=== PATIENT | male | born 1965 | race Caucasian/White ===

== ENCOUNTER 2020-08-21 10:56 | Emergency (ER) | payer MEDICARE ==
[2020-08-21 11:33] LABS: Basophils % (A) 1 %; Eosinophils % (A) 0 %; HCT 42.8 % (39.0-53.0); HGB 14.7 gm/dL (13.0-17.5); Lymphocytes # (A) 0.4 k/uL (1.0-4.8); Lymphocytes % (A) 9 %; MCH 30.1 pg (25.0-35.0); MCHC 34.4 g/dL (31.0-37.0); MCV 87.4 fL (80.0-100.0); Mean Platelet Volume 7.6; Monocytes # (A) 0.3 k/uL (0-1.0); Monocytes % (A) 7 %; Neutrophils # (A) 3.6 k/uL (1.3-7.7); Neutrophils % (A) 81 %; Platelet Count 120 k/uL (150-450); RDW 12.8 % (11.5-15.5); WBC 4.5 k/uL (3.8-10.6)
[2020-08-21 11:51] LABS: D-Dimer 0.55 mg/L FEU (<0.60); INR 0.9 (<1.2); Prothrombin Time 10.1 sec (9.0-12.0)
[2020-08-21 11:54] LABS: ALT 24 U/L (4-49); C Reactive Protein 44.8 mg/L (<10.0)
--- NOTE | 2020-08-21 12:06 | XR ---
EXAMINATION TYPE: XR chest 1V portable DATE OF EXAM: 08/21/2020 COMPARISON: NONE HISTORY: [id number]+ 1 day TECHNIQUE: Single AP portable frontal upright view of the chest is obtained. FINDINGS: There is multifocal increased opacities in the mid to lower lungs right slightly worse roshan n left on background low lung volumes. The cardiac silhouette size is mildly enlarged. The osseous structures are intact. IMPRESSION: Mild cardiomegaly and low lung volumes with multifocal bilateral acute infiltrates sligh tly worse in the right lung versus left lung consistent with Covid-19 infection.
[2020-08-21 12:23] LABS: AST 33 U/L (17-59); African American GFR (CKD) >90 (>60 ml/min/1.73 sqM); Albumin 3.7 g/dL (3.5-5.0); Alkaline Phosphatase 51 U/L (38-126); Anion Gap 7 mmol/L; Blood Urea Nitrogen 17 mg/dL (9-20); Calcium 8.4 mg/dL (8.4-10.2); Carbon Dioxide 28 mmol/L (22-30); Chloride 102 mmol/L (98-107); Glucose 115 mg/dL (74-99); LDH 671 U/L (313-618); Magnesium 1.7 mg/dL (1.6-2.3); Non-African American GFR(CKD) 82 (>60 ml/min/1.73 sqM); Sodium 137 mmol/L (137-145); Total Bilirubin 0.6 mg/dL (0.2-1.3); Total Protein 6.2 g/dL (6.3-8.2)
[2020-08-21] MEDS ORDERED: ACETAMINOPHEN TAB 325 MG TAB PO STA (12:47)
--- NOTE | 2020-08-21 12:49 | ED ---
SOB HPI - General Chief Complaint: Shortness of Breath Stated Complaint: COVID+/SOB Time Seen by Provider: 08/21/20 11:15 Source: EMS Mode of arrival: EMS Limitations: no limitations - History of Present Illness Initial Comments: A 55-year-old male with past medical history of asthma who presents to the emergency department with reported shortness of breath and fevers since Friday of last week. Patient reportedly had sick contacts that were positive for Covid including his son. Patient did go into [facility] on Friday for evaluation. States that he did test positive on that day. He was supposed to be admitted for his symptoms however the patient refused and wanted to go home. He was sent home with an inhaler which she has been using sporadically. 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 Denies any chest pain. No lower trauma swelling. No history of DVT or PE. Does admit to nausea with diarrhea. No abdominal pain. Has been taking Motrin and Tylenol for his fevers. Patient has never been on life support for his asthma. No other alleviating, precipitating or modifying factors - Related Data Home Medications Medication Instructions Recorded Confirmed Alfuzosin HCl [Alfuzosin HCl ER] 10 mg PO DAILY 08/21/20 08/21/20 Ascorbic Acid [Vitamin C] 500 mg PO DAILY 08/21/20 08/21/20 Cetirizine HCl [Zyrtec] 10 mg PO DAILY 08/21/20 08/21/20 Cholecalciferol [Vitamin D3 (25 25 mcg PO DAILY 08/21/20 08/21/20 Mcg = 1000 Iu)] Doxycycline Hyclate 100 mg PO BID 08/21/20 08/21/20 Omeprazole [PriLOSEC] 20 mg PO DAILY 08/21/20 08/21/20 Rosuvastatin [Crestor] 10 mg PO DAILY 08/21/20 08/21/20 methylPREDNISolone [Medrol Dose See Taper PO DIRECTED 08/21/20 08/21/20 Pack] Allergies Allergy/AdvReac Type Severity Reaction Status Date / Time mold Allergy Wheezing Verified 08/21/20 11:05 Penicillins Allergy Rash/Hives Verified 08/21/20 11:05 Review of Systems ROS Statement: Those systems with pertinent positive or pertinent negative responses have been documented in the HPI. ROS Other: All systems not noted in ROS Statement are negative. Past Medical History Past Medical History: Asthma History of Any Multi-Drug Resistant Organisms: None Reported Past Surgical History: Back Surgery, Hernia Repair, Orthopedic Surgery Past Psychological History: No Psychological Hx Reported Smoking Status: Never smoker Past Alcohol Use History: None Reported, Occasional Past Drug Use History: None Reported General Exam Limitations: no limitations Course Vital Signs 08/21/20 08/21/20 08/21/20 11:00 11:35 12:41 Temperature 99.9 F H 100.7 F H Pulse Rate 75 76 77 Respiratory 18 20 22 Rate Blood Pressure 126/81 151/90 O2 Sat by Pulse 96 92 L 88 L Oximetry 08/21/20 08/21/20 14:13 15:44 Temperature 98.5 F Pulse Rate 73 67 Respiratory 20 20 Rate Blood Pressure 124/71 129/71 O2 Sat by Pulse 93 L 91 L Oximetry Medical Decision Making - Medical Decision Making On arrival patient is placed into room 2. A thorough history and physical exam was performed. Patient does arise and is on 4 L via nasal cannula. Titrate the patient off of oxygen. Laboratory studies are conducted and a chest x-rays performed. D-dimer of 0.55 which is appropriately age-adjusted. Elevated LDH and C-reactive protein. Chest x-ray does demonstrate bilateral infiltrates slightly worse in the right lung versus the left consistent with Covid 19. Patient is able to get up and ambulate around the emergency department. He maintains oxygen saturations of 90%. I did discuss treatment with BAM with the patient. Does agree to the risks of receiving treatment. Patient did agree to infusion with monoclonal antibodies. He is observed in the emergency department for one hour and does not have any signs of anaphylactic reaction. At this time the patient will be discharged home to continue to use his inhaler as directed. He is to follow-up with his primary care doctor within 2-4 days. If he has any new or worsening symptoms he should return to the emergency department. Patient did agree to this treatment plan and was discharged home in stable condition - Lab Data Result diagrams: 08/21/20 11:22 08/21/20 11:22 Lab Results 08/21/20 08/21/20 08/21/20 Range/Units 11:22 11:22 11:22 WBC 4.5 (3.8-10.6) k/uL RBC 4.90 (4.30-5.90) m/uL Hgb 14.7 (13.0-17.5) gm/dL Hct 42.8 (39.0-53.0) % MCV 87.4 (80.0-100.0) fL MCH 30.1 (25.0-35.0) pg MCHC 34.4 (31.0-37.0) g/dL RDW 12.8 (11.5-15.5) % Plt Count 120 L (150-450) k/uL MPV 7.6 Neutrophils % 81 % Lymphocytes % 9 % Monocytes % 7 % Eosinophils % 0 % Basophils % 1 % Neutrophils # 3.6 (1.3-7.7) k/uL Lymphocytes # 0.4 L (1.0-4.8) k/uL Monocytes # 0.3 (0-1.0) k/uL Eosinophils # 0.0 (0-0.7) k/uL Basophils # 0.0 (0-0.2) k/uL PT 10.1 (9.0-12.0) sec INR 0.9 (<1.2) APTT 25.0 (22.0-30.0) sec D-Dimer 0.55 (<0.60) mg/L FEU Sodium 137 (137-145) mmol/L Potassium 4.0 (3.5-5.1) mmol/L Chloride 102 (98-107) mmol/L Carbon Dioxide 28 (22-30) mmol/L Anion Gap 7 mmol/L BUN 17 (9-20) mg/dL Creatinine 1.02 (0.66-1.25) mg/dL Est GFR (CKD-EPI)AfAm >90 (>60 ml/min/1.73 sqM) Est GFR (CKD-EPI)NonAf 82 (>60 ml/min/1.73 sqM) Glucose 115 H (74-99) mg/dL Plasma Lactic Acid Silvestre (0.7-2.0) mmol/L Calcium 8.4 (8.4-10.2) mg/dL Magnesium 1.7 (1.6-2.3) mg/dL Total Bilirubin 0.6 (0.2-1.3) mg/dL AST 33 (17-59) U/L ALT 24 (4-49) U/L Alkaline Phosphatase 51 (38-126) U/L Lactate Dehydrogenase 671 H (313-618) U/L C-Reactive Protein 44.8 H (<10.0) mg/L Total Protein 6.2 L (6.3-8.2) g/dL Albumin 3.7 (3.5-5.0) g/dL 08/21/20 Range/Units 11:22 WBC (3.8-10.6) k/uL RBC (4.30-5.90) m/uL Hgb (13.0-17.5) gm/dL Hct (39.0-53.0) % MCV (80.0-100.0) fL MCH (25.0-35.0) pg MCHC (31.0-37.0) g/dL RDW (11.5-15.5) % Plt Count (150-450) k/uL MPV Neutrophils % % Lymphocytes % % Monocytes % % Eosinophils % % Basophils % % Neutrophils # (1.3-7.7) k/uL Lymphocytes # (1.0-4.8) k/uL Monocytes # (0-1.0) k/uL Eosinophils # (0-0.7) k/uL Basophils # (0-0.2) k/uL PT (9.0-12.0) sec INR (<1.2) APTT (22.0-30.0) sec D-Dimer (<0.60) mg/L FEU Sodium (137-145) mmol/L Potassium (3.5-5.1) mmol/L Chloride (98-107) mmol/L Carbon Dioxide (22-30) mmol/L Anion Gap mmol/L BUN (9-20) mg/dL Creatinine (0.66-1.25) mg/dL Est GFR (CKD-EPI)AfAm (>60 ml/min/1.73 sqM) Est GFR (CKD-EPI)NonAf (>60 ml/min/1.73 sqM) Glucose (74-99) mg/dL Plasma Lactic Acid Silvestre 1.0 (0.7-2.0) mmol/L Calcium (8.4-10.2) mg/dL Magnesium (1.6-2.3) mg/dL Total Bilirubin (0.2-1.3) mg/dL AST (17-59) U/L ALT (4-49) U/L Alkaline Phosphatase (38-126) U/L Lactate Dehydrogenase (313-618) U/L C-Reactive Protein (<10.0) mg/L Total Protein (6.3-8.2) g/dL Albumin (3.5-5.0) g/dL - EKG Data EKG Comments: EKG demonstrates normal sinus rhythm with a ventricular rate of 72. MS interval 146. QRS 88. QTC of 400. No acute ST segment elevations or depressions Disposition Clinical Impression: COVID-19 Disposition: HOME SELF-CARE Condition: Stable Instructions (If sedation given, give patient instructions): Coronavirus Disease 2019 (COVID-19) Additional Instructions: Please follow-up with your primary care doctor within 2-4 days. Return to the emergency department for any new or worsening symptoms. use your inhaler every 4 hours. Take Tylenol for fever control. Return to the emergency department for any new or worsening symptoms Is patient prescribed a controlled substance at d/c from ED?: No Referrals: Victorino Webb DO [Primary Care Provider] - 1-2 days Time of Disposition: 13:25
[2020-08-21] MEDS ORDERED: ONDANSETRON 4 MG/2 ML VIAL IVP STA (12:55)
[2020-08-21] MEDS ORDERED: KETOROLAC 15 MG/ML 1 ML VIAL IVP STA (13:24)
[2020-08-21] MEDS ORDERED: ONDANSETRON 4 MG ODT STARTER PACK 2 TAB BTL PO STA (13:25)
[2020-08-21] MEDS ORDERED: BAMLANIVIMAB 700 MG in SODIUM CHLORIDE 0.9% 50 ML IVPB ONE ×2 (13:45→14:15)
[2020-08-21 14:15] VITALS: RESP 20
[2020-08-21 15:46] VITALS: BP 129/71; PULSE 67; TEMP 98.5
== END 2020-08-21 15:46 | disposition home or self-care (01) ==
LOC: EC 10:56
DX: U07.1 COVID-19 (principal); J45.909 Unspecified asthma, uncomplicated
CPT/HCPCS: 36415; 93005; 85379; 80053; 83605; 83615; 83735; 85025; 85610; 85730; 86140; 84145; 71045; 99284; 96365; 96375; J2405; J1885; S0119; Q0239

== ENCOUNTER 2020-08-23 16:07 | Inpatient (IN) | payer MEDICARE ==
[2020-08-23] MEDS ORDERED: DEXAMETHASONE SOD PHOSPHATE 10 MG/ML 1 ML VIAL IV STA (17:01)
[2020-08-23 17:20] LABS: Basophils % (A) 1 %; Eosinophils % (A) 1 %; HCT 42.7 % (39.0-53.0); HGB 14.7 gm/dL (13.0-17.5); Lymphocytes # (A) 0.8 k/uL (1.0-4.8); Lymphocytes % (A) 14 %; MCHC 34.4 g/dL (31.0-37.0); MCV 87.2 fL (80.0-100.0); Mean Platelet Volume 7.3; Monocytes # (A) 0.3 k/uL (0-1.0); Monocytes % (A) 5 %; Neutrophils # (A) 4.5 k/uL (1.3-7.7); Neutrophils % (A) 79 %; Platelet Count 166 k/uL (150-450); RDW 12.8 % (11.5-15.5); WBC 5.7 k/uL (3.8-10.6)
[2020-08-23 17:29] LABS: AST 43 U/L (17-59); African American GFR (CKD) >90 (>60 ml/min/1.73 sqM); Albumin 3.6 g/dL (3.5-5.0); Alkaline Phosphatase 53 U/L (38-126); Anion Gap 8 mmol/L; Blood Urea Nitrogen 20 mg/dL (9-20); Calcium 9.1 mg/dL (8.4-10.2); Carbon Dioxide 24 mmol/L (22-30); Chloride 107 mmol/L (98-107); Glucose 128 mg/dL (74-99); LDH 1069 U/L (313-618); Magnesium 1.9 mg/dL (1.6-2.3); Non-African American GFR(CKD) 84 (>60 ml/min/1.73 sqM); Potassium 3.9 mmol/L (3.5-5.1); Sodium 139 mmol/L (137-145); Total Bilirubin 0.5 mg/dL (0.2-1.3); Total Protein 6.2 g/dL (6.3-8.2)
[2020-08-23 17:34] LABS: ALT 24 U/L (4-49); C Reactive Protein 86.2 mg/L (<10.0)
[2020-08-23 17:35] LABS: INR 0.9 (<1.2); Partial Thromboplastin Time 23.9 sec (22.0-30.0); Prothrombin Time 9.9 sec (9.0-12.0)
--- NOTE | 2020-08-23 17:47 | XR ---
EXAMINATION TYPE: XR chest 1V portable DATE OF EXAM: 08/23/2020 COMPARISON: 08/21/2020 HISTORY: Short of breath TECHNIQUE: Single view FINDINGS: There is coarse infiltrate in the mid lung self bilaterally. There is airspace infiltrate . There is no heart failure. Heart size is normal. There is no pleural effusion. There are chest lead s. IMPRESSION: Bilateral pneumonia is increased slightly compared to recent exam. No heart failure.
--- NOTE | 2020-08-23 18:39 | ED ---
General Adult HPI - General Source: patient Mode of arrival: wheelchair Limitations: no limitations <Ambar Castle - Last Filed: 08/23/20 19:13> <Tamara Morales - Last Filed: 08/30/20 16:19> - General Chief complaint: Shortness of Breath Stated complaint: Revisit/COVID+/SOB Time Seen by Provider: 08/23/20 16:45 - History of Present Illness Initial comments: 55-year-old male patient presents to the emergency department today for evaluation of increased shortness of breath and decreased oxygen saturation. Aisha benavides was diagnosed with coated almost 2 weeks ago. He has completed prednisone and doxycycline. He was seen and evaluated here recently and had infusion of Bamlanivimab. States overall he does feel somewhat improved however his oxygen saturations has been decreasing into the 70s with activity. States he feels very winded whenever he attempts to even walk across the room. Reports frequent cough. Denies sputum production. Denies any chest pain. Patient denies any recent rash, abdominal pain, nausea, vomiting, diarrhea, constipation, back pain, numbness, tingling, dizziness, weakness, hematuria, dysuria, urinary urgency, urinary frequency, headache, visual changes, or any other complaints. (Ambar Castle) - Related Data Home Medications Medication Instructions Recorded Confirmed Alfuzosin HCl [Alfuzosin HCl ER] 10 mg PO DAILY 08/21/20 08/23/20 Ascorbic Acid [Vitamin C] 500 mg PO DAILY 08/21/20 08/23/20 Cetirizine HCl [Zyrtec] 10 mg PO DAILY 08/21/20 08/23/20 Cholecalciferol [Vitamin D3 (25 25 mcg PO DAILY 08/21/20 08/23/20 Mcg = 1000 Iu)] Doxycycline Hyclate 100 mg PO BID 08/21/20 08/23/20 Omeprazole [PriLOSEC] 20 mg PO DAILY 08/21/20 08/23/20 Rosuvastatin [Crestor] 10 mg PO DAILY 08/21/20 08/23/20 Allergies Allergy/AdvReac Type Severity Reaction Status Date / Time mold Allergy Wheezing Verified 08/23/20 18:22 Penicillins Allergy Rash/Hives Verified 08/23/20 18:22 Review of Systems ROS Other: All systems not noted in ROS Statement are negative. <Ambar Castle - Last Filed: 08/23/20 19:13> ROS Other: All systems not noted in ROS Statement are negative. <Tamara Morales Josette - Last Filed: 08/30/20 16:19> ROS Statement: Those systems with pertinent positive or pertinent negative responses have been documented in the HPI. Past Medical History Past Medical History: Asthma Additional Past Medical History / Comment(s): covid 19, History of Any Multi-Drug Resistant Organisms: None Reported Past Surgical History: Back Surgery, Hernia Repair, Orthopedic Surgery Past Psychological History: No Psychological Hx Reported Smoking Status: Never smoker Past Alcohol Use History: None Reported, Occasional Past Drug Use History: None Reported <CorrineShantanuAmbar Francnie - Last Filed: 08/23/20 19:13> General Exam Limitations: no limitations General appearance: alert, in no apparent distress, other (Physical well- developed, well-nourished adult male patient in no acute distress. Vital signs upon presentation are temperature 99.1F, pulse 89, respirations 22, blood pressure 111/65, pulse ox 87% on room air.) Eye exam: Present: normal appearance, PERRL, EOMI. Absent: scleral icterus, conjunctival injection, periorbital swelling ENT exam: Present: normal exam, normal oropharynx, mucous membranes moist Respiratory exam: Present: respiratory distress, other (Tachypnea). Absent: wheezes, rales, rhonchi, stridor Cardiovascular Exam: Present: regular rate, normal rhythm, normal heart sounds. Absent: systolic murmur, diastolic murmur, rubs, gallop, clicks GI/Abdominal exam: Present: soft, normal bowel sounds. Absent: distended, tenderness, guarding, rebound, rigid Neurological exam: Present: alert, oriented X3, CN II-XII intact Psychiatric exam: Present: normal affect, normal mood Skin exam: Present: warm, dry, intact, normal color. Absent: rash <TaraShantanu yehina Francine - Last Filed: 08/23/20 19:13> Course Vital Signs 08/23/20 08/23/20 08/23/20 16:26 16:35 17:00 Temperature 99.1 F Pulse Rate 89 72 Pulse Rate [ Pulse Oximetery ] Respiratory 22 18 Rate Blood Pressure 111/65 110/72 Blood Pressure [Left Arm] O2 Sat by Pulse 87 L 91 L 91 L Oximetry 08/23/20 08/23/20 08/23/20 17:20 17:30 18:00 Temperature Pulse Rate 80 76 Pulse Rate [ Pulse Oximetery ] Respiratory 20 18 16 Rate Blood Pressure 118/86 118/86 Blood Pressure [Left Arm] O2 Sat by Pulse 93 L 90 L Oximetry 08/23/20 08/23/20 08/24/20 18:56 20:12 00:00 Temperature 99.6 F 98.7 F 98.7 F Pulse Rate 71 85 Pulse Rate [ 71 71 Pulse Oximetery ] Respiratory 18 18 18 Rate Blood Pressure 118/71 115/58 Blood Pressure 131/78 131/78 [Left Arm] O2 Sat by Pulse 91 L 94 L 94 L Oximetry 08/24/20 00:04 Temperature 98.4 F Pulse Rate 84 Pulse Rate [ Pulse Oximetery ] Respiratory 18 Rate Blood Pressure 137/77 Blood Pressure [Left Arm] O2 Sat by Pulse 94 L Oximetry EKG Findings - EKG Comments: EKG Findings:: EKG obtained at 1754 shows normal sinus rhythm with a ventricular rate of 70, DE interval 156, QRS duration 88, QT 380, QTc 410. No evidence of ST elevation or depression. <Ambar Castle - Last Filed: 08/23/20 19:13> Medical Decision Making - Lab Data Result diagrams: 08/23/20 17:10 08/23/20 17:10 - Radiology Data Radiology results: report reviewed, image reviewed <Ambar Castle - Last Filed: 08/23/20 19:13> - Lab Data Result diagrams: 08/30/20 05:54 08/30/20 05:54 <Tamara Morales - Last Filed: 08/30/20 16:19> - Medical Decision Making 55-year-old male patient presented to the emergency department today for evaluation of increased shortness of breath and low oxygen saturation. He is Covid positive. Lung sounds were unremarkable. He did drop down to 85% on room air. Labs reviewed and did reveal elevated d-dimer, elevated LDH, elevated CRP. These are slightly worsened last labs from a few days ago. Chest x-ray does also look slightly worse. He will be started on IV steroids. He did receive monoclonal antibodies a couple of days ago. Admitted to the hospital for O2 therapy and further evaluation by pulmonology. He is agreeable with this plan. Case discussed with my attending Dr. Morales who will contact [facility] for admission. (Ambar Castle) I was available for consultation in the emergency department. The history and physical exam were done by the midlevel provider. I was consulted for this patients care. I reviewed the case with the midlevel provider and based on their presentation of the patient, I agree with the assessment, medical decision making and plan of care as documented. Chart was dictated using [employer] dictation software. Attempts were made to correct any dictation errors however some typographical errors may persist. Patient was seen during a national state of emergency due to the Covid-19 pandemic. (Tamara Morales) - Lab Data Lab Results 08/23/20 08/23/20 08/23/20 Range/Units 17:10 17:10 17:10 WBC 5.7 (3.8-10.6) k/uL RBC 4.90 (4.30-5.90) m/uL Hgb 14.7 (13.0-17.5) gm/dL Hct 42.7 (39.0-53.0) % MCV 87.2 (80.0-100.0) fL MCH 30.0 (25.0-35.0) pg MCHC 34.4 (31.0-37.0) g/dL RDW 12.8 (11.5-15.5) % Plt Count 166 (150-450) k/uL MPV 7.3 Neutrophils % 79 % Lymphocytes % 14 % Monocytes % 5 % Eosinophils % 1 % Basophils % 1 % Neutrophils # 4.5 (1.3-7.7) k/uL Lymphocytes # 0.8 L (1.0-4.8) k/uL Monocytes # 0.3 (0-1.0) k/uL Eosinophils # 0.0 (0-0.7) k/uL Basophils # 0.0 (0-0.2) k/uL PT 9.9 (9.0-12.0) sec INR 0.9 (<1.2) APTT 23.9 (22.0-30.0) sec D-Dimer 0.89 H (<0.60) mg/L FEU Sodium 139 (137-145) mmol/L Potassium 3.9 (3.5-5.1) mmol/L Chloride 107 (98-107) mmol/L Carbon Dioxide 24 (22-30) mmol/L Anion Gap 8 mmol/L BUN 20 (9-20) mg/dL Creatinine 1.00 (0.66-1.25) mg/dL Est GFR (CKD-EPI)AfAm >90 (>60 ml/min/1.73 sqM) Est GFR (CKD-EPI)NonAf 84 (>60 ml/min/1.73 sqM) Glucose 128 H (74-99) mg/dL Plasma Lactic Acid Silvestre (0.7-2.0) mmol/L Calcium 9.1 (8.4-10.2) mg/dL Magnesium 1.9 (1.6-2.3) mg/dL Ferritin 1637.2 H (22.0-322.0) ng/mL Total Bilirubin 0.5 (0.2-1.3) mg/dL AST 43 (17-59) U/L ALT 24 (4-49) U/L Alkaline Phosphatase 53 (38-126) U/L Lactate Dehydrogenase 1069 H (313-618) U/L C-Reactive Protein 86.2 H (<10.0) mg/L Total Protein 6.2 L (6.3-8.2) g/dL Albumin 3.6 (3.5-5.0) g/dL Procalcitonin (0.02-0.09) ng/mL 08/23/20 08/23/20 Range/Units 17:10 17:10 WBC (3.8-10.6) k/uL RBC (4.30-5.90) m/uL Hgb (13.0-17.5) gm/dL Hct (39.0-53.0) % MCV (80.0-100.0) fL MCH (25.0-35.0) pg MCHC (31.0-37.0) g/dL RDW (11.5-15.5) % Plt Count (150-450) k/uL MPV Neutrophils % % Lymphocytes % % Monocytes % % Eosinophils % % Basophils % % Neutrophils # (1.3-7.7) k/uL Lymphocytes # (1.0-4.8) k/uL Monocytes # (0-1.0) k/uL Eosinophils # (0-0.7) k/uL Basophils # (0-0.2) k/uL PT (9.0-12.0) sec INR (<1.2) APTT (22.0-30.0) sec D-Dimer (<0.60) mg/L FEU Sodium (137-145) mmol/L Potassium (3.5-5.1) mmol/L Chloride (98-107) mmol/L Carbon Dioxide (22-30) mmol/L Anion Gap mmol/L BUN (9-20) mg/dL Creatinine (0.66-1.25) mg/dL Est GFR (CKD-EPI)AfAm (>60 ml/min/1.73 sqM) Est GFR (CKD-EPI)NonAf (>60 ml/min/1.73 sqM) Glucose (74-99) mg/dL Plasma Lactic Acid Silvestre 1.2 (0.7-2.0) mmol/L Calcium (8.4-10.2) mg/dL Magnesium (1.6-2.3) mg/dL Ferritin (22.0-322.0) ng/mL Total Bilirubin (0.2-1.3) mg/dL AST (17-59) U/L ALT (4-49) U/L Alkaline Phosphatase (38-126) U/L Lactate Dehydrogenase (313-618) U/L C-Reactive Protein (<10.0) mg/L Total Protein (6.3-8.2) g/dL Albumin (3.5-5.0) g/dL Procalcitonin 0.16 H (0.02-0.09) ng/mL - Radiology Data One view x-ray of the chest is obtained. Report was reviewed in its entirety. Impression by Dr. Rojas shows bilateral pneumonias increase slightly compared to recent exam. No heart failure. (Ambar Castle) Disposition Decision to Admit Reason: Admit from [facility] Decision Date: 08/23/20 Decision Time: 19:01 <Ambar Castle - Last Filed: 08/23/20 19:13> <Tamara Morales - Last Filed: 08/30/20 16:19> Clinical Impression: Pneumonia due to COVID-19 virus, Hypoxia Disposition: ADMITTED IP TO THIS HOSP Condition: Serious
[2020-08-23] MEDS ORDERED: guaiFENesin-DM 600/30MG 1 EACH TAB.ER.12H PO STA (18:57)
[2020-08-23] MEDS ORDERED: NALOXONE 0.4 MG/ML 1 ML VIAL IV PRN (18:58)
[2020-08-23] MEDS: SODIUM CHLORIDE 0.9% 1,000 ML IV SCH (20:09)
[2020-08-24 07:43] LABS: Ferritin 1637.2 ng/mL (22.0-322.0)
[2020-08-24] MEDS: PANTOPRAZOLE 40 MG TABLET PO SCH (12:41)
[2020-08-24] MEDS: CHOLECALCIFEROL 25 MCG (1000 IU) TABLET PO SCH (12:41)
[2020-08-24] MEDS: ATORVASTATIN 20 MG TAB PO SCH (12:41)
[2020-08-24] MEDS: TAMSULOSIN 0.4 MG CAP.ER.24H PO SCH (12:41)
[2020-08-24] MEDS: ENOXAPARIN 40 MG/0.4 ML SYRINGE SQ SCH (12:42)
[2020-08-24] MEDS: ASCORBIC ACID 500 MG TAB PO SCH ×2 (12:42→20:48)
[2020-08-24] MEDS: SODIUM CHLORIDE 0.9% 1,000 ML IV SCH ×2 (12:51→21:40)
--- NOTE | 2020-08-24 12:52 | P.HPIM ---
History of Present Illness 55-year-old male patient presents to the emergency department today for evaluation of increased shortness of breath and decreased oxygen saturation. Patient was diagnosed with coated almost 2 weeks ago. He has completed prednisone and doxycycline. He was seen and evaluated here recently and had infusion of Bamlanivimab. States overall he does feel somewhat improved however his oxygen saturations has been decreasing into the 70s with activity. States he feels very winded whenever he attempts to even walk across the room. Reports frequent cough. Denies sputum production. Denies any chest pain. Patient denies any recent rash, abdominal pain, nausea, vomiting, diarrhea, constipation, back pain, numbness, tingling, dizziness, weakness, hematuria, dysuria, urinary urgency, urinary frequency, headache, visual changes, or any other complaints. Patient is presently on 5 L of oxygen chest x-ray showing infiltrates consistent with the covid pneumonia. Review of Systems REVIEW OF SYSTEMS: CONSTITUTIONAL: As mentioned in HPI HEENT: No recent visual problems or hearing problems. Denied any sore throat. CARDIOVASCULAR: No chest pain, orthopnea, PND, no palpitations, no syncope. PULMONARY: no hemoptysis. GASTROINTESTINAL: No diarrhea, no nausea, no vomiting, no abdominal pain. NEUROLOGICAL: No headaches, no weakness, no numbness. HEMATOLOGICAL: Denies any bleeding or petechiae. GENITOURINARY: Denies any burning micturition, frequency, or urgency. MUSCULOSKELETAL/RHEUMATOLOGICAL: Denies any joint pain, swelling, or any muscle pain. ENDOCRINE: Denies any polyuria or polydipsia. The rest of the 14-point review of systems is negative. Past Medical History Past Medical History: Asthma, Hyperlipidemia Additional Past Medical History / Comment(s): covid 19, History of Any Multi-Drug Resistant Organisms: None Reported Past Surgical History: Back Surgery, Hernia Repair, Orthopedic Surgery Additional Past Surgical History / Comment(s): R shoulder surgery Past Anesthesia/Blood Transfusion Reactions: No Reported Reaction Past Psychological History: No Psychological Hx Reported Smoking Status: Never smoker Past Alcohol Use History: None Reported, Occasional Past Drug Use History: None Reported - Past Family History Father Family Medical History: Congestive Heart Failure (CHF) Mother Family Medical History: Diabetes Mellitus, Myocardial Infarction ([place]) Medications and Allergies Home Medications Medication Instructions Recorded Confirmed Type Alfuzosin HCl [Alfuzosin HCl ER] 10 mg PO DAILY 08/21/20 08/23/20 History Ascorbic Acid [Vitamin C] 500 mg PO DAILY 08/21/20 08/23/20 History Cetirizine HCl [Zyrtec] 10 mg PO DAILY 08/21/20 08/23/20 History Cholecalciferol [Vitamin D3 (25 25 mcg PO DAILY 08/21/20 08/23/20 History Mcg = 1000 Iu)] Doxycycline Hyclate 100 mg PO BID 08/21/20 08/23/20 History Omeprazole [PriLOSEC] 20 mg PO DAILY 08/21/20 08/23/20 History Rosuvastatin [Crestor] 10 mg PO DAILY 08/21/20 08/23/20 History Allergies Allergy/AdvReac Type Severity Reaction Status Date / Time mold Allergy Wheezing Verified 08/23/20 18:22 Penicillins Allergy Rash/Hives Verified 08/23/20 18:22 Physical Exam Vitals: Vital Signs Temp Pulse Pulse Resp BP BP Pulse Ox 08/24/20 11:51 97.7 F 64 20 104/69 86 L 08/24/20 08:00 98.1 F 65 20 124/69 91 L 08/24/20 04:00 98.3 F 65 20 102/56 91 L 08/24/20 00:04 98.4 F 84 18 137/77 94 L 08/24/20 00:00 98.7 F 71 18 131/78 94 L 08/23/20 20:12 98.7 F 85 71 18 115/58 131/78 94 L 08/23/20 18:56 99.6 F 71 18 118/71 91 L 08/23/20 18:00 76 16 118/86 90 L 08/23/20 17:30 80 18 118/86 93 L 08/23/20 17:20 20 08/23/20 17:00 72 18 110/72 91 L 08/23/20 16:35 91 L 08/23/20 16:26 99.1 F 89 22 111/65 87 L Intake and Output 08/23/20 08/24/20 08/24/20 22:59 06:59 14:59 Intake Total 240 Balance 240 Intake: Oral 240 Other: # Voids 1 # Bowel Movements 1 Weight 111.13 kg 113.5 kg PHYSICAL EXAMINATION: GENERAL: The patient is alert and oriented x3, not in any acute distress. Obese HEENT: Pupils are round and equally reacting to light. EOMI. No scleral icterus. No conjunctival pallor. Normocephalic, atraumatic. No pharyngeal erythema. No thyromegaly. CARDIOVASCULAR: S1 and S2 present. No murmurs, rubs, or gallops. PULMONARY: Chest is clear to auscultation, no wheezing or crackles. ABDOMEN: Soft, nontender, nondistended, normoactive bowel sounds. No palpable organomegaly. MUSCULOSKELETAL: No joint swelling or deformity. EXTREMITIES: No cyanosis, clubbing, or pedal edema. NEUROLOGICAL: Gross neurological examination did not reveal any focal deficits. SKIN: No rashes. Results CBC & Chem 7: 08/23/20 17:10 08/23/20 17:10 Labs: Abnormal Lab Results - Last 24 Hours (Table) 08/23/20 08/23/20 08/23/20 Range/Units 17:10 17:10 17:10 Lymphocytes # 0.8 L (1.0-4.8) k/uL D-Dimer 0.89 H (<0.60) mg/L FEU Glucose 128 H (74-99) mg/dL Ferritin 1637.2 H (22.0-322.0) ng/mL Lactate Dehydrogenase 1069 H (313-618) U/L C-Reactive Protein 86.2 H (<10.0) mg/L Total Protein 6.2 L (6.3-8.2) g/dL Thrombosis Risk Factor Assmnt - Choose All That Apply Each Factor Represents 1 point: Age 41-60 years Other Risk Factors: No Other congenital or acquired thrombophilia - If yes, enter type in comment: No Thrombosis Risk Factor Assessment Total Risk Factor Score: 1 Thrombosis Risk Factor Assessment Level: Low Risk Assessment and Plan Plan: -Acute hypoxic respiratory failure: Secondary to covid 19 pneumonia patient will be started on Decadron Zinc ascorbic acid, pulmonology will be consulted. -Asthma without any acute exacerbation at this time -Hyperlipidemia -Obesity -Gastroesophageal reflux disease -DVT prophylaxis with Lovenox GI prophylaxis with Prilosec
[2020-08-24] MEDS: methylPREDNISolone SOD SUCCI 125 MG/2 ML VIAL IV SCH ×3 (13:28→23:26)
[2020-08-24] MEDS: ACETAMINOPHEN TAB 325 MG TAB PO PRN ×2 (14:07→23:25)
--- NOTE | 2020-08-24 15:06 | P.CNPUL ---
History of Present Illness Consult date: 08/24/20 Requesting physician: Itzel Jauregui Reason for consult: dyspnea, cough, hypoxemia, pneumonia, abnormal CXR/CT Chief complaint: COVID 19 Pneumonia. History of present illness: 55-year-old male patient who presents to the emergency department on August 23, for increasing shortness of breath, and decreased oxygen saturation. He was diagnosed as having COVID, more than 2 weeks ago. The patient was placed on prednisone and doxycycline by his primary care provider. He also was seen in the emergency department recently, and received an infusion of BAM. More recently, he states that although he initially seemed to improve after the infusion of BAM, he has now worsened. He states that any activity makes him short of breath, and his saturations drop into the 70s. He feels winded even at rest. He does have a bit of a cough. The cough is mostly dry. He does have pain in his chest when he coughs. He denies any chest pain outside of coughing, chest pressure, nausea, vomiting, diarrhea, abdominal pain, genitourinary complaints, or rash. Chest x-ray showed extensive bilateral pneumonia. White count is 5.7, hemoglobin 14.7, hematocrit 42.7 and platelet count 166,000. The lymphocyte count is decreased. The d-dimer is 0.89, and sodium is 139, potassium 3.9, chlorides 107, CO2 24, anion gap 8, BUN 20, and creatinine 1. The ferritin count is 1637, the LDH is 1069, and the C-reactive protein is 86.2. Pro-calcitonin is 0.16. Review of Systems REVIEW OF SYSTEMS: CONSTITUTIONAL: Fatigue and weakness. NEUROLOGIC: [ Negative.] HEENT: [ Negative.] CARDIAC: Chest pain when coughing. PULMONARY: Shortness of breath and cough. GI: [Negative.] : [Negative.] RHEUMATOLOGIC: [ Negative.] IMMUNOLOGIC: [ Negative.] ENDOCRINE: [Negative. ] DERMATOLOGIC: [Negative.] Past Medical History Past Medical History: Asthma, Hyperlipidemia Additional Past Medical History / Comment(s): covid 19, History of Any Multi-Drug Resistant Organisms: None Reported Past Surgical History: Back Surgery, Hernia Repair, Orthopedic Surgery Additional Past Surgical History / Comment(s): R shoulder surgery Past Anesthesia/Blood Transfusion Reactions: No Reported Reaction Past Psychological History: No Psychological Hx Reported Smoking Status: Never smoker Past Alcohol Use History: None Reported, Occasional Past Drug Use History: None Reported - Past Family History Father Family Medical History: Congestive Heart Failure (CHF) Mother Family Medical History: Diabetes Mellitus, Myocardial Infarction ([place]) Medications and Allergies Home Medications Medication Instructions Recorded Confirmed Type Alfuzosin HCl [Alfuzosin HCl ER] 10 mg PO DAILY 08/21/20 08/23/20 History Ascorbic Acid [Vitamin C] 500 mg PO DAILY 08/21/20 08/23/20 History Cetirizine HCl [Zyrtec] 10 mg PO DAILY 08/21/20 08/23/20 History Cholecalciferol [Vitamin D3 (25 25 mcg PO DAILY 08/21/20 08/23/20 History Mcg = 1000 Iu)] Doxycycline Hyclate 100 mg PO BID 08/21/20 08/23/20 History Omeprazole [PriLOSEC] 20 mg PO DAILY 08/21/20 08/23/20 History Rosuvastatin [Crestor] 10 mg PO DAILY 08/21/20 08/23/20 History Allergies Allergy/AdvReac Type Severity Reaction Status Date / Time mold Allergy Wheezing Verified 08/23/20 18:22 Penicillins Allergy Rash/Hives Verified 08/23/20 18:22 Physical Exam Osteopathic Statement: *. No significant issues noted on an osteopathic structural exam other than those noted in the History and Physical/Consult. Vitals: Vital Signs Temp Pulse Pulse Resp BP BP Pulse Ox 08/24/20 11:51 97.7 F 64 20 104/69 86 L 08/24/20 08:00 98.1 F 65 20 124/69 91 L 08/24/20 04:00 98.3 F 65 20 102/56 91 L 08/24/20 00:04 98.4 F 84 18 137/77 94 L 08/24/20 00:00 98.7 F 71 18 131/78 94 L 08/23/20 20:12 98.7 F 85 71 18 115/58 131/78 94 L 08/23/20 18:56 99.6 F 71 18 118/71 91 L 08/23/20 18:00 76 16 118/86 90 L 08/23/20 17:30 80 18 118/86 93 L 08/23/20 17:20 20 08/23/20 17:00 72 18 110/72 91 L 08/23/20 16:35 91 L 08/23/20 16:26 99.1 F 89 22 111/65 87 L Intake and Output 08/23/20 08/24/20 08/24/20 22:59 06:59 14:59 Intake Total 240 Balance 240 Intake: Oral 240 Other: # Voids 1 # Bowel Movements 1 Weight 111.13 kg 113.5 kg No acute distress, oriented 3. Currently on high flow oxygen, at 8 L. Recently increased up from 5 L. HEENT examination is grossly unremarkable. Mucous membranes are moist. No oral lesions. Neck supple. Full range of motion. No adenopathy thyromegaly or neck vein distention. Cardiovascular examination reveals regular rhythm rate. S1-S2 normal. No S3 or S4. No discernible murmur noted. Heart rate is 64 bpm. Lungs reveal bilateral coarse rhonchi. Bilateral and bibasilar crackles appreciated. Breath sounds equal bilaterally. No wheezes. Abdomen soft bowel sounds are heard. No masses or tenderness. Extremities are intact. No cyanosis clubbing or edema. Skin is without rash or lesion. Neurologic examination is brief but nonfocal. Results - Laboratory Findings CBC and BMP: 08/23/20 17:10 08/23/20 17:10 PT/INR, D-dimer PT 9.9 sec (9.0-12.0) 08/23/20 17:10 INR 0.9 (<1.2) 08/23/20 17:10 D-Dimer 0.89 mg/L FEU (<0.60) H 08/23/20 17:10 Abnormal lab findings: Abnormal Labs 08/23/20 08/23/20 08/23/20 17:10 17:10 17:10 Lymphocytes # 0.8 L D-Dimer 0.89 H Glucose 128 H Ferritin 1637.2 H Lactate Dehydrogenase 1069 H C-Reactive Protein 86.2 H Total Protein 6.2 L Procalcitonin 08/23/20 17:10 Lymphocytes # D-Dimer Glucose Ferritin Lactate Dehydrogenase C-Reactive Protein Total Protein Procalcitonin 0.16 H - Diagnostic Findings Chest x-ray: image reviewed Assessment and Plan Assessment: Acute hypoxemic respiratory failure, secondary to COVID 19 pneumonia/pneumonitis, with recently worsening oxygenation. History of chronic bronchial asthma. History of gastroesophageal reflux disease. History of hyperlipidemia. Plan: Plan dated 08/24/2020. Currently, in our opinion, the patient's a candidate for an albuterol inhaler, vitamin C, vitamin D3, and sitting. In addition, because of worsening oxygenation, the Decadron is discontinued in favor of Solu-Medrol, 60 mg IV push, every 6 hours. Finally, the patient will get TOCI, to help prevent further deterioration and transferWe will continue to follow. to the ICU, and mechanical ventilation. Even with everything that we are doing, the patient may still deteriorate. His chest x-ray shows significant bilateral infiltrates. Additional recommendations suggestions are forthcoming. We will continue to follow. Time with Patient: Greater than 30
[2020-08-24] MEDS: ALBUTEROL HFA INHALER INHALATION SCH ×2 (15:40→19:35)
[2020-08-24] MEDS ORDERED: TOCILIZUMAB 400 MG in SODIUM CHLORIDE 0.9% 80 ML IV ONE (16:00)
[2020-08-24] MEDS: guaiFENesin-DM 600/30MG 1 EACH TAB.ER.12H PO PRN (18:07)
[2020-08-24] MEDS ORDERED: ASCORBIC ACID 500 MG TAB PO SCH (21:00)
[2020-08-25] MEDS: methylPREDNISolone SOD SUCCI 125 MG/2 ML VIAL IV SCH ×3 (06:10→17:32)
[2020-08-25] MEDS: ALBUTEROL HFA INHALER INHALATION SCH ×4 (07:16→20:04)
[2020-08-25 08:04] LABS: African American GFR (CKD) >90 (>60 ml/min/1.73 sqM); Anion Gap 6 mmol/L; Blood Urea Nitrogen 19 mg/dL (9-20); Calcium 8.5 mg/dL (8.4-10.2); Carbon Dioxide 27 mmol/L (22-30); Chloride 105 mmol/L (98-107); Glucose 163 mg/dL (74-99); Non-African American GFR(CKD) >90 (>60 ml/min/1.73 sqM); Potassium 4.6 mmol/L (3.5-5.1); Sodium 138 mmol/L (137-145)
[2020-08-25] MEDS ORDERED: TAMSULOSIN 0.4 MG CAP.ER.24H PO SCH (09:00)
[2020-08-25] MEDS ORDERED: CHOLECALCIFEROL 25 MCG (1000 IU) TABLET PO SCH (09:00)
[2020-08-25] MEDS: ENOXAPARIN 40 MG/0.4 ML SYRINGE SQ SCH (09:56)
[2020-08-25] MEDS: CHOLECALCIFEROL 25 MCG (1000 IU) TABLET PO SCH (09:58)
[2020-08-25] MEDS: ZINC SULFATE 220 MG CAP PO SCH (09:58)
[2020-08-25] MEDS: PANTOPRAZOLE 40 MG TABLET PO SCH (09:58)
[2020-08-25] MEDS: ASCORBIC ACID 500 MG TAB PO SCH ×2 (09:58→20:43)
[2020-08-25] MEDS: ATORVASTATIN 20 MG TAB PO SCH (09:58)
[2020-08-25] MEDS: TAMSULOSIN 0.4 MG CAP.ER.24H PO SCH (09:59)
[2020-08-25] MEDS: guaiFENesin-DM 600/30MG 1 EACH TAB.ER.12H PO PRN (11:17)
--- NOTE | 2020-08-25 14:01 | XR ---
EXAMINATION TYPE: XR chest 1V portable DATE OF EXAM: 08/25/2020 CLINICAL HISTORY: Difficulty breathing progress study. COVID positive. TECHNIQUE: Single AP portable upright view of the chest is obtained. COMPARISON: Chest x-ray from 2 days earlier FINDINGS: Persistent right greater than left peripheral midlung opacities on background low lung vol umes. Some improved aeration bilaterally felt present. Heart size stable and upper limits of normal. Osseous structures intact. IMPRESSION: Persistent but improved right greater than left bilateral peripheral acute opacities.
--- NOTE | 2020-08-25 14:06 | P.PN ---
Subjective 55-year-old male patient presents to the emergency department today for evaluation of increased shortness of breath and decreased oxygen saturation. Patient was diagnosed with coated almost 2 weeks ago. He has completed prednisone and doxycycline. He was seen and evaluated here recently and had infusion of Bamlanivimab. States overall he does feel somewhat improved however his oxygen saturations has been decreasing into the 70s with activity. States he feels very winded whenever he attempts to even walk across the room. Reports frequent cough. Denies sputum production. Denies any chest pain. Patient denies any recent rash, abdominal pain, nausea, vomiting, diarrhea, constipation, back pain, numbness, tingling, dizziness, weakness, hematuria, dysuria, urinary urgency, urinary frequency, headache, visual changes, or any other complaints. 08/25/2020 Patient is presently in a lead 8 L of oxygen. Patient is presently on IV ster oids, normal saline. Objective - Vital Signs Vital signs: Vital Signs Temp 97.6 F 08/25/20 12:00 Pulse 59 L 08/25/20 12:00 Resp 20 08/25/20 12:00 BP 105/58 08/25/20 12:00 Pulse Ox 90 L 08/25/20 12:00 Intake & Output 08/24/20 08/25/20 08/25/20 18:59 06:59 18:59 Intake Total 720 840 Balance 720 840 Weight 115 kg Intake: Oral 720 840 Other: # Voids 2 1 3 - Exam PHYSICAL EXAMINATION: GENERAL: The patient is alert and oriented x3, not in any acute distress. Obese HEENT: Pupils are round and equally reacting to light. EOMI. No scleral icterus. No conjunctival pallor. Normocephalic, atraumatic. No pharyngeal erythema. No thyromegaly. CARDIOVASCULAR: S1 and S2 present. No murmurs, rubs, or gallops. PULMONARY: Chest is clear to auscultation, no wheezing or crackles. ABDOMEN: Soft, nontender, nondistended, normoactive bowel sounds. No palpable organomegaly. MUSCULOSKELETAL: No joint swelling or deformity. EXTREMITIES: No cyanosis, clubbing, or pedal edema. NEUROLOGICAL: Gross neurological examination did not reveal any focal deficits. SKIN: No rashes. - Labs CBC & Chem 7: 08/23/20 17:10 08/25/20 06:41 Labs: Abnormal Lab Results - Last 24 Hours (Table) 08/25/20 Range/Units 06:41 Glucose 163 H (74-99) mg/dL Microbiology - Last 24 Hours (Table) 08/23/20 17:59 Blood Culture - Preliminary Blood No Growth after 24 hours 08/23/20 17:10 Blood Culture - Preliminary Blood No Growth after 24 hours Assessment and Plan Plan: -Acute hypoxic respiratory failure: Secondary to covid 19 pneumonia patient will be started on IV Solu-Medrol Zinc ascorbic acid, pulmonology evaluated the patient patient is presently on 80% oxygen. -Asthma without any acute exacerbation at this time -Hyperlipidemia -Obesity -Gastroesophageal reflux disease -DVT prophylaxis with Lovenox GI prophylaxis with Prilosec
[2020-08-25 14:37] LABS: C Reactive Protein 23.7 mg/L (<10.0)
[2020-08-25] MEDS: SODIUM CHLORIDE 0.9% 1,000 ML IV SCH (15:05)
--- NOTE | 2020-08-25 16:18 | P.PN ---
Subjective Progress Note Date: 08/25/20 Principal diagnosis: CoVID 19 pneumonia 55-year-old male patient who presents to the emergency department on August 23, for increasing shortness of breath, and decreased oxygen saturation. He was diagnosed as having COVID, more than 2 weeks ago. The patient was placed on prednisone and doxycycline by his primary care provider. He also was seen in the emergency department recently, and received an infusion of BAM. More recently, he states that although he initially seemed to improve after the infusion of BAM, he has now worsened. He states that any activity makes him sh ort of breath, and his saturations drop into the 70s. He feels winded even at rest. He does have a bit of a cough. The cough is mostly dry. He does have pain in his chest when he coughs. He denies any chest pain outside of coughing, chest pressure, nausea, vomiting, diarrhea, abdominal pain, genitourinary complaints, or rash. Chest x-ray showed extensive bilateral pneumonia. White count is 5.7, hemoglobin 14.7, hematocrit 42.7 and platelet count 166,000. The lymphocyte count is decreased. The d-dimer is 0.89, and sodium is 139, potassium 3.9, chlorides 107, CO2 24, anion gap 8, BUN 20, and creatinine 1. The ferritin count is 1637, the LDH is 1069, and the C-reactive protein is 86.2. Pro-calcitonin is 0.16. The patient is seen today 08/25/2020 in follow-up on the selective care unit. He is currently resting fairly comfortably in bed. He is not much improved today compared to yesterday. Still with a chronic and ongoing cough. He is on 8 L high flow nasal cannula. 0.9 normal saline at 75 ML's per hour. Chest x- ray continues to show persistent but improved right greater than left bilateral peripheral acute opacities. D-dimer 0.63. LDH 816. C-reactive protein 23.7. He is continued on IV Solu-Medrol, Lovenox, vitamin supplements. Objective - Vital Signs Vital signs: Vital Signs Temp 98 F 08/25/20 15:55 Pulse 53 L 08/25/20 15:55 Resp 22 08/25/20 15:55 BP 107/58 08/25/20 15:55 Pulse Ox 91 L 08/25/20 15:55 Intake & Output 08/24/20 08/25/20 08/25/20 18:59 06:59 18:59 Intake Total 720 840 Balance 720 840 Weight 115 kg Intake: Oral 720 840 Other: # Voids 2 1 3 - Exam GENERAL EXAM: Alert, pleasant 55-year-old gentleman, on 8 L high flow nasal cannula, comfortable in no apparent distress. HEAD: Normocephalic. EYES: Normal reaction of pupils, equal size. NOSE: Clear with pink turbinates. THROAT: No erythema or exudates. NECK: No masses, no JVD. CHEST: No chest wall deformity. LUNGS: Equal air entry with scattered rhonchi, crackles in the posterior bases. CVS: S1 and S2 normal with no audible murmur, regular rhythm. ABDOMEN: No hepatosplenomegaly, normal bowel sounds, no guarding or rigidity. SPINE: No scoliosis or deformity SKIN: No rashes CENTRAL NERVOUS SYSTEM: No focal deficits, tone is normal in all 4 extremities. EXTREMITIES: There is no peripheral edema. No clubbing, no cyanosis. Kajal pheral pulses are intact. - Labs CBC & Chem 7: 08/23/20 17:10 08/25/20 06:41 Labs: Abnormal Lab Results - Last 24 Hours (Table) 08/25/20 08/25/20 08/25/20 Range/Units 06:41 14:05 14:05 D-Dimer 0.63 H (<0.60) mg/L FEU Glucose 163 H (74-99) mg/dL Lactate Dehydrogenase 816 H (313-618) U/L C-Reactive Protein 23.7 H (<10.0) mg/L Microbiology - Last 24 Hours (Table) 08/23/20 17:59 Blood Culture - Preliminary Blood No Growth after 24 hours 08/23/20 17:10 Blood Culture - Preliminary Blood No Growth after 24 hours Assessment and Plan Assessment: 1 Acute hypoxemic respiratory failure, secondary to COVID 19 pneumonia/pneumonitis, with recently worsening oxygenation. 2 History of chronic bronchial asthma. 3 History of gastroesophageal reflux disease. 4 History of hyperlipidemia. Plan: The patient was seen and evaluated by Dr. Pabon Chest x-ray showing slight improvement Inflammatory markers showing slight improvement Continue the current treatment plan Add Mucinex, scheduled bronchodilators Titrate down the FiO2 as tolerated Increase his activity as tolerate We'll continue to follow I, the cosigning physician, performed a history & physical examination of the patient. Lungs sounds with few scattered rhonchi, crackles in the posterior bases. Maintaining good O2 saturations in the 90s on 8 L high flow nasal cannula. I discussed the assessment and plan of care with my nurse practitioner, Shayy Betancourt. I attest to the above note as dictated by her.
[2020-08-25 16:58] LABS: Glucose,Whole Blood 157 mg/dL (75-99)
[2020-08-25] MEDS: INSULIN ASPART (NovoLOG) 100 UNIT/ML VIAL SQ SCH ×2 (17:33→20:43)
[2020-08-25 20:20] LABS: Glucose,Whole Blood 178 mg/dL (75-99)
[2020-08-25] MEDS: guaiFENesin-DM 600/30MG 1 EACH TAB.ER.12H PO SCH (20:43)
[2020-08-25] MEDS: ALBUTEROL HFA INHALER INHALATION PRN (23:56)
[2020-08-26] MEDS: methylPREDNISolone SOD SUCCI 125 MG/2 ML VIAL IV SCH ×4 (00:03→17:36)
[2020-08-26] MEDS: ACETAMINOPHEN TAB 325 MG TAB PO PRN ×3 (00:04→21:15)
[2020-08-26] MEDS: SODIUM CHLORIDE 0.9% 1,000 ML IV SCH ×2 (04:35→12:22)
[2020-08-26 06:23] LABS: Glucose,Whole Blood 186 mg/dL (75-99)
[2020-08-26] MEDS: INSULIN ASPART (NovoLOG) 100 UNIT/ML VIAL SQ SCH ×4 (06:39→21:15)
[2020-08-26] MEDS: ALBUTEROL HFA INHALER INHALATION SCH ×4 (08:42→20:25)
[2020-08-26] MEDS: guaiFENesin-DM 600/30MG 1 EACH TAB.ER.12H PO SCH (09:35)
[2020-08-26] MEDS: PANTOPRAZOLE 40 MG TABLET PO SCH (09:35)
[2020-08-26] MEDS: CHOLECALCIFEROL 25 MCG (1000 IU) TABLET PO SCH (09:35)
[2020-08-26] MEDS: ZINC SULFATE 220 MG CAP PO SCH (09:35)
[2020-08-26] MEDS: ATORVASTATIN 20 MG TAB PO SCH (09:35)
[2020-08-26] MEDS: TAMSULOSIN 0.4 MG CAP.ER.24H PO SCH (09:35)
[2020-08-26] MEDS: ENOXAPARIN 40 MG/0.4 ML SYRINGE SQ SCH (09:35)
[2020-08-26] MEDS: ASCORBIC ACID 500 MG TAB PO SCH ×2 (09:35→21:15)
[2020-08-26 10:23] LABS: C Reactive Protein 16.5 mg/L (<10.0)
[2020-08-26 12:14] LABS: Glucose,Whole Blood 179 mg/dL (75-99)
--- NOTE | 2020-08-26 14:53 | P.PN ---
Subjective Progress Note Date: 08/26/20 Principal diagnosis: CoVID 19 pneumonia 55-year-old male patient who presents to the emergency department on August 23, for increasing shortness of breath, and decreased oxygen saturation. He was diagnosed as having COVID, more than 2 weeks ago. The patient was placed on prednisone and doxycycline by his primary care provider. He also was seen in the emergency department recently, and received an infusion of BAM. More recently, he states that although he initially seemed to improve after the infusion of BAM, he has now worsened. He states that any activity makes him sh ort of breath, and his saturations drop into the 70s. He feels winded even at rest. He does have a bit of a cough. The cough is mostly dry. He does have pain in his chest when he coughs. He denies any chest pain outside of coughing, chest pressure, nausea, vomiting, diarrhea, abdominal pain, genitourinary complaints, or rash. Chest x-ray showed extensive bilateral pneumonia. White count is 5.7, hemoglobin 14.7, hematocrit 42.7 and platelet count 166,000. The lymphocyte count is decreased. The d-dimer is 0.89, and sodium is 139, potassium 3.9, chlorides 107, CO2 24, anion gap 8, BUN 20, and creatinine 1. The ferritin count is 1637, the LDH is 1069, and the C-reactive protein is 86.2. Pro-calcitonin is 0.16. The patient is seen today 08/25/2020 in follow-up on the selective care unit. He is currently resting fairly comfortably in bed. He is not much improved today compared to yesterday. Still with a chronic and ongoing cough. He is on 8 L high flow nasal cannula. 0.9 normal saline at 75 ML's per hour. Chest x- ray continues to show persistent but improved right greater than left bilateral peripheral acute opacities. D-dimer 0.63. LDH 816. C-reactive protein 23.7. He is continued on IV Solu-Medrol, Lovenox, vitamin supplements. The patient is seen today 08/26/2020 in follow-up on the selective care unit. He is currently sitting up at bedside. Awake and alert in no acute distress. Breathing bit easier today compared to yesterday. Continues with a loose n onproductive cough. Maintaining on Mucinex and Tessalon. IV fluids at 75 ML's per hour to be decreased to KVO. He still on 10 L high flow nasal cannula. D- dimer 0.63. LDH 781. C-reactive protein 16.5. He is continued on IV Solu- Medrol, Lovenox, vitamin supplements. Objective - Vital Signs Vital signs: Vital Signs Temp 98.0 F 08/26/20 08:00 Pulse 58 L 08/26/20 08:00 Resp 17 08/26/20 04:00 BP 123/61 08/26/20 08:00 Pulse Ox 93 L 08/26/20 08:00 Intake & Output 08/25/20 08/26/20 08/26/20 18:59 06:59 18:59 Intake Total 965 525 Balance 965 525 Weight 114.5 kg Intake: Intake, IV Titration 525 Amount Sodium Chloride 0.9% 1, 525 000 ml @ 75 mls/hr IV . [id number] [facility] Rx#:[id number] Oral 965 Other: # Voids 3 4 - Exam GENERAL EXAM: Alert, pleasant 55-year-old gentleman, on 10 L high flow nasal cannula, comfortable in no apparent distress. HEAD: Normocephalic. EYES: Normal reaction of pupils, equal size. NOSE: Clear with pink turbinates. THROAT: No erythema or exudates. NECK: No masses, no JVD. CHEST: No chest wall deformity. LUNGS: Equal air entry with scattered rhonchi, crackles in the posterior bases. CVS: S1 and S2 normal with no audible murmur, regular rhythm. ABDOMEN: No hepatosplenomegaly, normal bowel sounds, no guarding or rigidity. SPINE: No scoliosis or deformity SKIN: No rashes CENTRAL NERVOUS SYSTEM: No focal deficits, tone is normal in all 4 extremities. EXTREMITIES: There is no peripheral edema. No clubbing, no cyanosis. Peripheral pulses are intact. - Labs CBC & Chem 7: 08/23/20 17:10 08/25/20 06:41 Labs: Abnormal Lab Results - Last 24 Hours (Table) 08/25/20 08/25/20 08/26/20 Range/Units 16:55 20:17 06:21 D-Dimer (<0.60) mg/L FEU POC Glucose (mg/dL) 157 H 178 H 186 H (75-99) mg/dL Lactate Dehydrogenase (313-618) U/L C-Reactive Protein (<10.0) mg/L 08/26/20 08/26/20 08/26/20 Range/Units 08:19 08:19 12:07 D-Dimer 0.63 H (<0.60) mg/L FEU POC Glucose (mg/dL) 179 H (75-99) mg/dL Lactate Dehydrogenase 781 H (313-618) U/L C-Reactive Protein 16.5 H (<10.0) mg/L Microbiology - Last 24 Hours (Table) 08/23/20 17:59 Blood Culture - Preliminary Blood No Growth after 48 hours 08/23/20 17:10 Blood Culture - Preliminary Blood No Growth after 48 hours Assessment and Plan Assessment: 1 Acute hypoxemic respiratory failure, secondary to COVID 19 pneumonia/pneumonitis, with recently worsening oxygenation. 2 History of chronic bronchial asthma. 3 History of gastroesophageal reflux disease. 4 History of hyperlipidemia. Plan: The patient was seen and evaluated by Dr. Pabon Inflammatory markers showing improvement Continue the current treatment plan Titrate down the FiO2 as tolerated Increase his activity as tolerate We'll continue to follow I, the cosigning physician, performed a history & physical examination of the patient. Lungs sounds with few scattered rhonchi, crackles in the posterior bases. Maintaining good O2 saturations in the 90s on 10 L high flow nasal cannula. I discussed the assessment and plan of care with my nurse practitioner, Shayy Betancourt. I attest to the above note as dictated by her.
[2020-08-26 17:12] LABS: Glucose,Whole Blood 164 mg/dL (75-99)
[2020-08-26] MEDS: BENZONATATE 100 MG CAP PO SCH ×2 (17:26→21:16)
--- NOTE | 2020-08-26 17:41 | P.PN ---
Subjective 55-year-old male patient presents to the emergency department today for evaluation of increased shortness of breath and decreased oxygen saturation. Patient was diagnosed with coated almost 2 weeks ago. He has completed prednisone and doxycycline. He was seen and evaluated here recently and had infusion of Bamlanivimab. States overall he does feel somewhat improved however his oxygen saturations has been decreasing into the 70s with activity. States he feels very winded whenever he attempts to even walk across the room. Reports frequent cough. Denies sputum production. Denies any chest pain. Patient denies any recent rash, abdominal pain, nausea, vomiting, diarrhea, constipation, back pain, numbness, tingling, dizziness, weakness, hematuria, dysuria, urinary urgency, urinary frequency, headache, visual changes, or any other complaints. 08/25/2020 Patient is presently in a lead 8 L of oxygen. Patient is presently on IV ster oids, normal saline. 08/26/2020 Patient is bit better today patient although is coughing nonproductive cough patient was started on Robitussin with codeine. Constitutional: Denied any fatigue denied any fever. Cardio vascular: denied any chest pain, palpitations Gastrointestinal denied any nausea vomiting Pulmonary: As mentioned in the interval history Neurologic denied any new focal deficits All inpatient medications were reviewed and appropriate changes in these medications as dictated in the interval history and assessment and plan. Objective - Vital Signs Vital signs: Vital Signs Temp 98.0 F 08/26/20 08:00 Pulse 58 L 08/26/20 12:00 Resp 17 08/26/20 04:00 BP 115/63 08/26/20 12:00 Pulse Ox 92 L 08/26/20 12:00 Intake & Output 08/25/20 08/26/20 08/26/20 18:59 06:59 18:59 Intake Total 965 525 420 Balance 965 525 420 Weight 114.5 kg Intake: Intake, IV Titration 525 Amount Sodium Chloride 0.9% 1, 525 000 ml @ 10 mls/hr IV . Q24H [facility] Rx#:[id number] Oral 965 420 Other: # Voids 3 4 1 - Exam PHYSICAL EXAMINATION: GENERAL: The patient is alert and oriented x3, not in any acute distress. Obese HEENT: Pupils are round and equally reacting to light. EOMI. No scleral icterus. No conjunctival pallor. Normocephalic, atraumatic. No pharyngeal erythema. No thyromegaly. CARDIOVASCULAR: S1 and S2 present. No murmurs, rubs, or gallops. PULMONARY: Chest is clear to auscultation, no wheezing or crackles. ABDOMEN: Soft, nontender, nondistended, normoactive bowel sounds. No palpable organomegaly. MUSCULOSKELETAL: No joint swelling or deformity. EXTREMITIES: No cyanosis, clubbing, or pedal edema. NEUROLOGICAL: Gross neurological examination did not reveal any focal deficits. SKIN: No rashes. - Labs CBC & Chem 7: 08/23/20 17:10 08/25/20 06:41 Labs: Abnormal Lab Results - Last 24 Hours (Table) 08/25/20 08/26/20 08/26/20 Range/Units 20:17 06:21 08:19 D-Dimer 0.63 H (<0.60) mg/L FEU POC Glucose (mg/dL) 178 H 186 H (75-99) mg/dL Lactate Dehydrogenase (313-618) U/L C-Reactive Protein (<10.0) mg/L 08/26/20 08/26/20 08/26/20 Range/Units 08:19 12:07 17:06 D-Dimer (<0.60) mg/L FEU POC Glucose (mg/dL) 179 H 164 H (75-99) mg/dL Lactate Dehydrogenase 781 H (313-618) U/L C-Reactive Protein 16.5 H (<10.0) mg/L Microbiology - Last 24 Hours (Table) 08/23/20 17:59 Blood Culture - Preliminary Blood No Growth after 48 hours 08/23/20 17:10 Blood Culture - Preliminary Blood No Growth after 48 hours Assessment and Plan Plan: -Acute hypoxic respiratory failure: Secondary to covid 19 pneumonia patient will be started on IV Solu-Medrol Zinc ascorbic acid, pulmonology evaluated the patient patient is presently on 80% oxygen. -Asthma without any acute exacerbation at this time -Hyperlipidemia -Obesity -Gastroesophageal reflux disease -DVT prophylaxis with Lovenox GI prophylaxis with Prilosec
[2020-08-26 20:45] LABS: Glucose,Whole Blood 174 mg/dL (75-99)
[2020-08-26] MEDS: guaiFENesin-Coden 100-10MG/5ML 10 ML CUP PO PRN (21:15)
[2020-08-27] MEDS: methylPREDNISolone SOD SUCCI 125 MG/2 ML VIAL IV SCH ×4 (00:13→17:31)
[2020-08-27 06:47] LABS: Glucose,Whole Blood 168 mg/dL (75-99)
[2020-08-27] MEDS: guaiFENesin-Coden 100-10MG/5ML 10 ML CUP PO PRN ×3 (06:51→21:25)
[2020-08-27] MEDS: INSULIN ASPART (NovoLOG) 100 UNIT/ML VIAL SQ SCH ×4 (06:51→21:24)
[2020-08-27] MEDS: ACETAMINOPHEN TAB 325 MG TAB PO PRN ×2 (06:51→21:24)
[2020-08-27] MEDS: ALBUTEROL HFA INHALER INHALATION SCH ×4 (07:26→19:17)
[2020-08-27 08:07] LABS: C Reactive Protein 11.8 mg/L (<10.0)
--- NOTE | 2020-08-27 08:38 | XR ---
EXAMINATION TYPE: XR chest 1V portable DATE OF EXAM: 08/27/2020 COMPARISON: 08/25/2020 INDICATION: Covid pneumonia TECHNIQUE: Single frontal view of the chest is obtained. FINDINGS: The heart size is normal. The pulmonary vasculature is normal. Patchy infiltrate around the periphery of the bilateral lung self greater on the right. Findings ar e worsening over the interval IMPRESSION: 1. Worsening bilateral lung infiltrates.
--- NOTE | 2020-08-27 08:40 | P.PN ---
Subjective 55-year-old male patient presents to the emergency department today for evaluation of increased shortness of breath and decreased oxygen saturation. Patient was diagnosed with coated almost 2 weeks ago. He has completed prednisone and doxycycline. He was seen and evaluated here recently and had infusion of Bamlanivimab. States overall he does feel somewhat improved however his oxygen saturations has been decreasing into the 70s with activity. States he feels very winded whenever he attempts to even walk across the room. Reports frequent cough. Denies sputum production. Denies any chest pain. Patient denies any recent rash, abdominal pain, nausea, vomiting, diarrhea, constipation, back pain, numbness, tingling, dizziness, weakness, hematuria, dysuria, urinary urgency, urinary frequency, headache, visual changes, or any other complaints. 08/25/2020 Patient is presently in a lead 8 L of oxygen. Patient is presently on IV ster oids, normal saline. 08/26/2020 Patient is bit better today patient although is coughing nonproductive cough patient was started on Robitussin with codeine. 08/27/2020 Patient cough improved significantly and patient was able to sleep last night. Although he gets bit dizzy with codeine. Patient is presently on 6 L of oxygen was on 8 L yesterday Constitutional: Denied any fatigue denied any fever. Cardio vascular: denied any chest pain, palpitations Gastrointestinal denied any nausea vomiting Pulmonary: As mentioned in the interval history Neurologic denied any new focal deficits All inpatient medications were reviewed and appropriate changes in these medications as dictated in the interval history and assessment and plan. Objective - Vital Signs Vital signs: Vital Signs Temp 98.0 F 08/27/20 04:00 Pulse 50 L 08/27/20 04:00 Resp 19 08/27/20 04:00 BP 130/66 08/27/20 04:00 Pulse Ox 90 L 08/27/20 07:27 Intake & Output 08/26/20 08/27/20 08/27/20 18:59 06:59 18:59 Intake Total 660 740 Balance 660 740 Weight 117 kg Intake: Oral 660 740 Other: # Voids 1 4 - Exam PHYSICAL EXAMINATION: GENERAL: The patient is alert and oriented x3, not in any acute distress. Obese HEENT: Pupils are round and equally reacting to light. EOMI. No scleral icterus. No conjunctival pallor. Normocephalic, atraumatic. No pharyngeal erythema. No thyromegaly. CARDIOVASCULAR: S1 and S2 present. No murmurs, rubs, or gallops. PULMONARY: Chest is clear to auscultation, no wheezing or crackles. ABDOMEN: Soft, nontender, nondistended, normoactive bowel sounds. No palpable organomegaly. MUSCULOSKELETAL: No joint swelling or deformity. EXTREMITIES: No cyanosis, clubbing, or pedal edema. NEUROLOGICAL: Gross neurological examination did not reveal any focal deficits. SKIN: No rashes. - Labs CBC & Chem 7: 08/23/20 17:10 08/25/20 06:41 Labs: Abnormal Lab Results - Last 24 Hours (Table) 08/26/20 08/26/20 08/26/20 Range/Units 08:19 08:19 12:07 D-Dimer 0.63 H (<0.60) mg/L FEU POC Glucose (mg/dL) 179 H (75-99) mg/dL Lactate Dehydrogenase 781 H (313-618) U/L C-Reactive Protein 16.5 H (<10.0) mg/L 08/26/20 08/26/20 08/27/20 Range/Units 17:06 20:33 06:45 D-Dimer (<0.60) mg/L FEU POC Glucose (mg/dL) 164 H 174 H 168 H (75-99) mg/dL Lactate Dehydrogenase (313-618) U/L C-Reactive Protein (<10.0) mg/L 08/27/20 08/27/20 Range/Units 07:18 07:18 D-Dimer 0.87 H (<0.60) mg/L FEU POC Glucose (mg/dL) (75-99) mg/dL Lactate Dehydrogenase 827 H (313-618) U/L C-Reactive Protein 11.8 H (<10.0) mg/L Microbiology - Last 24 Hours (Table) 08/23/20 17:59 Blood Culture - Preliminary Blood No Growth after 72 hours 08/23/20 17:10 Blood Culture - Preliminary Blood No Growth after 72 hours Assessment and Plan Plan: -Acute hypoxic respiratory failure: Secondary to covid 19 pneumonia patient will be started on IV Solu-Medrol Zinc ascorbic acid, pulmonology evaluated the patient patient is presently on 6 L of oxygen and significantly improved cough -Asthma without any acute exacerbation at this time -Hyperlipidemia -Obesity -Gastroesophageal reflux disease -DVT prophylaxis with Lovenox GI prophylaxis with Prilosec
[2020-08-27] MEDS: ENOXAPARIN 40 MG/0.4 ML SYRINGE SQ SCH (09:07)
[2020-08-27] MEDS: TAMSULOSIN 0.4 MG CAP.ER.24H PO SCH (09:07)
[2020-08-27] MEDS: ATORVASTATIN 20 MG TAB PO SCH (09:08)
[2020-08-27] MEDS: ASCORBIC ACID 500 MG TAB PO SCH ×2 (09:08→21:24)
[2020-08-27] MEDS: ZINC SULFATE 220 MG CAP PO SCH (09:08)
[2020-08-27] MEDS: CHOLECALCIFEROL 25 MCG (1000 IU) TABLET PO SCH (09:08)
[2020-08-27] MEDS: BENZONATATE 100 MG CAP PO SCH ×3 (09:08→21:24)
[2020-08-27] MEDS: PANTOPRAZOLE 40 MG TABLET PO SCH (09:08)
[2020-08-27 11:46] LABS: Glucose,Whole Blood 161 mg/dL (75-99)
[2020-08-27] MEDS: SODIUM CHLORIDE 0.9% 1,000 ML IV SCH (12:31)
--- NOTE | 2020-08-27 14:42 | P.PN ---
Subjective Progress Note Date: 08/27/20 Principal diagnosis: CoVID 19 pneumonia 55-year-old male patient who presents to the emergency department on August 23, for increasing shortness of breath, and decreased oxygen saturation. He was diagnosed as having COVID, more than 2 weeks ago. The patient was placed on prednisone and doxycycline by his primary care provider. He also was seen in the emergency department recently, and received an infusion of BAM. More recently, he states that although he initially seemed to improve after the infusion of BAM, he has now worsened. He states that any activity makes him sh ort of breath, and his saturations drop into the 70s. He feels winded even at rest. He does have a bit of a cough. The cough is mostly dry. He does have pain in his chest when he coughs. He denies any chest pain outside of coughing, chest pressure, nausea, vomiting, diarrhea, abdominal pain, genitourinary complaints, or rash. Chest x-ray showed extensive bilateral pneumonia. White count is 5.7, hemoglobin 14.7, hematocrit 42.7 and platelet count 166,000. The lymphocyte count is decreased. The d-dimer is 0.89, and sodium is 139, potassium 3.9, chlorides 107, CO2 24, anion gap 8, BUN 20, and creatinine 1. The ferritin count is 1637, the LDH is 1069, and the C-reactive protein is 86.2. Pro-calcitonin is 0.16. The patient is seen today 08/25/2020 in follow-up on the selective care unit. He is currently resting fairly comfortably in bed. He is not much improved today compared to yesterday. Still with a chronic and ongoing cough. He is on 8 L high flow nasal cannula. 0.9 normal saline at 75 ML's per hour. Chest x- ray continues to show persistent but improved right greater than left bilateral peripheral acute opacities. D-dimer 0.63. LDH 816. C-reactive protein 23.7. He is continued on IV Solu-Medrol, Lovenox, vitamin supplements. The patient is seen today 08/26/2020 in follow-up on the selective care unit. He is currently sitting up at bedside. Awake and alert in no acute distress. Breathing bit easier today compared to yesterday. Continues with a loose n onproductive cough. Maintaining on Mucinex and Tessalon. IV fluids at 75 ML's per hour to be decreased to KVO. He still on 10 L high flow nasal cannula. D- dimer 0.63. LDH 781. C-reactive protein 16.5. He is continued on IV Solu- Medrol, Lovenox, vitamin supplements. The patient is seen today 08/27/2020 in follow-up on the selective care unit. He is currently sitting up in bed. Awake and alert in no acute distress. Sitting his breathing a bit better today compared to yesterday. Less cough and congestion. He was outside the window for Remdesivir. He is currently down to 5 L high flow nasal cannula and maintaining O2 saturation in the 90s. His x-ray continues to show bilateral patchy infiltrates right greater than left. Blood cultures reveal no growth. D-dimer 0.87. LDH 827. C-reactive protein 11.8. He remains on Lovenox, IV Solu-Medrol, vitamin supplements. Objective - Vital Signs Vital signs: Vital Signs Temp 97.7 F 08/27/20 08:00 Pulse 54 L 08/27/20 08:00 Resp 19 08/27/20 04:00 BP 130/70 08/27/20 08:00 Pulse Ox 90 L 08/27/20 09:30 Intake & Output 08/26/20 08/27/20 08/27/20 18:59 06:59 18:59 Intake Total 660 740 280 Balance 660 740 280 Weight 117 kg Intake: Intake, IV Titration 100 Amount Sodium Chloride 0.9% 1, 100 000 ml @ 10 mls/hr IV . Q24H [facility] Rx#:[id number] Oral 660 740 180 Other: # Voids 1 4 1 # Bowel Movements 0 - Exam GENERAL EXAM: Alert, pleasant 55-year-old gentleman, on 5 L high flow nasal cannula, comfortable in no apparent distress. HEAD: Normocephalic. EYES: Normal reaction of pupils, equal size. NOSE: Clear with pink turbinates. THROAT: No erythema or exudates. NECK: No masses, no JVD. CHEST: No chest wall deformity. LUNGS: Equal air entry with scattered rhonchi, crackles in the posterior bases. CVS: S1 and S2 normal with no audible murmur, regular rhythm. ABDOMEN: No hepatosplenomegaly, normal bowel sounds, no guarding or rigidity. SPINE: No scoliosis or deformity SKIN: No rashes CENTRAL NERVOUS SYSTEM: No focal deficits, tone is normal in all 4 extremities. EXTREMITIES: There is no peripheral edema. No clubbing, no cyanosis. Kajal pheral pulses are intact. - Labs CBC & Chem 7: 08/23/20 17:10 08/25/20 06:41 Labs: Abnormal Lab Results - Last 24 Hours (Table) 08/26/20 08/26/20 08/27/20 Range/Units 17:06 20:33 06:45 D-Dimer (<0.60) mg/L FEU POC Glucose (mg/dL) 164 H 174 H 168 H (75-99) mg/dL Lactate Dehydrogenase (313-618) U/L C-Reactive Protein (<10.0) mg/L 08/27/20 08/27/20 08/27/20 Range/Units 07:18 07:18 11:45 D-Dimer 0.87 H (<0.60) mg/L FEU POC Glucose (mg/dL) 161 H (75-99) mg/dL Lactate Dehydrogenase 827 H (313-618) U/L C-Reactive Protein 11.8 H (<10.0) mg/L Microbiology - Last 24 Hours (Table) 08/23/20 17:59 Blood Culture - Preliminary Blood No Growth after 72 hours 08/23/20 17:10 Blood Culture - Preliminary Blood No Growth after 72 hours Assessment and Plan Assessment: 1 Acute hypoxemic respiratory failure, secondary to COVID 19 pneumonia/pneumonitis, with improving oxygenation. 2 History of chronic bronchial asthma. 3 History of gastroesophageal reflux disease. 4 History of hyperlipidemia. Plan: The patient was seen and evaluated by Dr. Pabon Continue the current treatment plan Titrate down the FiO2 as tolerated Increase his activity as tolerated Possible discharge in the a.m. Require home oxygen We'll continue to follow I, the cosigning physician, performed a history & physical examination of the patient. Lungs sounds with few scattered rhonchi, crackles in the posterior bases. Maintaining good O2 saturations in the 90s on 5 L high flow nasal cannula. I discussed the assessment and plan of care with my nurse practitioner, Shayy Betancourt. I attest to the above note as dictated by her.
[2020-08-27 16:54] LABS: Glucose,Whole Blood 173 mg/dL (75-99)
[2020-08-27 21:10] LABS: Glucose,Whole Blood 200 mg/dL (75-99)
[2020-08-28] MEDS: methylPREDNISolone SOD SUCCI 125 MG/2 ML VIAL IV SCH ×4 (00:15→17:12)
[2020-08-28 06:11] LABS: Glucose,Whole Blood 172 mg/dL (75-99)
[2020-08-28] MEDS: INSULIN ASPART (NovoLOG) 100 UNIT/ML VIAL SQ SCH ×4 (06:26→20:51)
[2020-08-28] MEDS: ACETAMINOPHEN TAB 325 MG TAB PO PRN ×2 (06:26→20:52)
[2020-08-28] MEDS: guaiFENesin-Coden 100-10MG/5ML 10 ML CUP PO PRN ×2 (06:26→17:11)
[2020-08-28] MEDS: ALBUTEROL HFA INHALER INHALATION SCH ×4 (08:42→20:12)
[2020-08-28] MEDS: ENOXAPARIN 40 MG/0.4 ML SYRINGE SQ SCH (09:01)
[2020-08-28] MEDS: BENZONATATE 100 MG CAP PO SCH ×3 (09:02→21:10)
[2020-08-28] MEDS: CHOLECALCIFEROL 25 MCG (1000 IU) TABLET PO SCH (09:02)
[2020-08-28] MEDS: TAMSULOSIN 0.4 MG CAP.ER.24H PO SCH (09:02)
[2020-08-28] MEDS: ZINC SULFATE 220 MG CAP PO SCH (09:02)
[2020-08-28] MEDS: ASCORBIC ACID 500 MG TAB PO SCH ×2 (09:02→20:51)
[2020-08-28] MEDS: ATORVASTATIN 20 MG TAB PO SCH (09:02)
[2020-08-28] MEDS: PANTOPRAZOLE 40 MG TABLET PO SCH (09:02)
--- NOTE | 2020-08-28 11:23 | P.PN ---
Subjective Progress Note Date: 08/28/20 55-year-old male patient who presents to the emergency department on August 23, for increasing shortness of breath, and decreased oxygen saturation. He was diagnosed as having COVID, more than 2 weeks ago. The patient was placed on prednisone and doxycycline by his primary care provider. He also was seen in the emergency department recently, and received an infusion of BAM. More recently, he states that although he initially seemed to improve after the infusion of BAM, he has now worsened. He states that any activity makes him short of breath, and his saturations drop into the 70s. He feels winded even at rest. He does have a bit of a cough. The cough is mostly dry. He does have pain in his chest when he coughs. He denies any chest pain outside of coughing, chest pressure, nausea, vomiting, diarrhea, abdominal pain, genitourinary complaints, or rash. Chest x-ray showed extensive bilateral pneumonia. White count is 5.7, hemoglobin 14.7, hematocrit 42.7 and platelet count 166,000. The lymphocyte count is decreased. The d-dimer is 0.89, and sodium is 139, potassium 3.9, chlorides 107, CO2 24, anion gap 8, BUN 20, and creatinine 1. The ferritin count is 1637, the LDH is 1069, and the C-reactive protein is 86.2. Pro-calcitonin is 0.16. The patient is seen today 08/25/2020 in follow-up on the selective care unit. He is currently resting fairly comfortably in bed. He is not much improved today compared to yesterday. Still with a chronic and ongoing cough. He is on 8 L high flow nasal cannula. 0.9 normal saline at 75 ML's per hour. Chest x- ray continues to show persistent but improved right greater than left bilateral peripheral acute opacities. D-dimer 0.63. LDH 816. C-reactive protein 23.7. He is continued on IV Solu-Medrol, Lovenox, vitamin supplements. The patient is seen today 08/26/2020 in follow-up on the selective care unit. He is currently sitting up at bedside. Awake and alert in no acute distress. Breathing bit easier today compared to yesterday. Continues with a loose nonproductive cough. Maintaining on Mucinex and Tessalon. IV fluids at 75 ML's per hour to be decreased to KVO. He still on 10 L high flow nasal cannula. D- dimer 0.63. LDH 781. C-reactive protein 16.5. He is continued on IV Solu- Medrol, Lovenox, vitamin supplements. The patient is seen today 08/27/2020 in follow-up on the selective care unit. He is currently sitting up in bed. Awake and alert in no acute distress. Sitting his breathing a bit better today compared to yesterday. Less cough and congestion. He was outside the window for Remdesivir. He is currently down to 5 L high flow nasal cannula and maintaining O2 saturation in the 90s. His x-ray continues to show bilateral patchy infiltrates right greater than left. Blood cultures reveal no growth. D-dimer 0.87. LDH 827. C-reactive protein 11.8. He remains on Lovenox, IV Solu-Medrol, vitamin supplements. On today's evaluation of 08/28/2020, the patient is being seen for a follow-up. The patient is an acute hypoxic respiratory failure secondary to Covid pneumonia. The patient's vaccinations been improving. The patient's current FiO2 is at 5 L and the patient's pulse ox is around 92%. The patient remains on IV Solu-Medrol in addition to multivitamin supplements. The patient is also on Lovenox for DVT prophylaxis at a dose of 40 mg every 12 hours. Otherwise, the patient is doing well. D-dimer is low 0.87 and the patient doesn't have any other complaints. The last chest x-ray was done on 08/27/2020 and the patient had shown some patchy infiltrates peripherally in the lungs that are worse compared to the earlier chest x-ray from 08/25/2020. This will be monitored accordingly Objective - Vital Signs Vital signs: Vital Signs Temp 98.2 F 08/28/20 04:00 Pulse 50 L 08/28/20 04:00 Resp 18 08/28/20 04:00 BP 136/65 08/28/20 04:00 Pulse Ox 93 L 08/28/20 08:43 Intake & Output 08/27/20 08/28/20 08/28/20 18:59 06:59 18:59 Intake Total 760 240 Output Total 200 Balance 760 -200 240 Weight 117.5 kg Intake: Intake, IV Titration 100 Amount Sodium Chloride 0.9% 1, 100 000 ml @ 10 mls/hr IV . Q24H [facility] Rx#:[id number] Oral 660 240 Output: Urine 200 Other: # Voids 1 1 # Bowel Movements 0 0 - Exam GENERAL EXAM: Alert, pleasant 55-year-old gentleman, on 5 L high flow nasal cannula, comfortable in no apparent distress. HEAD: Normocephalic. EYES: Normal reaction of pupils, equal size. NOSE: Clear with pink turbinates. THROAT: No erythema or exudates. NECK: No masses, no JVD. CHEST: No chest wall deformity. LUNGS: Equal air entry with scattered rhonchi, crackles in the posterior bases. CVS: S1 and S2 normal with no audible murmur, regular rhythm. ABDOMEN: No hepatosplenomegaly, normal bowel sounds, no guarding or rigidity. SPINE: No scoliosis or deformity SKIN: No rashes CENTRAL NERVOUS SYSTEM: No focal deficits, tone is normal in all 4 extremities. EXTREMITIES: There is no peripheral edema. No clubbing, no cyanosis. Pe ripheral pulses are intact. - Labs CBC & Chem 7: 08/23/20 17:10 08/25/20 06:41 Labs: Abnormal Lab Results - Last 24 Hours (Table) 08/27/20 08/27/20 08/27/20 Range/Units 11:45 16:53 21:02 POC Glucose (mg/dL) 161 H 173 H 200 H (75-99) mg/dL 08/28/20 Range/Units 05:59 POC Glucose (mg/dL) 172 H (75-99) mg/dL Microbiology - Last 24 Hours (Table) 08/23/20 17:59 Blood Culture - Preliminary Blood No Growth after 96 hours 08/23/20 17:10 Blood Culture - Preliminary Blood No Growth after 96 hours Assessment and Plan Plan: 1 Acute hypoxemic respiratory failure, secondary to COVID 19 pneumonia/pneumonitis, with improving oxygenation. Currently the patient is on 5 L by nasal cannula. Nevertheless, the chest x-ray from yesterday showed some worsening of either pulmonary infiltrates. We'll continue to monitor this patient very closely. Patient remains on steroids and the patient is currently on IV Solu Medrol 60 g every 6 hours. The patient is also on Lovenox for prophylaxis. The inflammatory markers are all down trending. 2 History of chronic bronchial asthma. 3 History of gastroesophageal reflux disease. 4 History of hyperlipidemia. Plan: Will repeat a chest x-ray tomorrow Continue the current treatment plan Titrate down the FiO2 as tolerated, try to cut down the oxygen down to 4 L if po ssible. The patient is requiring oxygen and he is desaturating if he recovers quite fast. Increase his activity as tolerated May ultimately Require home oxygen We'll continue to follow
[2020-08-28 12:27] LABS: Glucose,Whole Blood 153 mg/dL (75-99)
[2020-08-28] MEDS: SODIUM CHLORIDE 0.9% 1,000 ML IV SCH (15:58)
[2020-08-28 17:09] LABS: Glucose,Whole Blood 215 mg/dL (75-99)
[2020-08-28 20:38] LABS: Glucose,Whole Blood 218 mg/dL (75-99)
--- NOTE | 2020-08-28 22:06 | P.PN ---
Subjective Progress Note Date: 08/28/20 Principal diagnosis: COVID Pneumonia Mr. Maldonado is a 55-year-old with a past medical history of asthma, hyperlipidemia who was recently diagnosed with Covid infection, placed on prednisone and doxycycline by his primary care physician coming in with difficulty in breath ing. Patient was also seen in the emergency department recently and received an infusion of BAM. On 08/28/2020 -patient was seen and examined at the bedside. He appears to be in no acute distress. He states that he is still short of breath with minimal activity, still requiring 5 L of oxygen. Patient denies having any fevers chills or rigors. No sputum production. No chest pain. On reviewing his vitals afebrile for the past 24 hours, blood pressure 127 x 77 heart rate in the 60s to 70s. On reviewing the labs, no new labs from this morning. Patient's last chest x-ray was done yesterday showing worsening bilateral lung infiltrates. Pulmonary on board and following the patient closely. Review of systems: Constitutional: Denied any fatigue denied any fever. Cardio vascular: denied any chest pain, palpitations Gastrointestinal denied any nausea vomiting Pulmonary: As mentioned in the interval history Neurologic denied any new focal deficits Active Medications Acetaminophen (Acetaminophen Tab 325 Mg Tab) 650 mg PO Q6HR PRN PRN Reason: Fever and/ or Pain Last Admin: 08/28/20 20:52 Dose: 650 mg Documented by: Albuterol Sulfate (Albuterol Hfa Inhaler) 2 puff INHALATION RT-QID [facility] Last Admin: 08/28/20 20:12 Dose: 2 puff Documented by: Albuterol Sulfate (Albuterol Hfa Inhaler) 2 puff INHALATION RT-QID PRN PRN Reason: Shortness Of Breath Or Wheezing Last Admin: 08/25/20 23:56 Dose: 2 puff Documented by: Ascorbic Acid (Ascorbic Acid 500 Mg Tab) 500 mg PO BID [facility] Last Admin: 08/28/20 20:51 Dose: 500 mg Documented by: Atorvastatin Calcium (Atorvastatin 20 Mg Tab) 20 mg PO DAILY [facility] Last Admin: 08/28/20 09:02 Dose: 20 mg Documented by: Benzonatate (Benzonatate 100 Mg Cap) 200 mg PO TID [facility] Last Admin: 08/28/20 21:10 Dose: 200 mg Documented by: Cholecalciferol (Cholecalciferol 25 Mcg (1000 Iu) Tablet) 25 mcg PO DAILY [facility] Last Admin: 08/28/20 09:02 Dose: 25 mcg Documented by: Enoxaparin Sodium (Enoxaparin 40 Mg/0.4 Ml Syringe) 40 mg SQ DAILY [facility] Last Admin: 08/28/20 09:01 Dose: 40 mg Documented by: Guaifenesin/Codeine Phosphate (Guaifenesin-Coden 100-10mg/5ml 10 Ml Cup) 10 ml PO TID PRN PRN Reason: Cough Last Admin: 08/28/20 17:11 Dose: 10 ml Documented by: Sodium Chloride (Saline 0.9%) 1,000 mls @ 10 mls/hr IV .Q24H [facility] Last Admin: 08/28/20 15:58 Dose: Not Given Documented by: Insulin Aspart (Insulin Aspart (Novolog) 100 Unit/Ml Vial) 0 unit SQ ACHS [facility]; Protocol Last Admin: 08/28/20 20:51 Dose: 7 unit Documented by: Methylprednisolone Sodium Succinate (Methylprednisolone Sod Succi 125 Mg/2 Ml Vial) 60 mg IV Q6HR [facility] Last Admin: 08/28/20 17:12 Dose: 60 mg Documented by: Naloxone HCl (Naloxone 0.4 Mg/Ml 1 Ml Vial) 0.2 mg IV Q2M PRN PRN Reason: Opioid Reversal Pantoprazole Sodium (Pantoprazole 40 Mg Tablet) 40 mg PO DAILY [facility] Last Admin: 08/28/20 09:02 Dose: 40 mg Documented by: Tamsulosin HCl (Tamsulosin 0.4 Mg Cap.Er.24h) 0.4 mg PO DAILY [facility] Last Admin: 08/28/20 09:02 Dose: 0.4 mg Documented by: Zinc Sulfate (Zinc Sulfate 220 Mg Cap) 220 mg PO DAILY [facility] Last Admin: 08/28/20 09:02 Dose: 220 mg Documented by: Objective - Vital Signs Vital signs: Vital Signs Temp 98.1 F 08/28/20 08:00 Pulse 51 L 08/28/20 12:00 Resp 20 08/28/20 12:00 BP 138/78 08/28/20 12:00 Pulse Ox 89 L 08/28/20 12:00 Intake & Output 08/27/20 08/28/20 08/28/20 18:59 06:59 18:59 Intake Total 760 540 Output Total 200 Balance 760 -200 540 Weight 117.5 kg Intake: Intake, IV Titration 100 Amount Sodium Chloride 0.9% 1, 100 000 ml @ 10 mls/hr IV . Q24H [facility] Rx#:[id number] Oral 660 540 Output: Urine 200 Other: # Voids 1 1 # Bowel Movements 0 0 - Exam PHYSICAL EXAMINATION: GENERAL: The patient is alert and oriented x3, not in any acute distress. Obese HEENT: Pupils are round and equally reacting to light. EOMI. No scleral icterus. No conjunctival pallor. Normocephalic, atraumatic. No pharyngeal erythema. No thyromegaly. CARDIOVASCULAR: S1 and S2 present. No murmurs, rubs, or gallops. PULMONARY: Bilateral coarse breath sounds ABDOMEN: Soft, nontender, nondistended, normoactive bowel sounds. No palpable organomegaly. MUSCULOSKELETAL: No joint swelling or deformity. EXTREMITIES: No cyanosis, clubbing, or pedal edema. NEUROLOGICAL: Gross neurological examination did not reveal any focal deficits. SKIN: No rashes. - Labs CBC & Chem 7: 08/23/20 17:10 08/25/20 06:41 Labs: Abnormal Lab Results - Last 24 Hours (Table) 08/27/20 08/27/20 08/28/20 Range/Units 16:53 21:02 05:59 POC Glucose (mg/dL) 173 H 200 H 172 H (75-99) mg/dL 08/28/20 Range/Units 12:25 POC Glucose (mg/dL) 153 H (75-99) mg/dL Microbiology - Last 24 Hours (Table) 08/23/20 17:59 Blood Culture - Preliminary Blood No Growth after 96 hours 08/23/20 17:10 Blood Culture - Preliminary Blood No Growth after 96 hours Assessment and Plan Assessment: ASSESSMENT Acute hypoxic respiratory failure secondary to Covid pneumonia Asthma Hyperlipidemia Obesity GERD Plan: Patient to be continued on IV Solu-Medrol breathing treatments, Lovenox. Continue with Protonix for GI prophylaxis. Activity as tolerated. We will repeat a.m. labs. Overall patient seems to be responding very slowly. We will repeat a chest x-ray for tomorrow morning for follow-up. Further recommendations depending on the progress of the patient.
[2020-08-29] MEDS: methylPREDNISolone SOD SUCCI 125 MG/2 ML VIAL IV SCH ×4 (00:17→17:01)
[2020-08-29] MEDS: guaiFENesin-Coden 100-10MG/5ML 10 ML CUP PO PRN ×3 (00:18→21:21)
[2020-08-29 06:47] LABS: Glucose,Whole Blood 187 mg/dL (75-99)
[2020-08-29] MEDS: ENOXAPARIN 40 MG/0.4 ML SYRINGE SQ SCH (07:37)
[2020-08-29] MEDS: ASCORBIC ACID 500 MG TAB PO SCH ×2 (07:38→21:21)
[2020-08-29] MEDS: PANTOPRAZOLE 40 MG TABLET PO SCH (07:38)
[2020-08-29] MEDS: ATORVASTATIN 20 MG TAB PO SCH (07:38)
[2020-08-29] MEDS: TAMSULOSIN 0.4 MG CAP.ER.24H PO SCH (07:38)
[2020-08-29] MEDS: ZINC SULFATE 220 MG CAP PO SCH (07:38)
[2020-08-29] MEDS: CHOLECALCIFEROL 25 MCG (1000 IU) TABLET PO SCH (07:38)
[2020-08-29] MEDS: BENZONATATE 100 MG CAP PO SCH ×3 (07:39→21:21)
[2020-08-29] MEDS: INSULIN ASPART (NovoLOG) 100 UNIT/ML VIAL SQ SCH ×4 (07:39→21:22)
--- NOTE | 2020-08-29 08:22 | XR ---
EXAMINATION TYPE: XR chest 1V portable DATE OF EXAM: 08/29/2020 COMPARISON: 08/28/2019 HISTORY: Shortness TECHNIQUE: Single frontal view of the chest is obtained. FINDINGS: Patchy bilateral infiltrates are stable. Heart size normal. No pleural effusion or pneumot horax. Osseous structures IMPRESSION: Patchy bilateral infiltrates
[2020-08-29] MEDS: ALBUTEROL HFA INHALER INHALATION SCH ×4 (08:58→20:36)
[2020-08-29] MEDS: SODIUM CHLORIDE 0.9% 1,000 ML IV SCH (10:52)
[2020-08-29 11:19] LABS: Glucose,Whole Blood 170 mg/dL (75-99)
[2020-08-29 11:48] LABS: Basophils # (A) 0.02 X 10*3/uL (0.00-0.10); Basophils % (A) 0.1 %; Eosinophils # (A) 0 X 10*3/uL (0.04-0.35); Eosinophils % (A) 0 %; HCT 43.5 % (39.6-50.0); HGB 14.2 g/dL (13.0-17.0); Lymphocytes # (A) 0.54 X 10*3/uL (0.90-5.00); Lymphocytes % (A) 3.3 %; MCH 28.4 pg (27.0-32.0); MCHC 32.6 g/dL (32.0-37.0); Mean Platelet Volume 10.6 fL (9.5-12.2); Monocytes # (A) 0.54 X 10*3/uL (0.20-1.00); Monocytes % (A) 3.3 %; Neutrophils # (A) 14.39 X 10*3/uL (1.80-7.70); Neutrophils % (A) 88.4 %; Platelet Count 237 X 10*3/uL (140-440); RDW 12.3 % (11.5-14.5); WBC 16.28 X 10*3/uL (4.50-10.00)
[2020-08-29] MEDS: diphenhydrAMINE 25 MG CAP PO PRN ×2 (12:08→21:21)
--- NOTE | 2020-08-29 13:35 | P.PN ---
Subjective Progress Note Date: 08/29/20 55-year-old male patient who presents to the emergency department on August 23, for increasing shortness of breath, and decreased oxygen saturation. He was diagnosed as having COVID, more than 2 weeks ago. The patient was placed on prednisone and doxycycline by his primary care provider. He also was seen in the emergency department recently, and received an infusion of BAM. More recently, he states that although he initially seemed to improve after the infusion of BAM, he has now worsened. He states that any activity makes him short of breath, and his saturations drop into the 70s. He feels winded even at rest. He does have a bit of a cough. The cough is mostly dry. He does have pain in his chest when he coughs. He denies any chest pain outside of coughing, chest pressure, nausea, vomiting, diarrhea, abdominal pain, genitourinary complaints, or rash. Chest x-ray showed extensive bilateral pneumonia. White count is 5.7, hemoglobin 14.7, hematocrit 42.7 and platelet count 166,000. The lymphocyte count is decreased. The d-dimer is 0.89, and sodium is 139, potassium 3.9, chlorides 107, CO2 24, anion gap 8, BUN 20, and creatinine 1. The ferritin count is 1637, the LDH is 1069, and the C-reactive protein is 86.2. Pro-calcitonin is 0.16. The patient is seen today 08/25/2020 in follow-up on the selective care unit. He is currently resting fairly comfortably in bed. He is not much improved today compared to yesterday. Still with a chronic and ongoing cough. He is on 8 L high flow nasal cannula. 0.9 normal saline at 75 ML's per hour. Chest x- ray continues to show persistent but improved right greater than left bilateral peripheral acute opacities. D-dimer 0.63. LDH 816. C-reactive protein 23.7. He is continued on IV Solu-Medrol, Lovenox, vitamin supplements. The patient is seen today 08/26/2020 in follow-up on the selective care unit. He is currently sitting up at bedside. Awake and alert in no acute distress. Breathing bit easier today compared to yesterday. Continues with a loose nonproductive cough. Maintaining on Mucinex and Tessalon. IV fluids at 75 ML's per hour to be decreased to KVO. He still on 10 L high flow nasal cannula. D- dimer 0.63. LDH 781. C-reactive protein 16.5. He is continued on IV Solu- Medrol, Lovenox, vitamin supplements. The patient is seen today 08/27/2020 in follow-up on the selective care unit. He is currently sitting up in bed. Awake and alert in no acute distress. Sitting his breathing a bit better today compared to yesterday. Less cough and congestion. He was outside the window for Remdesivir. He is currently down to 5 L high flow nasal cannula and maintaining O2 saturation in the 90s. His x-ray continues to show bilateral patchy infiltrates right greater than left. Blood cultures reveal no growth. D-dimer 0.87. LDH 827. C-reactive protein 11.8. He remains on Lovenox, IV Solu-Medrol, vitamin supplements. On today's evaluation of 08/28/2020, the patient is being seen for a follow-up. The patient is an acute hypoxic respiratory failure secondary to Covid pneumonia. The patient's vaccinations been improving. The patient's current FiO2 is at 5 L and the patient's pulse ox is around 92%. The patient remains on IV Solu-Medrol in addition to multivitamin supplements. The patient is also on Lovenox for DVT prophylaxis at a dose of 40 mg every 12 hours. Otherwise, the patient is doing well. D-dimer is low 0.87 and the patient doesn't have any other complaints. The last chest x-ray was done on 08/27/2020 and the patient had shown some patchy infiltrates peripherally in the lungs that are worse compared to the earlier chest x-ray from 08/25/2020. This will be monitored accordingly 08/29/2020 I'm seeing the patient for a follow-up. He is still ranging between 5 and 6 L of oxygen by nasal cannula regarding his hypoxic respiratory failure from Covid 19 related pneumonia. The patient remains on IV Solu-Medrol. The patient is taking multivitamins. Lovenox is currently at a dose of 40 mg subcu every 24 hours. He is clinically condition is stable. His blood work from today shows a white cell count of 16.2 with a hemoglobin of 14.2. The patient's glucose is 117. Rest of the chemistries pending, the last d-dimer was from 08/27/2020. A repeat chest x-ray was done and the patient's was found to have peripheral patchy pulmonary infiltrates, stable and unchanged compared to the chest x-ray from 2 days ago. Patient is also stable. Objective - Vital Signs Vital signs: Vital Signs Temp 98.3 F 08/29/20 09:32 Pulse 78 08/29/20 09:32 Resp 19 08/29/20 09:32 BP 113/70 08/29/20 09:32 Pulse Ox 90 L 08/29/20 09:32 Intake & Output 08/28/20 08/29/20 08/29/20 18:59 06:59 18:59 Intake Total 1440 660 Output Total 0 Balance 1440 660 Weight 118.5 kg Intake: Intake, IV Titration 120 Amount Sodium Chloride 0.9% 1, 120 000 ml @ 10 mls/hr IV . Q24H [facility] Rx#:[id number] Oral 1440 540 Output: Urine 0 Other: Voiding Method Toilet # Voids 2 1 # Bowel Movements 0 - Exam GENERAL EXAM: Alert, pleasant 55-year-old gentleman, on 5 L high flow nasal cannula, comfortable in no apparent distress. HEAD: Normocephalic. EYES: Normal reaction of pupils, equal size. NOSE: Clear with pink turbinates. THROAT: No erythema or exudates. NECK: No masses, no JVD. CHEST: No chest wall deformity. LUNGS: Equal air entry with scattered rhonchi, crackles in the posterior bases. CVS: S1 and S2 normal with no audible murmur, regular rhythm. ABDOMEN: No hepatosplenomegaly, normal bowel sounds, no guarding or rigidity. SPINE: No scoliosis or deformity SKIN: No rashes CENTRAL NERVOUS SYSTEM: No focal deficits, tone is normal in all 4 extremities. EXTREMITIES: There is no peripheral edema. No clubbing, no cyanosis. Peripheral pulses are intact. - Labs CBC & Chem 7: 08/29/20 06:52 08/25/20 06:41 Labs: Abnormal Lab Results - Last 24 Hours (Table) 08/28/20 08/28/20 08/29/20 Range/Units 17:08 20:35 06:46 WBC (4.50-10.00) X 10*3/uL Absolute Nucleated RBC (0.00-0.00) X 10*3/uL Immature Gran # (0.00-0.04) X 10*3/uL Neutrophils # (1.80-7.70) X 10*3/uL Lymphocytes # (0.90-5.00) X 10*3/uL Eosinophils # (0.04-0.35) X 10*3/uL NRBC/100 WBC Diff (0.0-0.0) /100 WBCS POC Glucose (mg/dL) 215 H 218 H 187 H (75-99) mg/dL 08/29/20 08/29/20 Range/Units 06:52 11:17 WBC 16.28 H (4.50-10.00) X 10*3/uL Absolute Nucleated RBC 0.03 H (0.00-0.00) X 10*3/uL Immature Gran # 0.79 H (0.00-0.04) X 10*3/uL Neutrophils # 14.39 H (1.80-7.70) X 10*3/uL Lymphocytes # 0.54 L (0.90-5.00) X 10*3/uL Eosinophils # 0 L (0.04-0.35) X 10*3/uL NRBC/100 WBC Diff 0.2 H (0.0-0.0) /100 WBCS POC Glucose (mg/dL) 170 H (75-99) mg/dL Microbiology - Last 24 Hours (Table) 08/23/20 17:59 Blood Culture - Preliminary Blood No Growth after 120 hours 08/23/20 17:10 Blood Culture - Preliminary Blood No Growth after 120 hours Assessment and Plan Plan: 1 Acute hypoxemic respiratory failure, secondary to COVID 19 pneumonia/pneumonitis, with improving oxygenation. Currently the patient is on 6 L by nasal cannula. Nevertheless, the chest x-ray from yesterday showed some worsening of either pulmonary infiltrates. We'll continue to monitor this patient very closely. Patient remains on steroids and the patient is currently on IV Solu Medrol 60 g every 6 hours. The patient is also on Lovenox for prophylaxis. The inflammatory markers are all down trending. The chest x-ray is not showing any major changes in the findings are stable with stable bilateral pulmonary infiltrates. On examination still crackling. His oxygenation is still somewhat between 5 and 6 L of oxygen by nasal cannula. I would say his condition is essentially the same as yesterday. 2 History of chronic bronchial asthma. 3 History of gastroesophageal reflux disease. 4 History of hyperlipidemia. Plan: Continue the current treatment plan Titrate down the FiO2 as tolerated. The patient is requiring oxygen and he is having somewhat between 5 and 6 L about 2 by nasal cannula continue current medication. Oxygenation is stable.. Increase his activity as tolerated May ultimately Require home oxygen We'll continue to follow
[2020-08-29 16:17] LABS: Glucose,Whole Blood 237 mg/dL (75-99)
[2020-08-29 16:34] LABS: African American GFR (CKD) 97.1 (60.0-200.0); Anion Gap 11.7 mmol/L (4.00-12.00); C Reactive Protein 1.3 mg/dL (0.0-0.8); Calcium 8.9 mg/dL (8.7-10.3); Carbon Dioxide 26.3 mmol/L (21.6-31.8); Non-African American GFR(CKD) 83.8 (60.0-200.0); Potassium 4.3 mmol/L (3.5-5.5)
[2020-08-29 20:01] LABS: Glucose,Whole Blood 196 mg/dL (75-99)
--- NOTE | 2020-08-29 23:03 | P.PN ---
Subjective Progress Note Date: 08/29/20 Principal diagnosis: COVID Pneumonia Mr. Maldonado is a 55-year-old with a past medical history of asthma, hyperlipidemia who was recently diagnosed with Covid infection, placed on prednisone and doxycycline by his primary care physician coming in with difficulty in breath ing. Patient was also seen in the emergency department recently and received an infusion of BAM. On 08/28/2020 -patient was seen and examined at the bedside. He appears to be in no acute distress. He states that he is still short of breath with minimal activity, still requiring 5 L of oxygen. Patient denies having any fevers chills or rigors. No sputum production. No chest pain. On reviewing his vitals afebrile for the past 24 hours, blood pressure 127 x 77 heart rate in the 60s to 70s. On reviewing the labs, no new labs from this morning. Patient's last chest x-ray was done yesterday showing worsening bilateral lung infiltrates. Pulmonary on board and following the patient closely. On 08/29/2020 -patient is seen and examined at bedside. He states that he still has difficulty in breathing with minimal activity and saturating at 90% on 8 L of high flow nasal cannula. Patient denied having any fevers chills or rigors. Complains of ongoing cough, that is dry in nature nonproductive. He denies having any chest pain or palpitations. Nominal pain nausea vomiting or diarrhea . No dysuria or hematuria. On reviewing his vitals T-max of 98.7, heart rate 76, respiratory rate 18, blood pressure 127 x 61. Reviewing labs from this morning white count of 16.2, hemoglobin 14.2, platelets 237. Sodium 140, potassium 4.3, chloride 102, bicarb 26, BUN 22, creatinine 1.0 LDH 330, C- reactive protein 1.3. Active Medications Acetaminophen (Acetaminophen Tab 325 Mg Tab) 650 mg PO Q6HR PRN PRN Reason: Fever and/ or Pain Last Admin: 08/28/20 20:52 Dose: 650 mg Documented by: Albuterol Sulfate (Albuterol Hfa Inhaler) 2 puff INHALATION RT-QID GUILHERME Last Admin: 08/29/20 20:36 Dose: 2 puff Documented by: Albuterol Sulfate (Albuterol Hfa Inhaler) 2 puff INHALATION RT-QID PRN PRN Reason: Shortness Of Breath Or Wheezing Last Admin: 08/25/20 23:56 Dose: 2 puff Documented by: Ascorbic Acid (Ascorbic Acid 500 Mg Tab) 500 mg PO BID [facility] Last Admin: 08/29/20 21:21 Dose: 500 mg Documented by: Atorvastatin Calcium (Atorvastatin 20 Mg Tab) 20 mg PO DAILY [facility] Last Admin: 08/29/20 07:38 Dose: 20 mg Documented by: Benzonatate (Benzonatate 100 Mg Cap) 200 mg PO TID [facility] Last Admin: 08/29/20 21:21 Dose: 200 mg Documented by: Cholecalciferol (Cholecalciferol 25 Mcg (1000 Iu) Tablet) 25 mcg PO DAILY [facility] Last Admin: 08/29/20 07:38 Dose: 25 mcg Documented by: Diphenhydramine HCl (Diphenhydramine 25 Mg Cap) 25 mg PO TID PRN PRN Reason: Itching Last Admin: 08/29/20 21:21 Dose: 25 mg Documented by: Enoxaparin Sodium (Enoxaparin 40 Mg/0.4 Ml Syringe) 40 mg SQ DAILY [facility] Last Admin: 08/29/20 07:37 Dose: 40 mg Documented by: Guaifenesin/Codeine Phosphate (Guaifenesin-Coden 100-10mg/5ml 10 Ml Cup) 10 ml PO TID PRN PRN Reason: Cough Last Admin: 08/29/20 21:21 Dose: 10 ml Documented by: Sodium Chloride (Saline 0.9%) 1,000 mls @ 10 mls/hr IV .Q24H [facility] Last Admin: 08/29/20 10:52 Dose: Not Given Documented by: Insulin Aspart (Insulin Aspart (Novolog) 100 Unit/Ml Vial) 0 unit SQ [facility]; Protocol Last Admin: 08/29/20 21:22 Dose: 3 unit Documented by: Methylprednisolone Sodium Succinate (Methylprednisolone Sod Succi 125 Mg/2 Ml Vial) 60 mg IV Q6HR [facility] Last Admin: 08/29/20 17:01 Dose: 60 mg Documented by: Naloxone HCl (Naloxone 0.4 Mg/Ml 1 Ml Vial) 0.2 mg IV Q2M PRN PRN Reason: Opioid Reversal Pantoprazole Sodium (Pantoprazole 40 Mg Tablet) 40 mg PO DAILY [facility] Last Admin: 08/29/20 07:38 Dose: 40 mg Documented by: Tamsulosin HCl (Tamsulosin 0.4 Mg Cap.Er.24h) 0.4 mg PO DAILY [facility] Last Admin: 08/29/20 07:38 Dose: 0.4 mg Documented by: Zinc Sulfate (Zinc Sulfate 220 Mg Cap) 220 mg PO DAILY [facility] Last Admin: 08/29/20 07:38 Dose: 220 mg Documented by: Objective - Vital Signs Vital signs: Vital Signs Temp 98.3 F 08/29/20 09:32 Pulse 78 08/29/20 09:32 Resp 19 08/29/20 09:32 BP 113/70 08/29/20 09:32 Pulse Ox 90 L 08/29/20 09:32 Intake & Output 08/28/20 08/29/20 08/29/20 18:59 06:59 18:59 Intake Total 1440 660 Output Total 0 Balance 1440 660 Weight 118.5 kg Intake: Intake, IV Titration 120 Amount Sodium Chloride 0.9% 1, 120 000 ml @ 10 mls/hr IV . Q24H [facility] Rx#:[id number] Oral 1440 540 Output: Urine 0 Other: Voiding Method Toilet # Voids 2 1 # Bowel Movements 0 - Exam PHYSICAL EXAMINATION: GENERAL: The patient is alert and oriented x3, not in any acute distress. Obese HEENT: Pupils are round and equally reacting to light. EOMI. No scleral icterus. No conjunctival pallor. CARDIOVASCULAR: S1 and S2 present. No murmurs, rubs, or gallops. PULMONARY: Bilateral coarse breath sounds ABDOMEN: Soft, nontender, nondistended, normoactive bowel sounds. No palpable organomegaly. MUSCULOSKELETAL: No joint swelling or deformity. EXTREMITIES: No cyanosis, clubbing, or pedal edema. NEUROLOGICAL: Gross neurological examination did not reveal any focal deficits. SKIN: No rashes. - Labs CBC & Chem 7: 08/29/20 06:52 08/29/20 06:52 Labs: Abnormal Lab Results - Last 24 Hours (Table) 08/28/20 08/28/20 08/29/20 Range/Units 17:08 20:35 06:46 WBC (4.50-10.00) X 10*3/uL Absolute Nucleated RBC (0.00-0.00) X 10*3/uL Immature Gran # (0.00-0.04) X 10*3/uL Neutrophils # (1.80-7.70) X 10*3/uL Lymphocytes # (0.90-5.00) X 10*3/uL Eosinophils # (0.04-0.35) X 10*3/uL NRBC/100 WBC Diff (0.0-0.0) /100 WBCS POC Glucose (mg/dL) 215 H 218 H 187 H (75-99) mg/dL 08/29/20 08/29/20 Range/Units 06:52 11:17 WBC 16.28 H (4.50-10.00) X 10*3/uL Absolute Nucleated RBC 0.03 H (0.00-0.00) X 10*3/uL Immature Gran # 0.79 H (0.00-0.04) X 10*3/uL Neutrophils # 14.39 H (1.80-7.70) X 10*3/uL Lymphocytes # 0.54 L (0.90-5.00) X 10*3/uL Eosinophils # 0 L (0.04-0.35) X 10*3/uL NRBC/100 WBC Diff 0.2 H (0.0-0.0) /100 WBCS POC Glucose (mg/dL) 170 H (75-99) mg/dL Microbiology - Last 24 Hours (Table) 08/23/20 17:59 Blood Culture - Preliminary Blood No Growth after 120 hours 08/23/20 17:10 Blood Culture - Preliminary Blood No Growth after 120 hours Assessment and Plan Assessment: ASSESSMENT Acute hypoxic respiratory failure secondary to Covid pneumonia Asthma Hyperlipidemia Obesity GERD Plan: Patient to be continued on IV Solu-Medrol breathing treatments, Lovenox. Continue with Protonix for GI prophylaxis. Activity as tolerated and Incentive Spirometry. We will repeat a.m. labs and chest X ray. Overall patient seems to progress very slowly. We will repeat a chest x-ray for tomorrow morning for follow-up. Further recommendations depending on the progress of the patient.
[2020-08-30] MEDS: methylPREDNISolone SOD SUCCI 125 MG/2 ML VIAL IV SCH ×5 (01:35→23:57)
[2020-08-30] MEDS: diphenhydrAMINE 25 MG CAP PO PRN ×4 (01:35→21:51)
[2020-08-30] MEDS: guaiFENesin-Coden 100-10MG/5ML 10 ML CUP PO PRN ×4 (01:35→21:52)
[2020-08-30 07:01] LABS: Glucose,Whole Blood 172 mg/dL (75-99)
[2020-08-30] MEDS: TAMSULOSIN 0.4 MG CAP.ER.24H PO SCH (08:10)
[2020-08-30] MEDS: ZINC SULFATE 220 MG CAP PO SCH (08:11)
[2020-08-30] MEDS: ATORVASTATIN 20 MG TAB PO SCH (08:11)
[2020-08-30] MEDS: ASCORBIC ACID 500 MG TAB PO SCH ×2 (08:11→21:51)
[2020-08-30] MEDS: CHOLECALCIFEROL 25 MCG (1000 IU) TABLET PO SCH (08:11)
[2020-08-30] MEDS: PANTOPRAZOLE 40 MG TABLET PO SCH (08:11)
[2020-08-30] MEDS: BENZONATATE 100 MG CAP PO SCH ×3 (08:11→21:51)
[2020-08-30] MEDS: INSULIN ASPART (NovoLOG) 100 UNIT/ML VIAL SQ SCH ×4 (08:11→21:51)
[2020-08-30] MEDS: ENOXAPARIN 40 MG/0.4 ML SYRINGE SQ SCH (08:12)
[2020-08-30 08:47] LABS: Basophils # (A) 0.02 X 10*3/uL (0.00-0.10); Basophils % (A) 0.1 %; Eosinophils # (A) 0 X 10*3/uL (0.04-0.35); Eosinophils % (A) 0 %; HCT 40.3 % (39.6-50.0); HGB 13.2 g/dL (13.0-17.0); Lymphocytes # (A) 0.35 X 10*3/uL (0.90-5.00); Lymphocytes % (A) 2.2 %; MCH 28.4 pg (27.0-32.0); MCHC 32.8 g/dL (32.0-37.0); MCV 86.9 fL (80.0-97.0); Mean Platelet Volume 10.5 fL (9.5-12.2); Monocytes # (A) 0.54 X 10*3/uL (0.20-1.00); Monocytes % (A) 3.4 %; Neutrophils # (A) 14.44 X 10*3/uL (1.80-7.70); Neutrophils % (A) 92.1 %; Platelet Count 212 X 10*3/uL (140-440); RBC 4.64 X 10*6/uL (4.40-5.60); RDW 12.6 % (11.5-14.5); WBC 15.69 X 10*3/uL (4.50-10.00)
[2020-08-30] MEDS: ALBUTEROL HFA INHALER INHALATION SCH ×4 (09:11→21:25)
[2020-08-30 09:35] LABS: African American GFR (CKD) 97.1 (60.0-200.0); Anion Gap 8.1 mmol/L (4.00-12.00); Calcium 8.2 mg/dL (8.7-10.3); Carbon Dioxide 26.9 mmol/L (21.6-31.8); Non-African American GFR(CKD) 83.8 (60.0-200.0); Potassium 4.1 mmol/L (3.5-5.5)
[2020-08-30 09:58] LABS: Ferritin 582.6 ng/mL (22.0-322.0)
[2020-08-30 12:02] LABS: Glucose,Whole Blood 201 mg/dL (75-99)
[2020-08-30] MEDS: SODIUM CHLORIDE 0.9% 1,000 ML IV SCH (12:32)
[2020-08-30] MEDS: DOCUSATE 100 MG CAP PO PRN (15:17)
[2020-08-30] MEDS: SENNOSIDES 8.6 MG TAB PO PRN (15:17)
--- NOTE | 2020-08-30 15:53 | P.PN ---
Subjective Progress Note Date: 08/30/20 55-year-old male patient who presents to the emergency department on August 23, for increasing shortness of breath, and decreased oxygen saturation. He was diagnosed as having COVID, more than 2 weeks ago. The patient was placed on prednisone and doxycycline by his primary care provider. He also was seen in the emergency department recently, and received an infusion of BAM. More recently, he states that although he initially seemed to improve after the infusion of BAM, he has now worsened. He states that any activity makes him short of breath, and his saturations drop into the 70s. He feels winded even at rest. He does have a bit of a cough. The cough is mostly dry. He does have pain in his chest when he coughs. He denies any chest pain outside of coughing, chest pressure, nausea, vomiting, diarrhea, abdominal pain, genitourinary complaints, or rash. Chest x-ray showed extensive bilateral pneumonia. White count is 5.7, hemoglobin 14.7, hematocrit 42.7 and platelet count 166,000. The lymphocyte count is decreased. The d-dimer is 0.89, and sodium is 139, potassium 3.9, chlorides 107, CO2 24, anion gap 8, BUN 20, and creatinine 1. The ferritin count is 1637, the LDH is 1069, and the C-reactive protein is 86.2. Pro-calcitonin is 0.16. The patient is seen today 08/25/2020 in follow-up on the selective care unit. He is currently resting fairly comfortably in bed. He is not much improved today compared to yesterday. Still with a chronic and ongoing cough. He is on 8 L high flow nasal cannula. 0.9 normal saline at 75 ML's per hour. Chest x- ray continues to show persistent but improved right greater than left bilateral peripheral acute opacities. D-dimer 0.63. LDH 816. C-reactive protein 23.7. He is continued on IV Solu-Medrol, Lovenox, vitamin supplements. The patient is seen today 08/26/2020 in follow-up on the selective care unit. He is currently sitting up at bedside. Awake and alert in no acute distress. Breathing bit easier today compared to yesterday. Continues with a loose nonproductive cough. Maintaining on Mucinex and Tessalon. IV fluids at 75 ML's per hour to be decreased to KVO. He still on 10 L high flow nasal cannula. D- dimer 0.63. LDH 781. C-reactive protein 16.5. He is continued on IV Solu- Medrol, Lovenox, vitamin supplements. The patient is seen today 08/27/2020 in follow-up on the selective care unit. He is currently sitting up in bed. Awake and alert in no acute distress. Sitting his breathing a bit better today compared to yesterday. Less cough and congestion. He was outside the window for Remdesivir. He is currently down to 5 L high flow nasal cannula and maintaining O2 saturation in the 90s. His x-ray continues to show bilateral patchy infiltrates right greater than left. Blood cultures reveal no growth. D-dimer 0.87. LDH 827. C-reactive protein 11.8. He remains on Lovenox, IV Solu-Medrol, vitamin supplements. On today's evaluation of 08/28/2020, the patient is being seen for a follow-up. The patient is an acute hypoxic respiratory failure secondary to Covid pneumonia. The patient's vaccinations been improving. The patient's current FiO2 is at 5 L and the patient's pulse ox is around 92%. The patient remains on IV Solu-Medrol in addition to multivitamin supplements. The patient is also on Lovenox for DVT prophylaxis at a dose of 40 mg every 12 hours. Otherwise, the patient is doing well. D-dimer is low 0.87 and the patient doesn't have any other complaints. The last chest x-ray was done on 08/27/2020 and the patient had shown some patchy infiltrates peripherally in the lungs that are worse compared to the earlier chest x-ray from 08/25/2020. This will be monitored accordingly 08/29/2020 I'm seeing the patient for a follow-up. He is still ranging between 5 and 6 L of oxygen by nasal cannula regarding his hypoxic respiratory failure from Covid 19 related pneumonia. The patient remains on IV Solu-Medrol. The patient is taking multivitamins. Lovenox is currently at a dose of 40 mg subcu every 24 hours. He is clinically condition is stable. His blood work from today shows a white cell count of 16.2 with a hemoglobin of 14.2. The patient's glucose is 117. Rest of the chemistries pending, the last d-dimer was from 08/27/2020. A repeat chest x-ray was done and the patient's was found to have peripheral patchy pulmonary infiltrates, stable and unchanged compared to the chest x-ray from 2 days ago. Patient is also stable. 08/30/2020, the patient is essentially stable. He feels the same. However, his oxygenation has been fluctuating at the oxygen flow was down to 5 or 6 L yesterday and currently is up to 8 L. He remains on IV Solu-Medrol. He is taking all of his multivitamins. He remains on Lovenox at a dose of 40 mg subcu every 24 hours.. The patient's LDH level is down to 88, his CRP level is down to 2.0, his progress on level is low at 0.06. His latest d-dimer is at 1.23. No other new complaints for now. His platelet counts is at 212. No significant leukocytosis. His white cell count is still at 15. The chest x-ray from yesterday was showing patchy bilateral pulmonary infiltrates that are essentially stable compared to the earlier chest x-ray from 08/30/2020. Objective - Vital Signs Vital signs: Vital Signs Temp 98.0 F 08/30/20 14:27 Pulse 73 08/30/20 14:27 Resp 15 08/30/20 14:27 BP 118/67 08/30/20 14:27 Pulse Ox 88 L 08/30/20 14:27 Intake & Output 08/29/20 08/30/20 08/30/20 18:59 06:59 18:59 Weight 118.5 kg 118.6 kg Other: Voiding Method Toilet # Voids 1 1 3 - Exam GENERAL EXAM: Alert, pleasant 55-year-old gentleman, on 8-10 L high flow nasal cannula, comfortable in no apparent distress. HEAD: Normocephalic. EYES: Normal reaction of pupils, equal size. NOSE: Clear with pink turbinates. THROAT: No erythema or exudates. NECK: No masses, no JVD. CHEST: No chest wall deformity. LUNGS: Equal air entry with scattered rhonchi, crackles in the posterior bases. CVS: S1 and S2 normal with no audible murmur, regular rhythm. ABDOMEN: No hepatosplenomegaly, normal bowel sounds, no guarding or rigidity. SPINE: No scoliosis or deformity SKIN: No rashes CENTRAL NERVOUS SYSTEM: No focal deficits, tone is normal in all 4 extremities. EXTREMITIES: There is no peripheral edema. No clubbing, no cyanosis. Perip heral pulses are intact. - Labs CBC & Chem 7: 08/30/20 05:54 08/30/20 05:54 Labs: Abnormal Lab Results - Last 24 Hours (Table) 08/29/20 08/29/20 08/29/20 Range/Units 06:52 16:16 19:59 WBC (4.50-10.00) X 10*3/uL Immature Gran # (0.00-0.04) X 10*3/uL Neutrophils # (1.80-7.70) X 10*3/uL Lymphocytes # (0.90-5.00) X 10*3/uL Eosinophils # (0.04-0.35) X 10*3/uL D-Dimer (<0.60) mg/L FEU BUN/Creatinine Ratio 22.00 H (12.00-20.00) Ratio Glucose 168 H (70-110) mg/dL POC Glucose (mg/dL) 237 H 196 H (75-99) mg/dL Calcium (8.7-10.3) mg/dL Ferritin (22.0-322.0) ng/mL Lactate Dehydrogenase 330 H (120-246) U/L C-Reactive Protein 1.3 H (0.0-0.8) mg/dL 08/30/20 08/30/20 08/30/20 Range/Units 05:54 05:54 05:54 WBC 15.69 H (4.50-10.00) X 10*3/uL Immature Gran # 0.34 H (0.00-0.04) X 10*3/uL Neutrophils # 14.44 H (1.80-7.70) X 10*3/uL Lymphocytes # 0.35 L (0.90-5.00) X 10*3/uL Eosinophils # 0 L (0.04-0.35) X 10*3/uL D-Dimer 1.23 H (<0.60) mg/L FEU BUN/Creatinine Ratio 23.00 H (12.00-20.00) Ratio Glucose 196 H (70-110) mg/dL POC Glucose (mg/dL) (75-99) mg/dL Calcium 8.2 L (8.7-10.3) mg/dL Ferritin 582.6 H (22.0-322.0) ng/mL Lactate Dehydrogenase 288 H (120-246) U/L C-Reactive Protein 2.0 H (0.0-0.8) mg/dL 08/30/20 08/30/20 Range/Units 06:56 11:55 WBC (4.50-10.00) X 10*3/uL Immature Gran # (0.00-0.04) X 10*3/uL Neutrophils # (1.80-7.70) X 10*3/uL Lymphocytes # (0.90-5.00) X 10*3/uL Eosinophils # (0.04-0.35) X 10*3/uL D-Dimer (<0.60) mg/L FEU BUN/Creatinine Ratio (12.00-20.00) Ratio Glucose (70-110) mg/dL POC Glucose (mg/dL) 172 H 201 H (75-99) mg/dL Calcium (8.7-10.3) mg/dL Ferritin (22.0-322.0) ng/mL Lactate Dehydrogenase (120-246) U/L C-Reactive Protein (0.0-0.8) mg/dL Microbiology - Last 24 Hours (Table) 08/23/20 17:59 Blood Culture - Final Blood No Growth after 144 hours 08/23/20 17:10 Blood Culture - Final Blood No Growth after 144 hours Assessment and Plan Plan: 1 Acute hypoxemic respiratory failure, secondary to COVID 19 pneumonia/pne umonitis, with improving oxygenation. The patient's oxygenation has been fluctuating and he is oxygen flow has been increased up to 8 and then 10 L per minute nasal cannula. His chest x-ray from yesterday was showing stable pulmonary infiltrates. Inflammatory markers improved with a drop in the LDH and CRP. D-dimer is mildly elevated. The patient remains on IV Solu-Medrol. The patient remains on Lovenox. Clinically the same, slightly improved. He has no new complaints otherwise for now. 2 History of chronic bronchial asthma. 3 History of gastroesophageal reflux disease. 4 History of hyperlipidemia. Plan: Continue the current treatment plan, wean down the FiO2 as tolerated to maintain saturation above 90% Titrate down the FiO2 as tolerated. Increase his activity as tolerated May ultimately Require home oxygen LDH and CRP has dropped Continue Lovenox the pro-calcitonin level has been low We'll continue to follow
[2020-08-30 17:24] LABS: Glucose,Whole Blood 189 mg/dL (75-99)
[2020-08-30 20:30] LABS: Glucose,Whole Blood 308 mg/dL (75-99)
--- NOTE | 2020-08-31 00:10 | P.PN ---
Subjective Progress Note Date: 08/30/20 Principal diagnosis: COVID Pneumonia Mr. Maldonado is a 55-year-old with a past medical history of asthma, hyperlipidemia who was recently diagnosed with Covid infection, placed on prednisone and doxycycline by his primary care physician coming in with difficulty in breath ing. Patient was also seen in the emergency department recently and received an infusion of BAM. On 08/28/2020 -patient was seen and examined at the bedside. He appears to be in no acute distress. He states that he is still short of breath with minimal activity, still requiring 5 L of oxygen. Patient denies having any fevers chills or rigors. No sputum production. No chest pain. On reviewing his vitals afebrile for the past 24 hours, blood pressure 127 x 77 heart rate in the 60s to 70s. On reviewing the labs, no new labs from this morning. Patient's last chest x-ray was done yesterday showing worsening bilateral lung infiltrates. Pulmonary on board and following the patient closely. On 08/29/2020 -patient is seen and examined at bedside. He states that he still has difficulty in breathing with minimal activity and saturating at 90% on 8 L of high flow nasal cannula. Patient denied having any fevers chills or rigors. Complains of ongoing cough, that is dry in nature nonproductive. He denies having any chest pain or palpitations. Nominal pain nausea vomiting or diarrhea . No dysuria or hematuria. On reviewing his vitals T-max of 98.7, heart rate 76, respiratory rate 18, blood pressure 127 x 61. Reviewing labs from this morning white count of 16.2, hemoglobin 14.2, platelets 237. Sodium 140, potassium 4.3, chloride 102, bicarb 26, BUN 22, creatinine 1.0 LDH 330, C- reactive protein 1.3. On 08/30/2020 - -patient is seen and examined at bedside. Is comfortably sitting up in a chair by the bedside. Patient is still requiring 5 L of oxygen. He complains of ongoing cough mostly dry in nature. Patient denies having any fevers chills or rigors. Patient denies having any abdominal pain nausea vomiting or diarrhea. No dysuria or hematuria. On reviewing his vitals T-max of 98.4, heart rate 60 to 70s, respiratory rate 16, blood pressure 131 x 51. On reviewing his labs white count of 15.5, hemoglobin 13.2, platelets 212. D-dimer 1.23, sodium 139, potassium 4.1, chloride 104, bicarb 26, BUN 23, creatinine 1.0 C-reactive protein 2, lactate dehydrogenase 288, ferritin 582. Active Medications Acetaminophen (Acetaminophen Tab 325 Mg Tab) 650 mg PO Q6HR PRN PRN Reason: Fever and/ or Pain Last Admin: 08/28/20 20:52 Dose: 650 mg Documented by: Albuterol Sulfate (Albuterol Hfa Inhaler) 2 puff INHALATION RT-QID [facility] Last Admin: 08/30/20 21:25 Dose: 2 puff Documented by: Albuterol Sulfate (Albuterol Hfa Inhaler) 2 puff INHALATION RT-QID PRN PRN Reason: Shortness Of Breath Or Wheezing Last Admin: 08/25/20 23:56 Dose: 2 puff Documented by: Ascorbic Acid (Ascorbic Acid 500 Mg Tab) 500 mg PO BID [facility] Last Admin: 08/30/20 21:51 Dose: 500 mg Documented by: Atorvastatin Calcium (Atorvastatin 20 Mg Tab) 20 mg PO DAILY [facility] Last Admin: 08/30/20 08:11 Dose: 20 mg Documented by: Benzonatate (Benzonatate 100 Mg Cap) 200 mg PO TID [facility] Last Admin: 08/30/20 21:51 Dose: 200 mg Documented by: Cholecalciferol (Cholecalciferol 25 Mcg (1000 Iu) Tablet) 25 mcg PO DAILY [facility] Last Admin: 08/30/20 08:11 Dose: 25 mcg Documented by: Diphenhydramine HCl (Diphenhydramine 25 Mg Cap) 25 mg PO TID PRN PRN Reason: Itching Last Admin: 08/30/20 21:51 Dose: 25 mg Documented by: Docusate Sodium (Docusate 100 Mg Cap) 200 mg PO DAILY PRN PRN Reason: Constipation Last Admin: 08/30/20 15:17 Dose: 200 mg Documented by: Enoxaparin Sodium (Enoxaparin 40 Mg/0.4 Ml Syringe) 40 mg SQ DAILY [facility] Last Admin: 08/30/20 08:12 Dose: 40 mg Documented by: Guaifenesin/Codeine Phosphate (Guaifenesin-Coden 100-10mg/5ml 10 Ml Cup) 10 ml PO TID PRN PRN Reason: Cough Last Admin: 08/30/20 21:52 Dose: 10 ml Documented by: Sodium Chloride (Saline 0.9%) 1,000 mls @ 10 mls/hr IV .Q24H [facility] Last Admin: 08/30/20 12:32 Dose: Not Given Documented by: Insulin Aspart (Insulin Aspart (Novolog) 100 Unit/Ml Vial) 0 unit SQ ACHS [facility]; Protocol Last Admin: 08/30/20 21:51 Dose: 9 unit Documented by: Methylprednisolone Sodium Succinate (Methylprednisolone Sod Succi 125 Mg/2 Ml Vial) 60 mg IV Q6HR [facility] Last Admin: 08/30/20 23:57 Dose: 60 mg Documented by: Naloxone HCl (Naloxone 0.4 Mg/Ml 1 Ml Vial) 0.2 mg IV Q2M PRN PRN Reason: Opioid Reversal Pantoprazole Sodium (Pantoprazole 40 Mg Tablet) 40 mg PO DAILY [facility] Last Admin: 08/30/20 08:11 Dose: 40 mg Documented by: Senna (Sennosides 8.6 Mg Tab) 8.6 mg PO BID PRN PRN Reason: Constipation Last Admin: 08/30/20 15:17 Dose: 8.6 mg Documented by: Tamsulosin HCl (Tamsulosin 0.4 Mg Cap.Er.24h) 0.4 mg PO DAILY [facility] Last Admin: 08/30/20 08:10 Dose: 0.4 mg Documented by: Zinc Sulfate (Zinc Sulfate 220 Mg Cap) 220 mg PO DAILY [facility] Last Admin: 08/30/20 08:11 Dose: 220 mg Documented by: Objective - Vital Signs Vital signs: Vital Signs Temp 98.4 F 08/30/20 10:00 Pulse 67 08/30/20 10:00 Resp 16 08/30/20 10:00 BP 131/51 08/30/20 10:00 Pulse Ox 87 L 08/30/20 10:00 Intake & Output 08/29/20 08/30/20 08/30/20 18:59 06:59 18:59 Weight 118.5 kg 118.6 kg Other: Voiding Method Toilet # Voids 1 1 3 - Exam PHYSICAL EXAMINATION: GENERAL: The patient is alert and oriented x3, not in any acute distress. Obese HEENT: Pupils are round and equally reacting to light. EOMI. No scleral icterus. No conjunctival pallor. N CARDIOVASCULAR: S1 and S2 present. No murmurs, rubs, or gallops. PULMONARY: Bilateral coarse breath sounds ABDOMEN: Soft, nontender, nondistended, normoactive bowel sounds. No palpable organomegaly. MUSCULOSKELETAL: No joint swelling or deformity. EXTREMITIES: No cyanosis, clubbing, or pedal edema. NEUROLOGICAL: Gross neurological examination did not reveal any focal deficits. SKIN: No rashes. - Labs CBC & Chem 7: 08/30/20 05:54 08/30/20 05:54 Labs: Abnormal Lab Results - Last 24 Hours (Table) 08/29/20 08/29/20 08/29/20 Range/Units 06:52 16:16 19:59 WBC (4.50-10.00) X 10*3/uL Immature Gran # (0.00-0.04) X 10*3/uL Neutrophils # (1.80-7.70) X 10*3/uL Lymphocytes # (0.90-5.00) X 10*3/uL Eosinophils # (0.04-0.35) X 10*3/uL D-Dimer (<0.60) mg/L FEU BUN/Creatinine Ratio 22.00 H (12.00-20.00) Ratio Glucose 168 H (70-110) mg/dL POC Glucose (mg/dL) 237 H 196 H (75-99) mg/dL Calcium (8.7-10.3) mg/dL Ferritin (22.0-322.0) ng/mL Lactate Dehydrogenase 330 H (120-246) U/L C-Reactive Protein 1.3 H (0.0-0.8) mg/dL 08/30/20 08/30/20 08/30/20 Range/Units 05:54 05:54 05:54 WBC 15.69 H (4.50-10.00) X 10*3/uL Immature Gran # 0.34 H (0.00-0.04) X 10*3/uL Neutrophils # 14.44 H (1.80-7.70) X 10*3/uL Lymphocytes # 0.35 L (0.90-5.00) X 10*3/uL Eosinophils # 0 L (0.04-0.35) X 10*3/uL D-Dimer 1.23 H (<0.60) mg/L FEU BUN/Creatinine Ratio 23.00 H (12.00-20.00) Ratio Glucose 196 H (70-110) mg/dL POC Glucose (mg/dL) (75-99) mg/dL Calcium 8.2 L (8.7-10.3) mg/dL Ferritin 582.6 H (22.0-322.0) ng/mL Lactate Dehydrogenase 288 H (120-246) U/L C-Reactive Protein 2.0 H (0.0-0.8) mg/dL 08/30/20 08/30/20 Range/Units 06:56 11:55 WBC (4.50-10.00) X 10*3/uL Immature Gran # (0.00-0.04) X 10*3/uL Neutrophils # (1.80-7.70) X 10*3/uL Lymphocytes # (0.90-5.00) X 10*3/uL Eosinophils # (0.04-0.35) X 10*3/uL D-Dimer (<0.60) mg/L FEU BUN/Creatinine Ratio (12.00-20.00) Ratio Glucose (70-110) mg/dL POC Glucose (mg/dL) 172 H 201 H (75-99) mg/dL Calcium (8.7-10.3) mg/dL Ferritin (22.0-322.0) ng/mL Lactate Dehydrogenase (120-246) U/L C-Reactive Protein (0.0-0.8) mg/dL Microbiology - Last 24 Hours (Table) 08/23/20 17:59 Blood Culture - Final Blood No Growth after 144 hours 08/23/20 17:10 Blood Culture - Final Blood No Growth after 144 hours Assessment and Plan Assessment: ASSESSMENT Acute hypoxic respiratory failure secondary to Covid pneumonia Asthma Hyperlipidemia Obesity BMI - 37.5 GERD Plan: Patient to be continued on IV Solu-Medrol breathing treatments, Lovenox. Continue with Protonix for GI prophylaxis. Activity as tolerated. We will repeat a.m. labs. Overall patient seems to be responding very slowly, still requiring 5- 8 lt of oxygen. We will repeat a chest x-ray for tomorrow morning for follow-up. Further recommendations depending on the progress of the patie nt.
[2020-08-31] MEDS: methylPREDNISolone SOD SUCCI 125 MG/2 ML VIAL IV SCH ×3 (05:31→17:53)
[2020-08-31 07:31] LABS: Glucose,Whole Blood 180 mg/dL (75-99)
[2020-08-31] MEDS: diphenhydrAMINE 25 MG CAP PO PRN ×3 (08:24→21:00)
[2020-08-31] MEDS: TAMSULOSIN 0.4 MG CAP.ER.24H PO SCH (08:24)
[2020-08-31] MEDS: ZINC SULFATE 220 MG CAP PO SCH (08:24)
[2020-08-31] MEDS: PANTOPRAZOLE 40 MG TABLET PO SCH (08:24)
[2020-08-31] MEDS: ASCORBIC ACID 500 MG TAB PO SCH ×2 (08:24→20:59)
[2020-08-31] MEDS: BENZONATATE 100 MG CAP PO SCH ×3 (08:24→21:00)
[2020-08-31] MEDS: guaiFENesin-Coden 100-10MG/5ML 10 ML CUP PO PRN ×3 (08:24→21:00)
[2020-08-31] MEDS: CHOLECALCIFEROL 25 MCG (1000 IU) TABLET PO SCH (08:24)
[2020-08-31] MEDS: ATORVASTATIN 20 MG TAB PO SCH (08:24)
[2020-08-31] MEDS: INSULIN ASPART (NovoLOG) 100 UNIT/ML VIAL SQ SCH ×4 (08:25→21:00)
[2020-08-31] MEDS: ENOXAPARIN 40 MG/0.4 ML SYRINGE SQ SCH (08:25)
[2020-08-31] MEDS: ACETAMINOPHEN TAB 325 MG TAB PO PRN (08:34)
[2020-08-31] MEDS: SENNOSIDES 8.6 MG TAB PO PRN (08:35)
[2020-08-31] MEDS: DOCUSATE 100 MG CAP PO PRN (08:35)
[2020-08-31] MEDS: ALBUTEROL HFA INHALER INHALATION SCH ×4 (09:07→20:35)
[2020-08-31 09:10] LABS: C Reactive Protein 43.1 mg/L (<10.0)
[2020-08-31 12:10] LABS: Glucose,Whole Blood 171 mg/dL (75-99)
[2020-08-31] MEDS: SODIUM CHLORIDE 0.9% 1,000 ML IV SCH (14:02)
--- NOTE | 2020-08-31 15:07 | P.PN ---
Subjective Progress Note Date: 08/31/20 55-year-old male patient who presents to the emergency department on August 23, for increasing shortness of breath, and decreased oxygen saturation. He was diagnosed as having COVID, more than 2 weeks ago. The patient was placed on prednisone and doxycycline by his primary care provider. He also was seen in the emergency department recently, and received an infusion of BAM. More recently, he states that although he initially seemed to improve after the infusion of BAM, he has now worsened. He states that any activity makes him short of breath, and his saturations drop into the 70s. He feels winded even at rest. He does have a bit of a cough. The cough is mostly dry. He does have pain in his chest when he coughs. He denies any chest pain outside of coughing, chest pressure, nausea, vomiting, diarrhea, abdominal pain, genitourinary complaints, or rash. Chest x-ray showed extensive bilateral pneumonia. White count is 5.7, hemoglobin 14.7, hematocrit 42.7 and platelet count 166,000. The lymphocyte count is decreased. The d-dimer is 0.89, and sodium is 139, potassium 3.9, chlorides 107, CO2 24, anion gap 8, BUN 20, and creatinine 1. The ferritin count is 1637, the LDH is 1069, and the C-reactive protein is 86.2. Pro-calcitonin is 0.16. The patient is seen today 08/25/2020 in follow-up on the selective care unit. He is currently resting fairly comfortably in bed. He is not much improved today compared to yesterday. Still with a chronic and ongoing cough. He is on 8 L high flow nasal cannula. 0.9 normal saline at 75 ML's per hour. Chest x- ray continues to show persistent but improved right greater than left bilateral peripheral acute opacities. D-dimer 0.63. LDH 816. C-reactive protein 23.7. He is continued on IV Solu-Medrol, Lovenox, vitamin supplements. The patient is seen today 08/26/2020 in follow-up on the selective care unit. He is currently sitting up at bedside. Awake and alert in no acute distress. Breathing bit easier today compared to yesterday. Continues with a loose nonproductive cough. Maintaining on Mucinex and Tessalon. IV fluids at 75 ML's per hour to be decreased to KVO. He still on 10 L high flow nasal cannula. D- dimer 0.63. LDH 781. C-reactive protein 16.5. He is continued on IV Solu- Medrol, Lovenox, vitamin supplements. The patient is seen today 08/27/2020 in follow-up on the selective care unit. He is currently sitting up in bed. Awake and alert in no acute distress. Sitting his breathing a bit better today compared to yesterday. Less cough and congestion. He was outside the window for Remdesivir. He is currently down to 5 L high flow nasal cannula and maintaining O2 saturation in the 90s. His x-ray continues to show bilateral patchy infiltrates right greater than left. Blood cultures reveal no growth. D-dimer 0.87. LDH 827. C-reactive protein 11.8. He remains on Lovenox, IV Solu-Medrol, vitamin supplements. On today's evaluation of 08/28/2020, the patient is being seen for a follow-up. The patient is an acute hypoxic respiratory failure secondary to Covid pneumonia. The patient's vaccinations been improving. The patient's current FiO2 is at 5 L and the patient's pulse ox is around 92%. The patient remains on IV Solu-Medrol in addition to multivitamin supplements. The patient is also on Lovenox for DVT prophylaxis at a dose of 40 mg every 12 hours. Otherwise, the patient is doing well. D-dimer is low 0.87 and the patient doesn't have any other complaints. The last chest x-ray was done on 08/27/2020 and the patient had shown some patchy infiltrates peripherally in the lungs that are worse compared to the earlier chest x-ray from 08/25/2020. This will be monitored accordingly 08/29/2020 I'm seeing the patient for a follow-up. He is still ranging between 5 and 6 L of oxygen by nasal cannula regarding his hypoxic respiratory failure from Covid 19 related pneumonia. The patient remains on IV Solu-Medrol. The patient is taking multivitamins. Lovenox is currently at a dose of 40 mg subcu every 24 hours. He is clinically condition is stable. His blood work from today shows a white cell count of 16.2 with a hemoglobin of 14.2. The patient's glucose is 117. Rest of the chemistries pending, the last d-dimer was from 08/27/2020. A repeat chest x-ray was done and the patient's was found to have peripheral patchy pulmonary infiltrates, stable and unchanged compared to the chest x-ray from 2 days ago. Patient is also stable. 08/30/2020, the patient is essentially stable. He feels the same. However, his oxygenation has been fluctuating at the oxygen flow was down to 5 or 6 L yesterday and currently is up to 8 L. He remains on IV Solu-Medrol. He is taking all of his multivitamins. He remains on Lovenox at a dose of 40 mg subcu every 24 hours.. The patient's LDH level is down to 88, his CRP level is down to 2.0, his progress on level is low at 0.06. His latest d-dimer is at 1.23. No other new complaints for now. His platelet counts is at 212. No significant leukocytosis. His white cell count is still at 15. The chest x-ray from yesterday was showing patchy bilateral pulmonary infiltrates that are essentially stable compared to the earlier chest x-ray from 08/30/2020. On today's evaluation, the patient is being seen in follow-up on 08/31/2020. Is currently on 6 L of oxygen by nasal cannula which is the same as yesterday. Earlier today and was on 8 L. He remains on IV Solu-Medrol. His own Lovenox 40 mg subcutaneous every 24 hours. He is having cough. He still having some exertional dyspnea. No fever or chills. No other significant events over the past 24 hours. His blood work from today is showing a d-dimer of 1.07 and no other labs are available from today. His inflammatory markers show a LDH of 748, higher and his CRP of 43 which is also higher. However, clinically the patient is feeling well. No recent chest x-ray. Left chest x-ray was done on 08/29/2020 showing bilateral pulmonary infiltrates, stable. Objective - Vital Signs Vital signs: Vital Signs Temp 97.8 F 08/31/20 10:29 Pulse 77 08/31/20 10:29 Resp 14 08/31/20 10:29 BP 125/77 08/31/20 10:29 Pulse Ox 90 L 08/31/20 10:29 Intake & Output 08/30/20 08/31/20 08/31/20 18:59 06:59 18:59 Weight 119.2 kg Other: Voiding Method Toilet # Voids 3 1 - Exam GENERAL EXAM: Alert, pleasant 55-year-old gentleman, on 8-10 L high flow nasal cannula, comfortable in no apparent distress. HEAD: Normocephalic. EYES: Normal reaction of pupils, equal size. NOSE: Clear with pink turbinates. THROAT: No erythema or exudates. NECK: No masses, no JVD. CHEST: No chest wall deformity. LUNGS: Equal air entry with scattered rhonchi, crackles in the posterior bases. CVS: S1 and S2 normal with no audible murmur, regular rhythm. ABDOMEN: No hepatosplenomegaly, normal bowel sounds, no guarding or rigidity. SPINE: No scoliosis or deformity SKIN: No rashes CENTRAL NERVOUS SYSTEM: No focal deficits, tone is normal in all 4 extremities. EXTREMITIES: There is no peripheral edema. No clubbing, no cyanosis. Peripheral pulses are intact. - Labs CBC & Chem 7: 08/30/20 05:54 08/30/20 05:54 Labs: Abnormal Lab Results - Last 24 Hours (Table) 08/30/20 08/30/20 08/31/20 Range/Units 17:18 20:27 07:27 D-Dimer (<0.60) mg/L FEU POC Glucose (mg/dL) 189 H 308 H 180 H (75-99) mg/dL Lactate Dehydrogenase (313-618) U/L C-Reactive Protein (<10.0) mg/L 08/31/20 08/31/20 08/31/20 Range/Units 07:44 07:44 12:03 D-Dimer 1.07 H (<0.60) mg/L FEU POC Glucose (mg/dL) 171 H (75-99) mg/dL Lactate Dehydrogenase 748 H (313-618) U/L C-Reactive Protein 43.1 H (<10.0) mg/L Assessment and Plan Plan: 1 Acute hypoxemic respiratory failure, secondary to COVID 19 pneumonia/pneumonitis, with improving oxygenation. The patient's oxygenation has been fluctuating and he is oxygen flow has been increased up to 6 l. His chest x-ray from yesterday was showing stable pulmonary infiltrates. Inflammatory markers improved with a drop in the LDH and CRP. D-dimer is mildly elevated. The patient remains on IV Solu-Medrol. The patient remains on Lovenox. Clinically the same, slightly improved. He has no new complaints otherwise for now. 2 History of chronic bronchial asthma. 3 History of gastroesophageal reflux disease. 4 History of hyperlipidemia. Plan: Clinically stable, probably slightly improved Continue the current treatment plan, wean down the FiO2 as tolerated to maintain saturation above 90% Titrate down the FiO2 as tolerated. Increase his activity as tolerated May ultimately Require home oxygen LDH and CRP fluctuating Continue Lovenox the pro-calcitonin level has been low We'll continue to follow
[2020-08-31 16:55] LABS: Glucose,Whole Blood 245 mg/dL (75-99)
[2020-08-31 20:46] LABS: Glucose,Whole Blood 212 mg/dL (75-99)
[2020-09-01] MEDS ORDERED: methylPREDNISolone SOD SUCCI 125 MG/2 ML VIAL ONE ×2 (06:00)
[2020-09-01] MEDS: methylPREDNISolone SOD SUCCI 125 MG/2 ML VIAL IV SCH ×4 (06:23→23:20)
[2020-09-01 06:44] LABS: Glucose,Whole Blood 165 mg/dL (75-99)
[2020-09-01] MEDS: guaiFENesin-Coden 100-10MG/5ML 10 ML CUP PO PRN (07:08)
[2020-09-01] MEDS: ENOXAPARIN 40 MG/0.4 ML SYRINGE SQ SCH (07:08)
[2020-09-01] MEDS: BENZONATATE 100 MG CAP PO SCH ×3 (07:08→21:29)
[2020-09-01] MEDS: CHOLECALCIFEROL 25 MCG (1000 IU) TABLET PO SCH (07:09)
[2020-09-01] MEDS: diphenhydrAMINE 25 MG CAP PO PRN ×2 (07:09→23:21)
[2020-09-01] MEDS: ZINC SULFATE 220 MG CAP PO SCH (07:09)
[2020-09-01] MEDS: ATORVASTATIN 20 MG TAB PO SCH (07:10)
[2020-09-01] MEDS: TAMSULOSIN 0.4 MG CAP.ER.24H PO SCH (07:10)
[2020-09-01] MEDS: INSULIN ASPART (NovoLOG) 100 UNIT/ML VIAL SQ SCH ×4 (07:10→21:30)
[2020-09-01] MEDS: ASCORBIC ACID 500 MG TAB PO SCH ×2 (07:10→21:29)
[2020-09-01] MEDS: PANTOPRAZOLE 40 MG TABLET PO SCH (07:10)
[2020-09-01] MEDS: DOCUSATE 100 MG CAP PO PRN (08:43)
[2020-09-01] MEDS: SENNOSIDES 8.6 MG TAB PO PRN ×2 (08:44→12:57)
[2020-09-01] MEDS: ACETAMINOPHEN TAB 325 MG TAB PO PRN (08:44)
[2020-09-01] MEDS: ALBUTEROL HFA INHALER INHALATION SCH ×4 (09:13→20:11)
[2020-09-01 09:24] LABS: Basophils # (A) 0.02 X 10*3/uL (0.00-0.10); Basophils % (A) 0.1 %; Eosinophils # (A) 0 X 10*3/uL (0.04-0.35); Eosinophils % (A) 0 %; HCT 44.9 % (39.6-50.0); HGB 14.5 g/dL (13.0-17.0); Lymphocytes # (A) 0.26 X 10*3/uL (0.90-5.00); Lymphocytes % (A) 1.3 %; MCH 28.8 pg (27.0-32.0); MCHC 32.3 g/dL (32.0-37.0); MCV 89.3 fL (80.0-97.0); Mean Platelet Volume 10.7 fL (9.5-12.2); Monocytes # (A) 1.07 X 10*3/uL (0.20-1.00); Monocytes % (A) 5.2 %; Neutrophils # (A) 19.01 X 10*3/uL (1.80-7.70); Neutrophils % (A) 92.1 %; Platelet Count 204 X 10*3/uL (140-440); RBC 5.03 X 10*6/uL (4.40-5.60); RDW 12.8 % (11.5-14.5); WBC 20.63 X 10*3/uL (4.50-10.00)
[2020-09-01 09:26] LABS: African American GFR (CKD) 97.1 (60.0-200.0); Anion Gap 9.7 mmol/L (4.00-12.00); Calcium 8.6 mg/dL (8.7-10.3); Carbon Dioxide 29.3 mmol/L (21.6-31.8); Non-African American GFR(CKD) 83.8 (60.0-200.0); Potassium 4.4 mmol/L (3.5-5.5)
[2020-09-01 11:41] LABS: Glucose,Whole Blood 200 mg/dL (75-99)
[2020-09-01] MEDS ORDERED: PROMETHAZINE 25 MG TAB PO PRN (11:57)
[2020-09-01] MEDS ORDERED: KETOROLAC 15 MG/ML 1 ML VIAL IVP STA (12:00)
[2020-09-01] MEDS: guaiFENesin-Coden 100-10MG/5ML 10 ML CUP PO SCH ×3 (12:52→23:20)
[2020-09-01] MEDS: SODIUM CHLORIDE 0.9% 1,000 ML IV SCH (13:05)
--- NOTE | 2020-09-01 13:51 | P.PN ---
Subjective Progress Note Date: 09/01/20 Principal diagnosis: COVID 19 55-year-old male patient who presents to the emergency department on August 23, for increasing shortness of breath, and decreased oxygen saturation. He was diagnosed as having COVID, more than 2 weeks ago. The patient was placed on prednisone and doxycycline by his primary care provider. He also was seen in the emergency department recently, and received an infusion of BAM. More recently, he states that although he initially seemed to improve after the infusion of BAM, he has now worsened. He states that any activity makes him short of breath, and his saturations drop into the 70s. He feels winded even at rest. He does have a bit of a cough. The cough is mostly dry. He does have pain in his chest when he coughs. He denies any chest pain outside of coughing, chest pressure, nausea, vomiting, diarrhea, abdominal pain, genitourinary complaints, or rash. Chest x-ray showed extensive bilateral pneumonia. White count is 5.7, hemoglobin 14.7, hematocrit 42.7 and platelet count 166,000. The lymphocyte count is decreased. The d-dimer is 0.89, and sodium is 139, potassium 3.9, chlorides 107, CO2 24, anion gap 8, BUN 20, and creatinine 1. The ferritin count is 1637, the LDH is 1069, and the C-reactive protein is 86.2. Pro-calcitonin is 0.16. The patient is seen today 08/25/2020 in follow-up on the selective care unit. He is currently resting fairly comfortably in bed. He is not much improved today compared to yesterday. Still with a chronic and ongoing cough. He is on 8 L high flow nasal cannula. 0.9 normal saline at 75 ML's per hour. Chest x- ray continues to show persistent but improved right greater than left bilateral peripheral acute opacities. D-dimer 0.63. LDH 816. C-reactive protein 23.7. He is continued on IV Solu-Medrol, Lovenox, vitamin supplements. The patient is seen today 08/26/2020 in follow-up on the selective care unit. He is currently sitting up at bedside. Awake and alert in no acute distress. Breathing bit easier today compared to yesterday. Continues with a loose nonproductive cough. Maintaining on Mucinex and Tessalon. IV fluids at 75 ML's per hour to be decreased to KVO. He still on 10 L high flow nasal cannula. D- dimer 0.63. LDH 781. C-reactive protein 16.5. He is continued on IV Solu- Medrol, Lovenox, vitamin supplements. The patient is seen today 08/27/2020 in follow-up on the selective care unit. He is currently sitting up in bed. Awake and alert in no acute distress. Sitting his breathing a bit better today compared to yesterday. Less cough and congestion. He was outside the window for Remdesivir. He is currently down to 5 L high flow nasal cannula and maintaining O2 saturation in the 90s. His x-ray continues to show bilateral patchy infiltrates right greater than left. Blood cultures reveal no growth. D-dimer 0.87. LDH 827. C-reactive protein 11.8. He remains on Lovenox, IV Solu-Medrol, vitamin supplements. On today's evaluation of 08/28/2020, the patient is being seen for a follow-up. The patient is an acute hypoxic respiratory failure secondary to Covid pneumonia. The patient's vaccinations been improving. The patient's current FiO2 is at 5 L and the patient's pulse ox is around 92%. The patient remains on IV Solu-Medrol in addition to multivitamin supplements. The patient is also on Lovenox for DVT prophylaxis at a dose of 40 mg every 12 hours. Otherwise, the patient is doing well. D-dimer is low 0.87 and the patient doesn't have any other complaints. The last chest x-ray was done on 08/27/2020 and the patient had shown some patchy infiltrates peripherally in the lungs that are worse compared to the earlier chest x-ray from 08/25/2020. This will be monitored accordingly 08/29/2020 I'm seeing the patient for a follow-up. He is still ranging between 5 and 6 L of oxygen by nasal cannula regarding his hypoxic respiratory failure from Covid 19 related pneumonia. The patient remains on IV Solu-Medrol. The patient is taking multivitamins. Lovenox is currently at a dose of 40 mg subcu every 24 hours. He is clinically condition is stable. His blood work from today shows a white cell count of 16.2 with a hemoglobin of 14.2. The patient's glucose is 117. Rest of the chemistries pending, the last d-dimer was from 08/27/2020. A repeat chest x-ray was done and the patient's was found to have p eripheral patchy pulmonary infiltrates, stable and unchanged compared to the chest x-ray from 2 days ago. Patient is also stable. 08/30/2020, the patient is essentially stable. He feels the same. However, his oxygenation has been fluctuating at the oxygen flow was down to 5 or 6 L yesterday and currently is up to 8 L. He remains on IV Solu-Medrol. He is taking all of his multivitamins. He remains on Lovenox at a dose of 40 mg subcu every 24 hours.. The patient's LDH level is down to 88, his CRP level is down to 2.0, his progress on level is low at 0.06. His latest d-dimer is at 1.23. No other new complaints for now. His platelet counts is at 212. No significant leukocytosis. His white cell count is still at 15. The chest x-ray from yesterday was showing patchy bilateral pulmonary infiltrates that are essentially stable compared to the earlier chest x-ray from 08/30/2020. On today's evaluation, the patient is being seen in follow-up on 08/31/2020. Is currently on 6 L of oxygen by nasal cannula which is the same as yesterday. Earlier today and was on 8 L. He remains on IV Solu-Medrol. His own Lovenox 40 mg subcutaneous every 24 hours. He is having cough. He still having some exertional dyspnea. No fever or chills. No other significant events over the past 24 hours. His blood work from today is showing a d-dimer of 1.07 and no other labs are available from today. His inflammatory markers show a LDH of 748, higher and his CRP of 43 which is also higher. However, clinically the patient is feeling well. No recent chest x-ray. Left chest x-ray was done on 08/29/2020 showing bilateral pulmonary infiltrates, stable. On 09/01/2020 patient seen in follow-up on medical floor, he denies any worsening dyspnea, however he is complaining of some abdominal discomfort, abdominal soreness, possibly from coughing. He also complains of constipation. But no chest discomfort, she is on 3 L of oxygen his pulse ox of 90%, his been afebrile, hemodynamically stable, abdomen is soft, nontender, no nausea or vomiting, today's labs have been reviewed, white blood cell count is 20.6, hemoglobin is 14.5, his last d-dimer from yesterday was 1.07, fluctuating renal profile were unremarkable, calcitonin level was negative on 08/30/2020 and 0.06. His last LDH from yesterday was up trending and was up to 748, and CRP was 43.1, however oxygenation has been stable, with no worsening dyspnea, no chest x-rays today, patient is still coughing, he is receiving Tessalon Perles, and Robitussin-AC on as-needed basis. Objective - Vital Signs Vital signs: Vital Signs Temp 98.6 F 09/01/20 09:04 Pulse 73 09/01/20 09:04 Resp 18 09/01/20 09:04 BP 123/71 09/01/20 09:04 Pulse Ox 90 L 09/01/20 09:04 Intake & Output 08/31/20 09/01/20 09/01/20 18:59 06:59 18:59 Other: Voiding Method Toilet # Voids 3 - Exam GENERAL EXAM: Alert, very pleasant, 55-year-old white male, 3 L of oxygen a pulse ox of 90%, comfortable in no apparent distress. HEAD: Normocephalic/atraumatic. EYES: Normal reaction of pupils, equal size. Conjunctiva pink, sclera white. NOSE: Clear with pink turbinates. THROAT: No erythema or exudates. NECK: No masses, no JVD, no thyroid enlargement, no adenopathy. CHEST: No chest wall deformity. Symmetrical expansion. LUNGS: Equal air entry with no crackles, wheeze, rhonchi or dullness. CVS: Regular rate and rhythm, normal S1 and S2, no gallops, no murmurs, no rubs ABDOMEN: Soft, some abdominal wall tenderness with coughing, no guarding or rigidity, abdomen is soft. No hepatosplenomegaly, normal bowel sounds, no guarding or rigidity. EXTREMITIES: No clubbing, no edema, no cyanosis, 2+ pulses and upper and lower extremities. MUSCULOSKELETAL: Muscle strength and tone normal. SPINE: No scoliosis or deformity SKIN: No rashes CENTRAL NERVOUS SYSTEM: Alert and oriented -3. No focal deficits, tone is normal in all 4 extremities. PSYCHIATRIC: Alert and oriented -3. Appropriate affect. Intact judgment and insight. - Labs CBC & Chem 7: 09/01/20 06:43 09/01/20 06:43 Labs: Abnormal Lab Results - Last 24 Hours (Table) 08/31/20 08/31/20 09/01/20 Range/Units 16:41 20:44 06:41 WBC (4.50-10.00) X 10*3/uL Immature Gran # (0.00-0.04) X 10*3/uL Neutrophils # (1.80-7.70) X 10*3/uL Lymphocytes # (0.90-5.00) X 10*3/uL Monocytes # (0.20-1.00) X 10*3/uL Eosinophils # (0.04-0.35) X 10*3/uL BUN/Creatinine Ratio (12.00-20.00) Ratio Glucose (70-110) mg/dL POC Glucose (mg/dL) 245 H 212 H 165 H (75-99) mg/dL Calcium (8.7-10.3) mg/dL 09/01/20 09/01/20 09/01/20 Range/Units 06:43 06:43 11:39 WBC 20.63 H (4.50-10.00) X 10*3/uL Immature Gran # 0.27 H (0.00-0.04) X 10*3/uL Neutrophils # 19.01 H (1.80-7.70) X 10*3/uL Lymphocytes # 0.26 L (0.90-5.00) X 10*3/uL Monocytes # 1.07 H (0.20-1.00) X 10*3/uL Eosinophils # 0 L (0.04-0.35) X 10*3/uL BUN/Creatinine Ratio 23.00 H (12.00-20.00) Ratio Glucose 180 H (70-110) mg/dL POC Glucose (mg/dL) 200 H (75-99) mg/dL Calcium 8.6 L (8.7-10.3) mg/dL Assessment and Plan Plan: Assessment: 1 Acute hypoxemic respiratory failure, secondary to COVID 19 pneumonia/pneumonitis, with improving oxygenation. The patient's oxygenation has been fluctuating and he is oxygen flow has been increased up to 6 l. His chest x-ray from yesterday was showing stable pulmonary infiltrates. Inflammatory markers improved with a drop in the LDH and CRP. D-dimer is mildly elevated. The patient remains on IV Solu-Medrol. The patient remains on Lovenox. Clinically the same, slightly improved. He has no new complaints otherwise for now. 2 History of chronic bronchial asthma. 3 History of gastroesophageal reflux disease. 4 History of hyperlipidemia. 5 abdominal wall soreness, possibly related to coughing, abdomen is soft, no fever, no guarding, no rigidity. Plan: From pulmonary perspective no worsening dyspnea, no worsening hypoxia, we'll continue same dose IV steroids, we'll make the Robitussin AC scheduled and increase to 4 times daily, one dose of Toradol 50 mg IV push for abdominal wall soreness, continue with Tessalon Perles, continue vitamin cocktail, continue prophylactic dose of Lovenox, obtain follow-up inflammatory markers, d-dimer, PTT, chest x-ray tomorrow I performed a history & physical examination of the patient and discussed their management with my nurse practitioner, La Mcdowell. I reviewed the nurse practitioner's note and agree with the documented findings and plan of care. Lung sounds are positive for diminished breath sounds. The findings and the impression was discussed with the patient. I attest to the documentation by the nurse practitioner. Time with Patient: Less than 30
[2020-09-01 16:58] LABS: Glucose,Whole Blood 199 mg/dL (75-99)
[2020-09-01] MEDS: KETOROLAC 15 MG/ML 1 ML VIAL IVP PRN ×2 (17:27→22:35)
[2020-09-01] MEDS ORDERED: polyethylene glycoL 3350 17 GM POWD.PACK PO STA (17:49)
[2020-09-01 20:43] LABS: Glucose,Whole Blood 273 mg/dL (75-99)
--- NOTE | 2020-09-01 22:18 | P.PN ---
Subjective Progress Note Date: 08/31/20 Mr. Maldonado is a 55-year-old with a past medical history of asthma, hyperlipidemia who was recently diagnosed with Covid infection, placed on prednisone and doxycycline by his primary care physician coming in with difficulty in breathing. Patient was also seen in the emergency department recently and received an infusion of BAM. On 08/28/2020 -patient was seen and examined at the bedside. He appears to be in no acute distress. He states that he is still short of breath with minimal activity, still requiring 5 L of oxygen. Patient denies having any fevers chills or rigors. No sputum production. No chest pain. On reviewing his vitals afebrile for the past 24 hours, blood pressure 127 x 77 heart rate in the 60s to 70s. On reviewing the labs, no new labs from this morning. Patient's last chest x-ray was done yesterday showing worsening bilateral lung infiltrates. Pulmonary on board and following the patient closely. On 08/29/2020 -patient is seen and examined at bedside. He states that he still has difficulty in breathing with minimal activity and saturating at 90% on 8 L o f high flow nasal cannula. Patient denied having any fevers chills or rigors. Complains of ongoing cough, that is dry in nature nonproductive. He denies having any chest pain or palpitations. Nominal pain nausea vomiting or diarrhea. No dysuria or hematuria. On reviewing his vitals T-max of 98.7, heart rate 76, respiratory rate 18, blood pressure 127 x 61. Reviewing labs from this morning white count of 16.2, hemoglobin 14.2, platelets 237. Sodium 140, potassium 4.3, chloride 102, bicarb 26, BUN 22, creatinine 1.0 LDH 330, C- reactive protein 1.3. On 08/30/2020 - -patient is seen and examined at bedside. Is comfortably sitting up in a chair by the bedside. Patient is still requiring 5 L of oxygen. He complains of ongoing cough mostly dry in nature. Patient denies having any feve rs chills or rigors. Patient denies having any abdominal pain nausea vomiting or diarrhea. No dysuria or hematuria. On reviewing his vitals T-max of 98.4, heart rate 60 to 70s, respiratory rate 16, blood pressure 131 x 51. On reviewing his labs white count of 15.5, hemoglobin 13.2, platelets 212. D-dimer 1.23, sodium 139, potassium 4.1, chloride 104, bicarb 26, BUN 23, creatinine 1.0 C-reactive protein 2, lactate dehydrogenase 288, ferritin 582. On 08/31/2020 -patient was seen and examined at bedside. He is comfortably sitting up in chair by the bedside. He is still requiring 5 to 6 L of oxygen to maintain saturations above 90%. Patient states that he still continues to have cough mostly dry and also that he is short of breath walking from bed to the bathroom. He denies having any fevers chills or rigors. No abdominal pain nausea vomiting or diarrhea. No dysuria or hematuria. He denies having any swelling of his lower extremities. On reviewing his vitals temperature of 98.4, heart rate 50s to 70s, respiratory rate below 15, saturating at 90% on 5 L of oxygen via nasal cannula. On reviewing his labs D-dimer is 1.07 LDH 748, CRP 43.1. Active Medications Acetaminophen (Acetaminophen Tab 325 Mg Tab) 650 mg PO Q6HR PRN Albuterol Sulfate (Albuterol Hfa Inhaler) 2 puff INHALATION RT-QID GUILHERME Albuterol Sulfate (Albuterol Hfa Inhaler) 2 puff INHALATION RT-QID PRN Ascorbic Acid (Ascorbic Acid 500 Mg Tab) 500 mg PO BID GUILHERME Atorvastatin Calcium (Atorvastatin 20 Mg Tab) 20 mg PO DAILY [facility]HER[facility] Benzonatate (Benzonatate 100 Mg Cap) 200 mg PO Q8H GUILHERME Cholecalciferol (Cholecalciferol 25 Mcg (1000 Iu) Tablet) 25 mcg PO DAILY [facility]HERME Diphenhydramine HCl (Diphenhydramine 25 Mg Cap) 25 mg PO TID PRN Docusate Sodium (Docusate 100 Mg Cap) 200 mg PO DAILY PRN Enoxaparin Sodium (Enoxaparin 40 Mg/0.4 Ml Syringe) 40 mg SQ DAILY [facility]HERME Guaifenesin/Codeine Phosphate (Guaifenesin-Coden 100-10mg/5ml 10 Ml Cup) 10 ml PO Q6H GUILHERME Methylprednisolone Sodium Succinate (Methylprednisolone Sod Succi 125 Mg/2 Ml Vial) 60 mg IV Q6HR GUILHERME Pantoprazole Sodium (Pantoprazole 40 Mg Tablet) 40 mg PO DAILY [facility] Promethazine HCl (Promethazine 25 Mg Tab) 12.5 mg PO Q6HR PRN Senna (Sennosides 8.6 Mg Tab) 8.6 mg PO BID PRN Tamsulosin HCl (Tamsulosin 0.4 Mg Cap.Er.24h) 0.4 mg PO DAILY GU[facility]HERME Zinc Sulfate (Zinc Sulfate 220 Mg Cap) 220 mg PO DAILY [facility] Objective - Vital Signs Vital signs: Vital Signs Temp 98.4 F 08/31/20 14:00 Pulse 58 L 08/31/20 14:00 Resp 13 08/31/20 14:00 BP 128/77 08/31/20 14:00 Pulse Ox 90 L 08/31/20 14:00 Intake & Output 08/30/20 08/31/20 08/31/20 18:59 06:59 18:59 Weight 119.2 kg Other: Voiding Method Toilet # Voids 3 1 - Exam PHYSICAL EXAMINATION: GENERAL: The patient is alert and oriented x3, not in any acute distress. Obese HEENT: Pupils are round and equally reacting to light. EOMI. No scleral icterus. No conjunctival pallor. CARDIOVASCULAR: S1 and S2 present. No murmurs, rubs, or gallops. PULMONARY: Bilateral coarse breath sounds. no wheezing ABDOMEN: Soft, nontender, nondistended, normoactive bowel sounds. No palpable organomegaly. MUSCULOSKELETAL: No joint swelling or deformity. EXTREMITIES: No cyanosis, clubbing, or pedal edema. NEUROLOGICAL: Gross neurological examination did not reveal any focal deficits. SKIN: No rashes. - Labs CBC & Chem 7: 09/01/20 06:43 09/01/20 06:43 Labs: Abnormal Lab Results - Last 24 Hours (Table) 08/30/20 08/30/20 08/31/20 Range/Units 17:18 20:27 07:27 D-Dimer (<0.60) mg/L FEU POC Glucose (mg/dL) 189 H 308 H 180 H (75-99) mg/dL Lactate Dehydrogenase (313-618) U/L C-Reactive Protein (<10.0) mg/L 08/31/20 08/31/20 08/31/20 Range/Units 07:44 07:44 12:03 D-Dimer 1.07 H (<0.60) mg/L FEU POC Glucose (mg/dL) 171 H (75-99) mg/dL Lactate Dehydrogenase 748 H (313-618) U/L C-Reactive Protein 43.1 H (<10.0) mg/L Assessment and Plan Assessment: ASSESSMENT Acute hypoxic respiratory failure secondary to Covid pneumonia Asthma Hyperlipidemia Obesity BMI - 37.5 GERD Plan: Patient to be continued on IV Solu-Medrol, breathing treatments, Lovenox, Zinc and Vitamin C supplements. Continue with Protonix for GI prophylaxis. Activity as tolerated. We will repeat a.m. labs. Overall patient seems to be responding very slowly, still requiring 5- 6 lt of oxygen. We will repeat a chest x-ray for tomorrow morning for follow-up. Protonix for GI prophylaxsis. Colace and senna for constipation. Further recommendations depending on the progress of the patient.
--- NOTE | 2020-09-01 22:27 | P.PN ---
Subjective Progress Note Date: 09/01/20 Principal diagnosis: COVID Pneumonia Mr. Maldonado is a 55-year-old with a past medical history of asthma, hyperlipidemia who was recently diagnosed with Covid infection, placed on prednisone and doxycycline by his primary care physician coming in with difficulty in breath ing. Patient was also seen in the emergency department recently and received an infusion of BAM. On 08/28/2020 -patient was seen and examined at the bedside. He appears to be in no acute distress. He states that he is still short of breath with minimal activity, still requiring 5 L of oxygen. Patient denies having any fevers chills or rigors. No sputum production. No chest pain. On reviewing his vitals afebrile for the past 24 hours, blood pressure 127 x 77 heart rate in the 60s to 70s. On reviewing the labs, no new labs from this morning. Patient's last chest x-ray was done yesterday showing worsening bilateral lung infiltrates. Pulmonary on board and following the patient closely. On 08/29/2020 -patient is seen and examined at bedside. He states that he still has difficulty in breathing with minimal activity and saturating at 90% on 8 L of high flow nasal cannula. Patient denied having any fevers chills or rigors. Complains of ongoing cough, that is dry in nature nonproductive. He denies having any chest pain or palpitations. Nominal pain nausea vomiting or diarrhea . No dysuria or hematuria. On reviewing his vitals T-max of 98.7, heart rate 76, respiratory rate 18, blood pressure 127 x 61. Reviewing labs from this morning white count of 16.2, hemoglobin 14.2, platelets 237. Sodium 140, potassium 4.3, chloride 102, bicarb 26, BUN 22, creatinine 1.0 LDH 330, C- reactive protein 1.3. On 08/30/2020 - -patient is seen and examined at bedside. Is comfortably sitting up in a chair by the bedside. Patient is still requiring 5 L of oxygen. He complains of ongoing cough mostly dry in nature. Patient denies having any fevers chills or rigors. Patient denies having any abdominal pain nausea vomiting or diarrhea. No dysuria or hematuria. On reviewing his vitals T-max of 98.4, heart rate 60 to 70s, respiratory rate 16, blood pressure 131 x 51. On reviewing his labs white count of 15.5, hemoglobin 13.2, platelets 212. D-dimer 1.23, sodium 139, potassium 4.1, chloride 104, bicarb 26, BUN 23, creatinine 1.0 C-reactive protein 2, lactate dehydrogenase 288, ferritin 582. On 08/31/2020 -patient was seen and examined at bedside. He is comfortably sitti ng up in chair by the bedside. He is still requiring 5 to 6 L of oxygen to maintain saturations above 90%. Patient states that he still continues to have cough mostly dry and also that he is short of breath walking from bed to the bathroom. He denies having any fevers chills or rigors. No abdominal pain nausea vomiting or diarrhea. No dysuria or hematuria. He denies having any swelling of his lower extremities. On reviewing his vitals temperature of 98.4, heart rate 50s to 70s, respiratory rate below 15, saturating at 90% on 5 L of oxygen via nasal cannula. On reviewing his labs D-dimer is 1.07 LDH 748, CRP 43.1. On 09/01/2020 --patient is seen and examined at bedside. He is lying comfortably in bed appears to be in no acute distress. Patient complains of pain in the lower abdomen. He states that he has hernia repair done and has a mesh repair done. He states that he has been coughing and his lower abdomen has been hurting. Patient was constipated yesterday, had 2 bowel movements yesterday. He states that he did not have a bowel movement and is not passing gas now. Patient denies having any nausea or vomiting. He still has ongoing cough, bouts of coughing episodes that is making him dyspneic. He denies having any fevers chills or rigors. No dysuria or hematuria. On reviewing his vitals temperature of 98.4, heart rate 96, respiratory rate 18 blood pressure 122/69 saturating at 90% on 4 L of nasal cannula. On reviewing his labs white count of 20.6, hemoglobin 14.5, platelets 204. D-dimer 1.26. Sodium 140, potassium 4.4, chloride 103, bicarb 29, BUN 23, creatinine 1.0. LDH 616, CRP 52. Active Medications Acetaminophen (Acetaminophen Tab 325 Mg Tab) 650 mg PO Q6HR PRN Albuterol Sulfate (Albuterol Hfa Inhaler) 2 puff INHALATION RT-QID SC Albuterol Sulfate (Albuterol Hfa Inhaler) 2 puff INHALATION RT-QID PRN Ascorbic Acid (Ascorbic Acid 500 Mg Tab) 500 mg PO BID [facility] Atorvastatin Calcium (Atorvastatin 20 Mg Tab) 20 mg PO DAILY [facility] Benzonatate (Benzonatate 100 Mg Cap) 200 mg PO Q8H [facility] Cholecalciferol (Cholecalciferol 25 Mcg (1000 Iu) Tablet) 25 mcg PO DAILY [facility] Diphenhydramine HCl (Diphenhydramine 25 Mg Cap) 25 mg PO TID PRN Docusate Sodium (Docusate 100 Mg Cap) 200 mg PO DAILY PRN Enoxaparin Sodium (Enoxaparin 40 Mg/0.4 Ml Syringe) 40 mg SQ DAILY [facility] Guaifenesin/Codeine Phosphate (Guaifenesin-Coden 100-10mg/5ml 10 Ml Cup) 10 ml PO Q6H [facility] Sodium Chloride (Saline 0.9%) 1,000 mls @ 10 mls/hr IV .Q24H [facility] Insulin Aspart (Insulin Aspart (Novolog) 100 Unit/Ml Vial) 0 unit SQ ACHS [facility]; Protocol Ketorolac Tromethamine (Ketorolac 15 Mg/Ml 1 Ml Vial) 15 mg IVP Q6HR PRN Methylprednisolone Sodium Succinate (Methylprednisolone Sod Succi 125 Mg/2 Ml Vial) 60 mg IV Q6HR [facility] Naloxone HCl (Naloxone 0.4 Mg/Ml 1 Ml Vial) 0.2 mg IV Q2M PRN Pantoprazole Sodium (Pantoprazole 40 Mg Tablet) 40 mg PO DAILY [facility] Promethazine HCl (Promethazine 25 Mg Tab) 12.5 mg PO Q6HR PRN Senna (Sennosides 8.6 Mg Tab) 8.6 mg PO BID PRN: Tamsulosin HCl (Tamsulosin 0.4 Mg Cap.Er.24h) 0.4 mg PO DAILY [facility] Zinc Sulfate (Zinc Sulfate 220 Mg Cap) 220 mg PO DAILY [facility] Objective - Vital Signs Vital signs: Vital Signs Temp 98.6 F 09/01/20 09:04 Pulse 73 09/01/20 09:04 Resp 18 09/01/20 09:04 BP 123/71 09/01/20 09:04 Pulse Ox 90 L 09/01/20 09:04 Intake & Output 08/31/20 09/01/20 09/01/20 18:59 06:59 18:59 Other: Voiding Method Toilet # Voids 3 - Exam PHYSICAL EXAMINATION: GENERAL: The patient is alert and oriented x3, not in any acute distress. Obese HEENT: Pupils are round and equally reacting to light. EOMI. No scleral icterus. No conjunctival pallor. CARDIOVASCULAR: S1 and S2 present. No murmurs, rubs, or gallops. PULMONARY: Bilateral coarse breath sounds. no wheezing ABDOMEN: Soft, nontender, nondistended, normoactive bowel sounds.Abdominal wall tenderness on deep palpation in bilateral inguinal regions MUSCULOSKELETAL: No joint swelling or deformity. EXTREMITIES: No cyanosis, clubbing, or pedal edema. NEUROLOGICAL: Gross neurological examination did not reveal any focal deficits. SKIN: No rashes. - Labs CBC & Chem 7: 09/01/20 06:43 09/01/20 06:43 Labs: Abnormal Lab Results - Last 24 Hours (Table) 08/31/20 08/31/20 09/01/20 Range/Units 16:41 20:44 06:41 WBC (4.50-10.00) X 10*3/uL Immature Gran # (0.00-0.04) X 10*3/uL Neutrophils # (1.80-7.70) X 10*3/uL Lymphocytes # (0.90-5.00) X 10*3/uL Monocytes # (0.20-1.00) X 10*3/uL Eosinophils # (0.04-0.35) X 10*3/uL BUN/Creatinine Ratio (12.00-20.00) Ratio Glucose (70-110) mg/dL POC Glucose (mg/dL) 245 H 212 H 165 H (75-99) mg/dL Calcium (8.7-10.3) mg/dL 09/01/20 09/01/20 09/01/20 Range/Units 06:43 06:43 11:39 WBC 20.63 H (4.50-10.00) X 10*3/uL Immature Gran # 0.27 H (0.00-0.04) X 10*3/uL Neutrophils # 19.01 H (1.80-7.70) X 10*3/uL Lymphocytes # 0.26 L (0.90-5.00) X 10*3/uL Monocytes # 1.07 H (0.20-1.00) X 10*3/uL Eosinophils # 0 L (0.04-0.35) X 10*3/uL BUN/Creatinine Ratio 23.00 H (12.00-20.00) Ratio Glucose 180 H (70-110) mg/dL POC Glucose (mg/dL) 200 H (75-99) mg/dL Calcium 8.6 L (8.7-10.3) mg/dL Assessment and Plan Assessment: ASSESSMENT Acute hypoxic respiratory failure secondary to Covid pneumonia Asthma Adominal wall tenderness due to coughing Hyperlipidemia Obesity BMI - 37.5 GERD Plan: Patient complaining of abdominal wall soreness due to constant coughing. He received a dose of Toradol and states that the pain medication helped him. His cough medication dose has been increased for better control of his cough. Patient to be continued on IV Solu-Medrol, breathing treatments, Lovenox, Zinc and Vitamin C supplements. Continue with Protonix for GI prophylaxis. Activity as tolerated.We will repeat a chest x-ray for tomorrow morning for follow-up.His oxygen requirements have come down from 5 L to 4 L. Protonix for GI prophylaxsis. Colace and senna for constipation. Further recommendations depending on the progress of the patient.
[2020-09-02] MEDS: KETOROLAC 15 MG/ML 1 ML VIAL IVP PRN ×3 (04:04→21:14)
[2020-09-02] MEDS: methylPREDNISolone SOD SUCCI 125 MG/2 ML VIAL IV SCH ×4 (05:18→23:22)
[2020-09-02] MEDS: diphenhydrAMINE 25 MG CAP PO PRN ×2 (05:19→23:22)
[2020-09-02] MEDS: BENZONATATE 100 MG CAP PO SCH ×3 (05:19→21:13)
[2020-09-02] MEDS: guaiFENesin-Coden 100-10MG/5ML 10 ML CUP PO SCH ×4 (05:20→23:22)
[2020-09-02 06:50] LABS: Partial Thromboplastin Time 22.7 sec (22.0-30.0); Prothrombin Time 10.9 sec (9.0-12.0)
[2020-09-02 06:53] LABS: Glucose,Whole Blood 199 mg/dL (75-99)
[2020-09-02] MEDS: ALBUTEROL HFA INHALER INHALATION SCH ×4 (07:14→18:54)
[2020-09-02] MEDS: PANTOPRAZOLE 40 MG TABLET PO SCH (07:39)
[2020-09-02] MEDS: ENOXAPARIN 40 MG/0.4 ML SYRINGE SQ SCH (07:39)
[2020-09-02] MEDS: ATORVASTATIN 20 MG TAB PO SCH (07:39)
[2020-09-02] MEDS: TAMSULOSIN 0.4 MG CAP.ER.24H PO SCH (07:39)
[2020-09-02] MEDS: ASCORBIC ACID 500 MG TAB PO SCH ×2 (07:39→21:13)
[2020-09-02] MEDS: ZINC SULFATE 220 MG CAP PO SCH (07:39)
[2020-09-02] MEDS: INSULIN ASPART (NovoLOG) 100 UNIT/ML VIAL SQ SCH ×4 (07:40→21:13)
[2020-09-02] MEDS: CHOLECALCIFEROL 25 MCG (1000 IU) TABLET PO SCH (07:41)
--- NOTE | 2020-09-02 08:00 | XR ---
EXAMINATION TYPE: XR chest 1V portable DATE OF EXAM: 09/02/2020 COMPARISON: 08/29/2020 HISTORY: Shortness of breath TECHNIQUE: Single frontal view of the chest is obtained. FINDINGS: Partially consolidative scattered opacities bilaterally. There has been mild interval reduction in th e opacities compared to the prior study. The heart size is normal. The pulmonary vasculature is not congested. There is no pneumothorax. The o sseous structures are intact. Impression: mild interval improvement in the bilateral lung infiltrates.
[2020-09-02 09:00] LABS: HCT 40.9 % (39.6-50.0); HGB 13.5 g/dL (13.0-17.0); MCH 29.2 pg (27.0-32.0); MCV 88.3 fL (80.0-97.0); Mean Platelet Volume 10.8 fL (9.5-12.2); Platelet Count 159 X 10*3/uL (140-440); RBC 4.63 X 10*6/uL (4.40-5.60); WBC 13.15 X 10*3/uL (4.50-10.00)
[2020-09-02 09:28] LABS: African American GFR (CKD) 110.3 (60.0-200.0); Albumin/Globulin Ratio 1.88 (1.60-3.17); Anion Gap 7.6 mmol/L (4.00-12.00); BUN/Creat Ratio 26.67 Ratio (12.00-20.00); C Reactive Protein 15.6 mg/dL (0.0-0.8); Calcium 7.8 mg/dL (8.7-10.3); Carbon Dioxide 27.4 mmol/L (21.6-31.8); Globulin 1.6 g/dL (1.6-3.3); Non-African American GFR(CKD) 95.1 (60.0-200.0); Potassium 4.2 mmol/L (3.5-5.5); Total Protein 4.6 g/dL (6.2-8.2)
[2020-09-02 10:35] LABS: Basophils # (A) 0.02 X 10*3/uL (0.00-0.10); Basophils % (A) 0.2 %; Eosinophils # (A) 0 X 10*3/uL (0.04-0.35); Eosinophils % (A) 0 %; Lymphocytes # (A) 0.18 X 10*3/uL (0.90-5.00); Lymphocytes % (A) 1.4 %; Monocytes # (A) 0.59 X 10*3/uL (0.20-1.00); Monocytes % (A) 4.5 %; Neutrophils % (A) 93.4 %
--- NOTE | 2020-09-02 10:37 | P.PN ---
Subjective Progress Note Date: 09/02/20 55-year-old male patient who presents to the emergency department on August 23, for increasing shortness of breath, and decreased oxygen saturation. He was diagnosed as having COVID, more than 2 weeks ago. The patient was placed on prednisone and doxycycline by his primary care provider. He also was seen in the emergency department recently, and received an infusion of BAM. More recently, he states that although he initially seemed to improve after the infusion of BAM, he has now worsened. He states that any activity makes him short of breath, and his saturations drop into the 70s. He feels winded even at rest. He does have a bit of a cough. The cough is mostly dry. He does have pain in his chest when he coughs. He denies any chest pain outside of coughing, chest pressure, nausea, vomiting, diarrhea, abdominal pain, genitourinary complaints, or rash. Chest x-ray showed extensive bilateral pneumonia. White count is 5.7, hemoglobin 14.7, hematocrit 42.7 and platelet count 166,000. The lymphocyte count is decreased. The d-dimer is 0.89, and sodium is 139, potassium 3.9, chlorides 107, CO2 24, anion gap 8, BUN 20, and creatinine 1. The ferritin count is 1637, the LDH is 1069, and the C-reactive protein is 86.2. Pro-calcitonin is 0.16. The patient is seen today 08/25/2020 in follow-up on the selective care unit. He is currently resting fairly comfortably in bed. He is not much improved today compared to yesterday. Still with a chronic and ongoing cough. He is on 8 L high flow nasal cannula. 0.9 normal saline at 75 ML's per hour. Chest x- ray continues to show persistent but improved right greater than left bilateral peripheral acute opacities. D-dimer 0.63. LDH 816. C-reactive protein 23.7. He is continued on IV Solu-Medrol, Lovenox, vitamin supplements. The patient is seen today 08/26/2020 in follow-up on the selective care unit. He is currently sitting up at bedside. Awake and alert in no acute distress. Breathing bit easier today compared to yesterday. Continues with a loose nonproductive cough. Maintaining on Mucinex and Tessalon. IV fluids at 75 ML's per hour to be decreased to KVO. He still on 10 L high flow nasal cannula. D- dimer 0.63. LDH 781. C-reactive protein 16.5. He is continued on IV Solu- Medrol, Lovenox, vitamin supplements. The patient is seen today 08/27/2020 in follow-up on the selective care unit. He is currently sitting up in bed. Awake and alert in no acute distress. Sitting his breathing a bit better today compared to yesterday. Less cough and congestion. He was outside the window for Remdesivir. He is currently down to 5 L high flow nasal cannula and maintaining O2 saturation in the 90s. His x-ray continues to show bilateral patchy infiltrates right greater than left. Blood cultures reveal no growth. D-dimer 0.87. LDH 827. C-reactive protein 11.8. He remains on Lovenox, IV Solu-Medrol, vitamin supplements. On today's evaluation of 08/28/2020, the patient is being seen for a follow-up. The patient is an acute hypoxic respiratory failure secondary to Covid pneumonia. The patient's vaccinations been improving. The patient's current FiO2 is at 5 L and the patient's pulse ox is around 92%. The patient remains on IV Solu-Medrol in addition to multivitamin supplements. The patient is also on Lovenox for DVT prophylaxis at a dose of 40 mg every 12 hours. Otherwise, the patient is doing well. D-dimer is low 0.87 and the patient doesn't have any other complaints. The last chest x-ray was done on 08/27/2020 and the patient had shown some patchy infiltrates peripherally in the lungs that are worse compared to the earlier chest x-ray from 08/25/2020. This will be monitored accordingly 08/29/2020 I'm seeing the patient for a follow-up. He is still ranging between 5 and 6 L of oxygen by nasal cannula regarding his hypoxic respiratory failure from Covid 19 related pneumonia. The patient remains on IV Solu-Medrol. The patient is taking multivitamins. Lovenox is currently at a dose of 40 mg subcu every 24 hours. He is clinically condition is stable. His blood work from today shows a white cell count of 16.2 with a hemoglobin of 14.2. The patient's glucose is 117. Rest of the chemistries pending, the last d-dimer was from 08/27/2020. A repeat chest x-ray was done and the patient's was found to have peripheral patchy pulmonary infiltrates, stable and unchanged compared to the chest x-ray from 2 days ago. Patient is also stable. 08/30/2020, the patient is essentially stable. He feels the same. However, his oxygenation has been fluctuating at the oxygen flow was down to 5 or 6 L yesterday and currently is up to 8 L. He remains on IV Solu-Medrol. He is taking all of his multivitamins. He remains on Lovenox at a dose of 40 mg subcu every 24 hours.. The patient's LDH level is down to 88, his CRP level is down to 2.0, his progress on level is low at 0.06. His latest d-dimer is at 1.23. No other new complaints for now. His platelet counts is at 212. No significant leukocytosis. His white cell count is still at 15. The chest x-ray from yesterday was showing patchy bilateral pulmonary infiltrates that are essentially stable compared to the earlier chest x-ray from 08/30/2020. On today's evaluation, the patient is being seen in follow-up on 08/31/2020. Is currently on 6 L of oxygen by nasal cannula which is the same as yesterday. Earlier today and was on 8 L. He remains on IV Solu-Medrol. His own Lovenox 40 mg subcutaneous every 24 hours. He is having cough. He still having some exertional dyspnea. No fever or chills. No other significant events over the past 24 hours. His blood work from today is showing a d-dimer of 1.07 and no other labs are available from today. His inflammatory markers show a LDH of 748, higher and his CRP of 43 which is also higher. However, clinically the patient is feeling well. No recent chest x-ray. Left chest x-ray was done on 08/29/2020 showing bilateral pulmonary infiltrates, stable. The 2020, the patient's abdominal pain has subsided. He required Toradol for pain and his abdominal wall with cramping yesterday. His pain is subsided. I think his pain was essentially due to a harsh cough. His cough is improved. He is currently on a combination of Robitussin and Tessalon Perles. His chest x-ray is showing improvement especially in the peripheral lung self. He is on oxygen at 2 L per minute nasal cannula. He is on IV Solu-Medrol and he is receiving a dose of 60 mg every 6 hours. His d-dimer level has dropped down to 1.56 and his LDH level is down to 284. Clinically improving. Objective - Vital Signs Vital signs: Vital Signs Temp 98.8 F 09/02/20 09:05 Pulse 71 09/02/20 09:05 Resp 18 09/02/20 09:05 BP 103/59 09/02/20 09:05 Pulse Ox 89 L 09/02/20 09:05 Intake & Output 09/01/20 09/02/20 09/02/20 18:59 06:59 18:59 Intake Total 250 Balance 250 Intake: Oral 250 Other: Voiding Method Toilet # Voids 4 2 # Bowel Movements 3 - Exam GENERAL EXAM: Alert, pleasant 55-year-old gentleman, on 2 L high flow nasal cannula, comfortable in no apparent distress. His pulse ox is 89% HEAD: Normocephalic. EYES: Normal reaction of pupils, equal size. NOSE: Clear with pink turbinates. THROAT: No erythema or exudates. NECK: No masses, no JVD. CHEST: No chest wall deformity. LUNGS: Equal air entry with scattered rhonchi, crackles in the posterior bases. CVS: S1 and S2 normal with no audible murmur, regular rhythm. ABDOMEN: No hepatosplenomegaly, normal bowel sounds, no guarding or rigidity. SPINE: No scoliosis or deformity SKIN: No rashes CENTRAL NERVOUS SYSTEM: No focal deficits, tone is normal in all 4 extremities. EXTREMITIES: There is no peripheral edema. No clubbing, no cyanosis. Peripheral pulses are intact. - Labs CBC & Chem 7: 09/02/20 05:59 09/02/20 05:59 Labs: Abnormal Lab Results - Last 24 Hours (Table) 09/01/20 09/01/20 09/01/20 Range/Units 11:39 14:22 14:22 WBC (4.50-10.00) X 10*3/uL D-Dimer 1.26 H (<0.60) mg/L FEU BUN/Creatinine Ratio (12.00-20.00) Ratio Glucose (70-110) mg/dL POC Glucose (mg/dL) 200 H (75-99) mg/dL Calcium (8.7-10.3) mg/dL Lactate Dehydrogenase (120-246) U/L C-Reactive Protein 52.0 H (<10.0) mg/L Total Protein (6.2-8.2) g/dL Albumin (3.80-4.90) g/dL 09/01/20 09/01/20 09/02/20 Range/Units 16:56 20:41 05:59 WBC 13.15 H (4.50-10.00) X 10*3/uL D-Dimer (<0.60) mg/L FEU BUN/Creatinine Ratio (12.00-20.00) Ratio Glucose (70-110) mg/dL POC Glucose (mg/dL) 199 H 273 H (75-99) mg/dL Calcium (8.7-10.3) mg/dL Lactate Dehydrogenase (120-246) U/L C-Reactive Protein (<10.0) mg/L Total Protein (6.2-8.2) g/dL Albumin (3.80-4.90) g/dL 09/02/20 09/02/20 09/02/20 Range/Units 05:59 05:59 06:46 WBC (4.50-10.00) X 10*3/uL D-Dimer 1.56 H (<0.60) mg/L FEU BUN/Creatinine Ratio 26.67 H (12.00-20.00) Ratio Glucose 237 H (70-110) mg/dL POC Glucose (mg/dL) 199 H (75-99) mg/dL Calcium 7.8 L (8.7-10.3) mg/dL Lactate Dehydrogenase 284 H (120-246) U/L C-Reactive Protein 15.6 H (<10.0) mg/L Total Protein 4.6 L (6.2-8.2) g/dL Albumin 3.00 L (3.80-4.90) g/dL Assessment and Plan Plan: 1 Acute hypoxemic respiratory failure, secondary to COVID 19 pneumo delfina/pneumonitis, with improving oxygenation. The patient is clinically improving. Inflammatory markers are improving. Oxygenation is also improved and currently he is on 2 L of oxygen by nasal cannula. He developed some crampy FEV1 abdominal pain which is also subsided and is having regular bowel movements. No issues for now. 2 History of chronic bronchial asthma. 3 History of gastroesophageal reflux disease. 4 History of hyperlipidemia. Plan: Clinically improved Continue the current treatment plan, wean down the FiO2 as tolerated to maintain saturation above 90% Titrate down the FiO2 as tolerated. The patient is currently on 2 L of oxygen by nasal cannula Increase his activity as tolerated May ultimately Require home oxygen LDH and CRP improving Continue Lovenox the pro-calcitonin level has been low We'll continue to follow
[2020-09-02 11:46] LABS: Glucose,Whole Blood 248 mg/dL (75-99)
[2020-09-02] MEDS: SODIUM CHLORIDE 0.9% 1,000 ML IV SCH (13:07)
[2020-09-02 16:16] LABS: Glucose,Whole Blood 256 mg/dL (75-99)
[2020-09-02 19:57] LABS: Glucose,Whole Blood 244 mg/dL (75-99)
[2020-09-03] MEDS: methylPREDNISolone SOD SUCCI 125 MG/2 ML VIAL IV SCH ×2 (05:41→12:19)
[2020-09-03] MEDS: BENZONATATE 100 MG CAP PO SCH ×3 (05:42→20:55)
[2020-09-03] MEDS: guaiFENesin-Coden 100-10MG/5ML 10 ML CUP PO SCH ×4 (05:42→23:47)
[2020-09-03] MEDS: KETOROLAC 15 MG/ML 1 ML VIAL IVP PRN ×3 (06:43→21:02)
[2020-09-03 06:53] LABS: Glucose,Whole Blood 280 mg/dL (75-99)
[2020-09-03] MEDS: ALBUTEROL HFA INHALER INHALATION SCH ×4 (07:23→18:59)
[2020-09-03] MEDS: CHOLECALCIFEROL 25 MCG (1000 IU) TABLET PO SCH (08:02)
[2020-09-03] MEDS: PANTOPRAZOLE 40 MG TABLET PO SCH (08:02)
[2020-09-03] MEDS: INSULIN ASPART (NovoLOG) 100 UNIT/ML VIAL SQ SCH ×4 (08:03→20:55)
[2020-09-03] MEDS: TAMSULOSIN 0.4 MG CAP.ER.24H PO SCH (08:03)
[2020-09-03] MEDS: ENOXAPARIN 40 MG/0.4 ML SYRINGE SQ SCH (08:03)
[2020-09-03] MEDS: ASCORBIC ACID 500 MG TAB PO SCH ×2 (08:03→20:55)
[2020-09-03] MEDS: ZINC SULFATE 220 MG CAP PO SCH (08:03)
[2020-09-03] MEDS: ATORVASTATIN 20 MG TAB PO SCH (08:03)
[2020-09-03 09:12] LABS: C Reactive Protein 12.9 mg/dL (0.0-0.8)
[2020-09-03 11:31] LABS: Glucose,Whole Blood 233 mg/dL (75-99)
--- NOTE | 2020-09-03 12:39 | P.PN ---
Subjective Progress Note Date: 09/03/20 55-year-old male patient who presents to the emergency department on August 23, for increasing shortness of breath, and decreased oxygen saturation. He was diagnosed as having COVID, more than 2 weeks ago. The patient was placed on prednisone and doxycycline by his primary care provider. He also was seen in the emergency department recently, and received an infusion of BAM. More recently, he states that although he initially seemed to improve after the infusion of BAM, he has now worsened. He states that any activity makes him short of breath, and his saturations drop into the 70s. He feels winded even at rest. He does have a bit of a cough. The cough is mostly dry. He does have pain in his chest when he coughs. He denies any chest pain outside of coughing, chest pressure, nausea, vomiting, diarrhea, abdominal pain, genitourinary complaints, or rash. Chest x-ray showed extensive bilateral pneumonia. White count is 5.7, hemoglobin 14.7, hematocrit 42.7 and platelet count 166,000. The lymphocyte count is decreased. The d-dimer is 0.89, and sodium is 139, potassium 3.9, chlorides 107, CO2 24, anion gap 8, BUN 20, and creatinine 1. The ferritin count is 1637, the LDH is 1069, and the C-reactive protein is 86.2. Pro-calcitonin is 0.16. The patient is seen today 08/25/2020 in follow-up on the selective care unit. He is currently resting fairly comfortably in bed. He is not much improved today compared to yesterday. Still with a chronic and ongoing cough. He is on 8 L high flow nasal cannula. 0.9 normal saline at 75 ML's per hour. Chest x- ray continues to show persistent but improved right greater than left bilateral peripheral acute opacities. D-dimer 0.63. LDH 816. C-reactive protein 23.7. He is continued on IV Solu-Medrol, Lovenox, vitamin supplements. The patient is seen today 08/26/2020 in follow-up on the selective care unit. He is currently sitting up at bedside. Awake and alert in no acute distress. Breathing bit easier today compared to yesterday. Continues with a loose nonproductive cough. Maintaining on Mucinex and Tessalon. IV fluids at 75 ML's per hour to be decreased to KVO. He still on 10 L high flow nasal cannula. D- dimer 0.63. LDH 781. C-reactive protein 16.5. He is continued on IV Solu- Medrol, Lovenox, vitamin supplements. The patient is seen today 08/27/2020 in follow-up on the selective care unit. He is currently sitting up in bed. Awake and alert in no acute distress. Sitting his breathing a bit better today compared to yesterday. Less cough and congestion. He was outside the window for Remdesivir. He is currently down to 5 L high flow nasal cannula and maintaining O2 saturation in the 90s. His x-ray continues to show bilateral patchy infiltrates right greater than left. Blood cultures reveal no growth. D-dimer 0.87. LDH 827. C-reactive protein 11.8. He remains on Lovenox, IV Solu-Medrol, vitamin supplements. On today's evaluation of 08/28/2020, the patient is being seen for a follow-up. The patient is an acute hypoxic respiratory failure secondary to Covid pneumonia. The patient's vaccinations been improving. The patient's current FiO2 is at 5 L and the patient's pulse ox is around 92%. The patient remains on IV Solu-Medrol in addition to multivitamin supplements. The patient is also on Lovenox for DVT prophylaxis at a dose of 40 mg every 12 hours. Otherwise, the patient is doing well. D-dimer is low 0.87 and the patient doesn't have any other complaints. The last chest x-ray was done on 08/27/2020 and the patient had shown some patchy infiltrates peripherally in the lungs that are worse compared to the earlier chest x-ray from 08/25/2020. This will be monitored accordingly 08/29/2020 I'm seeing the patient for a follow-up. He is still ranging between 5 and 6 L of oxygen by nasal cannula regarding his hypoxic respiratory failure from Covid 19 related pneumonia. The patient remains on IV Solu-Medrol. The patient is taking multivitamins. Lovenox is currently at a dose of 40 mg subcu every 24 hours. He is clinically condition is stable. His blood work from today shows a white cell count of 16.2 with a hemoglobin of 14.2. The patient's glucose is 117. Rest of the chemistries pending, the last d-dimer was from 08/27/2020. A repeat chest x-ray was done and the patient's was found to have peripheral patchy pulmonary infiltrates, stable and unchanged compared to the chest x-ray from 2 days ago. Patient is also stable. 08/30/2020, the patient is essentially stable. He feels the same. However, his oxygenation has been fluctuating at the oxygen flow was down to 5 or 6 L yesterday and currently is up to 8 L. He remains on IV Solu-Medrol. He is taking all of his multivitamins. He remains on Lovenox at a dose of 40 mg subcu every 24 hours.. The patient's LDH level is down to 88, his CRP level is down to 2.0, his progress on level is low at 0.06. His latest d-dimer is at 1.23. No other new complaints for now. His platelet counts is at 212. No significant leukocytosis. His white cell count is still at 15. The chest x-ray from yesterday was showing patchy bilateral pulmonary infiltrates that are essentially stable compared to the earlier chest x-ray from 08/30/2020. On today's evaluation, the patient is being seen in follow-up on 08/31/2020. Is currently on 6 L of oxygen by nasal cannula which is the same as yesterday. Earlier today and was on 8 L. He remains on IV Solu-Medrol. His own Lovenox 40 mg subcutaneous every 24 hours. He is having cough. He still having some exertional dyspnea. No fever or chills. No other significant events over the past 24 hours. His blood work from today is showing a d-dimer of 1.07 and no other labs are available from today. His inflammatory markers show a LDH of 748, higher and his CRP of 43 which is also higher. However, clinically the patient is feeling well. No recent chest x-ray. Left chest x-ray was done on 08/29/2020 showing bilateral pulmonary infiltrates, stable. The 2020, the patient's abdominal pain has subsided. He required Toradol for pain and his abdominal wall with cramping yesterday. His pain is subsided. I think his pain was essentially due to a harsh cough. His cough is improved. He is currently on a combination of Robitussin and Tessalon Perles. His chest x-ray is showing improvement especially in the peripheral lung self. He is on oxygen at 2 L per minute nasal cannula. He is on IV Solu-Medrol and he is receiving a dose of 60 mg every 6 hours. His d-dimer level has dropped down to 1.56 and his LDH level is down to 284. Clinically improving. 09/03/2020, the patient is feeling well liters of oxygen by nasal cannula. Fluid able to wean him down significantly down to 2 L. He remains on IV Solu- Medrol. He was having some increased cough and congestion and for that reason he was given Robitussin-DM and Tessalon pearls. His chest wall pain and abdominal cramping is also subsided. He has no new complaints otherwise for now.In terms of his blood work, his LDH remains low at 298, CRP is low at 12.9 and his d-dimer is at 2.49, slightly higher compared to yesterday. His follow- up chest x-ray was done yesterday on 09/02/2020 and the patient has patchy infiltrates right upper lobe and left upper lobe and they're essentially peripherally distributed. Objective - Vital Signs Vital signs: Vital Signs Temp 99.0 F 09/03/20 09:30 Pulse 78 09/03/20 09:30 Resp 20 09/03/20 09:30 BP 150/69 09/03/20 09:30 Pulse Ox 90 L 09/03/20 09:38 Intake & Output 09/02/20 09/03/20 09/03/20 18:59 06:59 18:59 Other: Voiding Method Toilet # Voids 4 2 - Exam GENERAL EXAM: Alert, pleasant 55-year-old gentleman, on 2 L high flow nasal cannula, comfortable in no apparent distress. His pulse ox is 90% HEAD: Normocephalic. EYES: Normal reaction of pupils, equal size. NOSE: Clear with pink turbinates. THROAT: No erythema or exudates. NECK: No masses, no JVD. CHEST: No chest wall deformity. LUNGS: Equal air entry with scattered rhonchi, crackles in the posterior bases. CVS: S1 and S2 normal with no audible murmur, regular rhythm. ABDOMEN: No hepatosplenomegaly, normal bowel sounds, no guarding or rigidity. SPINE: No scoliosis or deformity SKIN: No rashes CENTRAL NERVOUS SYSTEM: No focal deficits, tone is normal in all 4 extremities. EXTREMITIES: There is no peripheral edema. No clubbing, no cyanosis. Peripheral pulses are intact. - Labs CBC & Chem 7: 09/02/20 05:59 09/02/20 05:59 Labs: Abnormal Lab Results - Last 24 Hours (Table) 09/02/20 09/02/20 09/03/20 Range/Units 16:12 19:56 06:48 D-Dimer (<0.60) mg/L FEU POC Glucose (mg/dL) 256 H 244 H 280 H (75-99) mg/dL Lactate Dehydrogenase (120-246) U/L C-Reactive Protein (0.0-0.8) mg/dL 09/03/20 09/03/20 09/03/20 Range/Units 06:52 06:53 11:25 D-Dimer 2.49 H (<0.60) mg/L FEU POC Glucose (mg/dL) 233 H (75-99) mg/dL Lactate Dehydrogenase 298 H (120-246) U/L C-Reactive Protein 12.9 H (0.0-0.8) mg/dL Assessment and Plan Plan: 1 Acute hypoxemic respiratory failure, secondary to COVID 19 pneumonia/pneumonitis, with improving oxygenation. The patient is clinically improving. Inflammatory markers are improving. Oxygenation is also improved and currently he is on 2 L of oxygen by nasal cannula. He developed some crampy abdominal pain which is also subsided and is having regular bowel movements. No issues for now. The patient is still on 2 L about 2 by nasal cannula. Oxygenation is stable. He is less shortness of breath with exertion and exertional oxygen saturation and cough. 2 History of chronic bronchial asthma. 3 History of gastroesophageal reflux disease. 4 History of hyperlipidemia. Plan: Clinically improved Titrate down the FiO2 as tolerated. The patient is currently on 2 L of oxygen by nasal cannula Increase his activity as tolerated Range home oxygen LDH and CRP improving Continue Lovenox the pro-calcitonin level has been low We'll continue to follow the possible discharge in the next 24 hours with home oxygen, and a course of steroids with Decadron to complete a total of 7 day course.
[2020-09-03] MEDS: SODIUM CHLORIDE 0.9% 1,000 ML IV SCH (13:02)
[2020-09-03 16:24] LABS: Appearance,Urine Clear (Clear); Bacteria,Urine Rare /hpf; Bilirubin,Urine Negative (Negative); Blood,Urine Negative (Negative); Color,Urine Yellow; Glucose,Urine (UA) Negative (Negative); Ketones,Urine Negative (Negative); Leukocyte Esterase,Urine Negative (Negative); Mucus,Urine Occasional /hpf; Nitrite,Urine Negative (Negative); Protein,Urine 1+ (Negative); RBC,Urine <1 /hpf (0-5); Specific Gravity,Urine 1.034 (1.001-1.035); WBC,Urine 3 /hpf (0-5)
[2020-09-03 16:43] LABS: Glucose,Whole Blood 235 mg/dL (75-99)
[2020-09-03 20:20] LABS: Glucose,Whole Blood 236 mg/dL (75-99)
--- NOTE | 2020-09-03 23:01 | P.PN ---
Subjective Progress Note Date: 09/02/20 Principal diagnosis: COVID Pneumonia Mr. Maldonado is a 55-year-old with a past medical history of asthma, hyperlipidemia who was recently diagnosed with Covid infection, placed on prednisone and doxycycline by his primary care physician coming in with difficulty in breath ing. Patient was also seen in the emergency department recently and received an infusion of BAM. On 08/28/2020 -patient was seen and examined at the bedside. He appears to be in no acute distress. He states that he is still short of breath with minimal activity, still requiring 5 L of oxygen. Patient denies having any fevers chills or rigors. No sputum production. No chest pain. On reviewing his vitals afebrile for the past 24 hours, blood pressure 127 x 77 heart rate in the 60s to 70s. On reviewing the labs, no new labs from this morning. Patient's last chest x-ray was done yesterday showing worsening bilateral lung infiltrates. Pulmonary on board and following the patient closely. On 08/29/2020 -patient is seen and examined at bedside. He states that he still has difficulty in breathing with minimal activity and saturating at 90% on 8 L of high flow nasal cannula. Patient denied having any fevers chills or rigors. Complains of ongoing cough, that is dry in nature nonproductive. He denies having any chest pain or palpitations. Nominal pain nausea vomiting or diarrhea . No dysuria or hematuria. On reviewing his vitals T-max of 98.7, heart rate 76, respiratory rate 18, blood pressure 127 x 61. Reviewing labs from this morning white count of 16.2, hemoglobin 14.2, platelets 237. Sodium 140, potassium 4.3, chloride 102, bicarb 26, BUN 22, creatinine 1.0 LDH 330, C- reactive protein 1.3. On 08/30/2020 - -patient is seen and examined at bedside. Is comfortably sitting up in a chair by the bedside. Patient is still requiring 5 L of oxygen. He complains of ongoing cough mostly dry in nature. Patient denies having any fevers chills or rigors. Patient denies having any abdominal pain nausea vomiting or diarrhea. No dysuria or hematuria. On reviewing his vitals T-max of 98.4, heart rate 60 to 70s, respiratory rate 16, blood pressure 131 x 51. On reviewing his labs white count of 15.5, hemoglobin 13.2, platelets 212. D-dimer 1.23, sodium 139, potassium 4.1, chloride 104, bicarb 26, BUN 23, creatinine 1.0 C-reactive protein 2, lactate dehydrogenase 288, ferritin 582. On 08/31/2020 -patient was seen and examined at bedside. He is comfortably sitti ng up in chair by the bedside. He is still requiring 5 to 6 L of oxygen to maintain saturations above 90%. Patient states that he still continues to have cough mostly dry and also that he is short of breath walking from bed to the bathroom. He denies having any fevers chills or rigors. No abdominal pain nausea vomiting or diarrhea. No dysuria or hematuria. He denies having any swelling of his lower extremities. On reviewing his vitals temperature of 98.4, heart rate 50s to 70s, respiratory rate below 15, saturating at 90% on 5 L of oxygen via nasal cannula. On reviewing his labs D-dimer is 1.07 LDH 748, CRP 43.1. On 09/01/2020 --patient is seen and examined at bedside. He is lying comfortably in bed appears to be in no acute distress. Patient complains of pain in the lower abdomen. He states that he has hernia repair done and has a mesh repair done. He states that he has been coughing and his lower abdomen has been hurting. Patient was constipated yesterday, had 2 bowel movements yesterday. He states that he did not have a bowel movement and is not passing gas now. Patient denies having any nausea or vomiting. He still has ongoing cough, bouts of coughing episodes that is making him dyspneic. He denies having any fevers chills or rigors. No dysuria or hematuria. On reviewing his vitals temperature of 98.4, heart rate 96, respiratory rate 18 blood pressure 122/69 saturating at 90% on 4 L of nasal cannula. On reviewing his labs white count of 20.6, hemoglobin 14.5, platelets 204. D-dimer 1.26. Sodium 140, potassium 4.4, chloride 103, bicarb 29, BUN 23, creatinine 1.0. LDH 616, CRP 52. On 09/02/2020 -patient seen and examined at bedside. He is comfortably sitting up in a chair by the bedside. He complains of lower abdominal soreness secondary to coughing. He states that Toradol helps him with his lower abdominal soreness. Patient denies having any chest pain or palpitations. He continues to have cough, usually in bouts. Nonproductive. He denies having any fevers chills or rigors. No dysuria or hematuria. Reviewing his vitals temperature of 98.8, heart rate 71, respiratory rate 18, blood pressure 113/59, saturating at 90% on 3-4 L of oxygen. On reviewing his labs white count of 13.1, hemoglobin 13.5, platelets 159. Sodium 139, potassium 4.2, chloride 104, bicarb 27, BUN 24, creatinine 0.9. CRP 15.6 LDH 284. All medications have been reviewed and pertinent changes made. Objective - Vital Signs Vital signs: Vital Signs Temp 98.5 F 09/02/20 13:05 Pulse 82 09/02/20 13:05 Resp 18 09/02/20 13:05 BP 111/68 09/02/20 13:05 Pulse Ox 90 L 09/02/20 13:05 Intake & Output 09/01/20 09/02/20 09/02/20 18:59 06:59 18:59 Intake Total 250 Balance 250 Intake: Oral 250 Other: Voiding Method Toilet # Voids 4 2 # Bowel Movements 3 - Exam PHYSICAL EXAMINATION: GENERAL: The patient is alert and oriented x3, not in any acute distress. Obese HEENT: Pupils are round and equally reacting to light. EOMI. No scleral icterus. CARDIOVASCULAR: S1 and S2 present. No murmurs, rubs, or gallops. PULMONARY: Bilateral coarse breath sounds. no wheezing ABDOMEN: Soft, nontender, nondistended, normoactive bowel sounds. Abdominal wall tenderness on deep palpation in bilateral inguinal regions MUSCULOSKELETAL: No joint swelling or deformity. EXTREMITIES: No cyanosis, clubbing, or pedal edema. NEUROLOGICAL: Gross neurological examination did not reveal any focal deficits. SKIN: No rashes. - Labs CBC & Chem 7: 09/02/20 05:59 09/02/20 05:59 Labs: Abnormal Lab Results - Last 24 Hours (Table) 09/01/20 09/01/20 09/01/20 Range/Units 14:22 14:22 16:56 WBC (4.50-10.00) X 10*3/uL Immature Gran # (0.00-0.04) X 10*3/uL Neutrophils # (1.80-7.70) X 10*3/uL Lymphocytes # (0.90-5.00) X 10*3/uL Eosinophils # (0.04-0.35) X 10*3/uL D-Dimer 1.26 H (<0.60) mg/L FEU BUN/Creatinine Ratio (12.00-20.00) Ratio Glucose (70-110) mg/dL POC Glucose (mg/dL) 199 H (75-99) mg/dL Calcium (8.7-10.3) mg/dL Lactate Dehydrogenase (120-246) U/L C-Reactive Protein 52.0 H (<10.0) mg/L Total Protein (6.2-8.2) g/dL Albumin (3.80-4.90) g/dL 09/01/20 09/02/20 09/02/20 Range/Units 20:41 05:59 05:59 WBC 13.15 H (4.50-10.00) X 10*3/uL Immature Gran # 0.06 H (0.00-0.04) X 10*3/uL Neutrophils # 12.30 H (1.80-7.70) X 10*3/uL Lymphocytes # 0.18 L (0.90-5.00) X 10*3/uL Eosinophils # 0 L (0.04-0.35) X 10*3/uL D-Dimer 1.56 H (<0.60) mg/L FEU BUN/Creatinine Ratio (12.00-20.00) Ratio Glucose (70-110) mg/dL POC Glucose (mg/dL) 273 H (75-99) mg/dL Calcium (8.7-10.3) mg/dL Lactate Dehydrogenase (120-246) U/L C-Reactive Protein (<10.0) mg/L Total Protein (6.2-8.2) g/dL Albumin (3.80-4.90) g/dL 09/02/20 09/02/20 09/02/20 Range/Units 05:59 06:46 11:41 WBC (4.50-10.00) X 10*3/uL Immature Gran # (0.00-0.04) X 10*3/uL Neutrophils # (1.80-7.70) X 10*3/uL Lymphocytes # (0.90-5.00) X 10*3/uL Eosinophils # (0.04-0.35) X 10*3/uL D-Dimer (<0.60) mg/L FEU BUN/Creatinine Ratio 26.67 H (12.00-20.00) Ratio Glucose 237 H (70-110) mg/dL POC Glucose (mg/dL) 199 H 248 H (75-99) mg/dL Calcium 7.8 L (8.7-10.3) mg/dL Lactate Dehydrogenase 284 H (120-246) U/L C-Reactive Protein 15.6 H (<10.0) mg/L Total Protein 4.6 L (6.2-8.2) g/dL Albumin 3.00 L (3.80-4.90) g/dL Assessment and Plan Assessment: ASSESSMENT Acute hypoxic respiratory failure secondary to Covid pneumonia Asthma Adominal wall tenderness due to coughing Hyperlipidemia Obesity BMI - 37.5 GERD Plan:Patient states that his abdominal wall soreness is improving with the Toradol. We will try to wean him off of oxygen slowly . Have encouraged him to continue doing incentive spirometry every hour and activity as tolerated. Will follow on chest x-ray and inflammatory markers. For now continue with Solu- Medrol, Lovenox, zinc, vitamin C supplements. Further recommendations depending on the progress of the patient.
--- NOTE | 2020-09-03 23:27 | P.PN ---
Subjective Progress Note Date: 09/03/20 Principal diagnosis: COVID Pneumonia Mr. Maldonado is a 55-year-old with a past medical history of asthma, hyperlipidemia who was recently diagnosed with Covid infection, placed on prednisone and doxycycline by his primary care physician coming in with difficulty in breath ing. Patient was also seen in the emergency department recently and received an infusion of BAM. On 08/28/2020 -patient was seen and examined at the bedside. He appears to be in no acute distress. He states that he is still short of breath with minimal activity, still requiring 5 L of oxygen. Patient denies having any fevers chills or rigors. No sputum production. No chest pain. On reviewing his vitals afebrile for the past 24 hours, blood pressure 127 x 77 heart rate in the 60s to 70s. On reviewing the labs, no new labs from this morning. Patient's last chest x-ray was done yesterday showing worsening bilateral lung infiltrates. Pulmonary on board and following the patient closely. On 08/29/2020 -patient is seen and examined at bedside. He states that he still has difficulty in breathing with minimal activity and saturating at 90% on 8 L of high flow nasal cannula. Patient denied having any fevers chills or rigors. Complains of ongoing cough, that is dry in nature nonproductive. He denies having any chest pain or palpitations. Nominal pain nausea vomiting or diarrhea . No dysuria or hematuria. On reviewing his vitals T-max of 98.7, heart rate 76, respiratory rate 18, blood pressure 127 x 61. Reviewing labs from this morning white count of 16.2, hemoglobin 14.2, platelets 237. Sodium 140, potassium 4.3, chloride 102, bicarb 26, BUN 22, creatinine 1.0 LDH 330, C- reactive protein 1.3. On 08/30/2020 - -patient is seen and examined at bedside. Is comfortably sitting up in a chair by the bedside. Patient is still requiring 5 L of oxygen. He complains of ongoing cough mostly dry in nature. Patient denies having any fevers chills or rigors. Patient denies having any abdominal pain nausea vomiting or diarrhea. No dysuria or hematuria. On reviewing his vitals T-max of 98.4, heart rate 60 to 70s, respiratory rate 16, blood pressure 131 x 51. On reviewing his labs white count of 15.5, hemoglobin 13.2, platelets 212. D-dimer 1.23, sodium 139, potassium 4.1, chloride 104, bicarb 26, BUN 23, creatinine 1.0 C-reactive protein 2, lactate dehydrogenase 288, ferritin 582. On 08/31/2020 -patient was seen and examined at bedside. He is comfortably sitti ng up in chair by the bedside. He is still requiring 5 to 6 L of oxygen to maintain saturations above 90%. Patient states that he still continues to have cough mostly dry and also that he is short of breath walking from bed to the bathroom. He denies having any fevers chills or rigors. No abdominal pain nausea vomiting or diarrhea. No dysuria or hematuria. He denies having any swelling of his lower extremities. On reviewing his vitals temperature of 98.4, heart rate 50s to 70s, respiratory rate below 15, saturating at 90% on 5 L of oxygen via nasal cannula. On reviewing his labs D-dimer is 1.07 LDH 748, CRP 43.1. On 09/01/2020 --patient is seen and examined at bedside. He is lying comfortably in bed appears to be in no acute distress. Patient complains of pain in the lower abdomen. He states that he has hernia repair done and has a mesh repair done. He states that he has been coughing and his lower abdomen has been hurting. Patient was constipated yesterday, had 2 bowel movements yesterday. He states that he did not have a bowel movement and is not passing gas now. Patient denies having any nausea or vomiting. He still has ongoing cough, bouts of coughing episodes that is making him dyspneic. He denies having any fevers chills or rigors. No dysuria or hematuria. On reviewing his vitals temperature of 98.4, heart rate 96, respiratory rate 18 blood pressure 122/69 saturating at 90% on 4 L of nasal cannula. On reviewing his labs white count of 20.6, hemoglobin 14.5, platelets 204. D-dimer 1.26. Sodium 140, potassium 4.4, chloride 103, bicarb 29, BUN 23, creatinine 1.0. LDH 616, CRP 52. On 09/02/2020 -patient seen and examined at bedside. He is comfortably sitting up in a chair by the bedside. He complains of lower abdominal soreness secondary to coughing. He states that Toradol helps him with his lower abdominal soreness. Patient denies having any chest pain or palpitations. He continues to have cough, usually in bouts. Nonproductive. He denies having any fevers chills or rigors. No dysuria or hematuria. Reviewing his vitals temperature of 98.8, heart rate 71, respiratory rate 18, blood pressure 113/59, saturating at 90% on 3-4 L of oxygen. On reviewing his labs white count of 13.1, hemoglobin 13.5, platelets 159. Sodium 139, potassium 4.2, chloride 104, bicarb 27, BUN 24, creatinine 0.9. CRP 15.6 LDH 284. On 09/03/2020 -patient was seen and examined at bedside. He is comfortable, saturating about 90 % on 2 L of nasal cannula. Still complains of ongoing cough and congestion. Toradol helping with abdominal soreness and chest wall pain. His vitals temperature 99, heart rate 78, respiratory 20, blood pressure 140/69. Reviewing his labs D-dimer 2.49, LDH 298, CRP 12.9. All medications have been reviewed and pertinent changes made. Objective - Vital Signs Vital signs: Vital Signs Temp 98.6 F 09/03/20 14:00 Pulse 83 09/03/20 14:00 Resp 18 09/03/20 14:00 BP 146/82 09/03/20 14:00 Pulse Ox 89 L 09/03/20 14:00 Intake & Output 09/02/20 09/03/20 09/03/20 18:59 06:59 18:59 Other: Voiding Method Toilet # Voids 4 2 - Exam PHYSICAL EXAMINATION: GENERAL: The patient is alert and oriented x3, not in any acute distress. Obese HEENT: Pupils are round and equally reacting to light. EOMI. No scleral icterus. CARDIOVASCULAR: S1 and S2 present. No murmurs, rubs, or gallops. PULMONARY: Bilateral coarse breath sounds. no wheezing ABDOMEN: Soft, nontender, nondistended, normoactive bowel sounds. MUSCULOSKELETAL: No joint swelling or deformity. EXTREMITIES: No cyanosis, clubbing, or pedal edema. - Labs CBC & Chem 7: 09/02/20 05:59 09/02/20 05:59 Labs: Abnormal Lab Results - Last 24 Hours (Table) 09/02/20 09/02/20 09/03/20 Range/Units 16:12 19:56 06:48 D-Dimer (<0.60) mg/L FEU POC Glucose (mg/dL) 256 H 244 H 280 H (75-99) mg/dL Hemoglobin A1c (4.0-6.0) % Lactate Dehydrogenase (120-246) U/L C-Reactive Protein (0.0-0.8) mg/dL 09/03/20 09/03/20 09/03/20 Range/Units 06:52 06:52 06:53 D-Dimer 2.49 H (<0.60) mg/L FEU POC Glucose (mg/dL) (75-99) mg/dL Hemoglobin A1c 7.4 H (4.0-6.0) % Lactate Dehydrogenase 298 H (120-246) U/L C-Reactive Protein 12.9 H (0.0-0.8) mg/dL 09/03/20 Range/Units 11:25 D-Dimer (<0.60) mg/L FEU POC Glucose (mg/dL) 233 H (75-99) mg/dL Hemoglobin A1c (4.0-6.0) % Lactate Dehydrogenase (120-246) U/L C-Reactive Protein (0.0-0.8) mg/dL Assessment and Plan Assessment: ASSESSMENT Acute hypoxic respiratory failure secondary to Covid pneumonia Asthma Adominal wall tenderness due to coughing Hyperlipidemia Obesity BMI - 37.5 GERD Plan:Patient states that his abdominal wall soreness is improving with the Toradol. We will try to wean him off of oxygen slowly, he saturation around 90 % on 2 L of Oxygen . Have encouraged him to continue doing incentive spirometry every hour and activity as tolerated.. For now continue with Lovenox, zinc, vitamin C supplements. His Solu-Medrol has been changed to Decadron today. Anticipate discharge in the next 24 hours with home oxygen therapy. Further recommendations depending on the progress of the patient.
[2020-09-03] MEDS: DOCUSATE 100 MG CAP PO PRN (23:48)
[2020-09-03] MEDS: diphenhydrAMINE 25 MG CAP PO PRN (23:48)
[2020-09-04] MEDS: ALBUTEROL HFA INHALER INHALATION PRN (01:19)
[2020-09-04] MEDS: SENNOSIDES 8.6 MG TAB PO PRN (02:49)
[2020-09-04] MEDS: KETOROLAC 15 MG/ML 1 ML VIAL IVP PRN ×2 (03:57→10:19)
[2020-09-04] MEDS: guaiFENesin-Coden 100-10MG/5ML 10 ML CUP PO SCH ×3 (05:42→17:28)
[2020-09-04] MEDS: BENZONATATE 100 MG CAP PO SCH ×4 (05:42→20:30)
[2020-09-04] MEDS: MORPHINE SULFATE 4 MG/ML SYRINGE IVP PRN ×3 (06:08→20:30)
[2020-09-04 07:35] LABS: Glucose,Whole Blood 114 mg/dL (75-99)
[2020-09-04] MEDS: INSULIN ASPART (NovoLOG) 100 UNIT/ML VIAL SQ SCH ×4 (08:20→22:01)
[2020-09-04] MEDS: ALBUTEROL HFA INHALER INHALATION SCH ×4 (08:51→19:32)
[2020-09-04] MEDS: CHOLECALCIFEROL 25 MCG (1000 IU) TABLET PO SCH (09:15)
[2020-09-04] MEDS: ENOXAPARIN 40 MG/0.4 ML SYRINGE SQ SCH (09:15)
[2020-09-04] MEDS: PANTOPRAZOLE 40 MG TABLET PO SCH (09:15)
[2020-09-04] MEDS: ZINC SULFATE 220 MG CAP PO SCH (09:15)
[2020-09-04] MEDS: TAMSULOSIN 0.4 MG CAP.ER.24H PO SCH (09:15)
[2020-09-04] MEDS: ASCORBIC ACID 500 MG TAB PO SCH ×2 (09:15→20:30)
[2020-09-04] MEDS: ATORVASTATIN 20 MG TAB PO SCH (09:15)
[2020-09-04] MEDS: dexAMETHasone 4 MG TAB PO SCH (09:16)
[2020-09-04 10:02] LABS: African American GFR (CKD) 115.7 (60.0-200.0); Anion Gap 4.8 mmol/L (4.00-12.00); BUN/Creat Ratio 26.25 Ratio (12.00-20.00); C Reactive Protein 8.7 mg/dL (0.0-0.8); Calcium 7.5 mg/dL (8.7-10.3); Carbon Dioxide 28.2 mmol/L (21.6-31.8); Non-African American GFR(CKD) 99.9 (60.0-200.0); Potassium 3.7 mmol/L (3.5-5.5)
[2020-09-04 10:28] LABS: Basophils % (A) 0 %; Eosinophils # (A) 0.1 k/uL (0-0.7); Eosinophils % (A) 1 %; HCT 39.6 % (39.0-53.0); HGB 12.9 gm/dL (13.0-17.5); Lymphocytes # (A) 0.4 k/uL (1.0-4.8); Lymphocytes % (A) 3 %; MCH 28.6 pg (25.0-35.0); MCHC 32.5 g/dL (31.0-37.0); MCV 87.8 fL (80.0-100.0); Mean Platelet Volume 7.7; Monocytes # (A) 0.6 k/uL (0-1.0); Monocytes % (A) 4 %; Neutrophils # (A) 11.5 k/uL (1.3-7.7); Neutrophils % (A) 91 %; Platelet Count 139 k/uL (150-450); RBC 4.51 m/uL (4.30-5.90); RDW 13.4 % (11.5-15.5); WBC 12.6 k/uL (3.8-10.6)
[2020-09-04] MEDS: IOPAMIDOL CONTRAST (ORAL USE) VIAL PO PRN ×2 (10:31→11:30)
--- NOTE | 2020-09-04 10:40 | P.GSCN ---
<Alivia Harmon - Last Filed: 09/04/20 10:31> History of Present Illness Consult date: 09/04/20 History of present illness: CHIEF COMPLAINT: Shortness of breath Reason for consult: Abdominal pain HISTORY OF PRESENT ILLNESS: This is a 55-year-old male with a known past medical history of constipation, asthma and hyperlipidemia. He has a past surgical history of 3 hernia repairs 1 umbilical and 2 inguinal hernias. Patient admitted to the hospital for covid 19 pneumonia and acute hypoxic respiratory failure. Patient started to complain of constipation and abdominal pain yesterday. He reports that the pain is in the left lower quadrant. He feels that he is constipated. Yesterday he was given MiraLAX and stool softeners. He did have a very small hard bowel movement this morning. Patient also had bowel movements 2 days ago. Patient reports that he has not passed any gas this mor bert. Patient reports that the pain is becoming more severe. He rates his pain 10 out of 10. The pain does not radiate. He did require morphine this morning. Denies any fever, chills or sweats. He does feel nauseous no actual vomiting. Patient reports she's had colonoscopy within last few years and was reported normal. Denies any prior history of diverticulosis or diverticulitis. PAST MEDICAL HISTORY: See list. PAST SURGICAL HISTORY: See list. MEDICATIONS: See list. ALLERGIES: See list. SOCIAL HISTORY: No illicit drug use. REVIEW OF SYSTEMS: CONSTITUTIONAL: Denies fever or chills. HEENT: Denies blurred vision, vision changes, or eye pain. Denies hemoptysis CARDIOVASCULAR: Denies chest pain or pressure. RESPIRATORY: No shortness of breath. GASTROINTESTINAL: See HPI for pertinent findings HEMATOLOGIC: Denies bleeding disorders. GENITOURINARY: Denies any blood in urine or increased urinary frequency. SKIN: Denies pruitis. Denies rash. PHYSICAL EXAM: VITAL SIGNS: Reviewed GENERAL: Well-developed in no acute distress. HEENT: No sclera icterus. Extraocular movements grossly intact. Moist buccal mucosa. Head is atraumatic, normocephalic. No nasal drainage. ABDOMEN: Soft. Nondistended. Left lower quadrant tenderness with palpation. No palpable hernia noted NEUROLOGIC: Alert and oriented. Cranial nerves II through XII grossly intact. LABORATORY DATA: WBC 12.6 hemoglobin 12.9 platelets 139 IMAGING: ASSESSMENT: 1. Left lower quadrant abdominal pain 2. Constipation 3. Prior history of inguinal hernia repairs and umbilical hernia repair 4. Covid 19 pneumonia PLAN: -Check computed tomography scan of the abdomen and pelvis with oral and IV c ontrast -Continue pain medication as needed -Continue supportive care -Further recommendations forthcoming per surgeon Physician Hemmer Chainstitch note has been reviewed by physician. Signing provider agrees with the documented findings, assessment, and plan of care. Past Medical History Past Medical History: Asthma, Hyperlipidemia Additional Past Medical History / Comment(s): covid 19, History of Any Multi-Drug Resistant Organisms: None Reported Past Surgical History: Back Surgery, Hernia Repair, Orthopedic Surgery Additional Past Surgical History / Comment(s): R shoulder surgery Past Anesthesia/Blood Transfusion Reactions: No Reported Reaction Past Psychological History: No Psychological Hx Reported Smoking Status: Never smoker Past Alcohol Use History: None Reported, Occasional Past Drug Use History: None Reported - Past Family History Father Family Medical History: Congestive Heart Failure (CHF) Mother Family Medical History: Diabetes Mellitus, Myocardial Infarction ([place]) Medications and Allergies Home Medications Medication Instructions Recorded Confirmed Type Alfuzosin HCl [Alfuzosin HCl ER] 10 mg PO DAILY 08/21/20 08/23/20 History Ascorbic Acid [Vitamin C] 500 mg PO DAILY 08/21/20 08/23/20 History Cetirizine HCl [Zyrtec] 10 mg PO DAILY 08/21/20 08/23/20 History Cholecalciferol [Vitamin D3 (25 25 mcg PO DAILY 08/21/20 08/23/20 History Mcg = 1000 Iu)] Doxycycline Hyclate 100 mg PO BID 08/21/20 08/23/20 History Omeprazole [PriLOSEC] 20 mg PO DAILY 08/21/20 08/23/20 History Rosuvastatin [Crestor] 10 mg PO DAILY 08/21/20 08/23/20 History Allergies Allergy/AdvReac Type Severity Reaction Status Date / Time mold Allergy Wheezing Verified 08/23/20 18:22 Penicillins Allergy Rash/Hives Verified 08/23/20 18:22 Surgical - Exam Vital Signs Temp Pulse Resp BP Pulse Ox 99.1 F 89 22 111/65 87 L 08/23/20 16:26 08/23/20 16:26 08/23/20 16:26 08/23/20 16:26 08/23/20 16:26 Results - Labs 09/04/20 09:55 09/04/20 06:30 Abnormal Lab Results - Last 24 Hours (Table) 09/03/20 09/03/20 09/03/20 Range/Units 06:52 11:25 14:00 WBC (3.8-10.6) k/uL Hgb (13.0-17.5) gm/dL Plt Count (150-450) k/uL Neutrophils # (1.3-7.7) k/uL Lymphocytes # (1.0-4.8) k/uL D-Dimer (<0.60) mg/L FEU BUN/Creatinine Ratio (12.00-20.00) Ratio Glucose (70-110) mg/dL POC Glucose (mg/dL) 233 H (75-99) mg/dL Hemoglobin A1c 7.4 H (4.0-6.0) % Calcium (8.7-10.3) mg/dL C-Reactive Protein (0.0-0.8) mg/dL Urine Protein 1+ H (Negative) Urine Bacteria Rare H (None) /hpf Urine Mucus Occasional H (None) /hpf 09/03/20 09/03/20 09/04/20 Range/Units 16:22 20:18 06:30 WBC (3.8-10.6) k/uL Hgb (13.0-17.5) gm/dL Plt Count (150-450) k/uL Neutrophils # (1.3-7.7) k/uL Lymphocytes # (1.0-4.8) k/uL D-Dimer 2.08 H (<0.60) mg/L FEU BUN/Creatinine Ratio (12.00-20.00) Ratio Glucose (70-110) mg/dL POC Glucose (mg/dL) 235 H 236 H (75-99) mg/dL Hemoglobin A1c (4.0-6.0) % Calcium (8.7-10.3) mg/dL C-Reactive Protein (0.0-0.8) mg/dL Urine Protein (Negative) Urine Bacteria (None) /hpf Urine Mucus (None) /hpf 09/04/20 09/04/20 09/04/20 Range/Units 06:30 07:33 09:55 WBC 12.6 H (3.8-10.6) k/uL Hgb 12.9 L (13.0-17.5) gm/dL Plt Count 139 L (150-450) k/uL Neutrophils # 11.5 H (1.3-7.7) k/uL Lymphocytes # 0.4 L (1.0-4.8) k/uL D-Dimer (<0.60) mg/L FEU BUN/Creatinine Ratio 26.25 H (12.00-20.00) Ratio Glucose 130 H (70-110) mg/dL POC Glucose (mg/dL) 114 H (75-99) mg/dL Hemoglobin A1c (4.0-6.0) % Calcium 7.5 L (8.7-10.3) mg/dL C-Reactive Protein 8.7 H (0.0-0.8) mg/dL Urine Protein (Negative) Urine Bacteria (None) /hpf Urine Mucus (None) /hpf Diabetes panel 09/03/20 09/04/20 Range/Units 06:52 06:30 Sodium 136 (135-145) mmol/L Potassium 3.7 (3.5-5.5) mmol/L Chloride 103 (96-109) mmol/L Carbon Dioxide 28.2 (21.6-31.8) mmol/L BUN 21.0 (9.0-27.0) mg/dL Creatinine 0.8 (0.6-1.5) mg/dL Glucose 130 H (70-110) mg/dL Hemoglobin A1c 7.4 H (4.0-6.0) % Calcium 7.5 L (8.7-10.3) mg/dL Calcium panel 09/04/20 Range/Units 06:30 Calcium 7.5 L (8.7-10.3) mg/dL Pituitary panel 09/04/20 Range/Units 06:30 Sodium 136 (135-145) mmol/L Potassium 3.7 (3.5-5.5) mmol/L Chloride 103 (96-109) mmol/L Carbon Dioxide 28.2 (21.6-31.8) mmol/L BUN 21.0 (9.0-27.0) mg/dL Creatinine 0.8 (0.6-1.5) mg/dL Glucose 130 H (70-110) mg/dL Calcium 7.5 L (8.7-10.3) mg/dL Adrenal panel 09/04/20 Range/Units 06:30 Sodium 136 (135-145) mmol/L Potassium 3.7 (3.5-5.5) mmol/L Chloride 103 (96-109) mmol/L Carbon Dioxide 28.2 (21.6-31.8) mmol/L BUN 21.0 (9.0-27.0) mg/dL Creatinine 0.8 (0.6-1.5) mg/dL Glucose 130 H (70-110) mg/dL Calcium 7.5 L (8.7-10.3) mg/dL <Nikos Dorsey - Last Filed: 09/04/20 13:22> History of Present Illness History of present illness: As above. Patient with left lower quadrant abdominal pain. Preceded by constipation. Patient went for a CAT scan which demonstrates a large amount of air in the mesentery of the sigmoid colon along with a fluid collection measuring approximately 7 cm in maximum dimension. Adjacent areas of air that appears somewhat loculated are noted as well. The colon itself has mild inflammatory changes but does not demonstrate a clear area of perforation. Case was discussed with interventional radiology. Abscess cavity is amenable to drainage. Case then discussed with the patient and also with his by phone. Options of exploratory laparotomy with washout and possible colectomy/colostomy versus percutaneous drainage of abscess cavity discussed. Patient is obviously interested in avoiding the possibility of colostomy at this time. We'll begin broad-spectrum antibiotics. We'll start with percutaneous drain placement. Will remain on surgical standby in the event that the patient does not demonstrate improvement in his symptoms. Consider infectious disease consultation. Keep nothing by mouth for now. Surgical - Exam Vital Signs Temp Pulse Resp BP Pulse Ox 99.1 F 89 22 111/65 87 L 08/23/20 16:26 08/23/20 16:26 08/23/20 16:26 08/23/20 16:26 08/23/20 16:26 Results - Labs 09/04/20 09:55 09/04/20 06:30 Abnormal Lab Results - Last 24 Hours (Table) 09/03/20 09/03/20 09/03/20 Range/Units 06:52 14:00 16:22 WBC (4.50-10.00) X 10*3/uL Hgb (13.0-17.0) g/dL Plt Count (140-440) X 10*3/uL Plt Count Comment Immature Gran # (0.00-0.04) X 10*3/uL Neutrophils # (1.80-7.70) X 10*3/uL Lymphocytes # (0.90-5.00) X 10*3/uL Eosinophils # (0.04-0.35) X 10*3/uL D-Dimer (<0.60) mg/L FEU BUN/Creatinine Ratio (12.00-20.00) Ratio Glucose (70-110) mg/dL POC Glucose (mg/dL) 235 H (75-99) mg/dL Hemoglobin A1c 7.4 H (4.0-6.0) % Calcium (8.7-10.3) mg/dL Lactate Dehydrogenase (120-246) U/L C-Reactive Protein (0.0-0.8) mg/dL Urine Protein 1+ H (Negative) Urine Bacteria Rare H (None) /hpf Urine Mucus Occasional H (None) /hpf 09/03/20 09/04/20 09/04/20 Range/Units 20:18 06:30 06:30 WBC 10.21 H (4.50-10.00) X 10*3/uL Hgb 12.9 L (13.0-17.0) g/dL Plt Count 129 L (140-440) X 10*3/uL Plt Count Comment DECREASED A Immature Gran # 0.06 H (0.00-0.04) X 10*3/uL Neutrophils # 9.15 H (1.80-7.70) X 10*3/uL Lymphocytes # 0.38 L (0.90-5.00) X 10*3/uL Eosinophils # 0 L (0.04-0.35) X 10*3/uL D-Dimer 2.08 H (<0.60) mg/L FEU BUN/Creatinine Ratio (12.00-20.00) Ratio Glucose (70-110) mg/dL POC Glucose (mg/dL) 236 H (75-99) mg/dL Hemoglobin A1c (4.0-6.0) % Calcium (8.7-10.3) mg/dL Lactate Dehydrogenase (120-246) U/L C-Reactive Protein (0.0-0.8) mg/dL Urine Protein (Negative) Urine Bacteria (None) /hpf Urine Mucus (None) /hpf 09/04/20 09/04/20 09/04/20 Range/Units 06:30 07:33 09:55 WBC 12.6 H (4.50-10.00) X 10*3/uL Hgb 12.9 L (13.0-17.0) g/dL Plt Count 139 L (140-440) X 10*3/uL Plt Count Comment Immature Gran # (0.00-0.04) X 10*3/uL Neutrophils # 11.5 H (1.80-7.70) X 10*3/uL Lymphocytes # 0.4 L (0.90-5.00) X 10*3/uL Eosinophils # (0.04-0.35) X 10*3/uL D-Dimer (<0.60) mg/L FEU BUN/Creatinine Ratio 26.25 H (12.00-20.00) Ratio Glucose 130 H (70-110) mg/dL POC Glucose (mg/dL) 114 H (75-99) mg/dL Hemoglobin A1c (4.0-6.0) % Calcium 7.5 L (8.7-10.3) mg/dL Lactate Dehydrogenase 248 H (120-246) U/L C-Reactive Protein 8.7 H (0.0-0.8) mg/dL Urine Protein (Negative) Urine Bacteria (None) /hpf Urine Mucus (None) /hpf 09/04/20 Range/Units 12:22 WBC (4.50-10.00) X 10*3/uL Hgb (13.0-17.0) g/dL Plt Count (140-440) X 10*3/uL Plt Count Comment Immature Gran # (0.00-0.04) X 10*3/uL Neutrophils # (1.80-7.70) X 10*3/uL Lymphocytes # (0.90-5.00) X 10*3/uL Eosinophils # (0.04-0.35) X 10*3/uL D-Dimer (<0.60) mg/L FEU BUN/Creatinine Ratio (12.00-20.00) Ratio Glucose (70-110) mg/dL POC Glucose (mg/dL) 155 H (75-99) mg/dL Hemoglobin A1c (4.0-6.0) % Calcium (8.7-10.3) mg/dL Lactate Dehydrogenase (120-246) U/L C-Reactive Protein (0.0-0.8) mg/dL Urine Protein (Negative) Urine Bacteria (None) /hpf Urine Mucus (None) /hpf Diabetes panel 09/03/20 09/04/20 Range/Units 06:52 06:30 Sodium 136 (135-145) mmol/L Potassium 3.7 (3.5-5.5) mmol/L Chloride 103 (96-109) mmol/L Carbon Dioxide 28.2 (21.6-31.8) mmol/L BUN 21.0 (9.0-27.0) mg/dL Creatinine 0.8 (0.6-1.5) mg/dL Glucose 130 H (70-110) mg/dL Hemoglobin A1c 7.4 H (4.0-6.0) % Calcium 7.5 L (8.7-10.3) mg/dL Calcium panel 09/04/20 Range/Units 06:30 Calcium 7.5 L (8.7-10.3) mg/dL Pituitary panel 09/04/20 Range/Units 06:30 Sodium 136 (135-145) mmol/L Potassium 3.7 (3.5-5.5) mmol/L Chloride 103 (96-109) mmol/L Carbon Dioxide 28.2 (21.6-31.8) mmol/L BUN 21.0 (9.0-27.0) mg/dL Creatinine 0.8 (0.6-1.5) mg/dL Glucose 130 H (70-110) mg/dL Calcium 7.5 L (8.7-10.3) mg/dL Adrenal panel 09/04/20 Range/Units 06:30 Sodium 136 (135-145) mmol/L Potassium 3.7 (3.5-5.5) mmol/L Chloride 103 (96-109) mmol/L Carbon Dioxide 28.2 (21.6-31.8) mmol/L BUN 21.0 (9.0-27.0) mg/dL Creatinine 0.8 (0.6-1.5) mg/dL Glucose 130 H (70-110) mg/dL Calcium 7.5 L (8.7-10.3) mg/dL
[2020-09-04 10:48] LABS: Basophils # (A) 0.02 X 10*3/uL (0.00-0.10); Basophils % (A) 0.2 %; Eosinophils # (A) 0 X 10*3/uL (0.04-0.35); Eosinophils % (A) 0 %; HCT 39.7 % (39.6-50.0); HGB 12.9 g/dL (13.0-17.0); Lymphocytes # (A) 0.38 X 10*3/uL (0.90-5.00); Lymphocytes % (A) 3.7 %; MCH 28.8 pg (27.0-32.0); MCHC 32.5 g/dL (32.0-37.0); MCV 88.6 fL (80.0-97.0); Mean Platelet Volume 10.7 fL (9.5-12.2); Monocytes % (A) 5.9 %; Neutrophils # (A) 9.15 X 10*3/uL (1.80-7.70); Neutrophils % (A) 89.6 %; Platelet Count 129 X 10*3/uL (140-440); RBC 4.48 X 10*6/uL (4.40-5.60); RDW 12.9 % (11.5-14.5); WBC 10.21 X 10*3/uL (4.50-10.00)
[2020-09-04] MEDS: SODIUM CHLORIDE 0.9% 1,000 ML IV SCH (10:59)
[2020-09-04 12:23] LABS: Glucose,Whole Blood 155 mg/dL (75-99)
--- NOTE | 2020-09-04 12:41 | CT ---
EXAMINATION TYPE: CT abdomen pelvis w con DATE OF EXAM: 09/04/2020 COMPARISON: None HISTORY: Lower pelvic pain CT DLP: 2031 mGycm CONTRAST: CT scan of the abdomen and pelvis is performed with Oral Contrast and with IV Contrast, patient injec tommy with 100 mL of Isovue 300. FINDINGS: LUNG BASES-: No visible nodule. Basilar infiltrates compatible with the patient's history of Covid 19 pneumonia. LIVER/GB: No calcified gallstones. 1.4 cm hepatic cyst right hepatic lobe with mild fatty liver see n. Biliary tree is of normal caliber. PANCREAS: No inflammation. No distinct mass. SPLEEN: No splenic enlargement. No lesion seen. ADRENALS: No nodule. No thickening. KIDNEYS/BLADDER: No hydronephrosis. No nephrolithiasis. Left renal parapelvic cyst identified measu ring 6.0 x 2.5 cm. Urinary bladder grossly unremarkable. BOWEL: There is wall thickening involving the rectum and rectosigmoid region with multiple foci of ad jacent extraluminal air noted. There is an abscess identified within the left lower quadrant measurin g approximately 7.0 x 4.2 cm. There is additional abscess noted and adjacent foci of air which sits i n between the common iliac arteries. This collection measures approximately 7.9 x 6.9 cm. Cranial to this collection or additional foci of air noted. The appendix extends extends to the 9:00 margin of t he larger collection. The visualized portions of the appendix appear to be within normal limits with the mild reactive change noted. GENITAL ORGANS: No gross abnormality. LYMPH NODES: No greater than 1cm abdominal or pelvic lymph nodes are appreciated. AORTA: No significant abnormality. OSSEOUS STRUCTURES: No significant abnormality is seen. OTHER: No significant additional abnormality is seen. IMPRESSION: 1. Findings felt to reflect nonspecific proctocolitis with multiple foci of free air and 2 abscesses noted. Perforated diverticulitis is a likely consideration although other possibilities are not exclu ded. As noted the visualized portions of the appendix appear to be within normal limits with some mil d reactive changes noted
[2020-09-04] MEDS: LEVOFLOXACIN 500MG-D5W PMX 500 MG in DEXTROSE/WATER 1 100ML.BAG IVPB SCH (15:00)
--- NOTE | 2020-09-04 15:47 | P.PN ---
Subjective Progress Note Date: 09/04/20 COVID Pneumonia Mr. Maldonado is a 55-year-old with a past medical history of asthma, hyperlipidemia who was recently diagnosed with Covid infection, placed on prednisone and doxycycline by his primary care physician coming in with difficulty in breathing. Patient was also seen in the emergency department recently and received an infusion of BAM. On 08/28/2020 -patient was seen and examined at the bedside. He appears to be in no acute distress. He states that he is still short of breath with minimal activity, still requiring 5 L of oxygen. Patient denies having any fevers chills or rigors. No sputum production. No chest pain. On reviewing his vitals afebrile for the past 24 hours, blood pressure 127 x 77 heart rate in the 60s to 70s. On reviewing the labs, no new labs from this morning. Patient's last chest x-ray was done yesterday showing worsening bilateral lung infiltrates. Pulmonary on board and following the patient closely. On 08/29/2020 -patient is seen and examined at bedside. He states that he still has difficulty in breathing with minimal activity and saturating at 90% on 8 L of high flow nasal cannula. Patient denied having any fevers chills or rigors. Complains of ongoing cough, that is dry in nature nonproductive. He denies having any chest pain or palpitations. Nominal pain nausea vomiting or diarrhea. No dysuria or hematuria. On reviewing his vitals T-max of 98.7, heart rate 76, respiratory rate 18, blood pressure 127 x 61. Reviewing labs from this morning white count of 16.2, hemoglobin 14.2, platelets 237. Sodium 140, potassium 4.3, chloride 102, bicarb 26, BUN 22, creatinine 1.0 LDH 330, C- reactive protein 1.3. On 08/30/2020 - -patient is seen and examined at bedside. Is comfortably sitting up in a chair by the bedside. Patient is still requiring 5 L of oxygen. He complains of ongoing cough mostly dry in nature. Patient denies having any fevers chills or rigors. Patient denies having any abdominal pain nausea vomiting or diarrhea. No dysuria or hematuria. On reviewing his vitals T-max of 98.4, heart rate 60 to 70s, respiratory rate 16, blood pressure 131 x 51. On reviewing his labs white count of 15.5, hemoglobin 13.2, platelets 212. D-dimer 1.23, sodium 139, potassium 4.1, chloride 104, bicarb 26, BUN 23, creatinine 1.0 C-reactive protein 2, lactate dehydrogenase 288, ferritin 582. On 08/31/2020 -patient was seen and examined at bedside. He is comfortably sitting up in chair by the bedside. He is still requiring 5 to 6 L of oxygen to maintain saturations above 90%. Patient states that he still continues to have cough mostly dry and also that he is short of breath walking from bed to the bathroom. He denies having any fevers chills or rigors. No abdominal pain nausea vomiting or diarrhea. No dysuria or hematuria. He denies having any swelling of his lower extremities. On reviewing his vitals temperature of 98.4, heart rate 50s to 70s, respiratory rate below 15, saturating at 90% on 5 L of oxygen via nasal cannula. On reviewing his labs D-dimer is 1.07 LDH 748, CRP 43.1. On 09/01/2020 --patient is seen and examined at bedside. He is lying comfortably in bed appears to be in no acute distress. Patient complains of pain in the lower abdomen. He states that he has hernia repair done and has a mesh repair done. He states that he has been coughing and his lower abdomen has been hurting. Patient was constipated yesterday, had 2 bowel movements yesterday. He states that he did not have a bowel movement and is not passing gas now. Patient denies having any nausea or vomiting. He still has ongoing cough, bouts of coughing episodes that is making him dyspneic. He denies having any fevers chills or rigors. No dysuria or hematuria. On reviewing his vitals temperature of 98.4, heart rate 96, respiratory rate 18 blood pressure 122/69 saturating at 90% on 4 L of nasal cannula. On reviewing his labs white count of 20.6, hemoglobin 14.5, platelets 204. D-dimer 1.26. Sodium 140, potassium 4.4, chloride 103, bicarb 29, BUN 23, creatinine 1.0. LDH 616, CRP 52. On 09/02/2020 -patient seen and examined at bedside. He is comfortably sitting up in a chair by the bedside. He complains of lower abdominal soreness secondary to coughing. He states that Toradol helps him with his lower abdominal soreness. Patient denies having any chest pain or palpitations. He continues to have cough, usually in bouts. Nonproductive. He denies having any fevers chills or rigors. No dysuria or hematuria. Reviewing his vitals temperature of 98.8, heart rate 71, respiratory rate 18, blood pressure 113/59, saturating at 90% on 3-4 L of oxygen. On reviewing his labs white count of 13.1, hemoglobin 13.5, platelets 159. Sodium 139, potassium 4.2, chloride 104, bicarb 27, BUN 24, creatinine 0.9. CRP 15.6 LDH 284. On 09/03/2020 -patient was seen and examined at bedside. He is comfortable, saturating about 90 % on 2 L of nasal cannula. Still complains of ongoing cough and congestion. Toradol helping with abdominal soreness and chest wall pain. His vitals temperature 99, heart rate 78, respiratory 20, blood pressure 140/69. Reviewing his labs D-dimer 2.49, LDH 298, CRP 12.9. 09/04/2020 Patient is seen and evaluated in follow-up continues to be on 2 L of oxygen via nasal cannula and denies any worsening shortness of breath. Patient does have dyspnea with exertion with cough and phlegm production. Continues to have abdominal discomfort and states it has worsened on the lower left side. Surgery has been consulted and pending. Patient underwent CT abdomen today. White b lood count slightly elevated at 12.6, and hemoglobin is stable at 12.9. Platelets slightly low at 139 although improved from yesterday. Will repeat a.m. labs patient will be nothing by mouth until surgery has evaluated Review of systems: Constitutional: Reports continued fatigue, no reports of fever, or chills Cardiovascular: No reports of chest pain or palpitations Respiratory: Reports continued shortness of breath and cough with phlegm GI: No reports of nausea, vomiting, or diarrhea, reports continued lower left abdominal discomfort : No reports of dysuria or retention Neurovascular: No reports of weakness or numbness All medications have been reviewed Objective - Vital Signs Vital signs: Vital Signs Temp 98.3 F 09/04/20 06:00 Pulse 95 09/04/20 06:00 Resp 17 09/04/20 06:00 BP 122/66 09/04/20 06:00 Pulse Ox 90 L 09/04/20 06:00 Intake & Output 09/03/20 09/04/20 09/04/20 18:59 06:59 18:59 Other: Voiding Method Toilet # Voids 4 3 - Exam GENERAL: The patient is alert and oriented x3, not in any acute distress. Obese HEENT: Pupils are round and equally reacting to light. EOMI. No scleral icterus. CARDIOVASCULAR: S1 and S2 present. No murmurs, rubs, or gallops. PULMONARY: Bilateral coarse breath sounds. no wheezing ABDOMEN: Soft, tenderness noted on the left side lower quadrant with palpation, nondistended, normoactive bowel sounds. MUSCULOSKELETAL: No joint swelling or deformity. EXTREMITIES: No cyanosis, clubbing, or pedal edema. - Labs CBC & Chem 7: 09/04/20 09:55 09/04/20 06:30 Labs: Abnormal Lab Results - Last 24 Hours (Table) 09/03/20 09/03/20 09/03/20 Range/Units 06:52 14:00 16:22 WBC (4.50-10.00) X 10*3/uL Hgb (13.0-17.0) g/dL Plt Count (140-440) X 10*3/uL Plt Count Comment Immature Gran # (0.00-0.04) X 10*3/uL Neutrophils # (1.80-7.70) X 10*3/uL Lymphocytes # (0.90-5.00) X 10*3/uL Eosinophils # (0.04-0.35) X 10*3/uL D-Dimer (<0.60) mg/L FEU BUN/Creatinine Ratio (12.00-20.00) Ratio Glucose (70-110) mg/dL POC Glucose (mg/dL) 235 H (75-99) mg/dL Hemoglobin A1c 7.4 H (4.0-6.0) % Calcium (8.7-10.3) mg/dL C-Reactive Protein (0.0-0.8) mg/dL Urine Protein 1+ H (Negative) Urine Bacteria Rare H (None) /hpf Urine Mucus Occasional H (None) /hpf 09/03/20 09/04/20 09/04/20 Range/Units 20:18 06:30 06:30 WBC 10.21 H (4.50-10.00) X 10*3/uL Hgb 12.9 L (13.0-17.0) g/dL Plt Count 129 L (140-440) X 10*3/uL Plt Count Comment DECREASED A Immature Gran # 0.06 H (0.00-0.04) X 10*3/uL Neutrophils # 9.15 H (1.80-7.70) X 10*3/uL Lymphocytes # 0.38 L (0.90-5.00) X 10*3/uL Eosinophils # 0 L (0.04-0.35) X 10*3/uL D-Dimer 2.08 H (<0.60) mg/L FEU BUN/Creatinine Ratio (12.00-20.00) Ratio Glucose (70-110) mg/dL POC Glucose (mg/dL) 236 H (75-99) mg/dL Hemoglobin A1c (4.0-6.0) % Calcium (8.7-10.3) mg/dL C-Reactive Protein (0.0-0.8) mg/dL Urine Protein (Negative) Urine Bacteria (None) /hpf Urine Mucus (None) /hpf 09/04/20 09/04/20 09/04/20 Range/Units 06:30 07:33 09:55 WBC 12.6 H (4.50-10.00) X 10*3/uL Hgb 12.9 L (13.0-17.0) g/dL Plt Count 139 L (140-440) X 10*3/uL Plt Count Comment Immature Gran # (0.00-0.04) X 10*3/uL Neutrophils # 11.5 H (1.80-7.70) X 10*3/uL Lymphocytes # 0.4 L (0.90-5.00) X 10*3/uL Eosinophils # (0.04-0.35) X 10*3/uL D-Dimer (<0.60) mg/L FEU BUN/Creatinine Ratio 26.25 H (12.00-20.00) Ratio Glucose 130 H (70-110) mg/dL POC Glucose (mg/dL) 114 H (75-99) mg/dL Hemoglobin A1c (4.0-6.0) % Calcium 7.5 L (8.7-10.3) mg/dL C-Reactive Protein 8.7 H (0.0-0.8) mg/dL Urine Protein (Negative) Urine Bacteria (None) /hpf Urine Mucus (None) /hpf Assessment and Plan Assessment: Acute hypoxic respiratory failure secondary to Covid pneumonia Asthma Abdominal wall tenderness due to coughing or possibly do to abdominal abscess noted on CT Hyperlipidemia Obesity BMI - 37.5 GERD plan: Continue current medications and continue to wean FiO2 as tolerated. Surgery has been consulted for continued abdominal pain and discomfort and underwent CT abdomen showing findings of possible nonspecific proctocolitis with multiple foci of free air and 2 abscesses noted with the possibility of diverticulitis with perforation and the appendix appears to be within normal limits. Patient will be started on IV antibiotics and discuss further with surgery about treatment plan. Continue to wean FiO2 as tolerated. Incentive spirometer at the bedside and instructed the patient to continue using at least 10 times every hour while awake. Patient is maintained on oral steroids along with Lovenox, zinc, vitamin supplements and will continue.
[2020-09-04 16:26] LABS: Glucose,Whole Blood 158 mg/dL (75-99)
[2020-09-04] MEDS ORDERED: HYDROmorphone 0.5 MG/0.5 ML SYRINGE IM STA (16:57)
[2020-09-04] MEDS: metroNIDAZOLE-NS PMX 500 MG in SALINE 1 100ML.BAG IVPB SCH (17:35)
[2020-09-04 20:43] LABS: Glucose,Whole Blood 152 mg/dL (75-99)
[2020-09-04] MEDS ORDERED: TEMAZEPAM 15 MG CAP PO PRN (23:37)
[2020-09-05] MEDS: metroNIDAZOLE-NS PMX 500 MG in SALINE 1 100ML.BAG IVPB SCH ×4 (00:32→23:03)
[2020-09-05] MEDS: SODIUM CHLORIDE 0.9% 1,000 ML IV SCH (00:33)
[2020-09-05] MEDS: guaiFENesin-Coden 100-10MG/5ML 10 ML CUP PO SCH ×4 (00:37→15:12)
[2020-09-05] MEDS: ACETAMINOPHEN TAB 325 MG TAB PO PRN (03:41)
[2020-09-05] MEDS: BENZONATATE 100 MG CAP PO SCH ×3 (05:29→20:40)
[2020-09-05 07:06] LABS: Glucose,Whole Blood 142 mg/dL (75-99)
[2020-09-05] MEDS: ALBUTEROL HFA INHALER INHALATION SCH ×4 (08:34→19:33)
[2020-09-05] MEDS: INSULIN ASPART (NovoLOG) 100 UNIT/ML VIAL SQ SCH ×4 (08:48→20:39)
[2020-09-05] MEDS: CHOLECALCIFEROL 25 MCG (1000 IU) TABLET PO SCH (08:50)
[2020-09-05] MEDS: ZINC SULFATE 220 MG CAP PO SCH (08:50)
[2020-09-05] MEDS: TAMSULOSIN 0.4 MG CAP.ER.24H PO SCH (08:50)
[2020-09-05] MEDS: ASCORBIC ACID 500 MG TAB PO SCH ×2 (08:50→20:39)
[2020-09-05] MEDS: dexAMETHasone 4 MG TAB PO SCH (08:51)
[2020-09-05] MEDS: ATORVASTATIN 20 MG TAB PO SCH (08:51)
[2020-09-05] MEDS: ENOXAPARIN 40 MG/0.4 ML SYRINGE SQ SCH (08:51)
[2020-09-05] MEDS: PANTOPRAZOLE 40 MG TABLET PO SCH (08:51)
[2020-09-05 09:22] LABS: HCT 38.3 % (39.0-53.0); HGB 12.6 gm/dL (13.0-17.5); MCH 28.9 pg (25.0-35.0); MCHC 32.8 g/dL (31.0-37.0); MCV 88.3 fL (80.0-100.0); Mean Platelet Volume 7.7; RBC 4.34 m/uL (4.30-5.90); RDW 13.5 % (11.5-15.5); WBC 8.5 k/uL (3.8-10.6)
[2020-09-05] MEDS: MORPHINE SULFATE 4 MG/ML SYRINGE IVP PRN (09:48)
--- NOTE | 2020-09-05 10:31 | CT ---
EXAMINATION TYPE: CT guided abscess drainage DATE OF EXAM: 09/04/2020 COMPARISON: CT 09/04/2020 HISTORY: Abdominal abscess CT DLP: 592 mGycm Automated exposure control for dose reduction was used. PROCEDURE: Maximal barrier technique was utilized. The skin over suitable path to the abscess in the left lower quadrant of the abdomen was localized with CT and the overlying skin prepped and draped. Lidocaine was used for local anesthesia. A skin tatiana made with a scalpel. Access was gained using CT guidance with a 21-gauge needle, purulent material returned in the hub of the needle. A 0.018 inch wire was advanced and the access site was upsized, the wire was upsized and subsequently an 8-Greek drain was deployed within the abscess cavity and fixed in place. Catheter attached to gravity drainage. No i mmediate complication. Purulent material sent for laboratory analysis and draining into the bag. Th e patient remained in stable condition. IMPRESSION: STATUS POST CT GUIDED ABSCESS DRAINAGE, MICROBIOLOGY ANALYSIS IS PENDING. THIS PROCEDURE WAS PERFORM ED BY THE UNDERSIGNED.
[2020-09-05 11:15] LABS: Band Neutrophils % 16 %; Lymphocytes # (M) 0.34 k/uL (1.0-4.8); Monocytes # (M) 0.26 k/uL (0-1.0); Neutrophils % (M) 77 %; Nucleated Red Blood Cells 0 /100 WBC (0-0); Platelet Count 94 k/uL (150-450); Total Cells Counted 100; Toxic Granulation Present
[2020-09-05 11:35] LABS: Glucose,Whole Blood 143 mg/dL (75-99)
[2020-09-05] MEDS: KETOROLAC 15 MG/ML 1 ML VIAL IVP SCH ×3 (11:39→23:01)
[2020-09-05] MEDS: ALPRAZolam 0.5 MG TAB PO PRN ×2 (11:39→23:01)
--- NOTE | 2020-09-05 11:42 | P.PN ---
<JeronimoAlivia melo - Last Filed: 09/05/20 12:44> Subjective Progress Note Date: 09/05/20 CHIEF COMPLAINT: Left lower quadrant abdominal pain HISTORY OF PRESENT ILLNESS: Patient is followed for perforated sigmoid colon diverticulitis with abscess. He is status post CT-guided drainage of abscess. Patient has had 130 mL pus-colored drainage. Foul odor noted. Patient still reporting left lower quadrant abdominal pain. However, he does have improvement with the morphine. He initially rates his pain 10 out of 10 and after morphine pain becomes 2 out of 10. He does report that the morphine is not lasting long enough. He is also complaining of anxiety. Anxiety medications will be addressed by medicine service. This was discussed with medicine service nurse practitioner. Patient did have a temp of 100.1 last night. White count has come down from 12.6-8.5. He does report having bowel movements and passing gas. Denies any blood in his stools. PHYSICAL EXAM: VITAL SIGNS: Reviewed. GENERAL: Well-developed in no acute distress. HEENT: No sclera icterus. Extraocular movements grossly intact. Moist buccal mucosa. Head is atraumatic, normocephalic. ABDOMEN: Soft. Nondistended. Tenderness with palpation of the left lower quadrant. But less tender than yesterday NEUROLOGIC: Alert and oriented. Cranial nerves II through XII grossly intact. ASSESSMENT: 1. Perforated sigmoid colon diverticulitis with abscess status post CT-guided drainage of abscess 2. Left lower quadrant abdominal pain secondary to perforated sigmoid colon diverticulitis with abscess 3. Constipation 4. Prior history of inguinal hernia repairs and umbilical hernia repair 5. Covid 19 pneumonia 6. Anxiety PLAN: -Recommend infectious disease consult -Keep patient nothing by mouth -Continue antibiotics -Follow up on culture results -Add Toradol for better pain control Physician Alterations Tailor note has been reviewed by physician. Signing provider agrees with the documented findings, assessment, and plan of care. Objective - Vital Signs Vital signs: Vital Signs Temp 97.9 F 09/05/20 10:00 Pulse 69 09/05/20 10:00 Resp 17 09/05/20 10:00 BP 113/72 09/05/20 10:00 Pulse Ox 91 L 09/05/20 10:00 Intake & Output 09/04/20 09/05/20 09/05/20 18:59 06:59 18:59 Intake Total 300 Output Total 40 610 20 Balance -40 -310 -20 Weight 113.54 kg Intake: Oral 300 Output: Drainage 40 110 20 Left Lower Abdomen 40 110 20 Urine 500 Other: Voiding Method Toilet # Voids 1 2 - Labs CBC & Chem 7: 09/05/20 08:36 09/04/20 06:30 Labs: Abnormal Lab Results - Last 24 Hours (Table) 09/04/20 09/04/20 09/04/20 Range/Units 06:30 12:22 16:24 Hgb (13.0-17.5) gm/dL Hct (39.0-53.0) % Plt Count (150-450) k/uL Neutrophils # (Manual) (1.3-7.7) k/uL Lymphocytes # (Manual) (1.0-4.8) k/uL POC Glucose (mg/dL) 155 H 158 H (75-99) mg/dL Lactate Dehydrogenase 248 H (120-246) U/L 09/04/20 09/05/20 09/05/20 Range/Units 20:41 07:05 08:36 Hgb 12.6 L (13.0-17.5) gm/dL Hct 38.3 L (39.0-53.0) % Plt Count 94 L (150-450) k/uL Neutrophils # (Manual) 7.90 H (1.3-7.7) k/uL Lymphocytes # (Manual) 0.34 L (1.0-4.8) k/uL POC Glucose (mg/dL) 152 H 142 H (75-99) mg/dL Lactate Dehydrogenase (120-246) U/L Microbiology - Last 24 Hours (Table) 09/04/20 Unknown Gram Stain - Preliminary Aspirate Body Fluid Culture - Preliminary 09/04/20 Unknown Anaerobic Culture - Preliminary Aspirate <Nikos Dorsey - Last Filed: 09/05/20 18:18> Subjective As above. Patient's pain is improved today compared to yesterday. Foul sme lling purulent drainage from the percutaneous drain. Low-grade fever last night. White blood cell count has improved however he does have 16% bands present. He says he is able to push on his left lower abdomen with much less discomfort than yesterday. He was evaluated while his was on video chat. Will begin a clear liquid diet. Recommend infectious disease evaluation. Continue antibiotics. Follow up on cultures, Gram stain noted. Continue analgesics. Objective - Vital Signs Vital signs: Vital Signs Temp 97.8 F 09/05/20 14:00 Pulse 73 09/05/20 14:00 Resp 19 09/05/20 14:00 BP 114/74 09/05/20 14:00 Pulse Ox 94 L 09/05/20 14:00 Intake & Output 09/04/20 09/05/20 09/05/20 18:59 06:59 18:59 Intake Total 300 Output Total 40 610 425 Balance -40 310 -425 Weight 113.54 kg Intake: Oral 300 Output: Drainage 40 110 50 Left Lower Abdomen 40 110 50 Urine 500 375 Other: Voiding Method Toilet # Voids 1 2 - Labs CBC & Chem 7: 09/05/20 08:36 09/04/20 06:30 Labs: Abnormal Lab Results - Last 24 Hours (Table) 09/04/20 09/05/20 09/05/20 Range/Units 20:41 07:05 08:36 Hgb 12.6 L (13.0-17.5) gm/dL Hct 38.3 L (39.0-53.0) % Plt Count 94 L (150-450) k/uL Neutrophils # (Manual) 7.90 H (1.3-7.7) k/uL Lymphocytes # (Manual) 0.34 L (1.0-4.8) k/uL POC Glucose (mg/dL) 152 H 142 H (75-99) mg/dL 09/05/20 09/05/20 09/05/20 Range/Units 11:33 13:44 16:59 Hgb (13.0-17.5) gm/dL Hct (39.0-53.0) % Plt Count (150-450) k/uL Neutrophils # (Manual) (1.3-7.7) k/uL Lymphocytes # (Manual) (1.0-4.8) k/uL POC Glucose (mg/dL) 143 H 129 H 217 H (75-99) mg/dL Microbiology - Last 24 Hours (Table) 09/04/20 Unknown Gram Stain - Preliminary Aspirate Body Fluid Culture - Preliminary 09/04/20 Unknown Anaerobic Culture - Preliminary Aspirate
[2020-09-05 13:48] LABS: Glucose,Whole Blood 129 mg/dL (75-99)
[2020-09-05] MEDS: LEVOFLOXACIN 500MG-D5W PMX 500 MG in DEXTROSE/WATER 1 100ML.BAG IVPB SCH (14:00)
--- NOTE | 2020-09-05 15:18 | P.PN ---
Subjective COVID Pneumonia Mr. Maldonado is a 55-year-old with a past medical history of asthma, hyperlipidemia who was recently diagnosed with Covid infection, placed on prednisone and doxycycline by his primary care physician coming in with difficulty in rema thing. Patient was also seen in the emergency department recently and received an infusion of BAM. On 08/28/2020 -patient was seen and examined at the bedside. He appears to be in no acute distress. He states that he is still short of breath with minimal activity, still requiring 5 L of oxygen. Patient denies having any fevers chills or rigors. No sputum production. No chest pain. On reviewing his vitals afebrile for the past 24 hours, blood pressure 127 x 77 heart rate in the 60s to 70s. On reviewing the labs, no new labs from this morning. Patient's last chest x-ray was done yesterday showing worsening bilateral lung infiltrates. Pulmonary on board and following the patient closely. On 08/29/2020 -patient is seen and examined at bedside. He states that he still has difficulty in breathing with minimal activity and saturating at 90% on 8 L of high flow nasal cannula. Patient denied having any fevers chills or rigors. Complains of ongoing cough, that is dry in nature nonproductive. He denies having any chest pain or palpitations. Nominal pain nausea vomiting or diarrh ea. No dysuria or hematuria. On reviewing his vitals T-max of 98.7, heart rate 76, respiratory rate 18, blood pressure 127 x 61. Reviewing labs from this morning white count of 16.2, hemoglobin 14.2, platelets 237. Sodium 140, potassium 4.3, chloride 102, bicarb 26, BUN 22, creatinine 1.0 LDH 330, C- reactive protein 1.3. On 08/30/2020 - -patient is seen and examined at bedside. Is comfortably sitting up in a chair by the bedside. Patient is still requiring 5 L of oxygen. He complains of ongoing cough mostly dry in nature. Patient denies having any fevers chills or rigors. Patient denies having any abdominal pain nausea vomiting or diarrhea. No dysuria or hematuria. On reviewing his vitals T-max of 98.4, heart rate 60 to 70s, respiratory rate 16, blood pressure 131 x 51. On reviewing his labs white count of 15.5, hemoglobin 13.2, platelets 212. D-dimer 1.23, sodium 139, potassium 4.1, chloride 104, bicarb 26, BUN 23, creatinine 1.0 C-reactive protein 2, lactate dehydrogenase 288, ferritin 582. On 08/31/2020 -patient was seen and examined at bedside. He is comfortably sit ting up in chair by the bedside. He is still requiring 5 to 6 L of oxygen to maintain saturations above 90%. Patient states that he still continues to have cough mostly dry and also that he is short of breath walking from bed to the bathroom. He denies having any fevers chills or rigors. No abdominal pain nausea vomiting or diarrhea. No dysuria or hematuria. He denies having any swelling of his lower extremities. On reviewing his vitals temperature of 98.4, heart rate 50s to 70s, respiratory rate below 15, saturating at 90% on 5 L of oxygen via nasal cannula. On reviewing his labs D-dimer is 1.07 LDH 748, CRP 43.1. On 09/01/2020 --patient is seen and examined at bedside. He is lying comfortably in bed appears to be in no acute distress. Patient complains of pain in the lower abdomen. He states that he has hernia repair done and has a mesh repair done. He states that he has been coughing and his lower abdomen has been hurting. Patient was constipated yesterday, had 2 bowel movements yesterday. He states that he did not have a bowel movement and is not passing gas now. P atient denies having any nausea or vomiting. He still has ongoing cough, bouts of coughing episodes that is making him dyspneic. He denies having any fevers chills or rigors. No dysuria or hematuria. On reviewing his vitals temperature of 98.4, heart rate 96, respiratory rate 18 blood pressure 122/69 saturating at 90% on 4 L of nasal cannula. On reviewing his labs white count of 20.6, hemoglo bin 14.5, platelets 204. D-dimer 1.26. Sodium 140, potassium 4.4, chloride 103, bicarb 29, BUN 23, creatinine 1.0. LDH 616, CRP 52. On 09/02/2020 -patient seen and examined at bedside. He is comfortably sitting up in a chair by the bedside. He complains of lower abdominal soreness secondary to coughing. He states that Toradol helps him with his lower abdominal soreness. Patient denies having any chest pain or palpitations. He continues to have cough, usually in bouts. Nonproductive. He denies having any fevers chills or rigors. No dysuria or hematuria. Reviewing his vitals tempera ture of 98.8, heart rate 71, respiratory rate 18, blood pressure 113/59, saturating at 90% on 3-4 L of oxygen. On reviewing his labs white count of 13.1, hemoglobin 13.5, platelets 159. Sodium 139, potassium 4.2, chloride 104, bicarb 27, BUN 24, creatinine 0.9. CRP 15.6 LDH 284. On 09/03/2020 -patient was seen and examined at bedside. He is comfortable, saturating about 90 % on 2 L of nasal cannula. Still complains of ongoing cough and congestion. Toradol helping with abdominal soreness and chest wall pain. His vitals temperature 99, heart rate 78, respiratory 20, blood pressure 140/69. Reviewing his labs D-dimer 2.49, LDH 298, CRP 12.9. 09/04/2020 Patient is seen and evaluated in follow-up continues to be on 2 L of oxygen via nasal cannula and denies any worsening shortness of breath. Patient does have dyspnea with exertion with cough and phlegm production. Continues to have abdominal discomfort and states it has worsened on the lower left side. Surgery has been consulted and pending. Patient underwent CT abdomen today. White blood count slightly elevated at 12.6, and hemoglobin is stable at 12.9. Platelets slightly low at 139 although improved from yesterday. Will repeat a.m. labs patient will be nothing by mouth until surgery has evaluated 09/05/2020 patient's abdominal drain is still draining. Leukocytosis improving. Patient was anxious disease and oxygen therapy the most. We will add Toradol for his pain. Patient is a still on 6 L of oxygen at this time. Patient is passing gas did have a small bowel movement as well. Review of systems: Constitutional: Reports continued fatigue, no reports of fever, or chills Cardiovascular: No reports of chest pain or palpitations Respiratory: Reports continued shortness of breath and cough with phlegm GI: No reports of nausea, vomiting, or diarrhea, reports continued lower left abdominal discomfort : No reports of dysuria or retention Neurovascular: No reports of weakness or numbness All medications have been reviewed Objective - Vital Signs Vital signs: Vital Signs Temp 97.8 F 09/05/20 14:00 Pulse 73 09/05/20 14:00 Resp 19 09/05/20 14:00 BP 114/74 09/05/20 14:00 Pulse Ox 94 L 09/05/20 14:00 Intake & Output 09/04/20 09/05/20 09/05/20 18:59 06:59 18:59 Intake Total 300 Output Total 40 610 425 Balance -40 -310 -425 Weight 113.54 kg Intake: Oral 300 Output: Drainage 40 110 50 Left Lower Abdomen 40 110 50 Urine 500 375 Other: Voiding Method Toilet # Voids 1 2 - Exam PHYSICAL EXAMINATION: GENERAL: The patient is alert and oriented x3, not in any acute distress. Obese HEENT: Pupils are round and equally reacting to light. EOMI. No scleral icterus. No conjunctival pallor. Normocephalic, atraumatic. No pharyngeal erythema. No thyromegaly. CARDIOVASCULAR: S1 and S2 present. No murmurs, rubs, or gallops. PULMONARY: Chest is clear to auscultation, no wheezing or crackles. ABDOMEN: Patient has a drain in the left lower quadrant patient does have good bowel sounds mild tenderness diffuse. MUSCULOSKELETAL: No joint swelling or deformity. EXTREMITIES: No cyanosis, clubbing, or pedal edema. NEUROLOGICAL: Gross neurological examination did not reveal any focal deficits. SKIN: No rashes. - Labs CBC & Chem 7: 09/05/20 08:36 09/04/20 06:30 Labs: Abnormal Lab Results - Last 24 Hours (Table) 09/04/20 09/04/20 09/05/20 Range/Units 16:24 20:41 07:05 Hgb (13.0-17.5) gm/dL Hct (39.0-53.0) % Plt Count (150-450) k/uL Neutrophils # (Manual) (1.3-7.7) k/uL Lymphocytes # (Manual) (1.0-4.8) k/uL POC Glucose (mg/dL) 158 H 152 H 142 H (75-99) mg/dL 09/05/20 09/05/20 09/05/20 Range/Units 08:36 11:33 13:44 Hgb 12.6 L (13.0-17.5) gm/dL Hct 38.3 L (39.0-53.0) % Plt Count 94 L (150-450) k/uL Neutrophils # (Manual) 7.90 H (1.3-7.7) k/uL Lymphocytes # (Manual) 0.34 L (1.0-4.8) k/uL POC Glucose (mg/dL) 143 H 129 H (75-99) mg/dL Microbiology - Last 24 Hours (Table) 09/04/20 Unknown Gram Stain - Preliminary Aspirate Body Fluid Culture - Preliminary 09/04/20 Unknown Anaerobic Culture - Preliminary Aspirate Assessment and Plan Plan: Acute hypoxic respiratory failure secondary to Covid pneumonia. Patient is presently on 6 L of oxygen Asthma Patient had a proctocolitis with an abscess in 3 years for which patient received the CT-guided drainage and patient still has a drain which is draining and patient is on levofloxacin and metronidazole leukocytosis improved. General surgery is following the patient surgical intervention if he doesn't improve Aspergillus surgery. Hyperlipidemia Obesity BMI - 37.5 GERD plan: Continue current medications and continue to wean FiO2 as tolerated. Surgery has been consulted for continued abdominal pain and discomfort and underwent CT abdomen showing findings of possible nonspecific proctocolitis with multiple foci of free air and 2 abscesses noted with the possibility of diverticulitis with perforation and the appendix appears to be within normal limits. Patient will be started on IV antibiotics and discuss further with surgery about treatment plan. Continue to wean FiO2 as tolerated. Incentive spirometer at the bedside and instructed the patient to continue using at least 10 times every hour while awake. Patient is maintained on oral steroids along with Lovenox, zinc, vitamin supplements and will continue.
[2020-09-05 17:03] LABS: Glucose,Whole Blood 217 mg/dL (75-99)
[2020-09-05 20:24] LABS: Glucose,Whole Blood 190 mg/dL (75-99)
[2020-09-06] MEDS: guaiFENesin-Coden 100-10MG/5ML 10 ML CUP PO SCH ×4 (00:16→16:19)
[2020-09-06] MEDS: BENZONATATE 100 MG CAP PO SCH ×3 (04:59→21:42)
[2020-09-06] MEDS: KETOROLAC 15 MG/ML 1 ML VIAL IVP SCH ×4 (04:59→23:57)
[2020-09-06 07:20] LABS: Glucose,Whole Blood 129 mg/dL (75-99)
[2020-09-06] MEDS: INSULIN ASPART (NovoLOG) 100 UNIT/ML VIAL SQ SCH ×4 (07:29→21:51)
[2020-09-06] MEDS: ALBUTEROL HFA INHALER INHALATION SCH ×4 (07:41→19:32)
[2020-09-06] MEDS: ENOXAPARIN 40 MG/0.4 ML SYRINGE SQ SCH (08:32)
[2020-09-06] MEDS: metroNIDAZOLE-NS PMX 500 MG in SALINE 1 100ML.BAG IVPB SCH ×3 (08:33→23:56)
[2020-09-06 09:59] LABS: African American GFR (CKD) 110.3 (60.0-200.0); Anion Gap 7.9 mmol/L (4.00-12.00); BUN/Creat Ratio 26.67 Ratio (12.00-20.00); Carbon Dioxide 25.1 mmol/L (21.6-31.8); Non-African American GFR(CKD) 95.1 (60.0-200.0); Potassium 4.3 mmol/L (3.5-5.5)
[2020-09-06 10:06] LABS: HCT 40.9 % (39.6-50.0); HGB 13.2 g/dL (13.0-17.0); MCH 28.7 pg (27.0-32.0); MCHC 32.3 g/dL (32.0-37.0); MCV 88.9 fL (80.0-97.0); Mean Platelet Volume 11.3 fL (9.5-12.2); Platelet Count 104 X 10*3/uL (140-440); RDW 13.3 % (11.5-14.5)
[2020-09-06 11:29] LABS: Glucose,Whole Blood 142 mg/dL (75-99)
--- NOTE | 2020-09-06 11:36 | P.PN ---
<Alivia Harmon - Last Filed: 09/06/20 11:29> Subjective Progress Note Date: 09/06/20 CHIEF COMPLAINT: Left lower quadrant abdominal pain HISTORY OF PRESENT ILLNESS: Patient is followed for perforated sigmoid colon diverticulitis with abscess. He is status post CT-guided drainage of abscess. Patient had 60 mL of purulent fluid drained. Foul odor noted. Patient is reporting improvement in his left lower quadrant pain. However, today he is complaining of difficulty with swallowing and regurgitation of the clear liquids that he tried eat as well as medications. Patient is very anxious. Yesterday he had a trial of Xanax. Per patient he was hallucinating during the night. Medicine service has been notified of his anxiety. Patient does state he takes Ativan at home as needed. Patient is passing gas and having bowel movements. His stools are loose. Afebrile. WBC 9.5 Hgb 13.2 fluid culture gram-negative bacilli PHYSICAL EXAM: VITAL SIGNS: Reviewed. GENERAL: Well-developed in no acute distress. HEENT: No sclera icterus. Extraocular movements grossly intact. Moist buccal mucosa. Head is atraumatic, normocephalic. Patient has evidence of oral thrush ABDOMEN: Soft. Nondistended. Mild tenderness with palpation of left upper quadrant. NEUROLOGIC: Alert and oriented. Cranial nerves II through XII grossly intact. ASSESSMENT: 1. Perforated sigmoid colon diverticulitis with abscess status post CT-guided drainage of abscess 2. Left lower quadrant abdominal pain secondary to perforated sigmoid colon diverticulitis with abscess 3. Constipation 4. Prior history of inguinal hernia repairs and umbilical hernia repair 5. Covid 19 pneumonia 6. Anxiety 7. Oral candidiasis PLAN: -we will consult infectious disease regarding patient's diverticular abscess as well as oral candidiasis. Patient unable to swallow medications so unfortunately cannot give nystatin swish and swallow. And IV Diflucan interacted with Levaquin. Therefore we will defer treatment to infectious dise ase -Continue clear liquids as tolerated -Continue antibiotics -Continue Toradol for pain -Follow up on culture results -Encourage incentive spirometry use -Encourage patient to ambulate -GI prophylaxis Protonix and DVT prophylaxis Lovenox Physician [employer] note has been reviewed by physician. Signing provider agrees with the documented findings, assessment, and plan of care. Objective - Vital Signs Vital signs: Vital Signs Temp 97.5 F L 09/06/20 10:03 Pulse 63 09/06/20 10:03 Resp 17 09/06/20 10:03 BP 115/72 09/06/20 10:03 Pulse Ox 92 L 09/06/20 10:03 Intake & Output 09/05/20 09/06/20 09/06/20 18:59 06:59 18:59 Intake Total 540 Output Total 425 510 Balance 115 -510 Weight 114.1 kg Intake: Oral 540 Output: Drainage 50 60 Left Lower Abdomen 50 60 Urine 375 450 Other: Voiding Method Toilet Toilet # Voids 3 3 # Bowel Movements 1 1 - Labs CBC & Chem 7: 09/06/20 05:40 09/06/20 05:40 Labs: Abnormal Lab Results - Last 24 Hours (Table) 09/05/20 09/05/20 09/05/20 Range/Units 11:33 13:44 16:59 Plt Count (140-440) X 10*3/uL BUN/Creatinine Ratio (12.00-20.00) Ratio Glucose (70-110) mg/dL POC Glucose (mg/dL) 143 H 129 H 217 H (75-99) mg/dL Calcium (8.7-10.3) mg/dL 09/05/20 09/06/20 09/06/20 Range/Units 20:23 05:40 05:40 Plt Count 104 L (140-440) X 10*3/uL BUN/Creatinine Ratio 26.67 H (12.00-20.00) Ratio Glucose 136 H (70-110) mg/dL POC Glucose (mg/dL) 190 H (75-99) mg/dL Calcium 8.0 L (8.7-10.3) mg/dL 09/06/20 09/06/20 Range/Units 07:18 11:28 Plt Count (140-440) X 10*3/uL BUN/Creatinine Ratio (12.00-20.00) Ratio Glucose (70-110) mg/dL POC Glucose (mg/dL) 129 H 142 H (75-99) mg/dL Calcium (8.7-10.3) mg/dL Microbiology - Last 24 Hours (Table) 09/04/20 Unknown Gram Stain - Preliminary Aspirate Body Fluid Culture - Preliminary Gram Neg Bacilli <Nikos Dorsey - Last Filed: 09/06/20 12:03> Subjective As above. Patient was fairly anxious last night. Describes reflux and regurgitation this morning. Symptoms exacerbated when laying flat. His left lower quadrant abdominal pain is improved. White blood cell count is normal. He is afebrile. No tachycardia. His tenderness on exam is improved as well. Suspect ileus contributing to the acid reflux secondary to the diverticular abscess. We'll check abdominal plain films today. Tentatively plan repeat computed tomography scan Friday or Friday. Await infectious disease evaluation for possible home IV antibiotics. PICC line later today. Objective - Vital Signs Vital signs: Vital Signs Temp 97.5 F L 09/06/20 10:03 Pulse 63 09/06/20 10:03 Resp 17 09/06/20 10:03 BP 115/72 09/06/20 10:03 Pulse Ox 92 L 09/06/20 10:03 Intake & Output 09/05/20 09/06/20 09/06/20 18:59 06:59 18:59 Intake Total 540 Output Total 425 510 Balance 115 -510 Weight 114.1 kg Intake: Oral 540 Output: Drainage 50 60 Left Lower Abdomen 50 60 Urine 375 450 Other: Voiding Method Toilet Toilet # Voids 3 3 # Bowel Movements 1 1 - Labs CBC & Chem 7: 09/06/20 05:40 09/06/20 05:40 Labs: Abnormal Lab Results - Last 24 Hours (Table) 09/05/20 09/05/20 09/05/20 Range/Units 13:44 16:59 20:23 Plt Count (140-440) X 10*3/uL BUN/Creatinine Ratio (12.00-20.00) Ratio Glucose (70-110) mg/dL POC Glucose (mg/dL) 129 H 217 H 190 H (75-99) mg/dL Calcium (8.7-10.3) mg/dL 09/06/20 09/06/20 09/06/20 Range/Units 05:40 05:40 07:18 Plt Count 104 L (140-440) X 10*3/uL BUN/Creatinine Ratio 26.67 H (12.00-20.00) Ratio Glucose 136 H (70-110) mg/dL POC Glucose (mg/dL) 129 H (75-99) mg/dL Calcium 8.0 L (8.7-10.3) mg/dL 09/06/20 Range/Units 11:28 Plt Count (140-440) X 10*3/uL BUN/Creatinine Ratio (12.00-20.00) Ratio Glucose (70-110) mg/dL POC Glucose (mg/dL) 142 H (75-99) mg/dL Calcium (8.7-10.3) mg/dL Microbiology - Last 24 Hours (Table) 09/04/20 Unknown Gram Stain - Preliminary Aspirate Body Fluid Culture - Preliminary Gram Neg Bacilli
[2020-09-06 11:52] LABS: Prothrombin Time 10.8 sec (9.0-12.0)
[2020-09-06] MEDS: ATORVASTATIN 20 MG TAB PO SCH (13:19)
[2020-09-06] MEDS: TAMSULOSIN 0.4 MG CAP.ER.24H PO SCH (13:19)
[2020-09-06] MEDS: CHOLECALCIFEROL 25 MCG (1000 IU) TABLET PO SCH (13:19)
[2020-09-06] MEDS: ZINC SULFATE 220 MG CAP PO SCH (13:19)
[2020-09-06] MEDS: ASCORBIC ACID 500 MG TAB PO SCH ×2 (13:19→21:41)
--- NOTE | 2020-09-06 13:35 | XR ---
2 view abdomen HISTORY: Nausea 2 views the abdomen on 3 images, correlation CT scan 09/04/2020 Patchy density present in the bilateral lungs. There is contrast material within the colon. Postop ch anges are noted to the lumbar spine. There may be some retroperitoneal lucency correlating with previ ous findings from CT. Drainage catheter present in left lower quadrant. Surgical coils present over t he pelvis. IMPRESSION: Postop, postprocedural changes. No evident bowel obstruction. Findings consistent with Co vid pneumonia. Additional findings above.
[2020-09-06] MEDS: dexAMETHasone 4 MG TAB PO SCH (15:32)
[2020-09-06] MEDS: PANTOPRAZOLE 40 MG TABLET PO SCH (15:33)
[2020-09-06] MEDS: SODIUM CHLORIDE 0.9% 1,000 ML IV SCH ×2 (15:33→23:59)
[2020-09-06] MEDS: NYSTATIN 100,000 UNIT/ML SUSP 500,000 UNIT/5 ML CUP PO SCH ×3 (15:37→21:42)
[2020-09-06] MEDS: LEVOFLOXACIN 500MG-D5W PMX 500 MG in DEXTROSE/WATER 1 100ML.BAG IVPB SCH (16:18)
[2020-09-06 17:04] LABS: Glucose,Whole Blood 151 mg/dL (75-99)
--- NOTE | 2020-09-06 17:30 | P.PN ---
Subjective Progress Note Date: 09/06/20 COVID Pneumonia Mr. Maldonado is a 55-year-old with a past medical history of asthma, hyperlipidemia who was recently diagnosed with Covid infection, placed on prednisone and doxycycline by his primary care physician coming in with difficulty in breathing. Patient was also seen in the emergency department recently and received an infusion of BAM. On 08/28/2020 -patient was seen and examined at the bedside. He appears to be in no acute distress. He states that he is still short of breath with minimal activity, still requiring 5 L of oxygen. Patient denies having any fevers chills or rigors. No sputum production. No chest pain. On reviewing his vitals afebrile for the past 24 hours, blood pressure 127 x 77 heart rate in the 60s to 70s. On reviewing the labs, no new labs from this morning. Patient's last chest x-ray was done yesterday showing worsening bilateral lung infiltrates. Pulmonary on board and following the patient closely. On 08/29/2020 -patient is seen and examined at bedside. He states that he still has difficulty in breathing with minimal activity and saturating at 90% on 8 L of high flow nasal cannula. Patient denied having any fevers chills or rigors. Complains of ongoing cough, that is dry in nature nonproductive. He denies having any chest pain or palpitations. Nominal pain nausea vomiting or diarrhea. No dysuria or hematuria. On reviewing his vitals T-max of 98.7, heart rate 76, respiratory rate 18, blood pressure 127 x 61. Reviewing labs from this morning white count of 16.2, hemoglobin 14.2, platelets 237. Sodium 140, potassium 4.3, chloride 102, bicarb 26, BUN 22, creatinine 1.0 LDH 330, C- reactive protein 1.3. On 08/30/2020 - -patient is seen and examined at bedside. Is comfortably sitting up in a chair by the bedside. Patient is still requiring 5 L of oxygen. He complains of ongoing cough mostly dry in nature. Patient denies having any fevers chills or rigors. Patient denies having any abdominal pain nausea vomiting or diarrhea. No dysuria or hematuria. On reviewing his vitals T-max of 98.4, heart rate 60 to 70s, respiratory rate 16, blood pressure 131 x 51. On reviewing his labs white count of 15.5, hemoglobin 13.2, platelets 212. D-dimer 1.23, sodium 139, potassium 4.1, chloride 104, bicarb 26, BUN 23, creatinine 1.0 C-reactive protein 2, lactate dehydrogenase 288, ferritin 582. On 08/31/2020 -patient was seen and examined at bedside. He is comfortably sitting up in chair by the bedside. He is still requiring 5 to 6 L of oxygen to maintain saturations above 90%. Patient states that he still continues to have cough mostly dry and also that he is short of breath walking from bed to the bathroom. He denies having any fevers chills or rigors. No abdominal pain nausea vomiting or diarrhea. No dysuria or hematuria. He denies having any swelling of his lower extremities. On reviewing his vitals temperature of 98.4, heart rate 50s to 70s, respiratory rate below 15, saturating at 90% on 5 L of oxygen via nasal cannula. On reviewing his labs D-dimer is 1.07 LDH 748, CRP 43.1. On 09/01/2020 --patient is seen and examined at bedside. He is lying comfortably in bed appears to be in no acute distress. Patient complains of pain in the lower abdomen. He states that he has hernia repair done and has a mesh repair done. He states that he has been coughing and his lower abdomen has been hurting. Patient was constipated yesterday, had 2 bowel movements yesterday. He states that he did not have a bowel movement and is not passing gas now. Patient denies having any nausea or vomiting. He still has ongoing cough, bouts of coughing episodes that is making him dyspneic. He denies having any fevers chills or rigors. No dysuria or hematuria. On reviewing his vitals temperature of 98.4, heart rate 96, respiratory rate 18 blood pressure 122/69 saturating at 90% on 4 L of nasal cannula. On reviewing his labs white count of 20.6, hemoglobin 14.5, platelets 204. D-dimer 1.26. Sodium 140, potassium 4.4, chloride 103, bicarb 29, BUN 23, creatinine 1.0. LDH 616, CRP 52. On 09/02/2020 -patient seen and examined at bedside. He is comfortably sitting up in a chair by the bedside. He complains of lower abdominal soreness secondary to coughing. He states that Toradol helps him with his lower abdominal soreness. Patient denies having any chest pain or palpitations. He continues to have cough, usually in bouts. Nonproductive. He denies having any fevers chills or rigors. No dysuria or hematuria. Reviewing his vitals temperature of 98.8, heart rate 71, respiratory rate 18, blood pressure 113/59, saturating at 90% on 3-4 L of oxygen. On reviewing his labs white count of 13.1, hemoglobin 13.5, platelets 159. Sodium 139, potassium 4.2, chloride 104, bicarb 27, BUN 24, creatinine 0.9. CRP 15.6 LDH 284. On 09/03/2020 -patient was seen and examined at bedside. He is comfortable, saturating about 90 % on 2 L of nasal cannula. Still complains of ongoing cough and congestion. Toradol helping with abdominal soreness and chest wall pain. His vitals temperature 99, heart rate 78, respiratory 20, blood pressure 140/69. Reviewing his labs D-dimer 2.49, LDH 298, CRP 12.9. 09/04/2020 Patient is seen and evaluated in follow-up continues to be on 2 L of oxygen via nasal cannula and denies any worsening shortness of breath. Patient does have dyspnea with exertion with cough and phlegm production. Continues to have abdominal discomfort and states it has worsened on the lower left side. Surgery has been consulted and pending. Patient underwent CT abdomen today. White b lood count slightly elevated at 12.6, and hemoglobin is stable at 12.9. Platelets slightly low at 139 although improved from yesterday. Will repeat a.m. labs patient will be nothing by mouth until surgery has evaluated 09/05/2020 patient's abdominal drain is still draining. Leukocytosis improving. Patient was anxious disease and oxygen therapy the most. We will add Toradol for his pain. Patient is a still on 6 L of oxygen at this time. Patient is passing gas did have a small bowel movement as well. 09/06/2020 Patient is seen and evaluated in follow-up this morning with continued anxiety and states he feels he is having slight hallucinations with Xanax and does take Ativan at home for anxiety and will change to this. Patient continues with an abdominal drain which continues to drain purulent discharge. Patient is maintained on IV antibiotics and infectious disease consulted. Per surgery patient will likely require IV antibiotic therapy in the outpatient setting. Patient is scheduled to have a PICC line placed. Patient is currently on 6 L of oxygen and discuss with nursing staff about weaning as tolerated. Instructed the patient increase activity and use incentive spirometer at least 10 times every hour while awake. White blood count is within normal limits at 9.5 and hemoglobin is stable at 13.2. Sodium is 138 with a potassium of 4.3 and current creatinine is 0.9. Review of systems: Constitutional: Reports continued fatigue, no reports of fever, or chills, reports continued anxiety Cardiovascular: No reports of chest pain or palpitations Respiratory: Reports continued shortness of breath and cough with phlegm GI: No reports of nausea, vomiting, or diarrhea : No reports of dysuria or retention Neurovascular: No reports of weakness or numbness All medications have been reviewed Objective - Vital Signs Vital signs: Vital Signs Temp 97.5 F L 09/06/20 10:03 Pulse 63 09/06/20 10:03 Resp 17 09/06/20 10:03 BP 115/72 09/06/20 10:03 Pulse Ox 92 L 09/06/20 10:03 Intake & Output 09/05/20 09/06/20 09/06/20 18:59 06:59 18:59 Intake Total 540 Output Total 425 510 Balance 115 -510 Weight 114.1 kg Intake: Oral 540 Output: Drainage 50 60 Left Lower Abdomen 50 60 Urine 375 450 Other: Voiding Method Toilet Toilet # Voids 3 3 # Bowel Movements 1 1 - Exam GENERAL: The patient is alert and oriented x3, not in any acute distress. Obese HEENT: Pupils are round and equally reacting to light. EOMI. No scleral icterus. CARDIOVASCULAR: S1 and S2 present. No murmurs, rubs, or gallops. PULMONARY: Bilateral coarse breath sounds. no wheezing ABDOMEN: Soft, tenderness noted on the left side lower quadrant with palpation, nondistended, normoactive bowel sounds. Abdominal drain noted with purulent drainage MUSCULOSKELETAL: No joint swelling or deformity. EXTREMITIES: No cyanosis, clubbing, or pedal edema. - Labs CBC & Chem 7: 09/06/20 05:40 09/06/20 05:40 Labs: Abnormal Lab Results - Last 24 Hours (Table) 09/05/20 09/05/20 09/05/20 Range/Units 13:44 16:59 20:23 Plt Count (140-440) X 10*3/uL BUN/Creatinine Ratio (12.00-20.00) Ratio Glucose (70-110) mg/dL POC Glucose (mg/dL) 129 H 217 H 190 H (75-99) mg/dL Calcium (8.7-10.3) mg/dL 09/06/20 09/06/20 09/06/20 Range/Units 05:40 05:40 07:18 Plt Count 104 L (140-440) X 10*3/uL BUN/Creatinine Ratio 26.67 H (12.00-20.00) Ratio Glucose 136 H (70-110) mg/dL POC Glucose (mg/dL) 129 H (75-99) mg/dL Calcium 8.0 L (8.7-10.3) mg/dL 09/06/20 Range/Units 11:28 Plt Count (140-440) X 10*3/uL BUN/Creatinine Ratio (12.00-20.00) Ratio Glucose (70-110) mg/dL POC Glucose (mg/dL) 142 H (75-99) mg/dL Calcium (8.7-10.3) mg/dL Microbiology - Last 24 Hours (Table) 09/04/20 Unknown Gram Stain - Preliminary Aspirate Body Fluid Culture - Preliminary Gram Neg Bacilli Assessment and Plan Assessment: Acute hypoxic respiratory failure secondary to Covid pneumonia, presently requiring 6 L of oxygen via nasal cannula, discussed with nursing staff about weaning FiO2 as tolerated also encourage the patient to use incentive spirometer as he states he has not been. Asthma Abdominal wall tenderness secondary to abdominal abscess noted on CT Proctocolitis with an abscess and underwent CT-guided drain: Continues to drain and surgery is following and patient is placed on Levaquin and Flagyl Possible oral thrush, started on nystatin swish and spit Anxiety, will resume oral Ativan as he takes at home Hyperlipidemia Obesity BMI - 37.5 GERD plan: Continue current medications and continue to wean FiO2 as tolerated. Surgery following an patient underwent CT guided drain or possible nonspecific proctocolitis with multiple foci of free air and 2 abscesses noted with the possibility of diverticulitis with perforation and the appendix appears to be within normal limits. Patient continues to have purulent drainage noted and is maintained on Levaquin and Flagyl. Infectious disease has been consulted. Continue to wean FiO2 as tolerated. Incentive spirometer at the bedside and instructed the patient to continue using at least 10 times every hour while awake. Patient is maintained on oral steroids along with Lovenox, zinc, vitamin supplements and will continue.
[2020-09-06] MEDS: ALBUTEROL HFA INHALER INHALATION PRN (20:08)
[2020-09-06 20:54] LABS: Glucose,Whole Blood 136 mg/dL (75-99)
[2020-09-06] MEDS ORDERED: VANCOMYCIN IV PER PHARMACY 1 EACH MISC MISCELLANE PRN (22:47)
[2020-09-06] MEDS: LORazepam 1 MG TAB PO PRN (23:58)
[2020-09-07] MEDS ORDERED: VANCOMYCIN 2,000 MG in SODIUM CHLORIDE 0.9% 500 ML 500 ML IVPB ONE ×2
[2020-09-07] MEDS: ALBUTEROL HFA INHALER INHALATION PRN (00:05)
[2020-09-07] MEDS: guaiFENesin-Coden 100-10MG/5ML 10 ML CUP PO SCH ×4 (02:05→17:34)
[2020-09-07 03:55] LABS: Appearance,Urine Clear (Clear); Bilirubin,Urine Negative (Negative); Blood,Urine Negative (Negative); Color,Urine Yellow; Glucose,Urine (UA) Negative (Negative); Ketones,Urine 2+ (Negative); Leukocyte Esterase,Urine Negative (Negative); Nitrite,Urine Negative (Negative); Protein,Urine Trace (Negative); Specific Gravity,Urine 1.029 (1.001-1.035); Urobilinogen,Urine <2.0 mg/dL (<2.0)
[2020-09-07] MEDS: BENZONATATE 100 MG CAP PO SCH ×3 (05:32→22:00)
[2020-09-07] MEDS: KETOROLAC 15 MG/ML 1 ML VIAL IVP SCH ×4 (05:32→23:35)
--- NOTE | 2020-09-07 06:52 | CONS ---
CONSULTATION DATE OF SERVICE: 09/06/2020 REASON FOR CONSULTATION: Abdominal abscess and oral thrush. HISTORY OF PRESENT ILLNESS: The patient is a 55-year-old male who presented to the hospital about two weeks ago for evaluation of increased shortness of breath and hypoxemia. This patient has been diagnosed with COVID-19 pneumonia and has received monoclonal antibodies in the outpatient setting. The patient subsequently has been admitted to the hospital has been treated by Hospitalist as well as Pulmonary Services. The patient started having a problem with abdominal pain about 2 days ago. The patient also complaining of constipation, no bowel movement for a day or two a few days before his abdominal pain started. The patient's pain has been mostly in the left lower abdominal area. The patient describes the pain to be more of a sharp to at times dull aching with intensity almost 10/10, no radiation. Has been nauseated but no vomiting. Denies high-grade fever. With these symptoms, the patient has been evaluated by General Surgery. The patient did have a low-grade fever of 100.1 on . The patient did have a white count of 12.6. The patient did have a CT of abdomen and pelvis completed on the where there was thickening involving the rectum and rectosigmoid region with multiple foci of air with fluid collection approximately 7.98 x 6.1 cm. The patient subsequently did have a CT- guided drainage of this abscess. Cultures finalized today with E coli, Enterococcus faecalis and Streptococcus. The patient does have PENICILLIN allergy. The patient currently is being treated with Levaquin and Flagyl. Infectious Disease was consulted for further management of antibiotic therapy. REVIEW OF SYSTEMS: Positive points have been mentioned in HPI. Rest of systems are negative. PAST MEDICAL HISTORY: Asthma. PAST SURGERY HISTORY: Back surgery, hernia repair. SOCIAL HISTORY: No history of smoking, drinking or drug use. FAMILY HISTORY: No pertinent findings noticed. ALLERGIES: PENICILLIN with a rash. No history of anaphylaxis. MEDICATION: The patient is currently on Levaquin, Flagyl, Ativan, Toradol, NovoLog, Robitussin, Lovenox, Colace, Benadryl, dexamethasone, vitamin D3, Lipitor, Flomax, zinc, Senokot. PHYSICAL EXAMINATION: VITAL SIGNS: Blood pressure 137/76 with a pulse of 55, temperature 97/9, he is 96% on 6 L nasal cannula. GENERAL DESCRIPTION: Patient is a middle-aged male lying in bed in no distress. No tachypnea or accessory muscles of respiration use. HEENT: Examination shows no pallor or scleral icterus. Oral mucous membrane is dry. No evidence of thrush. NECK: Trachea central, no thyromegaly. LUNGS: Unlabored breathing, clear to auscultation anteriorly. No wheeze or crackle. HEART: S1-S2, regular rate and rhythm. ABDOMEN: Soft, mildly tender. No guarding or rigidity. EXTREMITIES: No edema of the feet. SKIN: No rash or mass palpable. NEUROLOGICAL: Patient is awake, alert, oriented times three. Mood and affect normal. LABS: Hemoglobin 13.2, white count 9.50, BUN of 24, creatinine 0.9. DIAGNOSTIC IMPRESSION AND PLAN: 1. Patient abdominal abscess from perforated diverticulitis with status post CT- guided drainage with culture showing E coli, Enterococcus faecalis and streptococcus. 2. Patient with PENICILLIN allergy which will limit the number of antibiotics safe to use. PLAN: 1. We will need to add vancomycin, Pharmacy to dose, to cover for the Enterococcus and switch Levaquin to Rocephin. Continue Flagyl. 2. The patient will likely need a PICC line for outpatient IV antibiotic therapy or for any Enterococcus. 3. We will follow on clinical condition to further adjust medication if needed. Thank you for this consultation. Will follow this patient along with you. MMODL / IJN: [id number] / MTDD
[2020-09-07 07:11] LABS: Glucose,Whole Blood 125 mg/dL (75-99)
[2020-09-07] MEDS: INSULIN ASPART (NovoLOG) 100 UNIT/ML VIAL SQ SCH ×4 (07:22→22:00)
[2020-09-07] MEDS: ALBUTEROL HFA INHALER INHALATION SCH ×4 (07:49→19:59)
[2020-09-07] MEDS: ZINC SULFATE 220 MG CAP PO SCH (08:13)
[2020-09-07] MEDS: metroNIDAZOLE-NS PMX 500 MG in SALINE 1 100ML.BAG IVPB SCH (08:13)
[2020-09-07] MEDS: CHOLECALCIFEROL 25 MCG (1000 IU) TABLET PO SCH (08:13)
[2020-09-07] MEDS: ATORVASTATIN 20 MG TAB PO SCH (08:13)
[2020-09-07] MEDS: ASCORBIC ACID 500 MG TAB PO SCH ×2 (08:13→22:00)
[2020-09-07] MEDS: ENOXAPARIN 40 MG/0.4 ML SYRINGE SQ SCH (08:13)
[2020-09-07] MEDS: PANTOPRAZOLE 40 MG TABLET PO SCH (08:13)
[2020-09-07] MEDS: NYSTATIN 100,000 UNIT/ML SUSP 500,000 UNIT/5 ML CUP PO SCH ×4 (08:14→22:27)
[2020-09-07] MEDS: TAMSULOSIN 0.4 MG CAP.ER.24H PO SCH (08:14)
[2020-09-07] MEDS: dexAMETHasone 4 MG TAB PO SCH (08:14)
[2020-09-07 09:32] LABS: Basophils % (A) 0 %; Eosinophils % (A) 0 %; HCT 39.9 % (39.0-53.0); HGB 13.1 gm/dL (13.0-17.5); Lymphocytes # (A) 0.3 k/uL (1.0-4.8); Lymphocytes % (A) 4 %; MCH 29.1 pg (25.0-35.0); MCHC 32.8 g/dL (31.0-37.0); MCV 88.7 fL (80.0-100.0); Mean Platelet Volume 8.2; Monocytes # (A) 0.4 k/uL (0-1.0); Monocytes % (A) 5 %; Neutrophils # (A) 5.8 k/uL (1.3-7.7); Neutrophils % (A) 89 %; RDW 13.4 % (11.5-15.5); WBC 6.6 k/uL (3.8-10.6)
[2020-09-07 09:33] LABS: Platelet Count 91 k/uL (150-450)
[2020-09-07 11:38] LABS: Glucose,Whole Blood 127 mg/dL (75-99)
[2020-09-07] MEDS ORDERED: LIDOCAINE 1% INJ 10MG/ML (20 ML MDV) ONE (14:06)
[2020-09-07] MEDS ORDERED: LIDOCAINE 1% INJ 10MG/ML (20 ML MDV) SQ ONE (14:43)
[2020-09-07] MEDS: IOPAMIDOL CONTRAST (ORAL USE) VIAL PO PRN ×2 (15:05→16:00)
[2020-09-07] MEDS: VANCOMYCIN 2,000 MG in SODIUM CHLORIDE 0.9% 500 ML 500 ML IVPB SCH (15:06)
[2020-09-07 15:10] LABS: ALT 20 U/L (4-49); AST 24 U/L (17-59); African American GFR (CKD) >90 (>60 ml/min/1.73 sqM); Albumin 2.2 g/dL (3.5-5.0); Alkaline Phosphatase 56 U/L (38-126); Anion Gap 7 mmol/L; Blood Urea Nitrogen 24 mg/dL (9-20); Calcium 7.5 mg/dL (8.4-10.2); Carbon Dioxide 23 mmol/L (22-30); Chloride 104 mmol/L (98-107); Globulin 2.3 g/dL; Glucose 150 mg/dL (74-99); Non-African American GFR(CKD) >90 (>60 ml/min/1.73 sqM); Potassium 4.5 mmol/L (3.5-5.1); Sodium 134 mmol/L (137-145); Total Bilirubin 0.7 mg/dL (0.2-1.3); Total Protein 4.5 g/dL (6.3-8.2)
--- NOTE | 2020-09-07 15:22 | P.PN ---
Subjective Progress Note Date: 09/07/20 COVID Pneumonia Mr. Maldonado is a 55-year-old with a past medical history of asthma, hyperlipidemia who was recently diagnosed with Covid infection, placed on prednisone and doxycycline by his primary care physician coming in with difficulty in breathing. Patient was also seen in the emergency department recently and received an infusion of BAM. On 08/28/2020 -patient was seen and examined at the bedside. He appears to be in no acute distress. He states that he is still short of breath with minimal activity, still requiring 5 L of oxygen. Patient denies having any fevers chills or rigors. No sputum production. No chest pain. On reviewing his vitals afebrile for the past 24 hours, blood pressure 127 x 77 heart rate in the 60s to 70s. On reviewing the labs, no new labs from this morning. Patient's last chest x-ray was done yesterday showing worsening bilateral lung infiltrates. Pulmonary on board and following the patient closely. On 08/29/2020 -patient is seen and examined at bedside. He states that he still has difficulty in breathing with minimal activity and saturating at 90% on 8 L of high flow nasal cannula. Patient denied having any fevers chills or rigors. Complains of ongoing cough, that is dry in nature nonproductive. He denies having any chest pain or palpitations. Nominal pain nausea vomiting or diarrhea. No dysuria or hematuria. On reviewing his vitals T-max of 98.7, heart rate 76, respiratory rate 18, blood pressure 127 x 61. Reviewing labs from this morning white count of 16.2, hemoglobin 14.2, platelets 237. Sodium 140, potassium 4.3, chloride 102, bicarb 26, BUN 22, creatinine 1.0 LDH 330, C- reactive protein 1.3. On 08/30/2020 - -patient is seen and examined at bedside. Is comfortably sitting up in a chair by the bedside. Patient is still requiring 5 L of oxygen. He complains of ongoing cough mostly dry in nature. Patient denies having any fevers chills or rigors. Patient denies having any abdominal pain nausea vomiting or diarrhea. No dysuria or hematuria. On reviewing his vitals T-max of 98.4, heart rate 60 to 70s, respiratory rate 16, blood pressure 131 x 51. On reviewing his labs white count of 15.5, hemoglobin 13.2, platelets 212. D-dimer 1.23, sodium 139, potassium 4.1, chloride 104, bicarb 26, BUN 23, creatinine 1.0 C-reactive protein 2, lactate dehydrogenase 288, ferritin 582. On 08/31/2020 -patient was seen and examined at bedside. He is comfortably sitting up in chair by the bedside. He is still requiring 5 to 6 L of oxygen to maintain saturations above 90%. Patient states that he still continues to have cough mostly dry and also that he is short of breath walking from bed to the bathroom. He denies having any fevers chills or rigors. No abdominal pain nausea vomiting or diarrhea. No dysuria or hematuria. He denies having any swelling of his lower extremities. On reviewing his vitals temperature of 98.4, heart rate 50s to 70s, respiratory rate below 15, saturating at 90% on 5 L of oxygen via nasal cannula. On reviewing his labs D-dimer is 1.07 LDH 748, CRP 43.1. On 09/01/2020 --patient is seen and examined at bedside. He is lying comfortably in bed appears to be in no acute distress. Patient complains of pain in the lower abdomen. He states that he has hernia repair done and has a mesh repair done. He states that he has been coughing and his lower abdomen has been hurting. Patient was constipated yesterday, had 2 bowel movements yesterday. He states that he did not have a bowel movement and is not passing gas now. Patient denies having any nausea or vomiting. He still has ongoing cough, bouts of coughing episodes that is making him dyspneic. He denies having any fevers chills or rigors. No dysuria or hematuria. On reviewing his vitals temperature of 98.4, heart rate 96, respiratory rate 18 blood pressure 122/69 saturating at 90% on 4 L of nasal cannula. On reviewing his labs white count of 20.6, hemoglobin 14.5, platelets 204. D-dimer 1.26. Sodium 140, potassium 4.4, chloride 103, bicarb 29, BUN 23, creatinine 1.0. LDH 616, CRP 52. On 09/02/2020 -patient seen and examined at bedside. He is comfortably sitting up in a chair by the bedside. He complains of lower abdominal soreness secondary to coughing. He states that Toradol helps him with his lower abdominal soreness. Patient denies having any chest pain or palpitations. He continues to have cough, usually in bouts. Nonproductive. He denies having any fevers chills or rigors. No dysuria or hematuria. Reviewing his vitals temperature of 98.8, heart rate 71, respiratory rate 18, blood pressure 113/59, saturating at 90% on 3-4 L of oxygen. On reviewing his labs white count of 13.1, hemoglobin 13.5, platelets 159. Sodium 139, potassium 4.2, chloride 104, bicarb 27, BUN 24, creatinine 0.9. CRP 15.6 LDH 284. On 09/03/2020 -patient was seen and examined at bedside. He is comfortable, saturating about 90 % on 2 L of nasal cannula. Still complains of ongoing cough and congestion. Toradol helping with abdominal soreness and chest wall pain. His vitals temperature 99, heart rate 78, respiratory 20, blood pressure 140/69. Reviewing his labs D-dimer 2.49, LDH 298, CRP 12.9. 09/04/2020 Patient is seen and evaluated in follow-up continues to be on 2 L of oxygen via nasal cannula and denies any worsening shortness of breath. Patient does have dyspnea with exertion with cough and phlegm production. Continues to have abdominal discomfort and states it has worsened on the lower left side. Surgery has been consulted and pending. Patient underwent CT abdomen today. White b lood count slightly elevated at 12.6, and hemoglobin is stable at 12.9. Platelets slightly low at 139 although improved from yesterday. Will repeat a.m. labs patient will be nothing by mouth until surgery has evaluated 09/05/2020 patient's abdominal drain is still draining. Leukocytosis improving. Patient was anxious disease and oxygen therapy the most. We will add Toradol for his pain. Patient is a still on 6 L of oxygen at this time. Patient is passing gas did have a small bowel movement as well. 09/06/2020 Patient is seen and evaluated in follow-up this morning with continued anxiety and states he feels he is having slight hallucinations with Xanax and does take Ativan at home for anxiety and will change to this. Patient continues with an abdominal drain which continues to drain purulent discharge. Patient is maintained on IV antibiotics and infectious disease consulted. Per surgery patient will likely require IV antibiotic therapy in the outpatient setting. Patient is scheduled to have a PICC line placed. Patient is currently on 6 L of oxygen and discuss with nursing staff about weaning as tolerated. Instructed the patient increase activity and use incentive spirometer at least 10 times every hour while awake. White blood count is within normal limits at 9.5 and hemoglobin is stable at 13.2. Sodium is 138 with a potassium of 4.3 and current creatinine is 0.9. 09/07/2020 Patient is seen in follow-up this morning currently sitting up in the chair on room air and denies any worsening shortness of breath. Documentation shows he is still on 6 L high flow although patient states he has not been wearing the oxygen all morning. Patient is maintained on clear liquids and states he is having difficulty with thin liquids and with his pills and states he is able to swallow them but they are getting stuck in the epigastrium area and states "something is not right". Surgery is following and discuss with them and repeat CT abdomen is ordered and pending. Patient has continued purulent drainage noted in the abdominal drain. Patient is receiving a PICC line today as well as he will be requiring outpatient IV antibiotic therapy. CBC within normal li mits, sodium is 134, potassium is 4.5, current creatinine is 0.79. Will await CT results and possibly order a modified barium swallow. Patient was started on nystatin swish and spit with the possibility of oral thrush. Review of systems: Constitutional: Reports of fatigue, no reports of fever, or chills Cardiovascular: No reports of chest pain or palpitations Respiratory: No reports of shortness of breath, reports cough with phlegm GI: No reports of nausea, vomiting, or diarrhea, reports an episode of loose stool with poor oral intake : No reports of dysuria or retention Neurovascular: No reports of weakness or numbness All medications have been reviewed Objective - Vital Signs Vital signs: Vital Signs Temp 97.6 F 09/07/20 05:15 Pulse 59 L 09/07/20 08:00 Resp 16 09/07/20 08:00 BP 126/78 09/07/20 05:15 Pulse Ox 94 L 09/07/20 05:15 Intake & Output 03/31/21 04/01/21 04/01/21 18:59 06:59 18:59 Intake Total 1520 Output Total 370 700 Balance -370 820 Weight 112.6 kg Intake: Intake, IV Titration 720 Amount Sodium Chloride 0.9% 1, 120 000 ml @ 10 mls/hr IV . Q24H [facility] Rx#:[id number] Vancomycin 2,000 mg In 500 Sodium Chloride 0.9% 500 ml 500 ml @ 167 mls/hr IVPB Q12H [facility] Rx#: [id number] metroNIDAZOLE-NS PMX 500 100 mg In Saline 1 100ml.bag @ 100 mls/hr IVPB Q8HR [facility] Rx#:[id number] Oral 800 Output: Drainage 90 Left Lower Abdomen 90 Urine 280 700 Other: Voiding Method Toilet Toilet # Voids 3 3 # Bowel Movements 2 - Exam GENERAL: The patient is alert and oriented x3, not in any acute distress. Obese HEENT: Pupils are round and equally reacting to light. EOMI. No scleral icterus. CARDIOVASCULAR: S1 and S2 present. No murmurs, rubs, or gallops. PULMONARY: Bilateral coarse breath sounds. no wheezing ABDOMEN: Soft, tenderness noted on the left side lower quadrant with palpation, nondistended, normoactive bowel sounds. Abdominal drain noted with purulent drainage MUSCULOSKELETAL: No joint swelling or deformity. EXTREMITIES: No cyanosis, clubbing, or pedal edema. - Labs CBC & Chem 7: 09/07/20 08:39 09/06/20 05:40 Labs: Abnormal Lab Results - Last 24 Hours (Table) 09/06/20 09/06/20 09/06/20 Range/Units 05:40 05:40 11:28 Plt Count 104 L (140-440) X 10*3/uL BUN/Creatinine Ratio 26.67 H (12.00-20.00) Ratio Glucose 136 H (70-110) mg/dL POC Glucose (mg/dL) 142 H (75-99) mg/dL Calcium 8.0 L (8.7-10.3) mg/dL Urine Protein (Negative) Urine Ketones (Negative) 09/06/20 09/06/20 09/07/20 Range/Units 17:02 20:45 03:20 Plt Count (140-440) X 10*3/uL BUN/Creatinine Ratio (12.00-20.00) Ratio Glucose (70-110) mg/dL POC Glucose (mg/dL) 151 H 136 H (75-99) mg/dL Calcium (8.7-10.3) mg/dL Urine Protein Trace H (Negative) Urine Ketones 2+ H (Negative) 09/07/20 Range/Units 07:08 Plt Count (140-440) X 10*3/uL BUN/Creatinine Ratio (12.00-20.00) Ratio Glucose (70-110) mg/dL POC Glucose (mg/dL) 125 H (75-99) mg/dL Calcium (8.7-10.3) mg/dL Urine Protein (Negative) Urine Ketones (Negative) Microbiology - Last 24 Hours (Table) 09/04/20 Unknown Gram Stain - Preliminary Aspirate Body Fluid Culture - Preliminary Escherichia coli Group D Enterococcus Alpha Hemolytic Streptococcus Assessment and Plan Assessment: Acute hypoxic respiratory failure secondary to Covid pneumonia, presently requiring 6 L of oxygen via nasal cannula, discussed with nursing staff about weaning FiO2 as tolerated also encourage the patient to use incentive spiromete r, on exam patient was on room air with no reports of worsening shortness of breath or difficulty in breathing Asthma Abdominal wall tenderness secondary to abdominal abscess noted on CT Proctocolitis with an abscess and underwent CT-guided drain: Continues to drain and surgery is following and patient is placed on Levaquin and Flagyl, infectious disease following an patient's IV antibiotics were changed to ceftriaxone and Flagyl and vancomycin. Patient receiving a PICC line today for outpatient IV antibiotic therapy Possible oral thrush, started on nystatin swish and spit Anxiety, will resume oral Ativan as he takes at home Hyperlipidemia Obesity BMI - 37.5 GERD plan: Continue current medications and continue to wean FiO2 as tolerated. On exam patient was noted to be on room air and states he has not been wearing his oxygen all morning with no difficulty in breathing or worsening shortness of breath. Patient states continued difficulty with the passage of thin liquids and pills stating they are getting stuck in the epigastric area. Surgery following an ordered repeat CT abdomen and is currently pending. Will await report and possibly ordered a modified barium swallow. Infectious disease following an IV antibiotics have been changed to Flagyl, ceftriaxone, and IV vancomycin and patient is to receive a PICC line today. Continue to wean FiO2 as tolerated. Incentive spirometer at the bedside and instructed the patient to continue using at least 10 times every hour while awake. Patient is maintained on Lovenox, zinc, vitamin supplements and will continue. Steroids have been discontinued.
--- NOTE | 2020-09-07 15:26 | P.PN ---
Subjective Progress Note Date: 09/07/20 CHIEF COMPLAINT: Left lower quadrant abdominal pain HISTORY OF PRESENT ILLNESS: Patient is followed for perforated sigmoid colon diverticulitis with abscess. He is status post CT-guided drainage of abscess. Patient's drain has current foul-smelling fluid. Patient reports no pain in the left lower quadrant. Patient still complaining of difficulty with swallowing. He is complaining of regurgitation. He's having difficulty with even liquids. He did have a liquidy bowel movement today. Denies any epigastric pain. Afebrile. WBC 6.6 platelets 91 Patient was seen by infectious disease they've adjusted anabiotic's. Patient's anxiety appears better today after being placed back on Ativan. Fluid culture results noted Patient seen and examined with Dr. Garcia PHYSICAL EXAM: VITAL SIGNS: Reviewed. GENERAL: Well-developed in no acute distress. HEENT: No sclera icterus. Extraocular movements grossly intact. Moist buccal mucosa. Head is atraumatic, normocephalic. Patient has evidence of oral thrush ABDOMEN: Soft. Nondistended. Mild tenderness with palpation of left lower quadrant. His drainage tube in place NEUROLOGIC: Alert and oriented. Cranial nerves II through XII grossly intact. ASSESSMENT: 1. Perforated sigmoid colon diverticulitis with abscess status post CT-guided drainage of abscess 2. Left lower quadrant abdominal pain secondary to perforated sigmoid colon diverticulitis with abscess 3. Constipation 4. Prior history of inguinal hernia repairs and umbilical hernia repair 5. Covid 19 pneumonia 6. Anxiety 7. Oral candidiasis on nystatin swish and spit 8. Dysphagia and GERD PLAN: -Repeat computed tomography scan of the abdomen and pelvis with oral and IV contrast for further evaluation of patient's abdominal abscess and possible cause of his regurgitation type symptoms -Adjust patient's IV Protonix to 40 mg IV twice a day -Continue clear liquids as tolerated -Continue antibiotics -Continue Toradol for pain -Encourage incentive spirometry use -Encourage patient to ambulate -GI prophylaxis Protonix and DVT prophylaxis Lovenox Physician Aml Analyst note has been reviewed by physician. Signing provider agrees with the documented findings, assessment, and plan of care. Objective - Vital Signs Vital signs: Vital Signs Temp 98.8 F 09/07/20 13:53 Pulse 64 09/07/20 13:53 Resp 18 09/07/20 13:53 BP 128/77 09/07/20 13:53 Pulse Ox 92 L 04/01/21 13:53 Intake & Output 09/06/20 09/07/20 09/07/20 18:59 06:59 18:59 Intake Total 1520 Output Total 370 700 100 Balance -370 820 -100 Weight 112.6 kg Intake: Intake, IV Titration 720 Amount Sodium Chloride 0.9% 1, 120 000 ml @ 10 mls/hr IV . Q24H [facility] Rx#:[id number] Vancomycin 2,000 mg In 500 Sodium Chloride 0.9% 500 ml 500 ml @ 167 mls/hr IVPB Q12H [facility] Rx#: [id number] metroNIDAZOLE-NS PMX 500 100 mg In Saline 1 100ml.bag @ 100 mls/hr IVPB Q8HR [facility] Rx#:[id number] Oral 800 Output: Drainage 90 100 Left Lower Abdomen 90 100 Urine 280 700 Other: Voiding Method Toilet Toilet # Voids 3 3 # Bowel Movements 2 - Labs CBC & Chem 7: 09/07/20 08:39 09/07/20 14:35 Labs: Abnormal Lab Results - Last 24 Hours (Table) 09/06/20 09/06/20 09/07/20 Range/Units 17:02 20:45 03:20 Plt Count (150-450) k/uL Lymphocytes # (1.0-4.8) k/uL Sodium (137-145) mmol/L BUN (9-20) mg/dL Glucose (74-99) mg/dL POC Glucose (mg/dL) 151 H 136 H (75-99) mg/dL Calcium (8.4-10.2) mg/dL Total Protein (6.3-8.2) g/dL Albumin (3.5-5.0) g/dL Urine Protein Trace H (Negative) Urine Ketones 2+ H (Negative) 09/07/20 09/07/20 09/07/20 Range/Units 07:08 08:39 11:35 Plt Count 91 L (150-450) k/uL Lymphocytes # 0.3 L (1.0-4.8) k/uL Sodium (137-145) mmol/L BUN (9-20) mg/dL Glucose (74-99) mg/dL POC Glucose (mg/dL) 125 H 127 H (75-99) mg/dL Calcium (8.4-10.2) mg/dL Total Protein (6.3-8.2) g/dL Albumin (3.5-5.0) g/dL Urine Protein (Negative) Urine Ketones (Negative) 09/07/20 Range/Units 14:35 Plt Count (150-450) k/uL Lymphocytes # (1.0-4.8) k/uL Sodium 134 L (137-145) mmol/L BUN 24 H (9-20) mg/dL Glucose 150 H (74-99) mg/dL POC Glucose (mg/dL) (75-99) mg/dL Calcium 7.5 L (8.4-10.2) mg/dL Total Protein 4.5 L (6.3-8.2) g/dL Albumin 2.2 L (3.5-5.0) g/dL Urine Protein (Negative) Urine Ketones (Negative) Microbiology - Last 24 Hours (Table) 09/07/20 03:20 Urine Culture - Preliminary Urine,Voided 09/04/20 Unknown Gram Stain - Preliminary Aspirate Body Fluid Culture - Preliminary Escherichia coli Group D Enterococcus Alpha Hemolytic Streptococcus
--- NOTE | 2020-09-07 15:27 | XR ---
EXAMINATION TYPE: XR chest 1V confirm line [facility] DATE OF EXAM: 09/07/2020 COMPARISON: Chest x-ray 09/02/2020 HISTORY: PICC line placement TECHNIQUE: Single frontal view of the chest is obtained. FINDINGS: There is been interval placement of a left-sided PICC line, distal tip is near the cavoatr ial junction level. No other significant interval change. IMPRESSION: No evident comp occasions status post PICC line placement.
--- NOTE | 2020-09-07 15:31 | IR ---
PICC line replacement HISTORY: Needs long-term intravenous access for antibiotics Following informed consent the skin around the catheter and dressing were prepped as was the catheter . Patient was draped. Lidocaine used for local anesthesia. Catheter was cannulated with a 0.018 inch wire and subsequently the catheter was withdrawn. Wire was used to exchange the indwelling catheter f or a peel-away sheath. Catheter was tailored to appropriate length and advanced such that the distal tip is at the cavoatrial junction, verified by post procedure chest x-ray. Catheter was fixed to the skin. Hemostasis achieved. Catheter was aspirated and flushed with sterile saline. No immediate compl ication. IMPRESSION: Status post PICC line exchange. This procedure performed by the undersigned.
[2020-09-07 16:58] LABS: Glucose,Whole Blood 147 mg/dL (75-99)
--- NOTE | 2020-09-07 17:02 | CT ---
EXAMINATION TYPE: CT abdomen pelvis w con DATE OF EXAM: 09/07/2020 COMPARISON: 09/04/2020 HISTORY: Pelvic abscess. CT DLP: 2097.3 mGycm CONTRAST: CT scan of the abdomen and pelvis is performed without Oral Contrast and with IV Contrast, patient in jected with 100 mL of Isovue 300. FINDINGS: LUNG BASES-: Basilar infiltrates compatible with Covid 19 pneumonia. LIVER/GB: No calcified gallstones. There is evidence of hepatic steatosis. Stable probable cyst po sterior segment right hepatic lobe. Biliary tree is of normal caliber. PANCREAS: No inflammation. No distinct mass. SPLEEN: No splenic enlargement. No lesion seen. ADRENALS: No nodule. No thickening. KIDNEYS/BLADDER: No hydronephrosis. No nephrolithiasis. Extrarenal pelvis on the left versus parape lvic cyst. Urinary bladder grossly unremarkable. BOWEL: Left lower quadrant abscess has been neck nearly completely drained. Additional collections of phlegmon and air within the retroperitoneum persist although appear to be smaller in size. For examp le at the level of the aortic bifurcation area of phlegmon and air measures 6.6 x 4.2 cm versus 7.9 x 6.9 cm previously. Foci of air persists about the rectum and rectosigmoid region. Rectal wall thicke bert persists and to a lesser extent sigmoid wall thickening. GENITAL ORGANS: No gross abnormality. LYMPH NODES: No greater than 1cm abdominal or pelvic lymph nodes are appreciated. AORTA: No significant abnormality. OSSEOUS STRUCTURES: Postoperative changes lumbar spine. OTHER: No significant additional abnormality is seen. IMPRESSION: 1. Left lower quadrant abscess with drainage catheter has essentially resolved. There continue to be retroperitoneal collections of air and phlegmon which are likely nondrainable however they do appear to be smaller in size. Continued inflammatory change about the rectum and rectosigmoid region.
[2020-09-07] MEDS: metroNIDAZOLE 500 MG TAB PO SCH ×2 (17:34→23:34)
[2020-09-07 20:30] LABS: Glucose,Whole Blood 141 mg/dL (75-99)
[2020-09-07] MEDS: PANTOPRAZOLE 40 MG/10 ML VIAL IVP SCH (22:00)
--- NOTE | 2020-09-07 23:29 | PN ---
PROGRESS NOTE DATE OF SERVICE: 09/07/2020 REASON FOR FOLLOWUP: Perforated diverticulitis. INTERVAL HISTORY: The patient is currently afebrile. The patient is complaining of abdominal discomfort and food regurgitation, unable to keep anything down. The patient denies having any chest pain. No shortness of breath. Occasional cough. No vomiting has been reported. PHYSICAL EXAMINATION: Blood pressure 130/81 with a pulse of 82, temperature 98.1. He is 95% on 3 L nasal cannula. General description is a middle-aged male up in the chair in no distress. Respiratory system: Unlabored breathing, decreased intensity of breath sounds. No wheeze. HEART: S1, S2. Regular rate and rhythm. ABDOMEN: Soft, no tenderness. Mildly tender. No guarding. No rigidity. LABS: Hemoglobin 13, white count 6.6, creatinine 0.79. Abdominal cultures with E coli, Enterococcus. DIAGNOSTIC IMPRESSION AND PLAN: Patient with abdominal abscess from perforated diverticulitis, status post CT- guided drainage, culture with an E coli group D Enterococcus and streptococcus. Patient does have PENICILLIN allergy. Currently covered with Rocephin, Flagyl and vancomycin to continue while monitoring clinical course closely. Continue supportive care. MMODL / IJN: [id number] / [id number]
[2020-09-07] MEDS: LORazepam 1 MG TAB PO PRN (23:34)
[2020-09-07] MEDS: SODIUM CHLORIDE 0.9% 1,000 ML IV SCH (23:35)
[2020-09-08] MEDS: guaiFENesin-Coden 100-10MG/5ML 10 ML CUP PO SCH ×4 (00:37→17:24)
[2020-09-08] MEDS: VANCOMYCIN 2,000 MG in SODIUM CHLORIDE 0.9% 500 ML 500 ML IVPB SCH ×2 (01:58→14:40)
[2020-09-08] MEDS: BENZONATATE 100 MG CAP PO SCH ×3 (05:44→22:09)
[2020-09-08] MEDS: KETOROLAC 15 MG/ML 1 ML VIAL IVP SCH (05:44)
[2020-09-08 07:07] LABS: Glucose,Whole Blood 93 mg/dL (75-99)
[2020-09-08] MEDS: INSULIN ASPART (NovoLOG) 100 UNIT/ML VIAL SQ SCH ×4 (07:10→22:11)
[2020-09-08] MEDS: PANTOPRAZOLE 40 MG/10 ML VIAL IVP SCH ×2 (07:46→22:10)
[2020-09-08] MEDS: ENOXAPARIN 40 MG/0.4 ML SYRINGE SQ SCH (07:46)
[2020-09-08] MEDS: ATORVASTATIN 20 MG TAB PO SCH (07:47)
[2020-09-08] MEDS: CHOLECALCIFEROL 25 MCG (1000 IU) TABLET PO SCH (07:47)
[2020-09-08] MEDS: metroNIDAZOLE 500 MG TAB PO SCH ×2 (07:47→16:28)
[2020-09-08] MEDS: NYSTATIN 100,000 UNIT/ML SUSP 500,000 UNIT/5 ML CUP PO SCH ×4 (07:47→22:11)
[2020-09-08] MEDS: ZINC SULFATE 220 MG CAP PO SCH (07:47)
[2020-09-08] MEDS: ASCORBIC ACID 500 MG TAB PO SCH ×2 (07:47→22:10)
[2020-09-08] MEDS: TAMSULOSIN 0.4 MG CAP.ER.24H PO SCH (07:47)
[2020-09-08] MEDS: ALBUTEROL HFA INHALER INHALATION SCH ×4 (08:15→19:21)
[2020-09-08 08:43] LABS: African American GFR (CKD) >90 (>60 ml/min/1.73 sqM); Non-African American GFR(CKD) >90 (>60 ml/min/1.73 sqM)
[2020-09-08 11:20] LABS: Glucose,Whole Blood 99 mg/dL (75-99)
--- NOTE | 2020-09-08 13:29 | FL ---
EXAMINATION TYPE: FL barium swallow w video DATE OF EXAM: 09/08/2020 CLINICAL HISTORY: 55-year-old male Dysphagia. Patient reports sensation of ingested material getting stuck in the mid chest. TECHNIQUE: Deglutition study is performed utilizing thin liquid barium, honey and nectar thick liqui d barium, barium thick applesauce, and barium coated cracker. COMPARISON: None. Total fluoroscopy time: 56 seconds. Total images: None. Real-time fluoroscopy support was provided to speech pathology. FINDINGS: The oral and pharyngeal phases show satisfactory initiation and propagation with all modalities teste d. Normal mastication is seen with solid modalities tested. There is no evidence of penetration or aspiration with any modality tested. No significant pharyngeal residue was appreciated. IMPRESSION: Normal deglutition study. Please refer to speech therapist notes for further details if necessary. Co nsider esophagram if symptoms warrant.
--- NOTE | 2020-09-08 15:04 | P.PN ---
Progress Note - Text Progress Note Date: 09/08/20 The patient has complaints of increased pain left lower quadrant. He is very anxious. He is requesting have surgery. On exam vital signs appear stable. Abdomen is soft he is marked tenderness left lower quadrant. There is some rebound tenderness. Dilantin discussion the patient's . Patient was scheduled for sigmoid clipped with and colostomy today.
--- NOTE | 2020-09-08 16:08 | P.PN ---
Subjective Progress Note Date: 09/08/20 COVID Pneumonia Mr. Maldonado is a 55-year-old with a past medical history of asthma, hyperlipidemia who was recently diagnosed with Covid infection, placed on prednisone and doxycycline by his primary care physician coming in with difficulty in breathing. Patient was also seen in the emergency department recently and received an infusion of BAM. On 08/28/2020 -patient was seen and examined at the bedside. He appears to be in no acute distress. He states that he is still short of breath with minimal activity, still requiring 5 L of oxygen. Patient denies having any fevers chills or rigors. No sputum production. No chest pain. On reviewing his vitals afebrile for the past 24 hours, blood pressure 127 x 77 heart rate in the 60s to 70s. On reviewing the labs, no new labs from this morning. Patient's last chest x-ray was done yesterday showing worsening bilateral lung infiltrates. Pulmonary on board and following the patient closely. On 08/29/2020 -patient is seen and examined at bedside. He states that he still has difficulty in breathing with minimal activity and saturating at 90% on 8 L of high flow nasal cannula. Patient denied having any fevers chills or rigors. Complains of ongoing cough, that is dry in nature nonproductive. He denies having any chest pain or palpitations. Nominal pain nausea vomiting or diarrhea. No dysuria or hematuria. On reviewing his vitals T-max of 98.7, heart rate 76, respiratory rate 18, blood pressure 127 x 61. Reviewing labs from this morning white count of 16.2, hemoglobin 14.2, platelets 237. Sodium 140, potassium 4.3, chloride 102, bicarb 26, BUN 22, creatinine 1.0 LDH 330, C- reactive protein 1.3. On 08/30/2020 - -patient is seen and examined at bedside. Is comfortably sitting up in a chair by the bedside. Patient is still requiring 5 L of oxygen. He complains of ongoing cough mostly dry in nature. Patient denies having any fevers chills or rigors. Patient denies having any abdominal pain nausea vomiting or diarrhea. No dysuria or hematuria. On reviewing his vitals T-max of 98.4, heart rate 60 to 70s, respiratory rate 16, blood pressure 131 x 51. On reviewing his labs white count of 15.5, hemoglobin 13.2, platelets 212. D-dimer 1.23, sodium 139, potassium 4.1, chloride 104, bicarb 26, BUN 23, creatinine 1.0 C-reactive protein 2, lactate dehydrogenase 288, ferritin 582. On 08/31/2020 -patient was seen and examined at bedside. He is comfortably sitting up in chair by the bedside. He is still requiring 5 to 6 L of oxygen to maintain saturations above 90%. Patient states that he still continues to have cough mostly dry and also that he is short of breath walking from bed to the bathroom. He denies having any fevers chills or rigors. No abdominal pain nausea vomiting or diarrhea. No dysuria or hematuria. He denies having any swelling of his lower extremities. On reviewing his vitals temperature of 98.4, heart rate 50s to 70s, respiratory rate below 15, saturating at 90% on 5 L of oxygen via nasal cannula. On reviewing his labs D-dimer is 1.07 LDH 748, CRP 43.1. On 09/01/2020 --patient is seen and examined at bedside. He is lying comfortably in bed appears to be in no acute distress. Patient complains of pain in the lower abdomen. He states that he has hernia repair done and has a mesh repair done. He states that he has been coughing and his lower abdomen has been hurting. Patient was constipated yesterday, had 2 bowel movements yesterday. He states that he did not have a bowel movement and is not passing gas now. Patient denies having any nausea or vomiting. He still has ongoing cough, bouts of coughing episodes that is making him dyspneic. He denies having any fevers chills or rigors. No dysuria or hematuria. On reviewing his vitals temperature of 98.4, heart rate 96, respiratory rate 18 blood pressure 122/69 saturating at 90% on 4 L of nasal cannula. On reviewing his labs white count of 20.6, hemoglobin 14.5, platelets 204. D-dimer 1.26. Sodium 140, potassium 4.4, chloride 103, bicarb 29, BUN 23, creatinine 1.0. LDH 616, CRP 52. On 09/02/2020 -patient seen and examined at bedside. He is comfortably sitting up in a chair by the bedside. He complains of lower abdominal soreness secondary to coughing. He states that Toradol helps him with his lower abdominal soreness. Patient denies having any chest pain or palpitations. He continues to have cough, usually in bouts. Nonproductive. He denies having any fevers chills or rigors. No dysuria or hematuria. Reviewing his vitals temperature of 98.8, heart rate 71, respiratory rate 18, blood pressure 113/59, saturating at 90% on 3-4 L of oxygen. On reviewing his labs white count of 13.1, hemoglobin 13.5, platelets 159. Sodium 139, potassium 4.2, chloride 104, bicarb 27, BUN 24, creatinine 0.9. CRP 15.6 LDH 284. On 09/03/2020 -patient was seen and examined at bedside. He is comfortable, saturating about 90 % on 2 L of nasal cannula. Still complains of ongoing cough and congestion. Toradol helping with abdominal soreness and chest wall pain. His vitals temperature 99, heart rate 78, respiratory 20, blood pressure 140/69. Reviewing his labs D-dimer 2.49, LDH 298, CRP 12.9. 09/04/2020 Patient is seen and evaluated in follow-up continues to be on 2 L of oxygen via nasal cannula and denies any worsening shortness of breath. Patient does have dyspnea with exertion with cough and phlegm production. Continues to have abdominal discomfort and states it has worsened on the lower left side. Surgery has been consulted and pending. Patient underwent CT abdomen today. White b lood count slightly elevated at 12.6, and hemoglobin is stable at 12.9. Platelets slightly low at 139 although improved from yesterday. Will repeat a.m. labs patient will be nothing by mouth until surgery has evaluated 09/05/2020 patient's abdominal drain is still draining. Leukocytosis improving. Patient was anxious disease and oxygen therapy the most. We will add Toradol for his pain. Patient is a still on 6 L of oxygen at this time. Patient is passing gas did have a small bowel movement as well. 09/06/2020 Patient is seen and evaluated in follow-up this morning with continued anxiety and states he feels he is having slight hallucinations with Xanax and does take Ativan at home for anxiety and will change to this. Patient continues with an abdominal drain which continues to drain purulent discharge. Patient is maintained on IV antibiotics and infectious disease consulted. Per surgery patient will likely require IV antibiotic therapy in the outpatient setting. Patient is scheduled to have a PICC line placed. Patient is currently on 6 L of oxygen and discuss with nursing staff about weaning as tolerated. Instructed the patient increase activity and use incentive spirometer at least 10 times every hour while awake. White blood count is within normal limits at 9.5 and hemoglobin is stable at 13.2. Sodium is 138 with a potassium of 4.3 and current creatinine is 0.9. 09/07/2020 Patient is seen in follow-up this morning currently sitting up in the chair on room air and denies any worsening shortness of breath. Documentation shows he is still on 6 L high flow although patient states he has not been wearing the oxygen all morning. Patient is maintained on clear liquids and states he is having difficulty with thin liquids and with his pills and states he is able to swallow them but they are getting stuck in the epigastrium area and states "something is not right". Surgery is following and discuss with them and repeat CT abdomen is ordered and pending. Patient has continued purulent drainage noted in the abdominal drain. Patient is receiving a PICC line today as well as he will be requiring outpatient IV antibiotic therapy. CBC within normal li mits, sodium is 134, potassium is 4.5, current creatinine is 0.79. Will await CT results and possibly order a modified barium swallow. Patient was started on nystatin swish and spit with the possibility of oral thrush. 09/08/2020 Patient is seen this morning continues to have a feeling of abdominal fullness and difficulty with swallowing. Patient underwent CT abdomen yesterday showing abscess has drained. Surgery is following. Patient also received PICC line and will be requiring IV antibiotic therapy once stabilized and discharged. Infectious disease is following. Patient underwent barium swallow and per speech therapy had no difficulties in swallowing and recommending consult to GI for possible esophagram or EGD. Surgery is following and planning on surgical intervention and will await report. Patient is weaning oxygen as tolerated and currently maintained on 4 L via nasal cannula. Review of systems: Constitutional: Reports of fatigue, no reports of fever, or chills Cardiovascular: No reports of chest pain or palpitations Respiratory: No reports of shortness of breath, reports cough with phlegm GI: No reports of nausea, vomiting, or diarrhea, reports an episode of loose stool with poor oral intake and continued difficulty in swallowing and increasing left wall abdominal pain : No reports of dysuria or retention Neurovascular: No reports of weakness or numbness All medications have been reviewed Objective - Vital Signs Vital signs: Vital Signs Temp 98.2 F 09/08/20 05:16 Pulse 60 09/08/20 05:16 Resp 17 09/08/20 05:16 BP 122/80 09/08/20 05:16 Pulse Ox 94 L 09/08/20 05:16 Intake & Output 09/07/20 09/08/20 09/08/20 18:59 06:59 18:59 Output Total 100 250 Balance -100 -250 Weight 112.2 kg Output: Drainage 100 Left Lower Abdomen 100 Urine 250 Other: Voiding Method Toilet # Voids 3 # Bowel Movements 1 - Exam GENERAL: The patient is alert and oriented x3, not in any acute distress. Obese HEENT: Pupils are round and equally reacting to light. EOMI. No scleral icterus. CARDIOVASCULAR: S1 and S2 present. No murmurs, rubs, or gallops. PULMONARY: Bilateral coarse breath sounds. no wheezing ABDOMEN: Soft, tenderness noted on the left side lower quadrant with palpation, nondistended, normoactive bowel sounds. Abdominal drain noted with purulent drainage MUSCULOSKELETAL: No joint swelling or deformity. EXTREMITIES: No cyanosis, clubbing, or pedal edema. - Labs CBC & Chem 7: 09/07/20 08:39 09/08/20 07:30 Labs: Abnormal Lab Results - Last 24 Hours (Table) 09/07/20 09/07/20 09/07/20 Range/Units 11:35 14:35 16:55 Sodium 134 L (137-145) mmol/L BUN 24 H (9-20) mg/dL Glucose 150 H (74-99) mg/dL POC Glucose (mg/dL) 127 H 147 H (75-99) mg/dL Calcium 7.5 L (8.4-10.2) mg/dL Total Protein 4.5 L (6.3-8.2) g/dL Albumin 2.2 L (3.5-5.0) g/dL 09/07/20 Range/Units 20:29 Sodium (137-145) mmol/L BUN (9-20) mg/dL Glucose (74-99) mg/dL POC Glucose (mg/dL) 141 H (75-99) mg/dL Calcium (8.4-10.2) mg/dL Total Protein (6.3-8.2) g/dL Albumin (3.5-5.0) g/dL Microbiology - Last 24 Hours (Table) 09/04/20 Unknown Gram Stain - Final Aspirate Body Fluid Culture - Final Escherichia coli Enterococcus faecalis Alpha Hemolytic Streptococcus 09/04/20 Unknown Anaerobic Culture - Final Aspirate Anaerobic Gm Negative Bacilli 09/07/20 03:20 Urine Culture - Preliminary Urine,Voided Assessment and Plan Assessment: Acute hypoxic respiratory failure secondary to Covid pneumonia, presently requiring 4 L of oxygen via nasal cannula, discussed with nursing staff about weaning FiO2 as tolerated also encourage the patient to use incentive spirometer Asthma Abdominal wall tenderness secondary to abdominal abscess noted on CT Proctocolitis with an abscess and underwent CT-guided drain: Continues to drain and surgery is following, infectious disease following an patient's IV antibiotics were changed to ceftriaxone and Flagyl and vancomycin. Patient has a PICC line for outpatient IV antibiotic therapy Possible oral thrush, started on nystatin swish and spit Anxiety, will resume oral Ativan as he takes at home Hyperlipidemia Obesity BMI - 37.5 GERD plan: Continue current medications and continue to wean FiO2 as tolerated. Patient states continued difficulty with the passage of thin liquids and pills stating they are getting stuck in the epigastric area. Patient underwent swallow eval with speech and experienced no difficulties in swallowing. Patient continues to have feelings of fullness along with abdominal distention and discomfort and Surgery following and planning surgical intervention this evening. Will await report. Continue to wean FiO2 as tolerated. Incentive spirometer at the bedside and instructed the patient to continue using at least 10 times every hour while awake. Patient is maintained on Lovenox, zinc, vitamin supplements and will continue.
[2020-09-08 16:22] LABS: Glucose,Whole Blood 101 mg/dL (75-99)
[2020-09-08] MEDS ORDERED: HYDROmorphone (PF) 1 MG/ML ONE (16:30)
[2020-09-08] MEDS ORDERED: PHENYLEPHRINE-0.9% NACL SYG 1,000 MCG/10 ML SYRINGE ONE (16:30)
[2020-09-08] MEDS ORDERED: ONDANSETRON 4 MG/2 ML VIAL ONE (16:30)
[2020-09-08] MEDS ORDERED: SODIUM CHLORIDE 0.9% 1,000 ML IV ONE ×2 (16:30→17:50)
[2020-09-08] MEDS ORDERED: NEOSTIGMINE 1 MG/ML 10 ML VIAL ONE (16:30)
[2020-09-08] MEDS ORDERED: ROCURONIUM 10 MG/ML (5 ML VIAL) IV ONE (16:30)
[2020-09-08] MEDS ORDERED: SUCCINYLCHOLINE CHLORIDE 100 MG/5 ML SYR IV ONE (16:30)
[2020-09-08] MEDS ORDERED: MIDAZOLAM 2 MG/2 ML VIAL ONE (16:30)
[2020-09-08] MEDS ORDERED: PROPOFOL 10 MG/ML 20 ML VIAL IV ONE (16:30)
[2020-09-08] MEDS ORDERED: fentaNYL (PF) 50 MCG/ML 2 ML AMP ONE (16:30)
[2020-09-08] MEDS ORDERED: GLYCOPYRROLATE 0.2 MG/ML 2 ML VIAL ONE (16:30)
[2020-09-08] MEDS ORDERED: METOCLOPRAMIDE 5 MG/ML 2 ML VIAL IVP PRN (18:07)
--- NOTE | 2020-09-08 18:36 | PN ---
PROGRESS NOTE DATE OF SERVICE: 09/08/2020 REASON FOR FOLLOWUP: Abdominal abscess. INTERVAL HISTORY: The patient is currently afebrile. The patient is still complaining of abdominal pain, though no worsening. The patient denies having any chest pain, shortness of breath or cough and denies having any diarrhea. PHYSICAL EXAMINATION: Blood pressure 117/70 with a pulse of 92, temperature 98.1. He is 94% on 4 L nasal cannula. General description is a middle-aged male lying in bed in no distress. RESPIRATORY SYSTEM: Unlabored breathing. Clear to auscultation anteriorly. HEART: S1, S2. Regular rate and rhythm. ABDOMEN: Soft. Mildly distended. No guarding or rigidity. EXTREMITIES: No edema of the feet. LABS: Creatinine 0.90. Abdominal culture with anaerobic Gram-negative bacilli, E coli, Enterococcus faecalis and alpha hemolytic Streptococcus. DIAGNOSTIC IMPRESSION AND PLAN: Patient with an abdominal abscess, likely from a perforated diverticulitis, in this patient status post CT-guided drainage. Culture has been positive for multiple pathogens. CT of abdomen and pelvis did show resolution of the original abscess and decrease in the size of the retroperitoneal collection which cannot be drained surgically. Patient at this time to continue with Rocephin, Flagyl and vancomycin. He may need a PICC line for outpatient antibiotic for at least 2 weeks with a repeat CT scan at that point. His questions and concerns were answered. MMODL / IJN: [id number] /
[2020-09-08 18:47] LABS: Basophils % (A) 0 %; Eosinophils % (A) 1 %; HCT 42.7 % (39.0-53.0); Lymphocytes # (A) 0.4 k/uL (1.0-4.8); Lymphocytes % (A) 7 %; MCH 29.9 pg (25.0-35.0); MCHC 32.9 g/dL (31.0-37.0); MCV 90.9 fL (80.0-100.0); Mean Platelet Volume 9.4; Monocytes # (A) 0.7 k/uL (0-1.0); Monocytes % (A) 11 %; Neutrophils # (A) 5.5 k/uL (1.3-7.7); Neutrophils % (A) 81 %; RDW 13.4 % (11.5-15.5); WBC 6.8 k/uL (3.8-10.6)
[2020-09-08 18:50] LABS: Platelet Count 84 k/uL (150-450)
[2020-09-08 19:07] LABS: Potassium 4.5 mmol/L (3.5-5.1)
[2020-09-08 20:09] LABS: African American GFR (CKD) >90 (>60 ml/min/1.73 sqM); Anion Gap 5 mmol/L; Blood Urea Nitrogen 19 mg/dL (9-20); Calcium 7.8 mg/dL (8.4-10.2); Carbon Dioxide 24 mmol/L (22-30); Chloride 106 mmol/L (98-107); Glucose 92 mg/dL (74-99); Non-African American GFR(CKD) >90 (>60 ml/min/1.73 sqM); Sodium 135 mmol/L (137-145)
[2020-09-08 20:31] LABS: Glucose,Whole Blood 117 mg/dL (75-99)
[2020-09-08] MEDS: FAMOTIDINE 20 MG/2 ML VIAL IV SCH (22:10)
[2020-09-08] MEDS: HYDROmorphone 1 MG/ML 1 ML SYRINGE IVP PRN (22:11)
[2020-09-09] MEDS: D5-0.45% NACL WITH KCL 20MEQ/L 1,000 ML IV SCH ×4 (00:34→16:17)
[2020-09-09] MEDS: HYDROmorphone 1 MG/ML 1 ML SYRINGE IVP PRN ×6 (00:50→20:40)
[2020-09-09] MEDS: metroNIDAZOLE 500 MG TAB PO SCH ×3 (00:50→16:16)
[2020-09-09] MEDS: guaiFENesin-Coden 100-10MG/5ML 10 ML CUP PO SCH ×4 (01:31→11:29)
[2020-09-09] MEDS: VANCOMYCIN 2,000 MG in SODIUM CHLORIDE 0.9% 500 ML 500 ML IVPB SCH ×2 (02:15→13:51)
[2020-09-09] MEDS: LORazepam 1 MG TAB PO PRN (02:22)
[2020-09-09] MEDS: BENZOCAINE/MENTHOL LOZENG 1 EACH LOZENGE MUCOUS MEM PRN ×2 (03:23→12:09)
[2020-09-09 07:06] LABS: Glucose,Whole Blood 163 mg/dL (75-99)
[2020-09-09] MEDS: INSULIN ASPART (NovoLOG) 100 UNIT/ML VIAL SQ SCH ×4 (07:28→21:18)
[2020-09-09] MEDS: PANTOPRAZOLE 40 MG/10 ML VIAL IVP SCH ×2 (07:36→20:41)
[2020-09-09] MEDS: NYSTATIN 100,000 UNIT/ML SUSP 500,000 UNIT/5 ML CUP PO SCH ×4 (07:36→20:41)
[2020-09-09] MEDS: BENZONATATE 100 MG CAP PO SCH ×3 (07:37→20:41)
[2020-09-09] MEDS: ASCORBIC ACID 500 MG TAB PO SCH ×2 (07:37→20:41)
[2020-09-09] MEDS: ZINC SULFATE 220 MG CAP PO SCH (07:37)
[2020-09-09] MEDS: CHOLECALCIFEROL 25 MCG (1000 IU) TABLET PO SCH (07:37)
[2020-09-09] MEDS: ATORVASTATIN 20 MG TAB PO SCH (07:37)
[2020-09-09] MEDS: TAMSULOSIN 0.4 MG CAP.ER.24H PO SCH (07:37)
[2020-09-09] MEDS: FAMOTIDINE 20 MG/2 ML VIAL IV SCH ×2 (07:37→20:41)
[2020-09-09] MEDS: ENOXAPARIN 40 MG/0.4 ML SYRINGE SQ SCH (07:38)
[2020-09-09 08:21] LABS: African American GFR (CKD) >90 (>60 ml/min/1.73 sqM); Anion Gap 1 mmol/L; Blood Urea Nitrogen 17 mg/dL (9-20); Calcium 7.2 mg/dL (8.4-10.2); Carbon Dioxide 29 mmol/L (22-30); Chloride 103 mmol/L (98-107); Glucose 155 mg/dL (74-99); Non-African American GFR(CKD) 81 (>60 ml/min/1.73 sqM); Potassium 4.9 mmol/L (3.5-5.1); Sodium 133 mmol/L (137-145)
[2020-09-09 08:25] LABS: Basophils % (A) 0 %; Eosinophils % (A) 0 %; HCT 39.5 % (39.0-53.0); HGB 12.8 gm/dL (13.0-17.5); Lymphocytes # (A) 0.2 k/uL (1.0-4.8); Lymphocytes % (A) 4 %; MCH 29.2 pg (25.0-35.0); MCHC 32.4 g/dL (31.0-37.0); MCV 90.4 fL (80.0-100.0); Mean Platelet Volume 7.8; Monocytes # (A) 0.3 k/uL (0-1.0); Monocytes % (A) 7 %; Neutrophils # (A) 4.2 k/uL (1.3-7.7); Neutrophils % (A) 88 %; RBC 4.37 m/uL (4.30-5.90); RDW 13.4 % (11.5-15.5); WBC 4.8 k/uL (3.8-10.6)
[2020-09-09 08:29] LABS: Platelet Count 75 k/uL (150-450)
[2020-09-09] MEDS: ALBUTEROL HFA INHALER INHALATION SCH ×4 (08:35→20:17)
[2020-09-09] MEDS ORDERED: ENOXAPARIN 40 MG/0.4 ML SYRINGE SQ SCH (09:00)
[2020-09-09 11:18] LABS: Glucose,Whole Blood 153 mg/dL (75-99)
[2020-09-09] MEDS: SODIUM CHLORIDE 0.9% 1,000 ML IV SCH (11:30)
[2020-09-09] MEDS ORDERED: VANCOMYCIN TROUGH DUE 1 EACH MISC MISCELLANE ONE (13:00)
--- NOTE | 2020-09-09 14:11 | CONS ---
CONSULTATION DATE OF SERVICE: 09/09/2020 REASON FOR CONSULTATION: Dysphagia. HISTORY OF PRESENT ILLNESS: The patient is a 55-year-old pleasant white male who was admitted to the hospital with severe abdominal pain and subsequently diagnosed with a diverticular abscess about two weeks ago. He initially underwent CT-guided catheter drainage of the abscess and repeat CT scan done showed improvement in the abscess. However, he developed severe abdominal pain yesterday and he was taken to the OR with sigmoid colectomy for colostomy and drainage of the pelvic abscess. The reason we are consulted is for dysphagia to solids and had a sensation of food getting stuck in his midsternal area for the last 3 or 4 days duration. He did have a modified barium swallow done yesterday that was unremarkable. The patient is currently n.p.o., however, he states that after the surgery was performed yesterday he is feeling much better and the epigastric discomfort and the fullness in the epigastric area has resolved. He still has a sensation of midsternal discomfort but has significantly improved. He has been drinking some water with ice chips with no pain. He has some passive regurgitation, and also has occasional heartburn. He is on Protonix 40 mg twice daily since being in the hospital. PAST MEDICAL HISTORY: Significant for hypertension, hyperlipidemia, gastroesophageal reflux disease and asthma. PAST SURGICAL HISTORY: Back surgery, hernia repair. MEDICATIONS: Medications at home include Crestor, Prilosec, Zyrtec, vitamin C, alfuzosin, vitamin D3, Prilosec. ALLERGIES: PENICILLIN. SOCIAL HISTORY: No smoking no alcohol use. FAMILY HISTORY: Unremarkable. REVIEW OF SYSTEMS: CARDIOPULMONARY: He denies any chest pain or shortness of breath. GENITOURINARY: No dysuria or hematuria. MUSCULOSKELETAL: Some left shoulder pain. NEUROLOGY: Unremarkable. PSYCHIATRIC: Unremarkable. GI: As mentioned above. ENT: Vision unremarkable. CONSTITUTIONAL: No recent weight loss. No fever, chills, night sweats. PHYSICAL EXAMINATION: He appears comfortable. No apparent distress. Vital signs are stable. Blood pressure is 121/79, pulse 84, temperature 99 HEENT examination unremarkable. Conjunctivae pink. Sclerae anicteric. Oral cavity, no lesions. NECK: No JVD or lymph node enlargement. CHEST: Clear to auscultation. HEART: Regular rate and rhythm. ABDOMEN: Distended. There was mild diffuse tenderness throughout the abdomen. Colostomy in place in the left upper quadrant area. There is a drainage catheter in the right lower quadrant area. Lujan catheter in place. EXTREMITIES: No pedal edema. NEUROLOGIC: Alert and oriented x3. No focal deficits. LABS: Labs done from today, WBC 4.8, hemoglobin 12.8, platelets 75. Basic metabolic panel is within normal limits. BUN and creatinine are within normal limits. IMPRESSION: 1. Intraabdominal abscess related to perforated diverticulitis. Presented to the hospital two weeks ago, status post CT-guided catheter drainage and patient was doing well on antibiotics. However, yesterday he had severe worsening abdominal pain. He was taken to the operating room where he underwent exploratory laparotomy by Dr. Garcia and underwent sigmoid colectomy with descending colostomy and drainage of the pelvic abscess. Remains on broad-spectrum antibiotics. He is doing much better. 2. Dysphagia and heartburn for the last 4-5 days duration which is gradually improving. He remains on Protonix 40 mg twice daily. 3. History of hypertension and hypercholesteremia. RECOMMENDATION: In regard to the dysphagia, since the patient's symptoms are gradually improving no reason to proceed with any endoscopic intervention at the present time. Once his overall condition improves and his bowel sounds improve, we can start him on a clear liquid diet and advance diet as tolerated and see if he has any symptoms at that time and based on that we will decide if he needs any workup. For now, continue with Protonix 40 mg twice daily. Continue with broad-spectrum antibiotics. We will follow with you closely. Thank you for this consultation. MMJANL / IJN: [id number] /
--- NOTE | 2020-09-09 14:12 | P.PN ---
Progress Note - Text Progress Note Date: 09/09/20 Patient's postoperative day 1 from harm procedure for perforated diverticulitis with abscess. He has some complaints of incisional pain. There is no significant output through the colostomy. On exam vital signs are stable. Abdomen soft. Stoma is pink. Patient will continue remain nothing by mouth. We will DC the Lujan catheter exam.
--- NOTE | 2020-09-09 15:50 | P.PN ---
Subjective Mr. Maldonado is a 55-year-old with a past medical history of asthma, hyperlipidemia who was recently diagnosed with Covid infection, placed on prednisone and doxycycline by his primary care physician coming in with difficulty in breathing. Patient was also seen in the emergency department recently and received an infusion of BAM. On 08/28/2020 -patient was seen and examined at the bedside. He appears to be in no acute distress. He states that he is still short of breath with minimal activity, still requiring 5 L of oxygen. Patient denies having any fevers chills or rigors. No sputum production. No chest pain. On reviewing his vitals afebrile for the past 24 hours, blood pressure 127 x 77 heart rate in the 60s to 70s. On reviewing the labs, no new labs from this morning. Patient's last chest x-ray was done yesterday showing worsening bilateral lung infiltrates. Pulmonary on board and following the patient closely. On 08/29/2020 -patient is seen and examined at bedside. He states that he still has difficulty in breathing with minimal activity and saturating at 90% on 8 L of high flow nasal cannula. Patient denied having any fevers chills or rigors. Complains of ongoing cough, that is dry in nature nonproductive. He denies having any chest pain or palpitations. Nominal pain nausea vomiting or diarrhea. No dysuria or hematuria. On reviewing his vitals T-max of 98.7, heart rate 76, respiratory rate 18, blood pressure 127 x 61. Reviewing labs from this morning white count of 16.2, hemoglobin 14.2, platelets 237. Sodium 140, potassium 4.3, chloride 102, bicarb 26, BUN 22, creatinine 1.0 LDH 330, C- reactive protein 1.3. On 08/30/2020 - -patient is seen and examined at bedside. Is comfortably sitting up in a chair by the bedside. Patient is still requiring 5 L of oxygen. He complains of ongoing cough mostly dry in nature. Patient denies having any fevers chills or rigors. Patient denies having any abdominal pain nausea vomiting or diarrhea. No dysuria or hematuria. On reviewing his vitals T-max of 98.4, heart rate 60 to 70s, respiratory rate 16, blood pressure 131 x 51. On reviewing his labs white count of 15.5, hemoglobin 13.2, platelets 212. D-dimer 1.23, sodium 139, potassium 4.1, chloride 104, bicarb 26, BUN 23, creatinine 1.0 C-reactive protein 2, lactate dehydrogenase 288, ferritin 582. On 08/31/2020 -patient was seen and examined at bedside. He is comfortably sitting up in chair by the bedside. He is still requiring 5 to 6 L of oxygen to maintain saturations above 90%. Patient states that he still continues to have cough mostly dry and also that he is short of breath walking from bed to the bathroom. He denies having any fevers chills or rigors. No abdominal pain nausea vomiting or diarrhea. No dysuria or hematuria. He denies having any swelling of his lower extremities. On reviewing his vitals temperature of 98.4, heart rate 50s to 70s, respiratory rate below 15, saturating at 90% on 5 L of oxygen via nasal cannula. On reviewing his labs D-dimer is 1.07 LDH 748, CRP 43.1. On 09/01/2020 --patient is seen and examined at bedside. He is lying comfortably in bed appears to be in no acute distress. Patient complains of pain in the lower abdomen. He states that he has hernia repair done and has a mesh repair done. He states that he has been coughing and his lower abdomen has been hurting. Patient was constipated yesterday, had 2 bowel movements yesterday. He states that he did not have a bowel movement and is not passing gas now. Patient denies having any nausea or vomiting. He still has ongoing cough, bouts of coughing episodes that is making him dyspneic. He denies having any fevers chills or rigors. No dysuria or hematuria. On reviewing his vitals temperature of 98.4, heart rate 96, respiratory rate 18 blood pressure 122/69 saturating at 90% on 4 L of nasal cannula. On reviewing his labs white count of 20.6, hemoglobin 14.5, platelets 204. D-dimer 1.26. Sodium 140, potassium 4.4, chloride 103, bicarb 29, BUN 23, creatinine 1.0. LDH 616, CRP 52. On 09/02/2020 -patient seen and examined at bedside. He is comfortably sitting up in a chair by the bedside. He complains of lower abdominal soreness secondary to coughing. He states that Toradol helps him with his lower abdominal soreness. Patient denies having any chest pain or palpitations. He continues to have cough, usually in bouts. Nonproductive. He denies having any fevers chills or rigors. No dysuria or hematuria. Reviewing his vitals temperature of 98.8, heart rate 71, respiratory rate 18, blood pressure 113/59, saturating at 90% on 3-4 L of oxygen. On reviewing his labs white count of 13.1, hemoglobin 13.5, platelets 159. Sodium 139, potassium 4.2, chloride 104, bicarb 27, BUN 24, creatinine 0.9. CRP 15.6 LDH 284. On 09/03/2020 -patient was seen and examined at bedside. He is comfortable, saturating about 90 % on 2 L of nasal cannula. Still complains of ongoing cough and congestion. Toradol helping with abdominal soreness and chest wall pain. His vitals temperature 99, heart rate 78, respiratory 20, blood pressure 140/69. Reviewing his labs D-dimer 2.49, LDH 298, CRP 12.9. 09/04/2020 Patient is seen and evaluated in follow-up continues to be on 2 L of oxygen via nasal cannula and denies any worsening shortness of breath. Patient does have dyspnea with exertion with cough and phlegm production. Continues to have abdominal discomfort and states it has worsened on the lower left side. Surgery has been consulted and pending. Patient underwent CT abdomen today. White blood count slightly elevated at 12.6, and hemoglobin is stable at 12.9. Platelets slightly low at 139 although improved from yesterday. Will repeat a.m. labs patient will be nothing by mouth until surgery has evaluated 09/05/2020 patient's abdominal drain is still draining. Leukocytosis improving. Patient was anxious disease and oxygen therapy the most. We will add Toradol for his pain. Patient is a still on 6 L of oxygen at this time. Patient is passing gas did have a small bowel movement as well. 09/06/2020 Patient is seen and evaluated in follow-up this morning with continued anxiety and states he feels he is having slight hallucinations with Xanax and does take Ativan at home for anxiety and will change to this. Patient continues with an abdominal drain which continues to drain purulent discharge. Patient is maintained on IV antibiotics and infectious disease consulted. Per surgery patient will likely require IV antibiotic therapy in the outpatient setting. Patient is scheduled to have a PICC line placed. Patient is currently on 6 L of oxygen and discuss with nursing staff about weaning as tolerated. Instructed the patient increase activity and use incentive spirometer at least 10 times every hour while awake. White blood count is within normal limits at 9.5 and hemoglobin is stable at 13.2. Sodium is 138 with a potassium of 4.3 and current creatinine is 0.9. 09/07/2020 Patient is seen in follow-up this morning currently sitting up in the chair on room air and denies any worsening shortness of breath. Documentation shows he is still on 6 L high flow although patient states he has not been wearing the oxygen all morning. Patient is maintained on clear liquids and states he is having difficulty with thin liquids and with his pills and states he is able to swallow them but they are getting stuck in the epigastrium area and states "something is not right". Surgery is following and discuss with them and repeat CT abdomen is ordered and pending. Patient has continued purulent drainage noted in the abdominal drain. Patient is receiving a PICC line today as well as he will be requiring outpatient IV antibiotic therapy. CBC within normal limits, sodium is 134, potassium is 4.5, current creatinine is 0.79. Will await CT results and possibly order a modified barium swallow. Patient was started on nystatin swish and spit with the possibility of oral thrush. 09/08/2020 Patient is seen this morning continues to have a feeling of abdominal fullness and difficulty with swallowing. Patient underwent CT abdomen yesterday showing abscess has drained. Surgery is following. Patient also received PICC line and will be requiring IV antibiotic therapy once stabilized and discharged. Infectious disease is following. Patient underwent barium swallow and per speech therapy had no difficulties in swallowing and recommending consult to GI for possible esophagram or EGD. Surgery is following and planning on surgical intervention and will await report. Patient is weaning oxygen as tolerated and currently maintained on 4 L via nasal cannula. 09/09/2020 Patient had a laparotomy to have 2 large abscesses and patient underwent the abscess drainage along with colectomy with a colostomy bag. Patient is coming of soreness in that area patient is still complaining of dysphagia although no further intervention is being planned all the workup for dysphagia is is negative at this time. Patient may have some nausea and his dysphagia is a psychosomatic in nature. Review of systems: Constitutional: Reports of fatigue, no reports of fever, or chills Cardiovascular: No reports of chest pain or palpitations Respiratory: No reports of shortness of breath, reports cough with phlegm GI: Still complaining of dysphagia : No reports of dysuria or retention Neurovascular: No reports of weakness or numbness All medications have been reviewed Objective - Vital Signs Vital signs: Vital Signs Temp 98.7 F 09/09/20 13:36 Pulse 89 09/09/20 13:36 Resp 19 09/09/20 13:36 BP 113/67 09/09/20 13:36 Pulse Ox 92 L 09/09/20 13:36 Intake & Output 09/08/20 09/09/20 09/09/20 18:59 06:59 18:59 Intake Total 600 50 Output Total 1000 685 280 Balance -400 -685 -230 Weight 112.2 kg 85.5 kg Intake: IV 600 Intake, IV Titration 50 Amount cefTRIAXone 2 gm In 50 Sodium Chloride 0.9% 50 ml @ 100 mls/hr IVPB Q24HR [facility] Rx#:[id number] Output: Drainage 60 5 Left Lower Abdomen 60 5 Urine 900 625 275 Uretheral (Lujan) 275 Estimated Blood Loss 100 Other: Voiding Method Indwelling Catheter Indwelling Catheter - Exam PHYSICAL EXAMINATION: GENERAL: The patient is alert and oriented x3, not in any acute distress. Obese HEENT: Pupils are round and equally reacting to light. EOMI. No scleral icterus. No conjunctival pallor. Normocephalic, atraumatic. No pharyngeal erythema. No thyromegaly. CARDIOVASCULAR: S1 and S2 present. No murmurs, rubs, or gallops. PULMONARY: Chest is clear to auscultation, no wheezing or crackles. ABDOMEN: Sluggish bowel sounds mild abdominal distention left-sided colostomy bag without any drainage MUSCULOSKELETAL: No joint swelling or deformity. EXTREMITIES: No cyanosis, clubbing, or pedal edema. NEUROLOGICAL: Gross neurological examination did not reveal any focal deficits. SKIN: No rashes. - Labs CBC & Chem 7: 09/09/20 07:34 09/09/20 07:34 Labs: Abnormal Lab Results - Last 24 Hours (Table) 09/08/20 09/08/20 09/08/20 Range/Units 07:30 07:30 16:18 Hgb (13.0-17.5) gm/dL Plt Count 84 L (150-450) k/uL Lymphocytes # 0.4 L (1.0-4.8) k/uL Sodium 135 L (137-145) mmol/L Glucose (74-99) mg/dL POC Glucose (mg/dL) 101 H (75-99) mg/dL Calcium 7.8 L (8.4-10.2) mg/dL 09/08/20 09/09/20 09/09/20 Range/Units 20:29 07:03 07:34 Hgb (13.0-17.5) gm/dL Plt Count (150-450) k/uL Lymphocytes # (1.0-4.8) k/uL Sodium 133 L (137-145) mmol/L Glucose 155 H (74-99) mg/dL POC Glucose (mg/dL) 117 H 163 H (75-99) mg/dL Calcium 7.2 L (8.4-10.2) mg/dL 09/09/20 09/09/20 Range/Units 07:34 11:17 Hgb 12.8 L (13.0-17.5) gm/dL Plt Count 75 L (150-450) k/uL Lymphocytes # 0.2 L (1.0-4.8) k/uL Sodium (137-145) mmol/L Glucose (74-99) mg/dL POC Glucose (mg/dL) 153 H (75-99) mg/dL Calcium (8.4-10.2) mg/dL Microbiology - Last 24 Hours (Table) 09/08/20 18:02 Gram Stain - Preliminary Abdomen Wound Culture - Preliminary 09/08/20 18:02 Anaerobic Culture - Preliminary Abdomen 09/07/20 03:20 Urine Culture - Final Urine,Voided Assessment and Plan Plan: Acute hypoxic respiratory failure secondary to Covid pneumonia. Patient is presently on 6 L of oxygen. Patient is maintained on oral steroids along with Lovenox, zinc, vitamin supplem ents and will continue. Asthma Patient had a proctocolitis with an abscess for which patient received the CT- guided drainage and patient still has a drain which is draining and patient is on vancomycin, metronidazole, Rocephin. Infectious disease is following the patient patient had laparotomy with the 2 large abscesses that were drained and patient has a colostomy. Hyperlipidemia Obesity BMI - 37.5 GERD
[2020-09-09 16:45] LABS: Glucose,Whole Blood 199 mg/dL (75-99)
[2020-09-09 20:59] LABS: Glucose,Whole Blood 152 mg/dL (75-99)
--- NOTE | 2020-09-09 21:28 | PN ---
PROGRESS NOTE DATE OF SERVICE: 09/09/2020 REASON FOR FOLLOWUP: Perforated diverticulitis, abdominal abscess. INTERVAL HISTORY: Patient was taken to the OR last night. The patient is status post drainage of the abscess and diverting colostomy. The patient tolerated the procedure. As of this afternoon, the patient's pain is currently controlled. The patient denies having any chest pain, shortness of breath or cough. No abdominal pain or diarrhea. PHYSICAL EXAMINATION: Blood pressure 142/77, pulse of 84, temperature 98.7. He is 93% on room air. General description is a middle-aged male lying in bed in no distress. Respiratory system: Unlabored breathing, clear to auscultation anteriorly. Heart S1, S2. Regular rate and rhythm. ABDOMEN: Soft, no tenderness. No guarding. No rigidity. colostomy, no output. LABS: Hemoglobin 12.1, white count 4.9. BUN of 17 and creatinine 1.03. DIAGNOSTIC IMPRESSION AND PLAN: Patient with abdominal abscess from diverticulitis, status post CT-guided drainage. Initial culture positive for E coli, Enterococcus faecalis and anaerobic Gram- negative bacilli. The patient did have PENICILLIN ALLERGY, covered with Rocephin. Flagyl and vancomycin that will be continued. We will monitor clinical course closely. Continue supportive care. MMODL / IJN: [id number] / MTDD
[2020-09-10] MEDS: metroNIDAZOLE 500 MG TAB PO SCH ×3 (00:14→17:17)
[2020-09-10] MEDS: HYDROmorphone 1 MG/ML 1 ML SYRINGE IVP PRN ×6 (00:15→21:06)
[2020-09-10] MEDS: guaiFENesin-Coden 100-10MG/5ML 10 ML CUP PO SCH ×4 (00:20→16:54)
[2020-09-10] MEDS: LORazepam 1 MG TAB PO PRN (01:09)
[2020-09-10] MEDS: D5-0.45% NACL WITH KCL 20MEQ/L 1,000 ML IV SCH ×3 (01:10→17:16)
[2020-09-10] MEDS: VANCOMYCIN 2,000 MG in SODIUM CHLORIDE 0.9% 500 ML 500 ML IVPB SCH ×2 (01:47→14:00)
[2020-09-10] MEDS: BENZONATATE 100 MG CAP PO SCH ×3 (04:50→20:51)
[2020-09-10 07:00] LABS: Glucose,Whole Blood 143 mg/dL (75-99)
[2020-09-10] MEDS: FAMOTIDINE 20 MG/2 ML VIAL IV SCH ×2 (07:55→20:52)
[2020-09-10] MEDS: ENOXAPARIN 40 MG/0.4 ML SYRINGE SQ SCH (07:55)
[2020-09-10] MEDS: PANTOPRAZOLE 40 MG/10 ML VIAL IVP SCH ×2 (07:55→20:52)
[2020-09-10] MEDS: INSULIN ASPART (NovoLOG) 100 UNIT/ML VIAL SQ SCH ×4 (07:56→21:01)
[2020-09-10] MEDS: ATORVASTATIN 20 MG TAB PO SCH (07:56)
[2020-09-10] MEDS: CHOLECALCIFEROL 25 MCG (1000 IU) TABLET PO SCH (07:56)
[2020-09-10] MEDS: TAMSULOSIN 0.4 MG CAP.ER.24H PO SCH (07:56)
[2020-09-10] MEDS: NYSTATIN 100,000 UNIT/ML SUSP 500,000 UNIT/5 ML CUP PO SCH ×4 (07:56→20:51)
[2020-09-10] MEDS: ZINC SULFATE 220 MG CAP PO SCH (07:56)
[2020-09-10] MEDS: ASCORBIC ACID 500 MG TAB PO SCH ×2 (07:56→20:51)
[2020-09-10] MEDS: ALBUTEROL HFA INHALER INHALATION SCH ×4 (08:31→19:24)
--- NOTE | 2020-09-10 09:53 | P.PN ---
Progress Note - Text Progress Note Date: 09/10/20 Patient's postoperative day 2 from sigmoid colectomy with end colostomy and washout of pelvic abscess. He feels better. He still feels some abdominal distention. On exam her vital signs are stable. Abdomen soft incision is clean and intact. Colostomy is pink with limited output. Patient will have his Lujan catheter removed today. He will continue nothing by mouth.
[2020-09-10 09:56] LABS: HCT 34.7 % (39.6-50.0); HGB 10.9 g/dL (13.0-17.0); MCH 28.6 pg (27.0-32.0); MCHC 31.4 g/dL (32.0-37.0); MCV 91.1 fL (80.0-97.0); Mean Platelet Volume 11.2 fL (9.5-12.2); Platelet Count 60 X 10*3/uL (140-440); RBC 3.81 X 10*6/uL (4.40-5.60); RDW 13.1 % (11.5-14.5); WBC 6.09 X 10*3/uL (4.50-10.00)
[2020-09-10 11:32] LABS: African American GFR (CKD) 122.3 (60.0-200.0); Anion Gap 5.1 mmol/L (4.00-12.00); BUN/Creat Ratio 11.43 Ratio (12.00-20.00); Calcium 7.2 mg/dL (8.7-10.3); Carbon Dioxide 26.9 mmol/L (21.6-31.8); Non-African American GFR(CKD) 105.5 (60.0-200.0); Potassium 4.1 mmol/L (3.5-5.5)
--- NOTE | 2020-09-10 11:34 | P.OP ---
Date of Procedure: 09/08/20 Preoperative Diagnosis: Perforated diverticulitis abscess Postoperative Diagnosis: Perforated for diverticulitis with abscess Procedure(s) Performed: Exploratory laparotomy Sigmoidectomy End colostomy Drainage of pelvic abscess Appendectomy Anesthesia: CARLIN Surgeon: Kian Garcia Estimated Blood Loss (ml): 100 Pathology: other (Sigmoid colon, appendix) Condition: stable Disposition: PACU Description of Procedure: The patient's placed in the operative table in supine position. He received general anesthesia. His abdomen was prepped and draped usual fashion. The abdomen was entered through a low midline incision. The Bookwalter tract with wound. The ends explored there is obvious inflammatory changes and sigmoid colon. The; was then peeled away from the lateral abdominal wall and a pelvic abscess was encountered. Approximate 50 mL of purulent fluid was found. This was cultured. The sigmoid colon and rectum were extremely inflamed. This point the white line of Toldt was divided in the left colon was mobilized. The descending colon was then transected with a GI stapler. Using the incentive device the mesentery the bowel was divided. The rectum was then transected with the contour stapler. The specimens of pathology. There was another pelvic abs cess seen in the perirectal space. This was aspirated and cultured. The abdomen was irrigated resolving seen. The appendix appeared to be inflamed and this was then removed. The nasopharynx was divided the incentive I's and then the MIMI stapler used to fire across the base the appendix. The specimen sent to pathology. The abdomen. No bleeding seen. A ALFIE drains placed in the pelvis and brought out through the right lower quadrant. The fascia was closed with looped #1 suture. The colostomy then matured with 3-0 Vicryl suture. Patient top she will well and was sent to recovery room stable condition.
[2020-09-10 11:45] LABS: Glucose,Whole Blood 132 mg/dL (75-99)
--- NOTE | 2020-09-10 11:59 | PN ---
PROGRESS NOTE DATE OF SERVICE: 09/10/2020 INTERVAL HISTORY: Patient is a 55-year-old pleasant white male admitted to the hospital with diverticular abscess for which he underwent sigmoid resection with drainage of the abscess and colostomy 2 days ago. He has been complaining of some dysphagia and pain in the midsternal area and hence he was seen on consultation yesterday. He remains on a clear liquid diet and has been on Protonix 40 mg twice daily. Today he is feeling better. He continues to remain n.p.o. except for ice chips since surgery. This morning he is feeling better. He denies any chest pain. No heartburn. No odynophagia or dysphagia. He still complains of diffuse abdominal pain. PHYSICAL EXAMINATION: VITAL SIGNS: Stable. Blood pressure 115/67, pulse rate 90, temperature 99. HEENT: Examination unremarkable. Conjunctivae are pink. Sclerae anicteric. Oral cavity no lesions. NECK: No JVD or lymph node enlargement. CHEST: Clear to auscultation. HEART: Regular rate and rhythm. ABDOMEN: Diffusely distended, tender, colostomy bag in place. EXTREMITIES: No pedal edema noted. NEURO: Alert and oriented x3. No focal deficits. LABS: From today WBC 6, hemoglobin 10, platelets 60. IMPRESSION: 1. Diverticular abscess, status post sigmoid colectomy with colostomy and drainage of pelvic abscess [address] Garcia. The patient remains n.p.o. 2. Epigastric pain, heartburn and dysphagia for the last 4-5 days duration. Symptoms are gradually improving. The patient still remains n.p.o. except for ice chips. RECOMMENDATIONS: 1. Continue with Protonix 40 mg twice daily. 2. No need for any endoscopic intervention at the present time. 3. Continue with broad-spectrum antibiotics. We will follow with you. Thank you for this consultation. MMODL / IJN: [id number] /
[2020-09-10] MEDS: SODIUM CHLORIDE 0.9% 1,000 ML IV SCH (14:00)
[2020-09-10 16:52] LABS: Glucose,Whole Blood 163 mg/dL (75-99)
--- NOTE | 2020-09-10 17:08 | P.PN ---
Subjective Mr. Maldonado is a 55-year-old with a past medical history of asthma, hyperlipidemia who was recently diagnosed with Covid infection, placed on prednisone and doxycycline by his primary care physician coming in with difficulty in breathing. Patient was also seen in the emergency department recently and received an infusion of BAM. On 08/28/2020 -patient was seen and examined at the bedside. He appears to be in no acute distress. He states that he is still short of breath with minimal activity, still requiring 5 L of oxygen. Patient denies having any fevers chills or rigors. No sputum production. No chest pain. On reviewing his vitals afebrile for the past 24 hours, blood pressure 127 x 77 heart rate in the 60s to 70s. On reviewing the labs, no new labs from this morning. Patient's last chest x-ray was done yesterday showing worsening bilateral lung infiltrates. Pulmonary on board and following the patient closely. On 08/29/2020 -patient is seen and examined at bedside. He states that he still has difficulty in breathing with minimal activity and saturating at 90% on 8 L of high flow nasal cannula. Patient denied having any fevers chills or rigors. Complains of ongoing cough, that is dry in nature nonproductive. He denies having any chest pain or palpitations. Nominal pain nausea vomiting or diarrhea. No dysuria or hematuria. On reviewing his vitals T-max of 98.7, heart rate 76, respiratory rate 18, blood pressure 127 x 61. Reviewing labs from this morning white count of 16.2, hemoglobin 14.2, platelets 237. Sodium 140, potassium 4.3, chloride 102, bicarb 26, BUN 22, creatinine 1.0 LDH 330, C- reactive protein 1.3. On 08/30/2020 - -patient is seen and examined at bedside. Is comfortably sitting up in a chair by the bedside. Patient is still requiring 5 L of oxygen. He complains of ongoing cough mostly dry in nature. Patient denies having any fevers chills or rigors. Patient denies having any abdominal pain nausea vomiting or diarrhea. No dysuria or hematuria. On reviewing his vitals T-max of 98.4, heart rate 60 to 70s, respiratory rate 16, blood pressure 131 x 51. On reviewing his labs white count of 15.5, hemoglobin 13.2, platelets 212. D-dimer 1.23, sodium 139, potassium 4.1, chloride 104, bicarb 26, BUN 23, creatinine 1.0 C-reactive protein 2, lactate dehydrogenase 288, ferritin 582. On 08/31/2020 -patient was seen and examined at bedside. He is comfortably sitting up in chair by the bedside. He is still requiring 5 to 6 L of oxygen to maintain saturations above 90%. Patient states that he still continues to have cough mostly dry and also that he is short of breath walking from bed to the bathroom. He denies having any fevers chills or rigors. No abdominal pain nausea vomiting or diarrhea. No dysuria or hematuria. He denies having any swelling of his lower extremities. On reviewing his vitals temperature of 98.4, heart rate 50s to 70s, respiratory rate below 15, saturating at 90% on 5 L of oxygen via nasal cannula. On reviewing his labs D-dimer is 1.07 LDH 748, CRP 43.1. On 09/01/2020 --patient is seen and examined at bedside. He is lying comfortably in bed appears to be in no acute distress. Patient complains of pain in the lower abdomen. He states that he has hernia repair done and has a mesh repair done. He states that he has been coughing and his lower abdomen has been hurting. Patient was constipated yesterday, had 2 bowel movements yesterday. He states that he did not have a bowel movement and is not passing gas now. Patient denies having any nausea or vomiting. He still has ongoing cough, bouts of coughing episodes that is making him dyspneic. He denies having any fevers chills or rigors. No dysuria or hematuria. On reviewing his vitals temperature of 98.4, heart rate 96, respiratory rate 18 blood pressure 122/69 saturating at 90% on 4 L of nasal cannula. On reviewing his labs white count of 20.6, hemoglobin 14.5, platelets 204. D-dimer 1.26. Sodium 140, potassium 4.4, chloride 103, bicarb 29, BUN 23, creatinine 1.0. LDH 616, CRP 52. On 09/02/2020 -patient seen and examined at bedside. He is comfortably sitting up in a chair by the bedside. He complains of lower abdominal soreness secondary to coughing. He states that Toradol helps him with his lower abdominal soreness. Patient denies having any chest pain or palpitations. He continues to have cough, usually in bouts. Nonproductive. He denies having any fevers chills or rigors. No dysuria or hematuria. Reviewing his vitals temperature of 98.8, heart rate 71, respiratory rate 18, blood pressure 113/59, saturating at 90% on 3-4 L of oxygen. On reviewing his labs white count of 13.1, hemoglobin 13.5, platelets 159. Sodium 139, potassium 4.2, chloride 104, bicarb 27, BUN 24, creatinine 0.9. CRP 15.6 LDH 284. On 09/03/2020 -patient was seen and examined at bedside. He is comfortable, saturating about 90 % on 2 L of nasal cannula. Still complains of ongoing cough and congestion. Toradol helping with abdominal soreness and chest wall pain. His vitals temperature 99, heart rate 78, respiratory 20, blood pressure 140/69. Reviewing his labs D-dimer 2.49, LDH 298, CRP 12.9. 09/04/2020 Patient is seen and evaluated in follow-up continues to be on 2 L of oxygen via nasal cannula and denies any worsening shortness of breath. Patient does have dyspnea with exertion with cough and phlegm production. Continues to have abdominal discomfort and states it has worsened on the lower left side. Surgery has been consulted and pending. Patient underwent CT abdomen today. White blood count slightly elevated at 12.6, and hemoglobin is stable at 12.9. Platelets slightly low at 139 although improved from yesterday. Will repeat a.m. labs patient will be nothing by mouth until surgery has evaluated 09/05/2020 patient's abdominal drain is still draining. Leukocytosis improving. Patient was anxious disease and oxygen therapy the most. We will add Toradol for his pain. Patient is a still on 6 L of oxygen at this time. Patient is passing gas did have a small bowel movement as well. 09/06/2020 Patient is seen and evaluated in follow-up this morning with continued anxiety and states he feels he is having slight hallucinations with Xanax and does take Ativan at home for anxiety and will change to this. Patient continues with an abdominal drain which continues to drain purulent discharge. Patient is maintained on IV antibiotics and infectious disease consulted. Per surgery patient will likely require IV antibiotic therapy in the outpatient setting. Patient is scheduled to have a PICC line placed. Patient is currently on 6 L of oxygen and discuss with nursing staff about weaning as tolerated. Instructed the patient increase activity and use incentive spirometer at least 10 times every hour while awake. White blood count is within normal limits at 9.5 and hemoglobin is stable at 13.2. Sodium is 138 with a potassium of 4.3 and current creatinine is 0.9. 09/07/2020 Patient is seen in follow-up this morning currently sitting up in the chair on room air and denies any worsening shortness of breath. Documentation shows he is still on 6 L high flow although patient states he has not been wearing the oxygen all morning. Patient is maintained on clear liquids and states he is having difficulty with thin liquids and with his pills and states he is able to swallow them but they are getting stuck in the epigastrium area and states "something is not right". Surgery is following and discuss with them and repeat CT abdomen is ordered and pending. Patient has continued purulent drainage noted in the abdominal drain. Patient is receiving a PICC line today as well as he will be requiring outpatient IV antibiotic therapy. CBC within normal limits, sodium is 134, potassium is 4.5, current creatinine is 0.79. Will await CT results and possibly order a modified barium swallow. Patient was started on nystatin swish and spit with the possibility of oral thrush. 09/08/2020 Patient is seen this morning continues to have a feeling of abdominal fullness and difficulty with swallowing. Patient underwent CT abdomen yesterday showing abscess has drained. Surgery is following. Patient also received PICC line and will be requiring IV antibiotic therapy once stabilized and discharged. Infectious disease is following. Patient underwent barium swallow and per speech therapy had no difficulties in swallowing and recommending consult to GI for possible esophagram or EGD. Surgery is following and planning on surgical intervention and will await report. Patient is weaning oxygen as tolerated and currently maintained on 4 L via nasal cannula. 09/09/2020 Patient had a laparotomy to have 2 large abscesses and patient underwent the abscess drainage along with colectomy with a colostomy bag. Patient is coming of soreness in that area patient is still complaining of dysphagia although no further intervention is being planned all the workup for dysphagia is is negative at this time. Patient may have some nausea and his dysphagia is a psychosomatic in nature. 09/10/2020 Patient feels bit better today not passing gas yet Review of systems: Constitutional: Reports of fatigue, no reports of fever, or chills Cardiovascular: No reports of chest pain or palpitations Respiratory: No reports of shortness of breath, reports cough with phlegm GI: Still complaining of dysphagia : No reports of dysuria or retention Neurovascular: No reports of weakness or numbness All medications have been reviewed Objective - Vital Signs Vital signs: Vital Signs Temp 98.4 F 09/10/20 14:09 Pulse 78 09/10/20 14:09 Resp 18 09/10/20 14:09 BP 111/65 09/10/20 14:09 Pulse Ox 95 09/10/20 14:09 Intake & Output 09/09/20 09/10/20 09/10/20 18:59 06:59 18:59 Intake Total 50 Output Total 600 615 Balance -550 -615 Intake: Intake, IV Titration 50 Amount cefTRIAXone 2 gm In 50 Sodium Chloride 0.9% 50 ml @ 100 mls/hr IVPB Q24HR [facility] Rx#:[id number] Output: Drainage 25 15 Left Lower Abdomen 25 Right Abdomen 15 Urine 575 600 Uretheral (Lujan) 575 600 Other: Voiding Method Indwelling Catheter Indwelling Catheter Indwelling Catheter - Exam PHYSICAL EXAMINATION: GENERAL: The patient is alert and oriented x3, not in any acute distress. Obese HEENT: Pupils are round and equally reacting to light. EOMI. No scleral icterus. No conjunctival pallor. Normocephalic, atraumatic. No pharyngeal erythema. No thyromegaly. CARDIOVASCULAR: S1 and S2 present. No murmurs, rubs, or gallops. PULMONARY: Chest is clear to auscultation, no wheezing or crackles. ABDOMEN: Sluggish bowel sounds mild abdominal distention left-sided colostomy bag without any drainage MUSCULOSKELETAL: No joint swelling or deformity. EXTREMITIES: No cyanosis, clubbing, or pedal edema. NEUROLOGICAL: Gross neurological examination did not reveal any focal deficits. SKIN: No rashes. - Labs CBC & Chem 7: 09/10/20 06:35 09/10/20 06:35 Labs: Abnormal Lab Results - Last 24 Hours (Table) 09/09/20 09/10/20 09/10/20 Range/Units 20:57 06:35 06:35 RBC 3.81 L (4.40-5.60) X 10*6/uL Hgb 10.9 L (13.0-17.0) g/dL Hct 34.7 L (39.6-50.0) % MCHC 31.4 L (32.0-37.0) g/dL Plt Count 60 L (140-440) X 10*3/uL Plt Count Comment DECREASED A BUN 8.0 L (9.0-27.0) mg/dL BUN/Creatinine Ratio 11.43 L (12.00-20.00) Ratio Glucose 145 H (70-110) mg/dL POC Glucose (mg/dL) 152 H (75-99) mg/dL Calcium 7.2 L (8.7-10.3) mg/dL 09/10/20 09/10/20 09/10/20 Range/Units 06:59 11:32 16:51 RBC (4.40-5.60) X 10*6/uL Hgb (13.0-17.0) g/dL Hct (39.6-50.0) % MCHC (32.0-37.0) g/dL Plt Count (140-440) X 10*3/uL Plt Count Comment BUN (9.0-27.0) mg/dL BUN/Creatinine Ratio (12.00-20.00) Ratio Glucose (70-110) mg/dL POC Glucose (mg/dL) 143 H 132 H 163 H (75-99) mg/dL Calcium (8.7-10.3) mg/dL Microbiology - Last 24 Hours (Table) 09/08/20 18:02 Gram Stain - Preliminary Abdomen Wound Culture - Preliminary Group D Enterococcus Gram Neg Bacilli Assessment and Plan Plan: Acute hypoxic respiratory failure secondary to Covid pneumonia. Patient is presently on 6 L of oxygen. Patient is maintained on oral steroids along with Lovenox, zinc, vitamin supplements and will continue. Asthma Patient had a proctocolitis with an abscess for which patient received the CT- guided drainage and patient still has a drain which is draining and patient is on vancomycin, metronidazole, Rocephin. Infectious disease is following the patient patient had laparotomy with the 2 large abscesses that were drained and patient has a colostomy. Hyperlipidemia Obesity BMI - 37.5 GERD
--- NOTE | 2020-09-10 19:54 | PN ---
PROGRESS NOTE DATE OF SERVICE: 09/10/2020 REASON FOR FOLLOWUP: Abdominal abscess, perforated diverticulitis. INTERVAL HISTORY: Patient is currently afebrile, has been complaining of abdominal pain. The patient denies having nausea or vomiting. No chest pain or shortness of breath. No cough. No output in the colostomy. No urinary symptoms. PHYSICAL EXAMINATION: Blood pressure 123/68, pulse of 78, temperature 98.1. He is 90% on room air. General description is a middle-aged male lying in bed in no distress. Respiratory system: Unlabored breathing, decreased intensity of breath sounds. No wheeze. HEART: S1, S2. Regular rate and rhythm. ABDOMEN: Soft, mildly distended. No guarding. No rigidity. LABS: Hemoglobin is 10.1, white count 6.7, BUN of 8, creatinine 0.7. DIAGNOSTIC IMPRESSION AND PLAN: Patient with abdominal abscess from perforated diverticulitis, status post initial CT- guided drainage followed by diverting colostomy. Abdominal culture with E coli, Enterococcus,strep and anaerobes. Patient is covered with Rocephin, Flagyl and vancomycin because of his PENICILLIN allergy. White count is normal. Continue with current antibiotics and monitor clinical course closely. Continue supportive care. MMODL / IJN: [id number] / MTDD
[2020-09-10 20:53] LABS: Glucose,Whole Blood 122 mg/dL (75-99)
[2020-09-11] MEDS: guaiFENesin-Coden 100-10MG/5ML 10 ML CUP PO SCH ×5 (00:03→23:06)
[2020-09-11] MEDS: metroNIDAZOLE 500 MG TAB PO SCH ×4 (00:03→23:12)
[2020-09-11] MEDS: VANCOMYCIN 2,000 MG in SODIUM CHLORIDE 0.9% 500 ML 500 ML IVPB SCH ×2 (01:48→16:16)
[2020-09-11] MEDS: D5-0.45% NACL WITH KCL 20MEQ/L 1,000 ML IV SCH ×3 (01:48→20:03)
[2020-09-11] MEDS: ACETAMINOPHEN TAB 325 MG TAB PO PRN (01:49)
[2020-09-11] MEDS: BENZONATATE 100 MG CAP PO SCH ×3 (06:06→20:51)
[2020-09-11] MEDS: ENOXAPARIN 40 MG/0.4 ML SYRINGE SQ SCH (06:55)
[2020-09-11 07:01] LABS: Glucose,Whole Blood 151 mg/dL (75-99)
[2020-09-11 07:38] LABS: African American GFR (CKD) >90 (>60 ml/min/1.73 sqM); Non-African American GFR(CKD) >90 (>60 ml/min/1.73 sqM)
[2020-09-11] MEDS: INSULIN ASPART (NovoLOG) 100 UNIT/ML VIAL SQ SCH ×4 (08:07→23:13)
[2020-09-11] MEDS: PANTOPRAZOLE 40 MG/10 ML VIAL IVP SCH ×2 (08:08→20:50)
[2020-09-11] MEDS: TAMSULOSIN 0.4 MG CAP.ER.24H PO SCH (08:08)
[2020-09-11] MEDS: FAMOTIDINE 20 MG/2 ML VIAL IV SCH ×2 (08:08→20:50)
[2020-09-11] MEDS: ZINC SULFATE 220 MG CAP PO SCH (08:08)
[2020-09-11] MEDS: CHOLECALCIFEROL 25 MCG (1000 IU) TABLET PO SCH (08:08)
[2020-09-11] MEDS: ASCORBIC ACID 500 MG TAB PO SCH ×2 (08:08→20:50)
[2020-09-11] MEDS: ATORVASTATIN 20 MG TAB PO SCH (08:08)
[2020-09-11] MEDS: NYSTATIN 100,000 UNIT/ML SUSP 500,000 UNIT/5 ML CUP PO SCH ×4 (08:08→20:51)
[2020-09-11] MEDS: HYDROmorphone 1 MG/ML 1 ML SYRINGE IVP PRN ×4 (08:18→23:12)
[2020-09-11] MEDS: ALBUTEROL HFA INHALER INHALATION SCH ×4 (08:51→19:20)
--- NOTE | 2020-09-11 11:04 | P.PN ---
Progress Note - Text Progress Note Date: 09/11/20 Patient feels better today. He was up walking earlier. He said he had an uneventful night sleeping in his chair. On exam vital signs are stable. Abdomen soft. Incisions clean dry tach. Colostomy is pink. Patient still has no significant output through his colostomy. We'll start TPN. We'll continue supportive care.
[2020-09-11 11:18] LABS: Glucose,Whole Blood 127 mg/dL (75-99)
--- NOTE | 2020-09-11 12:00 | P.PN ---
Progress Note - Text Progress Note Date: 09/11/20 Dre is doing better today. He was taken to the operating room on Friday after CAT scan showed some improvement however the patient still having increased left lower quadrant discomfort and tenderness. Patient says his left lower abdominal pain has improved after surgery. He is afebrile. His white blood cell count is normal. No ostomy function thus far. He and I discussed his clinical course. All questions were answered. I notified him that since he had recent surgery from Dr. Garcia that he would continue daily visits at this time.
[2020-09-11 12:14] LABS: ALT 13 U/L (4-49); AST 21 U/L (17-59); Albumin 1.8 g/dL (3.5-5.0); Albumin/Globulin Ratio 0.9; Alkaline Phosphatase 43 U/L (38-126); Anion Gap 0 mmol/L; Blood Urea Nitrogen 6 mg/dL (9-20); Calcium 7.3 mg/dL (8.4-10.2); Carbon Dioxide 32 mmol/L (22-30); Chloride 100 mmol/L (98-107); Glucose 137 mg/dL (74-99); Magnesium 2.1 mg/dL (1.6-2.3); Phosphorus 2.3 mg/dL (2.5-4.5); Potassium 3.6 mmol/L (3.5-5.1); Sodium 132 mmol/L (137-145); Total Bilirubin 0.6 mg/dL (0.2-1.3); Total Protein 3.8 g/dL (6.3-8.2); Triglycerides 79 mg/dL (<150)
[2020-09-11] MEDS ORDERED: MVI, ADULT NO.4 WITH VIT K 10 ML, TRACE (CONC-1ML/DOSE) 1 ML in AMINO ACID 5%-D20W+LYTE... IV SCH ×3 (13:00)
[2020-09-11] MEDS: FAT EMULSION 20% 250 ML in EMPTY BAG 1 BAG IV SCH (14:15)
--- NOTE | 2020-09-11 15:07 | P.PN ---
Subjective Progress Note Date: 09/11/20 Principal diagnosis: Dysphasia She was seen and examined lying in bed. He still reports diffuse abdominal pain. He states his swallowing overall is better. He did state that he had some difficulty with swallowing his pills but he was able to. His nurse reports that she has not seen any difficulty with him swallowing. He states that he has some form which she brings up at times, however does focal for him to cough due to pain in the abdomen status post surgery. He has had no output from his ostomy therefore will be started on TPN and remains nothing by mouth. Denies any nausea or vomiting. He is taking ice chips without any difficulty. Objective - Vital Signs Vital signs: Vital Signs Temp 98.5 F 09/11/20 08:19 Pulse 76 09/11/20 08:19 Resp 18 09/11/20 08:19 BP 115/69 09/11/20 08:19 Pulse Ox 93 L 09/11/20 08:51 Intake & Output 09/10/20 09/11/20 09/11/20 18:59 06:59 18:59 Output Total 350 515 Balance -350 -515 Output: Drainage 15 Right Abdomen 15 Urine 350 500 Other: Voiding Method Indwelling Catheter Urinal # Voids 2 - Exam General appearance: The patient is alert, oriented, appears in no acute distress. HET: Head is normocephalic and atraumatic. Conjunctiva pink. Sclera anicteric. Neck: Supple without lymphadenopathy. Abdomen: Soft, diffuse surgical tenderness, ostomy, nondistended. No guarding or rigidity. Extremities: Normal skin color and turgor. No pedal edema Skin: No rashes, no jaundice Neurological: No focal deficits. Alert and oriented 3. - Labs CBC & Chem 7: 09/10/20 06:35 09/11/20 07:09 Labs: Abnormal Lab Results - Last 24 Hours (Table) 09/10/20 09/10/20 09/10/20 Range/Units 06:35 11:32 16:51 BUN 8.0 L (9.0-27.0) mg/dL BUN/Creatinine Ratio 11.43 L (12.00-20.00) Ratio Glucose 145 H (70-110) mg/dL POC Glucose (mg/dL) 132 H 163 H (75-99) mg/dL Calcium 7.2 L (8.7-10.3) mg/dL 09/10/20 09/11/20 Range/Units 20:40 06:58 BUN (9.0-27.0) mg/dL BUN/Creatinine Ratio (12.00-20.00) Ratio Glucose (70-110) mg/dL POC Glucose (mg/dL) 122 H 151 H (75-99) mg/dL Calcium (8.7-10.3) mg/dL Microbiology - Last 24 Hours (Table) 09/08/20 18:02 Gram Stain - Final Abdomen Wound Culture - Final Enterococcus faecalis Escherichia coli Assessment and Plan (1) Dysphagia Narrative/Plan: This is a 55-year-old male patient who presented to the hospital with abdominal pain and was noted to have a intra-abdominal abscess related to perforated diverticulitis. He underwent exploratory laparotomy, sigmoid colectomy with end colostomy, drainage of abscess, and appendectomy on 09/08/2020. During his hospitalization he was complaining of dysphagia and heartburn for the last 4-5 days duration, however has been gradually improving since his surgery. Current Visit: Yes Status: Acute Code(s): R13.10 - DYSPHAGIA, UNSPECIFIED SNOMED Code(s): 92487405 (2) Intra-abdominal abscess Narrative/Plan: Surgery is following closely reviewed he is status post sigmoid colectomy with colostomy and drainage of pelvic abscess Current Visit: Yes Status: Acute Code(s): K65.1 - PERITONEAL ABSCESS SNOMED Code(s): 72887422 (3) COVID-19 Current Visit: No Status: Acute Code(s): U07.1 - COVID-19 SNOMED Code(s): 981470769 Plan: 1. Continue symptomatic and supportive care 2. Continue Protonix 40 mg twice daily 3. Diet per surgical services 4. No plans for any endoscopic intervention at this time 5. Thank you for this consultation, we will be on standby if needed Dr. Rivera I agree with the dictator's note, documented as a scribe by Nickie Espinosa.
[2020-09-11] MEDS: SODIUM CHLORIDE 0.9% 1,000 ML IV SCH (16:17)
--- NOTE | 2020-09-11 16:54 | P.PN ---
Subjective Progress Note Date: 09/11/20 COVID Pneumonia Mr. Maldonado is a 55-year-old with a past medical history of asthma, hyperlipidemia who was recently diagnosed with Covid infection, placed on prednisone and doxycycline by his primary care physician coming in with difficulty in breathing. Patient was also seen in the emergency department recently and received an infusion of BAM. On 08/28/2020 -patient was seen and examined at the bedside. He appears to be in no acute distress. He states that he is still short of breath with minimal activity, still requiring 5 L of oxygen. Patient denies having any fevers chills or rigors. No sputum production. No chest pain. On reviewing his vitals afebrile for the past 24 hours, blood pressure 127 x 77 heart rate in the 60s to 70s. On reviewing the labs, no new labs from this morning. Patient's last chest x-ray was done yesterday showing worsening bilateral lung infiltrates. Pulmonary on board and following the patient closely. On 08/29/2020 -patient is seen and examined at bedside. He states that he still has difficulty in breathing with minimal activity and saturating at 90% on 8 L of high flow nasal cannula. Patient denied having any fevers chills or rigors. Complains of ongoing cough, that is dry in nature nonproductive. He denies having any chest pain or palpitations. Nominal pain nausea vomiting or diarrhea. No dysuria or hematuria. On reviewing his vitals T-max of 98.7, heart rate 76, respiratory rate 18, blood pressure 127 x 61. Reviewing labs from this morning white count of 16.2, hemoglobin 14.2, platelets 237. Sodium 140, potassium 4.3, chloride 102, bicarb 26, BUN 22, creatinine 1.0 LDH 330, C- reactive protein 1.3. On 08/30/2020 - -patient is seen and examined at bedside. Is comfortably sitting up in a chair by the bedside. Patient is still requiring 5 L of oxygen. He complains of ongoing cough mostly dry in nature. Patient denies having any fevers chills or rigors. Patient denies having any abdominal pain nausea vomiting or diarrhea. No dysuria or hematuria. On reviewing his vitals T-max of 98.4, heart rate 60 to 70s, respiratory rate 16, blood pressure 131 x 51. On reviewing his labs white count of 15.5, hemoglobin 13.2, platelets 212. D-dimer 1.23, sodium 139, potassium 4.1, chloride 104, bicarb 26, BUN 23, creatinine 1.0 C-reactive protein 2, lactate dehydrogenase 288, ferritin 582. On 08/31/2020 -patient was seen and examined at bedside. He is comfortably sitting up in chair by the bedside. He is still requiring 5 to 6 L of oxygen to maintain saturations above 90%. Patient states that he still continues to have cough mostly dry and also that he is short of breath walking from bed to the bathroom. He denies having any fevers chills or rigors. No abdominal pain nausea vomiting or diarrhea. No dysuria or hematuria. He denies having any swelling of his lower extremities. On reviewing his vitals temperature of 98.4, heart rate 50s to 70s, respiratory rate below 15, saturating at 90% on 5 L of oxygen via nasal cannula. On reviewing his labs D-dimer is 1.07 LDH 748, CRP 43.1. On 09/01/2020 --patient is seen and examined at bedside. He is lying comfortably in bed appears to be in no acute distress. Patient complains of pain in the lower abdomen. He states that he has hernia repair done and has a mesh repair done. He states that he has been coughing and his lower abdomen has been hurting. Patient was constipated yesterday, had 2 bowel movements yesterday. He states that he did not have a bowel movement and is not passing gas now. Patient denies having any nausea or vomiting. He still has ongoing cough, bouts of coughing episodes that is making him dyspneic. He denies having any fevers chills or rigors. No dysuria or hematuria. On reviewing his vitals temperature of 98.4, heart rate 96, respiratory rate 18 blood pressure 122/69 saturating at 90% on 4 L of nasal cannula. On reviewing his labs white count of 20.6, hemoglobin 14.5, platelets 204. D-dimer 1.26. Sodium 140, potassium 4.4, chloride 103, bicarb 29, BUN 23, creatinine 1.0. LDH 616, CRP 52. On 09/02/2020 -patient seen and examined at bedside. He is comfortably sitting up in a chair by the bedside. He complains of lower abdominal soreness secondary to coughing. He states that Toradol helps him with his lower abdominal soreness. Patient denies having any chest pain or palpitations. He continues to have cough, usually in bouts. Nonproductive. He denies having any fevers chills or rigors. No dysuria or hematuria. Reviewing his vitals temperature of 98.8, heart rate 71, respiratory rate 18, blood pressure 113/59, saturating at 90% on 3-4 L of oxygen. On reviewing his labs white count of 13.1, hemoglobin 13.5, platelets 159. Sodium 139, potassium 4.2, chloride 104, bicarb 27, BUN 24, creatinine 0.9. CRP 15.6 LDH 284. On 09/03/2020 -patient was seen and examined at bedside. He is comfortable, saturating about 90 % on 2 L of nasal cannula. Still complains of ongoing cough and congestion. Toradol helping with abdominal soreness and chest wall pain. His vitals temperature 99, heart rate 78, respiratory 20, blood pressure 140/69. Reviewing his labs D-dimer 2.49, LDH 298, CRP 12.9. 09/04/2020 Patient is seen and evaluated in follow-up continues to be on 2 L of oxygen via nasal cannula and denies any worsening shortness of breath. Patient does have dyspnea with exertion with cough and phlegm production. Continues to have abdominal discomfort and states it has worsened on the lower left side. Surgery has been consulted and pending. Patient underwent CT abdomen today. White b lood count slightly elevated at 12.6, and hemoglobin is stable at 12.9. Platelets slightly low at 139 although improved from yesterday. Will repeat a.m. labs patient will be nothing by mouth until surgery has evaluated 09/05/2020 patient's abdominal drain is still draining. Leukocytosis improving. Patient was anxious disease and oxygen therapy the most. We will add Toradol for his pain. Patient is a still on 6 L of oxygen at this time. Patient is passing gas did have a small bowel movement as well. 09/06/2020 Patient is seen and evaluated in follow-up this morning with continued anxiety and states he feels he is having slight hallucinations with Xanax and does take Ativan at home for anxiety and will change to this. Patient continues with an abdominal drain which continues to drain purulent discharge. Patient is maintained on IV antibiotics and infectious disease consulted. Per surgery patient will likely require IV antibiotic therapy in the outpatient setting. Patient is scheduled to have a PICC line placed. Patient is currently on 6 L of oxygen and discuss with nursing staff about weaning as tolerated. Instructed the patient increase activity and use incentive spirometer at least 10 times every hour while awake. White blood count is within normal limits at 9.5 and hemoglobin is stable at 13.2. Sodium is 138 with a potassium of 4.3 and current creatinine is 0.9. 09/07/2020 Patient is seen in follow-up this morning currently sitting up in the chair on room air and denies any worsening shortness of breath. Documentation shows he is still on 6 L high flow although patient states he has not been wearing the oxygen all morning. Patient is maintained on clear liquids and states he is having difficulty with thin liquids and with his pills and states he is able to swallow them but they are getting stuck in the epigastrium area and states "something is not right". Surgery is following and discuss with them and repeat CT abdomen is ordered and pending. Patient has continued purulent drainage noted in the abdominal drain. Patient is receiving a PICC line today as well as he will be requiring outpatient IV antibiotic therapy. CBC within normal li mits, sodium is 134, potassium is 4.5, current creatinine is 0.79. Will await CT results and possibly order a modified barium swallow. Patient was started on nystatin swish and spit with the possibility of oral thrush. 09/08/2020 Patient is seen this morning continues to have a feeling of abdominal fullness and difficulty with swallowing. Patient underwent CT abdomen yesterday showing abscess has drained. Surgery is following. Patient also received PICC line and will be requiring IV antibiotic therapy once stabilized and discharged. Infectious disease is following. Patient underwent barium swallow and per speech therapy had no difficulties in swallowing and recommending consult to GI for possible esophagram or EGD. Surgery is following and planning on surgical intervention and will await report. Patient is weaning oxygen as tolerated and currently maintained on 4 L via nasal cannula. 09/09/2020 Patient had a laparotomy to have 2 large abscesses and patient underwent the abscess drainage along with colectomy with a colostomy bag. Patient is coming of soreness in that area patient is still complaining of dysphagia although no further intervention is being planned all the workup for dysphagia is is negative at this time. Patient may have some nausea and his dysphagia is a psychosomatic in nature. 09/10/2020 Patient feels bit better today not passing gas yet 09/11/2020 Patient is seen today continues to have no gas or stool output noted in the ostomy and discussed with surgery and will start TPN as patient has been nothing by mouth. Sodium is 132, calcium is 3.6, current creatinine is 0.81, magnesium is 2.3, blood sugars continue to be monitored. Will consult dietitian and have pharmacy to dose TPN. Patient does have an existing PICC line as he has been re ceiving IV antibiotics. Review of systems: Constitutional: Reports of fatigue, no reports of fever, or chills Cardiovascular: No reports of chest pain or palpitations Respiratory: No reports of shortness of breath, reports cough with phlegm GI: No reports of nausea, vomiting, no reports of gas or stool in the ostomy noted : No reports of dysuria or retention Neurovascular: No reports of weakness or numbness All medications have been reviewed Objective - Vital Signs Vital signs: Vital Signs Temp 98.6 F 09/11/20 05:00 Pulse 80 09/11/20 05:00 Resp 17 09/11/20 05:00 BP 119/65 09/11/20 05:00 Pulse Ox 93 L 09/11/20 08:51 Intake & Output 09/10/20 09/11/20 09/11/20 18:59 06:59 18:59 Output Total 350 515 Balance -350 -515 Output: Drainage 15 Right Abdomen 15 Urine 350 500 Other: Voiding Method Indwelling Catheter Urinal # Voids 2 - Exam GENERAL: The patient is alert and oriented x3, not in any acute distress. Obese HEENT: Pupils are round and equally reacting to light. EOMI. No scleral icterus. CARDIOVASCULAR: S1 and S2 present. No murmurs, rubs, or gallops. PULMONARY: Bilateral coarse breath sounds. no wheezing ABDOMEN: Soft, tenderness noted, surgical dressing midline is dry with dried blood noted nothing new and tenderness throughout with no stool or gas noted in the ostomy MUSCULOSKELETAL: No joint swelling or deformity. EXTREMITIES: No cyanosis, clubbing, or pedal edema. - Labs CBC & Chem 7: 09/10/20 06:35 09/11/20 07:09 Labs: Abnormal Lab Results - Last 24 Hours (Table) 09/10/20 09/10/20 09/10/20 Range/Units 06:35 06:35 11:32 RBC 3.81 L (4.40-5.60) X 10*6/uL Hgb 10.9 L (13.0-17.0) g/dL Hct 34.7 L (39.6-50.0) % MCHC 31.4 L (32.0-37.0) g/dL Plt Count 60 L (140-440) X 10*3/uL Plt Count Comment DECREASED A BUN 8.0 L (9.0-27.0) mg/dL BUN/Creatinine Ratio 11.43 L (12.00-20.00) Ratio Glucose 145 H (70-110) mg/dL POC Glucose (mg/dL) 132 H (75-99) mg/dL Calcium 7.2 L (8.7-10.3) mg/dL 09/10/20 09/10/20 09/11/20 Range/Units 16:51 20:40 06:58 RBC (4.40-5.60) X 10*6/uL Hgb (13.0-17.0) g/dL Hct (39.6-50.0) % MCHC (32.0-37.0) g/dL Plt Count (140-440) X 10*3/uL Plt Count Comment BUN (9.0-27.0) mg/dL BUN/Creatinine Ratio (12.00-20.00) Ratio Glucose (70-110) mg/dL POC Glucose (mg/dL) 163 H 122 H 151 H (75-99) mg/dL Calcium (8.7-10.3) mg/dL Microbiology - Last 24 Hours (Table) 09/08/20 18:02 Gram Stain - Final Abdomen Wound Culture - Final Enterococcus faecalis Escherichia coli Assessment and Plan Assessment: Acute hypoxic respiratory failure secondary to Covid pneumonia. Patient is presently on 2 L of oxygen. Patient is maintained on oral steroids along with Lovenox, zinc, vitamin supplements and will continue. Asthma Patient had a proctocolitis with an abscess for which patient received the CT- guided drainage and drains have been removed. Patient is maintained on IV antibiotics and infectious disease and surgery following. Patient is status p ost colostomy with no stool or gas noted. Patient will be started on TPN for discussing with surgery. Patient remains nothing by mouth Hyperlipidemia Obesity BMI - 37.5 GERD
[2020-09-11 17:07] LABS: Glucose,Whole Blood 178 mg/dL (75-99)
[2020-09-11 20:47] LABS: Glucose,Whole Blood 159 mg/dL (75-99)
[2020-09-11] MEDS: UROXATRAL 10 MG PO SCH (20:51)
[2020-09-11 23:06] LABS: Glucose,Whole Blood 149 mg/dL (75-99)
--- NOTE | 2020-09-12 00:27 | PN ---
PROGRESS NOTE DATE OF SERVICE: 09/11/2020 REASON FOR FOLLOWUP: Abdominal abscess from perforated diverticulitis. INTERVAL HISTORY: The patient is currently afebrile. The patient is breathing comfortably. The patient complaining of pain to the lower abdominal though. Some nausea, no vomiting. No chest pain, shortness of breath or cough. PHYSICAL EXAMINATION: Blood pressure 132/79, pulse of 80, temperature 98.7. He is 91% on 2 L nasal cannula. General description is a middle-aged male lying in bed in no distress. RESPIRATORY SYSTEM: Unlabored breathing with decreased breath sounds in the base. No wheeze. HEART: S1, S2. Regular rate and rhythm. Abdomen soft, no tenderness. LABS: BUN of 6, creatinine 0.81. Liver enzymes normal. DIAGNOSTIC IMPRESSION AND PLAN: Patient with abdominal abscess status post drainage and diverting colostomy. Culture positive for Enterococcus faecalis, E coli and anaerobes. Patient is currently covered with ceftriaxone, Flagyl and vancomycin because of his PENICILLIN ALLERGY. Continue current antibiotics and monitor clinical course closely. MMODL / IJN: [id number] /
[2020-09-12] MEDS: VANCOMYCIN 2,000 MG in SODIUM CHLORIDE 0.9% 500 ML 500 ML IVPB SCH ×2 (01:24→15:32)
[2020-09-12] MEDS: D5-0.45% NACL WITH KCL 20MEQ/L 1,000 ML IV SCH ×3 (01:24→17:25)
[2020-09-12] MEDS: HYDROmorphone 1 MG/ML 1 ML SYRINGE IVP PRN ×2 (02:17→08:13)
[2020-09-12] MEDS: guaiFENesin-Coden 100-10MG/5ML 10 ML CUP PO SCH ×4 (03:41→20:35)
[2020-09-12 05:57] LABS: Glucose,Whole Blood 157 mg/dL (75-99)
[2020-09-12] MEDS: BENZONATATE 100 MG CAP PO SCH ×3 (05:58→20:22)
[2020-09-12] MEDS: INSULIN ASPART (NovoLOG) 100 UNIT/ML VIAL SQ SCH ×3 (05:58→17:24)
[2020-09-12] MEDS: FAMOTIDINE 20 MG/2 ML VIAL IV SCH ×2 (06:50→20:21)
[2020-09-12] MEDS: metroNIDAZOLE 500 MG TAB PO SCH ×2 (06:50→17:05)
[2020-09-12] MEDS: CHOLECALCIFEROL 25 MCG (1000 IU) TABLET PO SCH (06:50)
[2020-09-12] MEDS: ZINC SULFATE 220 MG CAP PO SCH (06:50)
[2020-09-12] MEDS: ATORVASTATIN 20 MG TAB PO SCH (06:50)
[2020-09-12] MEDS: ASCORBIC ACID 500 MG TAB PO SCH ×2 (06:50→20:21)
[2020-09-12] MEDS: NYSTATIN 100,000 UNIT/ML SUSP 500,000 UNIT/5 ML CUP PO SCH ×4 (06:51→20:23)
[2020-09-12] MEDS: PANTOPRAZOLE 40 MG/10 ML VIAL IVP SCH ×2 (06:51→20:22)
[2020-09-12 06:52] LABS: Glucose,Whole Blood 133 mg/dL (75-99)
[2020-09-12 08:00] LABS: ALT 12 U/L (4-49); AST 25 U/L (17-59); African American GFR (CKD) >90 (>60 ml/min/1.73 sqM); Alkaline Phosphatase 45 U/L (38-126); Anion Gap 4 mmol/L; Blood Urea Nitrogen 5 mg/dL (9-20); Calcium 7.4 mg/dL (8.4-10.2); Carbon Dioxide 28 mmol/L (22-30); Chloride 100 mmol/L (98-107); Globulin 2.1 g/dL; Glucose 128 mg/dL (74-99); Magnesium 2.1 mg/dL (1.6-2.3); Non-African American GFR(CKD) >90 (>60 ml/min/1.73 sqM); Phosphorus 2.8 mg/dL (2.5-4.5); Potassium 3.5 mmol/L (3.5-5.1); Sodium 132 mmol/L (137-145); Total Bilirubin 0.6 mg/dL (0.2-1.3); Total Protein 4.1 g/dL (6.3-8.2)
[2020-09-12] MEDS: ALBUTEROL HFA INHALER INHALATION SCH ×4 (09:11→19:13)
[2020-09-12] MEDS: POTASSIUM CHLORIDE 20 MEQ in WATER FOR INJECTION 1 100ML.BAG IVPB SCH ×2 (09:56→11:54)
--- NOTE | 2020-09-12 11:35 | P.PN ---
Subjective Progress Note Date: 09/12/20 CHIEF COMPLAINT: Left lower quadrant abdominal pain HISTORY OF PRESENT ILLNESS: Patient is status post exploratory laparotomy, sigmoidectomy, and colostomy, drainage of pelvic abscess and appendectomy for perforated diverticulitis with abscess. Patient does complain of left lower quadrant abdominal pain. Does report that it is improving. Denies any nausea or vomiting. No function per ostomy. He is currently nothing by mouth. Patient does report symptoms of regurgitation and acid reflux. Afebrile. He has TPN for nutrition support. Sodium 132 potassium 3.5 creatinine 0.67 albumin 2.0 PHYSICAL EXAM: VITAL SIGNS: Reviewed. GENERAL: Well-developed in no acute distress. HEENT: No sclera icterus. Extraocular movements grossly intact. Moist buccal mucosa. Head is atraumatic, normocephalic. Patient has evidence of oral thrush ABDOMEN: Soft. Nondistended. Incision site clean dry and intact. Ostomy pink. Sanguinous drainage and colostomy bag NEUROLOGIC: Alert and oriented. Cranial nerves II through XII grossly intact. ASSESSMENT: 1. Perforated sigmoid colon diverticulitis with abscess status post exploratory laparotomy, sigmoidectomy, and colostomy, drainage of pelvic abscess and appendectomy 2. Left lower quadrant abdominal pain secondary to perforated sigmoid colon di verticulitis with abscess 3. Constipation 4. Prior history of inguinal hernia repairs and umbilical hernia repair 5. Covid 19 pneumonia 6. Anxiety 7. Oral candidiasis on nystatin swish and spit 8. Dysphagia and GERD PLAN: -Continue TPN for nutrition support -Keep patient nothing by mouth -Continue supportive care -Encourage incentive spirometry use -Encourage patient to ambulate -GI prophylaxis Protonix and DVT prophylaxis Lovenox Physician Heel Scourer note has been reviewed by physician. Signing provider agrees with the documented findings, assessment, and plan of care. Objective - Vital Signs Vital signs: Vital Signs Temp 98.2 F 09/12/20 10:00 Pulse 79 09/12/20 10:00 Resp 18 09/12/20 10:00 BP 104/67 09/12/20 10:00 Pulse Ox 92 L 09/12/20 10:00 Intake & Output 09/11/20 09/12/20 09/12/20 18:59 06:59 18:59 Output Total 220 10 Balance -220 -10 Weight 85.5 kg 112.1 kg Output: Drainage 20 10 Right Abdomen 20 10 Urine 200 Other: Voiding Method Urinal Urinal Urinal # Voids 4 - Labs CBC & Chem 7: 09/10/20 06:35 09/12/20 07:10 Labs: Abnormal Lab Results - Last 24 Hours (Table) 09/11/20 09/11/20 09/11/20 Range/Units 07:09 17:03 20:44 Sodium 132 L (137-145) mmol/L Carbon Dioxide 32 H (22-30) mmol/L BUN 6 L (9-20) mg/dL Glucose 137 H (74-99) mg/dL POC Glucose (mg/dL) 178 H 159 H (75-99) mg/dL Calcium 7.3 L (8.4-10.2) mg/dL Phosphorus 2.3 L (2.5-4.5) mg/dL Total Protein 3.8 L (6.3-8.2) g/dL Albumin 1.8 L (3.5-5.0) g/dL 09/11/20 09/12/20 09/12/20 Range/Units 23:04 05:51 06:50 Sodium (137-145) mmol/L Carbon Dioxide (22-30) mmol/L BUN (9-20) mg/dL Glucose (74-99) mg/dL POC Glucose (mg/dL) 149 H 157 H 133 H (75-99) mg/dL Calcium (8.4-10.2) mg/dL Phosphorus (2.5-4.5) mg/dL Total Protein (6.3-8.2) g/dL Albumin (3.5-5.0) g/dL 09/12/20 Range/Units 07:10 Sodium 132 L (137-145) mmol/L Carbon Dioxide (22-30) mmol/L BUN 5 L (9-20) mg/dL Glucose 128 H (74-99) mg/dL POC Glucose (mg/dL) (75-99) mg/dL Calcium 7.4 L (8.4-10.2) mg/dL Phosphorus (2.5-4.5) mg/dL Total Protein 4.1 L (6.3-8.2) g/dL Albumin 2.0 L (3.5-5.0) g/dL Microbiology - Last 24 Hours (Table) 09/08/20 18:02 Anaerobic Culture - Final Abdomen Anaerobic Gm Negative Bacilli Anaerobic Gm Negative Bacilli#2
[2020-09-12 11:36] LABS: Glucose,Whole Blood 161 mg/dL (75-99)
[2020-09-12 11:45] LABS: HCT 32.6 % (39.6-50.0); HGB 10.6 g/dL (13.0-17.0); MCH 28.9 pg (27.0-32.0); MCHC 32.5 g/dL (32.0-37.0); MCV 88.8 fL (80.0-97.0); Mean Platelet Volume 11.1 fL (9.5-12.2); Platelet Count 47 X 10*3/uL (140-440); RBC 3.67 X 10*6/uL (4.40-5.60); RDW 13.1 % (11.5-14.5); WBC 4.44 X 10*3/uL (4.50-10.00)
[2020-09-12] MEDS: ENOXAPARIN 40 MG/0.4 ML SYRINGE SQ SCH (11:50)
--- NOTE | 2020-09-12 12:22 | CDI ---
Documentation Clarification Form Date: 09/12/2020 12:01:24 PM From: Mahi GómezJUAN DAVID davis, CCDS Admit Date: 08/23/2020 06:54:00 PM Patient Name: Dre Maldonado Visit Number: [id number] Discharge Date: ATTENTION: The Clinical Documentation Specialists (CDI) and [facility] Coding Staff appreciate your assistance in clarifying documentation. Please respond to the clarification below the line at the bottom and electronically sign. The CDI & [facility] Coding staff will review the response and follow-up if needed. Please note: Queries are made part of the Legal Health Record. If you have any questions, please contact the author of this message via ITS. Dr. Itzel Jauregui: The patient presented with the following clinical indicators. Additional clarification regarding the etiology/cause of the clinical indicators is requested. The patient was admitted on 08/23 with COVID 19 Pneumonia, developed constipation and was found to have an Abdominal Abscess and Perforated Diverticulitis requiring resection & colostomy. History/Risk Factors Per the 08/23 ED Note Past Medical History and the 08/24 History & Physical: Asthma, Multiple Hernia Repairs, Anxiety, Asthma nos, Hyperlipidemia, Obesity w/BMI 35.5 and GERD. Clinical Indicators: Presented to the ED on 08/23 with SOB and decreased Oxygen saturation. Diagnosed with COVID >2 weeks ago, treated with Prednisone & Doxycycline. Seen in ER recently, given infusion of Bamlanivimab. O2 sats have been decreasing since into 70s with activity. Admitted with Pneumonia due to COVID 19 virus & Hypoxia. Per the 08/30 Attending Progress Note, the patient began complaining of constipation, treated with Colace & Senna. 08/23 VS: T 99.1, P 89, R 22, BP 111/65, PO 87 RA - 91 Lnc 08/23 LAB: WBC 5.7, Neut 4.5, Lymph 0.8, D Dimer 0.89, Lactic Acid 1.2, Ferritin 1637.2, LDH 1069, CRP 86.2, Total Protein 6.2, Procalcitonin 0.16 09/01 VS: T 98.4, P 65, R 18, BP 122/69, PO 90 4Lnc 09/05 T 100.1, P 84, R 18, BP 122/74, PO 92 6Lnc 09/01 LAB: WBC 20.63, Neut 19.01, Lymph 0.26, D Dimer 1.26, PROCEDURES: 09/05 Procedure: CT guided abscess drainage. 09/07 PICC line for outpatient antibiotics 09/08 Procedure: Exploratory laparotomy, Sigmoidectomy, End colostomy, Drainage of pelvic abscess & Appendectomy. 09/11 Started TPN RAD: 08/23 CXR: Bilateral pneumonia increased slighted in comparison. 09/04 CT Abdomen & Pelvis: Nonspecific proctocolitis with multiple foci of free air & two abscesses. Perforated diverticulitis considered. Treatment 08/23: IV Decadron 6 mg x1, po Mucinex, Lovenox sq 40 mg daily, Protonix 40 mg daily 08/24: INH Ventolin prn, po Vit C, po Vit D3, IV Solumdrol 60 mg q6H, IV Actemra, po Orazinc 09/04: IV Morphine 4 mg q4H/prn, po Hexadrol, IV Levaquin, IV Flagyl 09/05: IV Toradol 15 mg q6H 09/07: IV Vancomycin, IV Rocephin, po Flagyl In your professional opinion, please clarify if these findings signify one of the following conditions: [ ] Sepsis POA [ ] Sepsis, Not POA [ ] Sepsis ruled out [ ] Severe Sepsis with organ failure [ ] Other, please specify [ ] Unable to determine (Template Last Reviewed: July 2020) Sepsis POA MTDD
[2020-09-12] MEDS ORDERED: VANCOMYCIN TROUGH DUE 1 EACH MISC MISCELLANE ONE (13:00)
--- NOTE | 2020-09-12 13:58 | P.PN ---
Subjective Progress Note Date: 09/12/20 Principal diagnosis: Dysphasia She was seen and examined sitting up in the recliner. He states still has significant surgical pain in his abdomen. He is having a hard time coughing or bringing up any of this chest congestion due to the pain in his abdomen. He is denying any difficulty with swallowing. He is still nothing by mouth. He has TPN infusing, and scant amount of output from his ostomy. Nursing any nausea or vomiting. Objective - Vital Signs Vital signs: Vital Signs Temp 98.7 F 09/12/20 05:31 Pulse 81 09/12/20 05:31 Resp 17 09/12/20 05:31 BP 138/82 09/12/20 05:31 Pulse Ox 93 L 09/12/20 05:31 Intake & Output 09/11/20 09/12/20 09/12/20 18:59 06:59 18:59 Output Total 220 10 Balance -220 -10 Weight 85.5 kg 112.1 kg Output: Drainage 20 10 Right Abdomen 20 10 Urine 200 Other: Voiding Method Urinal Urinal # Voids 4 - Exam General appearance: The patient is alert, oriented, appears in no acute distress. HET: Head is normocephalic and atraumatic. Conjunctiva pink. Sclera anicteric. Neck: Supple without lymphadenopathy. Abdomen: Soft, diffuse surgical tenderness, ostomy, nondistended. No guarding or rigidity. Extremities: Normal skin color and turgor. No pedal edema Skin: No rashes, no jaundice Neurological: No focal deficits. Alert and oriented 3. - Labs CBC & Chem 7: 09/12/20 07:10 09/12/20 07:10 Labs: Abnormal Lab Results - Last 24 Hours (Table) 09/11/20 09/11/20 09/11/20 Range/Units 07:09 11:15 17:03 Sodium 132 L (137-145) mmol/L Carbon Dioxide 32 H (22-30) mmol/L BUN 6 L (9-20) mg/dL Glucose 137 H (74-99) mg/dL POC Glucose (mg/dL) 127 H 178 H (75-99) mg/dL Calcium 7.3 L (8.4-10.2) mg/dL Phosphorus 2.3 L (2.5-4.5) mg/dL Total Protein 3.8 L (6.3-8.2) g/dL Albumin 1.8 L (3.5-5.0) g/dL 09/11/20 09/11/20 09/12/20 Range/Units 20:44 23:04 05:51 Sodium (137-145) mmol/L Carbon Dioxide (22-30) mmol/L BUN (9-20) mg/dL Glucose (74-99) mg/dL POC Glucose (mg/dL) 159 H 149 H 157 H (75-99) mg/dL Calcium (8.4-10.2) mg/dL Phosphorus (2.5-4.5) mg/dL Total Protein (6.3-8.2) g/dL Albumin (3.5-5.0) g/dL 09/12/20 09/12/20 Range/Units 06:50 07:10 Sodium 132 L (137-145) mmol/L Carbon Dioxide (22-30) mmol/L BUN 5 L (9-20) mg/dL Glucose 128 H (74-99) mg/dL POC Glucose (mg/dL) 133 H (75-99) mg/dL Calcium 7.4 L (8.4-10.2) mg/dL Phosphorus (2.5-4.5) mg/dL Total Protein 4.1 L (6.3-8.2) g/dL Albumin 2.0 L (3.5-5.0) g/dL Microbiology - Last 24 Hours (Table) 09/08/20 18:02 Anaerobic Culture - Final Abdomen Anaerobic Gm Negative Bacilli Anaerobic Gm Negative Bacilli#2 Assessment and Plan (1) Dysphagia Narrative/Plan: This is a 55-year-old male patient who presented to the hospital with abdominal pain and was noted to have a intra-abdominal abscess related to perforated diverticulitis. He underwent exploratory laparotomy, sigmoid colectomy with end colostomy, drainage of abscess, and appendectomy on 09/08/2020. During his hospitalization he was complaining of dysphagia and heartburn for the last 4-5 days duration, however has been gradually improving since his surgery. Current Visit: Yes Status: Acute Code(s): R13.10 - DYSPHAGIA, UNSPECIFIED SNOMED Code(s): 54692726 (2) Intra-abdominal abscess Narrative/Plan: Surgery is following closely reviewed he is status post sigmoid colectomy with colostomy and drainage of pelvic abscess Current Visit: Yes Status: Acute Code(s): K65.1 - PERITONEAL ABSCESS SNOMED Code(s): 87840123 (3) COVID-19 Current Visit: No Status: Acute Code(s): U07.1 - COVID-19 SNOMED Code(s): 703553651 Plan: 1. Continue symptomatic and supportive care 2. Continue Protonix 40 mg twice daily 3. Diet per surgical services 4. No plans for any endoscopic intervention at this time 5. Thank you for this consultation, we will sign off at this time. Dr. Rivera I agree with the dictator's note, documented as a scribe by Nickie Espinosa.
--- NOTE | 2020-09-12 15:17 | P.PN ---
Subjective Progress Note Date: 09/12/20 COVID Pneumonia Mr. Maldonado is a 55-year-old with a past medical history of asthma, hyperlipidemia who was recently diagnosed with Covid infection, placed on prednisone and doxycycline by his primary care physician coming in with difficulty in breathing. Patient was also seen in the emergency department recently and received an infusion of BAM. On 08/28/2020 -patient was seen and examined at the bedside. He appears to be in no acute distress. He states that he is still short of breath with minimal activity, still requiring 5 L of oxygen. Patient denies having any fevers chills or rigors. No sputum production. No chest pain. On reviewing his vitals afebrile for the past 24 hours, blood pressure 127 x 77 heart rate in the 60s to 70s. On reviewing the labs, no new labs from this morning. Patient's last chest x-ray was done yesterday showing worsening bilateral lung infiltrates. Pulmonary on board and following the patient closely. On 08/29/2020 -patient is seen and examined at bedside. He states that he still has difficulty in breathing with minimal activity and saturating at 90% on 8 L of high flow nasal cannula. Patient denied having any fevers chills or rigors. Complains of ongoing cough, that is dry in nature nonproductive. He denies having any chest pain or palpitations. Nominal pain nausea vomiting or diarrhea. No dysuria or hematuria. On reviewing his vitals T-max of 98.7, heart rate 76, respiratory rate 18, blood pressure 127 x 61. Reviewing labs from this morning white count of 16.2, hemoglobin 14.2, platelets 237. Sodium 140, potassium 4.3, chloride 102, bicarb 26, BUN 22, creatinine 1.0 LDH 330, C- reactive protein 1.3. On 08/30/2020 - -patient is seen and examined at bedside. Is comfortably sitting up in a chair by the bedside. Patient is still requiring 5 L of oxygen. He complains of ongoing cough mostly dry in nature. Patient denies having any fevers chills or rigors. Patient denies having any abdominal pain nausea vomiting or diarrhea. No dysuria or hematuria. On reviewing his vitals T-max of 98.4, heart rate 60 to 70s, respiratory rate 16, blood pressure 131 x 51. On reviewing his labs white count of 15.5, hemoglobin 13.2, platelets 212. D-dimer 1.23, sodium 139, potassium 4.1, chloride 104, bicarb 26, BUN 23, creatinine 1.0 C-reactive protein 2, lactate dehydrogenase 288, ferritin 582. On 08/31/2020 -patient was seen and examined at bedside. He is comfortably sitting up in chair by the bedside. He is still requiring 5 to 6 L of oxygen to maintain saturations above 90%. Patient states that he still continues to have cough mostly dry and also that he is short of breath walking from bed to the bathroom. He denies having any fevers chills or rigors. No abdominal pain nausea vomiting or diarrhea. No dysuria or hematuria. He denies having any swelling of his lower extremities. On reviewing his vitals temperature of 98.4, heart rate 50s to 70s, respiratory rate below 15, saturating at 90% on 5 L of oxygen via nasal cannula. On reviewing his labs D-dimer is 1.07 LDH 748, CRP 43.1. On 09/01/2020 --patient is seen and examined at bedside. He is lying comfortably in bed appears to be in no acute distress. Patient complains of pain in the lower abdomen. He states that he has hernia repair done and has a mesh repair done. He states that he has been coughing and his lower abdomen has been hurting. Patient was constipated yesterday, had 2 bowel movements yesterday. He states that he did not have a bowel movement and is not passing gas now. Patient denies having any nausea or vomiting. He still has ongoing cough, bouts of coughing episodes that is making him dyspneic. He denies having any fevers chills or rigors. No dysuria or hematuria. On reviewing his vitals temperature of 98.4, heart rate 96, respiratory rate 18 blood pressure 122/69 saturating at 90% on 4 L of nasal cannula. On reviewing his labs white count of 20.6, hemoglobin 14.5, platelets 204. D-dimer 1.26. Sodium 140, potassium 4.4, chloride 103, bicarb 29, BUN 23, creatinine 1.0. LDH 616, CRP 52. On 09/02/2020 -patient seen and examined at bedside. He is comfortably sitting up in a chair by the bedside. He complains of lower abdominal soreness secondary to coughing. He states that Toradol helps him with his lower abdominal soreness. Patient denies having any chest pain or palpitations. He continues to have cough, usually in bouts. Nonproductive. He denies having any fevers chills or rigors. No dysuria or hematuria. Reviewing his vitals temperature of 98.8, heart rate 71, respiratory rate 18, blood pressure 113/59, saturating at 90% on 3-4 L of oxygen. On reviewing his labs white count of 13.1, hemoglobin 13.5, platelets 159. Sodium 139, potassium 4.2, chloride 104, bicarb 27, BUN 24, creatinine 0.9. CRP 15.6 LDH 284. On 09/03/2020 -patient was seen and examined at bedside. He is comfortable, saturating about 90 % on 2 L of nasal cannula. Still complains of ongoing cough and congestion. Toradol helping with abdominal soreness and chest wall pain. His vitals temperature 99, heart rate 78, respiratory 20, blood pressure 140/69. Reviewing his labs D-dimer 2.49, LDH 298, CRP 12.9. 09/04/2020 Patient is seen and evaluated in follow-up continues to be on 2 L of oxygen via nasal cannula and denies any worsening shortness of breath. Patient does have dyspnea with exertion with cough and phlegm production. Continues to have abdominal discomfort and states it has worsened on the lower left side. Surgery has been consulted and pending. Patient underwent CT abdomen today. White b lood count slightly elevated at 12.6, and hemoglobin is stable at 12.9. Platelets slightly low at 139 although improved from yesterday. Will repeat a.m. labs patient will be nothing by mouth until surgery has evaluated 09/05/2020 patient's abdominal drain is still draining. Leukocytosis improving. Patient was anxious disease and oxygen therapy the most. We will add Toradol for his pain. Patient is a still on 6 L of oxygen at this time. Patient is passing gas did have a small bowel movement as well. 09/06/2020 Patient is seen and evaluated in follow-up this morning with continued anxiety and states he feels he is having slight hallucinations with Xanax and does take Ativan at home for anxiety and will change to this. Patient continues with an abdominal drain which continues to drain purulent discharge. Patient is maintained on IV antibiotics and infectious disease consulted. Per surgery patient will likely require IV antibiotic therapy in the outpatient setting. Patient is scheduled to have a PICC line placed. Patient is currently on 6 L of oxygen and discuss with nursing staff about weaning as tolerated. Instructed the patient increase activity and use incentive spirometer at least 10 times every hour while awake. White blood count is within normal limits at 9.5 and hemoglobin is stable at 13.2. Sodium is 138 with a potassium of 4.3 and current creatinine is 0.9. 09/07/2020 Patient is seen in follow-up this morning currently sitting up in the chair on room air and denies any worsening shortness of breath. Documentation shows he is still on 6 L high flow although patient states he has not been wearing the oxygen all morning. Patient is maintained on clear liquids and states he is having difficulty with thin liquids and with his pills and states he is able to swallow them but they are getting stuck in the epigastrium area and states "something is not right". Surgery is following and discuss with them and repeat CT abdomen is ordered and pending. Patient has continued purulent drainage noted in the abdominal drain. Patient is receiving a PICC line today as well as he will be requiring outpatient IV antibiotic therapy. CBC within normal li mits, sodium is 134, potassium is 4.5, current creatinine is 0.79. Will await CT results and possibly order a modified barium swallow. Patient was started on nystatin swish and spit with the possibility of oral thrush. 09/08/2020 Patient is seen this morning continues to have a feeling of abdominal fullness and difficulty with swallowing. Patient underwent CT abdomen yesterday showing abscess has drained. Surgery is following. Patient also received PICC line and will be requiring IV antibiotic therapy once stabilized and discharged. Infectious disease is following. Patient underwent barium swallow and per speech therapy had no difficulties in swallowing and recommending consult to GI for possible esophagram or EGD. Surgery is following and planning on surgical intervention and will await report. Patient is weaning oxygen as tolerated and currently maintained on 4 L via nasal cannula. 09/09/2020 Patient had a laparotomy to have 2 large abscesses and patient underwent the abscess drainage along with colectomy with a colostomy bag. Patient is coming of soreness in that area patient is still complaining of dysphagia although no further intervention is being planned all the workup for dysphagia is is negative at this time. Patient may have some nausea and his dysphagia is a psychosomatic in nature. 09/10/2020 Patient feels bit better today not passing gas yet 09/11/2020 Patient is seen today continues to have no gas or stool output noted in the ostomy and discussed with surgery and will start TPN as patient has been nothing by mouth. Sodium is 132, calcium is 3.6, current creatinine is 0.81, magnesium is 2.3, blood sugars continue to be monitored. Will consult dietitian and have pharmacy to dose TPN. Patient does have an existing PICC line as he has been re ceiving IV antibiotics. 09/12/2020 Patient is seen today in follow-up status post walking the halls and continues to have no bowel function. Patient denies any gas passing in the ostomy and there is no stool noted. Patient was started on TPN and will continue at this time. Infectious disease along with surgery also following and patient is maintained on IV antibiotic therapy and will continue. Also encourage the patient to continue using incentive spirometer at least 10 times every hour wh ile awake. Patient currently maintained on 2 L of oxygen via nasal cannula. Review of systems: Constitutional: Reports of fatigue, no reports of fever, or chills Cardiovascular: No reports of chest pain or palpitations Respiratory: No reports of shortness of breath, reports cough with phlegm GI: No reports of nausea, vomiting, no reports of gas or stool in the ostomy noted : No reports of dysuria or retention Neurovascular: No reports of weakness or numbness All medications have been reviewed Objective - Vital Signs Vital signs: Vital Signs Temp 98.2 F 09/12/20 10:00 Pulse 79 09/12/20 10:00 Resp 18 09/12/20 10:00 BP 104/67 09/12/20 10:00 Pulse Ox 92 L 09/12/20 10:00 Intake & Output 09/11/20 09/12/20 09/12/20 18:59 06:59 18:59 Output Total 220 10 Balance -220 -10 Weight 85.5 kg 112.1 kg Output: Drainage 20 10 Right Abdomen 20 10 Urine 200 Other: Voiding Method Urinal Urinal Urinal # Voids 4 - Exam GENERAL: The patient is alert and oriented x3, not in any acute distress. Obese HEENT: Pupils are round and equally reacting to light. EOMI. No scleral icterus. CARDIOVASCULAR: S1 and S2 present. No murmurs, rubs, or gallops. PULMONARY: Bilateral coarse breath sounds. no wheezing ABDOMEN: Soft, tenderness noted, surgical dressing midline is dry with dried blood noted nothing new and tenderness throughout with no stool or gas noted in the ostomy MUSCULOSKELETAL: No joint swelling or deformity. EXTREMITIES: No cyanosis, clubbing, or pedal edema. - Labs CBC & Chem 7: 09/12/20 07:10 09/12/20 07:10 Labs: Abnormal Lab Results - Last 24 Hours (Table) 09/11/20 09/11/20 09/11/20 Range/Units 17:03 20:44 23:04 WBC (4.50-10.00) X 10*3/uL RBC (4.40-5.60) X 10*6/uL Hgb (13.0-17.0) g/dL Hct (39.6-50.0) % Plt Count (140-440) X 10*3/uL Plt Count Comment Sodium (137-145) mmol/L BUN (9-20) mg/dL Glucose (74-99) mg/dL POC Glucose (mg/dL) 178 H 159 H 149 H (75-99) mg/dL Calcium (8.4-10.2) mg/dL Total Protein (6.3-8.2) g/dL Albumin (3.5-5.0) g/dL 09/12/20 09/12/20 09/12/20 Range/Units 05:51 06:50 07:10 WBC (4.50-10.00) X 10*3/uL RBC (4.40-5.60) X 10*6/uL Hgb (13.0-17.0) g/dL Hct (39.6-50.0) % Plt Count (140-440) X 10*3/uL Plt Count Comment Sodium 132 L (137-145) mmol/L BUN 5 L (9-20) mg/dL Glucose 128 H (74-99) mg/dL POC Glucose (mg/dL) 157 H 133 H (75-99) mg/dL Calcium 7.4 L (8.4-10.2) mg/dL Total Protein 4.1 L (6.3-8.2) g/dL Albumin 2.0 L (3.5-5.0) g/dL 09/12/20 09/12/20 Range/Units 07:10 11:35 WBC 4.44 L (4.50-10.00) X 10*3/uL RBC 3.67 L (4.40-5.60) X 10*6/uL Hgb 10.6 L (13.0-17.0) g/dL Hct 32.6 L (39.6-50.0) % Plt Count 47 L (140-440) X 10*3/uL Plt Count Comment DECREASED A Sodium (137-145) mmol/L BUN (9-20) mg/dL Glucose (74-99) mg/dL POC Glucose (mg/dL) 161 H (75-99) mg/dL Calcium (8.4-10.2) mg/dL Total Protein (6.3-8.2) g/dL Albumin (3.5-5.0) g/dL Microbiology - Last 24 Hours (Table) 09/08/20 18:02 Anaerobic Culture - Final Abdomen Anaerobic Gm Negative Bacilli Anaerobic Gm Negative Bacilli#2 Assessment and Plan Assessment: Acute hypoxic respiratory failure secondary to Covid pneumonia. Patient is presently on 2 L of oxygen. Patient is maintained Lovenox, zinc, vitamin supplements and will continue. Asthma, not in acute exacerbation Patient had a proctocolitis with an abscess for which patient received the CT- guided drainage and drains have been removed. Patient is maintained on IV antibiotics and infectious disease and surgery following. Patient is status post colostomy with no stool or gas noted. Patient was started on TPN. Patient remains nothing by mouth Hyperlipidemia Obesity BMI - 37.5 GERD Plan: Continue with current medication regimen and IV antibiotic therapy. Infectious disease along with surgery following. Patient was maintained in isolation precautions for Covid and will need to discuss with infectious disease and infection control about removing the contact precautions. Patient continues to have no bowel activity with no gas or stool noted and is maintained on TPN. Encouraged increased activity as tolerated and the use of incentive spirometer. Platelets were decreased at 47 today and Lovenox was held. White blood count is 4.44 with a hemoglobin of 10.6, sodium is 132 with a potassium of 3.5 and current creatinine is 0.67.
[2020-09-12] MEDS: 1: MVI, ADULT NO.4 WITH VIT K 10 ML, TRACE (CONC-1ML/DOSE) 1 ML in AMINO ACID 5%-D20W+LY IV SCH ×3 (15:27)
[2020-09-12] MEDS: SODIUM CHLORIDE 0.9% 1,000 ML IV SCH (15:41)
[2020-09-12 17:18] LABS: Glucose,Whole Blood 178 mg/dL (75-99)
[2020-09-12] MEDS: UROXATRAL 10 MG PO SCH (20:22)
[2020-09-12] MEDS: LORazepam 1 MG TAB PO PRN (22:52)
[2020-09-13 00:03] LABS: Glucose,Whole Blood 191 mg/dL (75-99)
[2020-09-13] MEDS: INSULIN ASPART (NovoLOG) 100 UNIT/ML VIAL SQ SCH ×5 (00:06→21:48)
[2020-09-13] MEDS: HYDROmorphone 1 MG/ML 1 ML SYRINGE IVP PRN ×5 (00:07→13:36)
[2020-09-13] MEDS: metroNIDAZOLE 500 MG TAB PO SCH ×4 (00:07→23:56)
[2020-09-13] MEDS: VANCOMYCIN 2,000 MG in SODIUM CHLORIDE 0.9% 500 ML 500 ML IVPB SCH ×2 (01:02→13:37)
[2020-09-13] MEDS: 1: MVI, ADULT NO.4 WITH VIT K 10 ML, TRACE (CONC-1ML/DOSE) 1 ML in AMINO ACID 5%-D20W+LY IV SCH ×3 (03:09)
[2020-09-13] MEDS: D5-0.45% NACL WITH KCL 20MEQ/L 1,000 ML IV SCH ×3 (03:18→17:37)
[2020-09-13] MEDS: guaiFENesin-Coden 100-10MG/5ML 10 ML CUP PO SCH ×4 (05:48→23:56)
[2020-09-13 05:59] LABS: Glucose,Whole Blood 169 mg/dL (75-99)
[2020-09-13] MEDS: BENZONATATE 100 MG CAP PO SCH ×3 (06:06→21:47)
--- NOTE | 2020-09-13 06:46 | PN ---
PROGRESS NOTE DATE OF SERVICE: 09/12/2020 REASON FOR FOLLOWUP: Abdominal abscess and perforated diverticulitis. INTERVAL HISTORY: The patient is currently afebrile. The patient is breathing comfortably. Patient denies having any chest pain or shortness of breath. Occasional cough. No abdominal pain or diarrhea. PHYSICAL EXAMINATION: Blood pressure is 121/69, pulse of 95, temperature 98.3. He is 92% on 2 L nasal cannula. General description is a middle-aged male lying in bed in no distress. Respiratory system: Unlabored breathing, clear to auscultation anteriorly. Heart S1, S2. Regular rate and rhythm. Abdomen is soft, mildly tender. No guarding or rigidity. LABS: Hemoglobin is 10.2, white count 4.4, BUN of 5, creatinine 0.67. DIAGNOSTIC IMPRESSION AND PLAN: Patient with abdominal abscess from perforated diverticulitis, status post diverting colostomy. Culture with Enterococcus faecalis, E coli and anaerobes. The patient is covered with Rocephin vancomycin, Flagyl, to continue and monitor clinical course closely. Continue supportive care. MMODL / IJN: [id number] /
[2020-09-13] MEDS: ASCORBIC ACID 500 MG TAB PO SCH ×2 (07:50→21:47)
[2020-09-13] MEDS: ENOXAPARIN 40 MG/0.4 ML SYRINGE SQ SCH (07:50)
[2020-09-13] MEDS: PANTOPRAZOLE 40 MG/10 ML VIAL IVP SCH ×2 (07:50→21:48)
[2020-09-13] MEDS: ZINC SULFATE 220 MG CAP PO SCH (07:51)
[2020-09-13] MEDS: FAMOTIDINE 20 MG/2 ML VIAL IV SCH ×2 (07:51→21:48)
[2020-09-13] MEDS: CHOLECALCIFEROL 25 MCG (1000 IU) TABLET PO SCH (07:51)
[2020-09-13] MEDS: ATORVASTATIN 20 MG TAB PO SCH (07:51)
[2020-09-13] MEDS: NYSTATIN 100,000 UNIT/ML SUSP 500,000 UNIT/5 ML CUP PO SCH ×4 (07:53→21:47)
[2020-09-13] MEDS: ALBUTEROL HFA INHALER INHALATION SCH ×4 (08:10→20:50)
[2020-09-13 08:59] LABS: ALT 12 U/L (4-49); African American GFR (CKD) >90 (>60 ml/min/1.73 sqM); Albumin/Globulin Ratio 0.9; Anion Gap 3 mmol/L; Blood Urea Nitrogen 10 mg/dL (9-20); Calcium 7.4 mg/dL (8.4-10.2); Carbon Dioxide 26 mmol/L (22-30); Chloride 104 mmol/L (98-107); Globulin 2.4 g/dL; Glucose 152 mg/dL (74-99); Non-African American GFR(CKD) >90 (>60 ml/min/1.73 sqM); Sodium 133 mmol/L (137-145); Total Bilirubin 0.8 mg/dL (0.2-1.3)
[2020-09-13 09:05] LABS: Potassium 4.1 mmol/L (3.5-5.1)
[2020-09-13 09:06] LABS: AST 31 U/L (17-59); Albumin 2.1 g/dL (3.5-5.0); Alkaline Phosphatase 25 U/L (38-126); Magnesium 2.2 mg/dL (1.6-2.3); Phosphorus 3.3 mg/dL (2.5-4.5); Total Protein 4.5 g/dL (6.3-8.2)
[2020-09-13 09:18] LABS: Basophils % (A) 1 %; Eosinophils % (A) 2 %; HCT 31.4 % (39.0-53.0); HGB 10.9 gm/dL (13.0-17.5); Lymphocytes # (A) 0.2 k/uL (1.0-4.8); Lymphocytes % (A) 7 %; MCH 30.4 pg (25.0-35.0); MCHC 34.7 g/dL (31.0-37.0); MCV 87.7 fL (80.0-100.0); Mean Platelet Volume 11.1; Monocytes # (A) 0.3 k/uL (0-1.0); Monocytes % (A) 10 %; Neutrophils # (A) 2.2 k/uL (1.3-7.7); Neutrophils % (A) 77 %; RBC 3.59 m/uL (4.30-5.90); RDW 13.6 % (11.5-15.5); WBC 2.8 k/uL (3.8-10.6)
[2020-09-13 09:22] LABS: Platelet Count 32 k/uL (150-450)
--- NOTE | 2020-09-13 11:42 | P.PN ---
Subjective Progress Note Date: 09/13/20 CHIEF COMPLAINT: Left lower quadrant abdominal pain HISTORY OF PRESENT ILLNESS: Patient is status post exploratory laparotomy, sigmoidectomy, and colostomy, drainage of pelvic abscess and appendectomy for perforated diverticulitis with abscess. Patient does complain of left lower quadrant abdominal pain. Does report that it is improving. Denies any nausea or vomiting. No function per ostomy. He is currently nothing by mouth. Afebrile. He has TPN for nutrition support. WBC 2.8 Hgb 10.9 platelets 32 PHYSICAL EXAM: VITAL SIGNS: Reviewed. GENERAL: Well-developed in no acute distress. HEENT: No sclera icterus. Extraocular movements grossly intact. Moist buccal mucosa. Head is atraumatic, normocephalic. Patient has evidence of oral thrush ABDOMEN: Soft. Nondistended. Incision site clean dry and intact. Ostomy pink. Sanguinous drainage and colostomy bag NEUROLOGIC: Alert and oriented. Cranial nerves II through XII grossly intact. ASSESSMENT: 1. Perforated sigmoid colon diverticulitis with abscess status post exploratory laparotomy, sigmoidectomy, and colostomy, drainage of pelvic abscess and appendectomy 2. Left lower quadrant abdominal pain secondary to perforated sigmoid colon diverticulitis with abscess 3. Constipation 4. Prior history of inguinal hernia repairs and umbilical hernia repair 5. Covid 19 pneumonia 6. Anxiety 7. Oral candidiasis 8. Dysphagia and GERD 9. Thrombocytopenia management per medicine service PLAN: -Continue TPN for nutrition support -Keep patient nothing by mouth -Continue supportive care -Encourage incentive spirometry use -Encourage patient to ambulate -GI prophylaxis Protonix -Stop Lovenox for low platelets -Add SCDs for DVT prophylaxis Physician Internist note has been reviewed by physician. Signing provider agrees with the documented findings, assessment, and plan of care. Objective - Vital Signs Vital signs: Vital Signs Temp 98.2 F 09/13/20 10:29 Pulse 83 09/13/20 10:29 Resp 18 09/13/20 10:29 BP 149/80 09/13/20 10:29 Pulse Ox 94 L 09/13/20 10:29 Intake & Output 09/12/20 09/13/20 09/13/20 18:59 06:59 18:59 Output Total 50 400 Balance -50 -400 Weight 114.7 kg Output: Urine 400 Stool 50 Other: Voiding Method Urinal Urinal # Voids 4 - Labs CBC & Chem 7: 04/07/21 08:15 09/13/20 08:15 Labs: Abnormal Lab Results - Last 24 Hours (Table) 09/12/20 09/12/20 09/12/20 Range/Units 07:10 11:35 17:17 WBC 4.44 L (4.50-10.00) X 10*3/uL RBC 3.67 L (4.40-5.60) X 10*6/uL Hgb 10.6 L (13.0-17.0) g/dL Hct 32.6 L (39.6-50.0) % Plt Count 47 L (140-440) X 10*3/uL Plt Count Comment DECREASED A Lymphocytes # (1.0-4.8) k/uL Sodium (137-145) mmol/L Glucose (74-99) mg/dL POC Glucose (mg/dL) 161 H 178 H (75-99) mg/dL Calcium (8.4-10.2) mg/dL Alkaline Phosphatase (38-126) U/L Total Protein (6.3-8.2) g/dL Albumin (3.5-5.0) g/dL 09/13/20 09/13/20 09/13/20 Range/Units 00:01 05:58 08:15 WBC (4.50-10.00) X 10*3/uL RBC (4.40-5.60) X 10*6/uL Hgb (13.0-17.0) g/dL Hct (39.6-50.0) % Plt Count (140-440) X 10*3/uL Plt Count Comment Lymphocytes # (1.0-4.8) k/uL Sodium 133 L (137-145) mmol/L Glucose 152 H (74-99) mg/dL POC Glucose (mg/dL) 191 H 169 H (75-99) mg/dL Calcium 7.4 L (8.4-10.2) mg/dL Alkaline Phosphatase 25 L (38-126) U/L Total Protein 4.5 L (6.3-8.2) g/dL Albumin 2.1 L (3.5-5.0) g/dL 09/13/20 Range/Units 08:15 WBC 2.8 L (4.50-10.00) X 10*3/uL RBC 3.59 L (4.40-5.60) X 10*6/uL Hgb 10.9 L (13.0-17.0) g/dL Hct 31.4 L (39.6-50.0) % Plt Count 32 L D (140-440) X 10*3/uL Plt Count Comment Lymphocytes # 0.2 L (1.0-4.8) k/uL Sodium (137-145) mmol/L Glucose (74-99) mg/dL POC Glucose (mg/dL) (75-99) mg/dL Calcium (8.4-10.2) mg/dL Alkaline Phosphatase (38-126) U/L Total Protein (6.3-8.2) g/dL Albumin (3.5-5.0) g/dL
[2020-09-13 11:44] LABS: Glucose,Whole Blood 142 mg/dL (75-99)
[2020-09-13] MEDS: FAT EMULSION 20% 250 ML in EMPTY BAG 1 BAG IV SCH (12:24)
[2020-09-13] MEDS: [UNRECOGNIZED DRUG - REMARK] IV SCH ×4 (13:39)
--- NOTE | 2020-09-13 16:05 | P.PN ---
Subjective Progress Note Date: 09/13/20 COVID Pneumonia Mr. Maldonado is a 55-year-old with a past medical history of asthma, hyperlipidemia who was recently diagnosed with Covid infection, placed on prednisone and doxycycline by his primary care physician coming in with difficulty in breathing. Patient was also seen in the emergency department recently and received an infusion of BAM. On 08/28/2020 -patient was seen and examined at the bedside. He appears to be in no acute distress. He states that he is still short of breath with minimal activity, still requiring 5 L of oxygen. Patient denies having any fevers chills or rigors. No sputum production. No chest pain. On reviewing his vitals afebrile for the past 24 hours, blood pressure 127 x 77 heart rate in the 60s to 70s. On reviewing the labs, no new labs from this morning. Patient's last chest x-ray was done yesterday showing worsening bilateral lung infiltrates. Pulmonary on board and following the patient closely. On 08/29/2020 -patient is seen and examined at bedside. He states that he still has difficulty in breathing with minimal activity and saturating at 90% on 8 L of high flow nasal cannula. Patient denied having any fevers chills or rigors. Complains of ongoing cough, that is dry in nature nonproductive. He denies having any chest pain or palpitations. Nominal pain nausea vomiting or diarrhea. No dysuria or hematuria. On reviewing his vitals T-max of 98.7, heart rate 76, respiratory rate 18, blood pressure 127 x 61. Reviewing labs from this morning white count of 16.2, hemoglobin 14.2, platelets 237. Sodium 140, potassium 4.3, chloride 102, bicarb 26, BUN 22, creatinine 1.0 LDH 330, C- reactive protein 1.3. On 08/30/2020 - -patient is seen and examined at bedside. Is comfortably sitting up in a chair by the bedside. Patient is still requiring 5 L of oxygen. He complains of ongoing cough mostly dry in nature. Patient denies having any fevers chills or rigors. Patient denies having any abdominal pain nausea vomiting or diarrhea. No dysuria or hematuria. On reviewing his vitals T-max of 98.4, heart rate 60 to 70s, respiratory rate 16, blood pressure 131 x 51. On reviewing his labs white count of 15.5, hemoglobin 13.2, platelets 212. D-dimer 1.23, sodium 139, potassium 4.1, chloride 104, bicarb 26, BUN 23, creatinine 1.0 C-reactive protein 2, lactate dehydrogenase 288, ferritin 582. On 08/31/2020 -patient was seen and examined at bedside. He is comfortably sitting up in chair by the bedside. He is still requiring 5 to 6 L of oxygen to maintain saturations above 90%. Patient states that he still continues to have cough mostly dry and also that he is short of breath walking from bed to the bathroom. He denies having any fevers chills or rigors. No abdominal pain nausea vomiting or diarrhea. No dysuria or hematuria. He denies having any swelling of his lower extremities. On reviewing his vitals temperature of 98.4, heart rate 50s to 70s, respiratory rate below 15, saturating at 90% on 5 L of oxygen via nasal cannula. On reviewing his labs D-dimer is 1.07 LDH 748, CRP 43.1. On 09/01/2020 --patient is seen and examined at bedside. He is lying comfortably in bed appears to be in no acute distress. Patient complains of pain in the lower abdomen. He states that he has hernia repair done and has a mesh repair done. He states that he has been coughing and his lower abdomen has been hurting. Patient was constipated yesterday, had 2 bowel movements yesterday. He states that he did not have a bowel movement and is not passing gas now. Patient denies having any nausea or vomiting. He still has ongoing cough, bouts of coughing episodes that is making him dyspneic. He denies having any fevers chills or rigors. No dysuria or hematuria. On reviewing his vitals temperature of 98.4, heart rate 96, respiratory rate 18 blood pressure 122/69 saturating at 90% on 4 L of nasal cannula. On reviewing his labs white count of 20.6, hemoglobin 14.5, platelets 204. D-dimer 1.26. Sodium 140, potassium 4.4, chloride 103, bicarb 29, BUN 23, creatinine 1.0. LDH 616, CRP 52. On 09/02/2020 -patient seen and examined at bedside. He is comfortably sitting up in a chair by the bedside. He complains of lower abdominal soreness secondary to coughing. He states that Toradol helps him with his lower abdominal soreness. Patient denies having any chest pain or palpitations. He continues to have cough, usually in bouts. Nonproductive. He denies having any fevers chills or rigors. No dysuria or hematuria. Reviewing his vitals temperature of 98.8, heart rate 71, respiratory rate 18, blood pressure 113/59, saturating at 90% on 3-4 L of oxygen. On reviewing his labs white count of 13.1, hemoglobin 13.5, platelets 159. Sodium 139, potassium 4.2, chloride 104, bicarb 27, BUN 24, creatinine 0.9. CRP 15.6 LDH 284. On 09/03/2020 -patient was seen and examined at bedside. He is comfortable, saturating about 90 % on 2 L of nasal cannula. Still complains of ongoing cough and congestion. Toradol helping with abdominal soreness and chest wall pain. His vitals temperature 99, heart rate 78, respiratory 20, blood pressure 140/69. Reviewing his labs D-dimer 2.49, LDH 298, CRP 12.9. 09/04/2020 Patient is seen and evaluated in follow-up continues to be on 2 L of oxygen via nasal cannula and denies any worsening shortness of breath. Patient does have dyspnea with exertion with cough and phlegm production. Continues to have abdominal discomfort and states it has worsened on the lower left side. Surgery has been consulted and pending. Patient underwent CT abdomen today. White b lood count slightly elevated at 12.6, and hemoglobin is stable at 12.9. Platelets slightly low at 139 although improved from yesterday. Will repeat a.m. labs patient will be nothing by mouth until surgery has evaluated 09/05/2020 patient's abdominal drain is still draining. Leukocytosis improving. Patient was anxious disease and oxygen therapy the most. We will add Toradol for his pain. Patient is a still on 6 L of oxygen at this time. Patient is passing gas did have a small bowel movement as well. 09/06/2020 Patient is seen and evaluated in follow-up this morning with continued anxiety and states he feels he is having slight hallucinations with Xanax and does take Ativan at home for anxiety and will change to this. Patient continues with an abdominal drain which continues to drain purulent discharge. Patient is maintained on IV antibiotics and infectious disease consulted. Per surgery patient will likely require IV antibiotic therapy in the outpatient setting. Patient is scheduled to have a PICC line placed. Patient is currently on 6 L of oxygen and discuss with nursing staff about weaning as tolerated. Instructed the patient increase activity and use incentive spirometer at least 10 times every hour while awake. White blood count is within normal limits at 9.5 and hemoglobin is stable at 13.2. Sodium is 138 with a potassium of 4.3 and current creatinine is 0.9. 09/07/2020 Patient is seen in follow-up this morning currently sitting up in the chair on room air and denies any worsening shortness of breath. Documentation shows he is still on 6 L high flow although patient states he has not been wearing the oxygen all morning. Patient is maintained on clear liquids and states he is having difficulty with thin liquids and with his pills and states he is able to swallow them but they are getting stuck in the epigastrium area and states "something is not right". Surgery is following and discuss with them and repeat CT abdomen is ordered and pending. Patient has continued purulent drainage noted in the abdominal drain. Patient is receiving a PICC line today as well as he will be requiring outpatient IV antibiotic therapy. CBC within normal li mits, sodium is 134, potassium is 4.5, current creatinine is 0.79. Will await CT results and possibly order a modified barium swallow. Patient was started on nystatin swish and spit with the possibility of oral thrush. 09/08/2020 Patient is seen this morning continues to have a feeling of abdominal fullness and difficulty with swallowing. Patient underwent CT abdomen yesterday showing abscess has drained. Surgery is following. Patient also received PICC line and will be requiring IV antibiotic therapy once stabilized and discharged. Infectious disease is following. Patient underwent barium swallow and per speech therapy had no difficulties in swallowing and recommending consult to GI for possible esophagram or EGD. Surgery is following and planning on surgical intervention and will await report. Patient is weaning oxygen as tolerated and currently maintained on 4 L via nasal cannula. 09/09/2020 Patient had a laparotomy to have 2 large abscesses and patient underwent the abscess drainage along with colectomy with a colostomy bag. Patient is coming of soreness in that area patient is still complaining of dysphagia although no further intervention is being planned all the workup for dysphagia is is negative at this time. Patient may have some nausea and his dysphagia is a psychosomatic in nature. 09/10/2020 Patient feels bit better today not passing gas yet 09/11/2020 Patient is seen today continues to have no gas or stool output noted in the ostomy and discussed with surgery and will start TPN as patient has been nothing by mouth. Sodium is 132, calcium is 3.6, current creatinine is 0.81, magnesium is 2.3, blood sugars continue to be monitored. Will consult dietitian and have pharmacy to dose TPN. Patient does have an existing PICC line as he has been re ceiving IV antibiotics. 09/12/2020 Patient is seen today in follow-up status post walking the halls and continues to have no bowel function. Patient denies any gas passing in the ostomy and there is no stool noted. Patient was started on TPN and will continue at this time. Infectious disease along with surgery also following and patient is maintained on IV antibiotic therapy and will continue. Also encourage the patient to continue using incentive spirometer at least 10 times every hour wh ile awake. Patient currently maintained on 2 L of oxygen via nasal cannula. 09/13/2020 Patient is seen this morning continues to have no bowel activity noted in the ostomy with very minimal sluggish bowel sounds noted. Patient has been requesting IV pain medication stating his abdominal discomfort and chronic low back pain has worsened. Patient is maintained on TPN and will continue. Lovenox discontinued as patient's platelets are low. White blood count is 2.8 with a hemoglobin of 10.9, sodium is 133 with a potassium of 4.1 and current creatinine is 0.72. Patient continues on 2 L via nasal cannula and again reinforced the use of incentive spirometer at least 10 times every hour while awake. Will add Toradol. Vanco has been discontinued. Infectious disease is following. Review of systems: Constitutional: Reports of fatigue, no reports of fever, or chills Cardiovascular: No reports of chest pain or palpitations Respiratory: No reports of shortness of breath, reports cough with phlegm GI: No reports of nausea, vomiting, no reports of gas or stool in the ostomy noted : No reports of dysuria or retention Neurovascular: No reports of weakness or numbness All medications have been reviewed Objective - Vital Signs Vital signs: Vital Signs Temp 98.2 F 09/13/20 05:00 Pulse 77 09/13/20 05:00 Resp 16 09/13/20 05:00 BP 113/75 09/13/20 05:00 Pulse Ox 92 L 09/13/20 05:00 Intake & Output 09/12/20 09/13/20 09/13/20 18:59 06:59 18:59 Output Total 50 Balance -50 Weight 114.7 kg Output: Stool 50 Other: Voiding Method Urinal Urinal # Voids 4 - Exam GENERAL: The patient is alert and oriented x3, not in any acute distress. Obese HEENT: Pupils are round and equally reacting to light. EOMI. No scleral icterus. CARDIOVASCULAR: S1 and S2 present. No murmurs, rubs, or gallops. PULMONARY: Bilateral coarse breath sounds. no wheezing ABDOMEN: Soft, tenderness noted, surgical dressing midline is dry with dried blood noted nothing new and tenderness throughout with no stool or gas noted in the ostomy MUSCULOSKELETAL: No joint swelling or deformity. EXTREMITIES: No cyanosis, clubbing, or pedal edema. - Labs CBC & Chem 7: 09/13/20 08:15 09/13/20 08:15 Labs: Abnormal Lab Results - Last 24 Hours (Table) 09/12/20 09/12/20 09/12/20 Range/Units 07:10 11:35 17:17 WBC 4.44 L (4.50-10.00) X 10*3/uL RBC 3.67 L (4.40-5.60) X 10*6/uL Hgb 10.6 L (13.0-17.0) g/dL Hct 32.6 L (39.6-50.0) % Plt Count 47 L (140-440) X 10*3/uL Plt Count Comment DECREASED A POC Glucose (mg/dL) 161 H 178 H (75-99) mg/dL 09/13/20 09/13/20 Range/Units 00:01 05:58 WBC (4.50-10.00) X 10*3/uL RBC (4.40-5.60) X 10*6/uL Hgb (13.0-17.0) g/dL Hct (39.6-50.0) % Plt Count (140-440) X 10*3/uL Plt Count Comment POC Glucose (mg/dL) 191 H 169 H (75-99) mg/dL Assessment and Plan Assessment: Acute hypoxic respiratory failure secondary to Covid pneumonia. Patient is presently on 2 L of oxygen. Patient is maintained, zinc, vitamin supplements and will continue. Lovenox discontinued secondary to low platelets and will add SCDs Asthma, not in acute exacerbation Patient had a proctocolitis with an abscess for which patient received the CT- guided drainage and drains have been removed. Patient is maintained on IV a ntibiotics and infectious disease and surgery following. Patient is status post colostomy with no stool or gas noted. Patient maintained on TPN. Patient remains nothing by mouth Hyperlipidemia Obesity BMI - 37.5 GERD Plan: Continue with current medication regimen and IV antibiotic therapy. Infectious disease along with surgery following. Patient continues to have no bowel activity with no gas or stool noted and is maintained on TPN. Patient is also stating his chronic back pain is flaring up and continues to have abdominal discomfort and has been requesting IV Dilaudid. Will add Toradol and discussed with nursing staff about avoiding narcotics if possible. Encouraged increased activity as tolerated and the use of incentive spirometer. Platelets were decreased at 32 today and Lovenox discontinued. Vancomycin also discontinued.
[2020-09-13 16:46] LABS: Glucose,Whole Blood 175 mg/dL (75-99)
[2020-09-13] MEDS: KETOROLAC 15 MG/ML 1 ML VIAL IVP PRN ×2 (17:40→23:58)
[2020-09-13 21:31] LABS: Glucose,Whole Blood 157 mg/dL (75-99)
[2020-09-13] MEDS: CIPROFLOXACIN HCL 500 MG TAB PO SCH (21:47)
[2020-09-13] MEDS: UROXATRAL 10 MG PO SCH (21:47)
--- NOTE | 2020-09-13 23:05 | PN ---
PROGRESS NOTE DATE OF SERVICE: 09/13/2020 REASON FOR FOLLOWUP: Abdominal abscess from perforated diverticulitis. INTERVAL HISTORY: Patient is currently afebrile. The patient is breathing slightly comfortably. Denies having any chest pain or shortness of breath. Occasional cough. Abdominal pain is currently controlled. No nausea, no vomiting. No output in the colostomy bag. EXAMINATION: Blood pressure 129/70 with a pulse of 93, temperature 98. He is 92% 2 L nasal cannula. General description is a middle-aged male lying in bed in no distress. RESPIRATORY SYSTEM: Unlabored breathing. Decreased intensity of breath sounds. No wheeze. HEART: S1, S2. Regular rate and rhythm. ABDOMEN: Soft, no tenderness. No guarding. No rigidity. LABS: Hemoglobin is 10.3, white count 2.8. BUN of 10, creatinine 0.72. DIAGNOSTIC IMPRESSION AND PLAN: Patient with abdominal abscess, perforated diverticulitis status post CT-guided drainage followed by laparotomy and drainage of the abscess. Culture with Enterococcus faecalis, E coli and anaerobes, the patient now with significant drop in his platelets, could be either related to Rocephin or the vancomycin, both will be discontinued. Cipro oral will be added. Flagyl will be continued and we will monitor his clinical course closely. Continue supportive care. MMODL / IJN: [id number] / MTDD
[2020-09-14] MEDS: HYDROmorphone 1 MG/ML 1 ML SYRINGE IVP PRN (02:41)
[2020-09-14] MEDS: D5-0.45% NACL WITH KCL 20MEQ/L 1,000 ML IV SCH ×2 (03:38→07:51)
[2020-09-14] MEDS: guaiFENesin-Coden 100-10MG/5ML 10 ML CUP PO SCH ×5 (03:39→23:24)
[2020-09-14] MEDS: [UNRECOGNIZED DRUG - REMARK] IV SCH ×8 (04:00→15:44)
[2020-09-14] MEDS: BENZONATATE 100 MG CAP PO SCH ×3 (05:51→20:45)
[2020-09-14 05:53] LABS: African American GFR (CKD) >90 (>60 ml/min/1.73 sqM); Anion Gap 2 mmol/L; Blood Urea Nitrogen 11 mg/dL (9-20); Calcium 7.5 mg/dL (8.4-10.2); Carbon Dioxide 29 mmol/L (22-30); Chloride 101 mmol/L (98-107); Glucose 132 mg/dL (74-99); Non-African American GFR(CKD) >90 (>60 ml/min/1.73 sqM); Sodium 132 mmol/L (137-145)
[2020-09-14 05:54] LABS: Ionized Calcium 4.6 mg/dL (4.5-5.3)
[2020-09-14 05:58] LABS: Magnesium 2.1 mg/dL (1.6-2.3); Phosphorus 3.3 mg/dL (2.5-4.5); Potassium 3.6 mmol/L (3.5-5.1)
[2020-09-14 07:25] LABS: Glucose,Whole Blood 191 mg/dL (75-99)
[2020-09-14] MEDS: ALBUTEROL HFA INHALER INHALATION SCH ×4 (07:30→20:27)
[2020-09-14] MEDS: FAMOTIDINE 20 MG/2 ML VIAL IV SCH ×2 (07:42→20:47)
[2020-09-14] MEDS: PANTOPRAZOLE 40 MG/10 ML VIAL IVP SCH ×2 (07:42→20:48)
[2020-09-14] MEDS: ASCORBIC ACID 500 MG TAB PO SCH ×2 (07:43→20:46)
[2020-09-14] MEDS: CIPROFLOXACIN HCL 500 MG TAB PO SCH ×2 (07:43→20:47)
[2020-09-14] MEDS: metroNIDAZOLE 500 MG TAB PO SCH ×3 (07:44→23:24)
[2020-09-14] MEDS: NYSTATIN 100,000 UNIT/ML SUSP 500,000 UNIT/5 ML CUP PO SCH ×4 (07:44→20:48)
[2020-09-14] MEDS: CHOLECALCIFEROL 25 MCG (1000 IU) TABLET PO SCH (07:44)
[2020-09-14] MEDS: ZINC SULFATE 220 MG CAP PO SCH (07:44)
[2020-09-14] MEDS: DOCUSATE 100 MG CAP PO PRN (07:44)
[2020-09-14] MEDS: SENNOSIDES 8.6 MG TAB PO PRN (07:44)
[2020-09-14] MEDS: ATORVASTATIN 20 MG TAB PO SCH (07:44)
[2020-09-14] MEDS: INSULIN ASPART (NovoLOG) 100 UNIT/ML VIAL SQ SCH ×3 (07:44→17:07)
[2020-09-14] MEDS ORDERED: POTASSIUM CHLORIDE 20 MEQ in WATER FOR INJECTION 1 100ML.BAG IVPB ONE (09:00)
[2020-09-14 10:21] LABS: Basophils # (A) 0.02 X 10*3/uL (0.00-0.10); Basophils % (A) 0.6 %; Eosinophils # (A) 0.08 X 10*3/uL (0.04-0.35); Eosinophils % (A) 2.4 %; HGB 9.8 g/dL (13.0-17.0); Lymphocytes # (A) 0.43 X 10*3/uL (0.90-5.00); Lymphocytes % (A) 12.9 %; MCH 29.3 pg (27.0-32.0); MCHC 32.7 g/dL (32.0-37.0); MCV 89.8 fL (80.0-97.0); Mean Platelet Volume 12.1 fL (9.5-12.2); Monocytes # (A) 0.34 X 10*3/uL (0.20-1.00); Monocytes % (A) 10.2 %; Neutrophils % (A) 71.8 %; Platelet Count 62 X 10*3/uL (140-440); RBC 3.34 X 10*6/uL (4.40-5.60); RDW 13.2 % (11.5-14.5); WBC 3.34 X 10*3/uL (4.50-10.00)
[2020-09-14] MEDS: KETOROLAC 15 MG/ML 1 ML VIAL IVP PRN ×2 (10:31→16:34)
[2020-09-14] MEDS: HYDROcodone/APAP 7.5-325MG 1 EACH TAB PO PRN ×2 (11:26→20:46)
[2020-09-14] MEDS ORDERED: INSULIN ASPART (NovoLOG) 100 UNIT/ML VIAL SQ SCH (11:45)
[2020-09-14 11:53] LABS: Glucose,Whole Blood 153 mg/dL (75-99)
--- NOTE | 2020-09-14 13:40 | P.PN ---
Subjective Progress Note Date: 09/14/20 CHIEF COMPLAINT: Left lower quadrant abdominal pain HISTORY OF PRESENT ILLNESS: Patient is status post exploratory laparotomy, sigmoidectomy, and colostomy, drainage of pelvic abscess and appendectomy for perforated diverticulitis with abscess. Patient complaining of abdominal pain. He is now having air in his colostomy bag. ALFIE drain has pus discharge with foul odor. There was 170 mL output through the night. Due to the thrombocytopenia antibiotics were adjusted by ID. The discontinued Rocephin and vancomycin in place patient on Cipro. Lovenox was also discontinued due to the thrombocytopenia. Patient does have TPN for nutrition support. He was on a clear liquid diet. But he is still complaining of acid reflux like symptoms. Afebrile. WBC 3.3 for Hgb 9.8 platelets 62 ionized calcium 4.6 Patient seen and examined with Dr. maya PHYSICAL EXAM: VITAL SIGNS: Reviewed. GENERAL: Well-developed in no acute distress. HEENT: No sclera icterus. Extraocular movements grossly intact. Moist buccal mucosa. Head is atraumatic, normocephalic. Patient has evidence of oral thrush ABDOMEN: Soft. Nondistended. Incision site clean dry and intact. Ostomy pink. Sanguinous drainage and air in colostomy bag. ALFIE drain with pus output NEUROLOGIC: Alert and oriented. Cranial nerves II through XII grossly intact. ASSESSMENT: 1. Perforated sigmoid colon diverticulitis with abscess status post exploratory laparotomy, sigmoidectomy, and colostomy, drainage of pelvic abscess and ap pendectomy 2. Left lower quadrant abdominal pain secondary to perforated sigmoid colon diverticulitis with abscess 3. Constipation 4. Prior history of inguinal hernia repairs and umbilical hernia repair 5. Covid 19 pneumonia 6. Anxiety 7. Oral candidiasis 8. Dysphagia and GERD 9. Thrombocytopenia management per medicine service 10. Possible ileus PLAN: -Continue TPN for nutrition support -We'll downgrade diet nothing by mouth. Concerns for possible ileus -Continue supportive care -Encourage incentive spirometry use -Encourage patient to ambulate -GI prophylaxis Protonix -SCDs for DVT prophylaxis and encourage patient to ambulate frequently Physician Screen Writer note has been reviewed by physician. Signing provider agrees with the documented findings, assessment, and plan of care. Objective - Vital Signs Vital signs: Vital Signs Temp 99.1 F 09/14/20 05:57 Pulse 89 09/14/20 05:57 Resp 16 09/14/20 05:57 BP 124/78 09/14/20 05:57 Pulse Ox 94 L 09/14/20 05:57 Intake & Output 09/13/20 09/14/20 09/14/20 18:59 06:59 18:59 Intake Total 930 940 Output Total 845 870 Balance 85 -870 940 Weight 114.3 kg Intake: Intake, IV Titration 930 940 Amount D5-0.45% NaCl with KCl 160 20Meq/l 1,000 ml @ 20 mls /hr IV .Q24H [facility] Rx#: [id number] Fat Emulsion 20% 250 ml 250 In Empty Bag 1 bag @ 21 mls/hr IV MoWeFr [facility] Rx#: [id number] Potassium Chloride 20 meq 100 In Water For Injection 1 100ml.bag @ 50 mls/hr IVPB ONCE ONE Rx#: [id number] Sodium Acetate 14 meq In 680 680 Amino Acid 5%-D20w+Lytes* E* 1,000 ml @ 85 mls/hr IV .BY DURATION [facility] Rx#: [id number] Output: Drainage 20 170 Right Abdomen 20 170 Urine 825 700 Other: Voiding Method Urinal # Voids 3 - Labs CBC & Chem 7: 09/14/20 04:42 09/14/20 04:42 Labs: Abnormal Lab Results - Last 24 Hours (Table) 09/13/20 09/13/20 09/14/20 Range/Units 16:43 21:29 04:42 WBC (4.50-10.00) X 10*3/uL RBC (4.40-5.60) X 10*6/uL Hgb (13.0-17.0) g/dL Hct (39.6-50.0) % Plt Count (140-440) X 10*3/uL Plt Count Comment Absolute Nucleated RBC (0.00-0.00) X 10*3/uL Immature Gran # (0.00-0.04) X 10*3/uL Lymphocytes # (0.90-5.00) X 10*3/uL NRBC/100 WBC Diff (0.0-0.0) /100 WBCS Sodium 132 L (137-145) mmol/L Glucose 132 H (74-99) mg/dL POC Glucose (mg/dL) 175 H 157 H (75-99) mg/dL Calcium 7.5 L (8.4-10.2) mg/dL 09/14/20 09/14/20 09/14/20 Range/Units 04:42 07:23 11:50 WBC 3.34 L (4.50-10.00) X 10*3/uL RBC 3.34 L (4.40-5.60) X 10*6/uL Hgb 9.8 L (13.0-17.0) g/dL Hct 30.0 L (39.6-50.0) % Plt Count 62 L (140-440) X 10*3/uL Plt Count Comment DECREASED A Absolute Nucleated RBC 0.03 H (0.00-0.00) X 10*3/uL Immature Gran # 0.07 H (0.00-0.04) X 10*3/uL Lymphocytes # 0.43 L (0.90-5.00) X 10*3/uL NRBC/100 WBC Diff 0.9 H (0.0-0.0) /100 WBCS Sodium (137-145) mmol/L Glucose (74-99) mg/dL POC Glucose (mg/dL) 191 H 153 H (75-99) mg/dL Calcium (8.4-10.2) mg/dL
--- NOTE | 2020-09-14 15:23 | P.PN ---
Subjective Progress Note Date: 09/14/20 COVID Pneumonia Mr. Maldonado is a 55-year-old with a past medical history of asthma, hyperlipidemia who was recently diagnosed with Covid infection, placed on prednisone and doxycycline by his primary care physician coming in with difficulty in breathing. Patient was also seen in the emergency department recently and received an infusion of BAM. On 08/28/2020 -patient was seen and examined at the bedside. He appears to be in no acute distress. He states that he is still short of breath with minimal activity, still requiring 5 L of oxygen. Patient denies having any fevers chills or rigors. No sputum production. No chest pain. On reviewing his vitals afebrile for the past 24 hours, blood pressure 127 x 77 heart rate in the 60s to 70s. On reviewing the labs, no new labs from this morning. Patient's last chest x-ray was done yesterday showing worsening bilateral lung infiltrates. Pulmonary on board and following the patient closely. On 08/29/2020 -patient is seen and examined at bedside. He states that he still has difficulty in breathing with minimal activity and saturating at 90% on 8 L of high flow nasal cannula. Patient denied having any fevers chills or rigors. Complains of ongoing cough, that is dry in nature nonproductive. He denies having any chest pain or palpitations. Nominal pain nausea vomiting or diarrhea. No dysuria or hematuria. On reviewing his vitals T-max of 98.7, heart rate 76, respiratory rate 18, blood pressure 127 x 61. Reviewing labs from this morning white count of 16.2, hemoglobin 14.2, platelets 237. Sodium 140, potassium 4.3, chloride 102, bicarb 26, BUN 22, creatinine 1.0 LDH 330, C- reactive protein 1.3. On 08/30/2020 - -patient is seen and examined at bedside. Is comfortably sitting up in a chair by the bedside. Patient is still requiring 5 L of oxygen. He complains of ongoing cough mostly dry in nature. Patient denies having any fevers chills or rigors. Patient denies having any abdominal pain nausea vomiting or diarrhea. No dysuria or hematuria. On reviewing his vitals T-max of 98.4, heart rate 60 to 70s, respiratory rate 16, blood pressure 131 x 51. On reviewing his labs white count of 15.5, hemoglobin 13.2, platelets 212. D-dimer 1.23, sodium 139, potassium 4.1, chloride 104, bicarb 26, BUN 23, creatinine 1.0 C-reactive protein 2, lactate dehydrogenase 288, ferritin 582. On 08/31/2020 -patient was seen and examined at bedside. He is comfortably sitting up in chair by the bedside. He is still requiring 5 to 6 L of oxygen to maintain saturations above 90%. Patient states that he still continues to have cough mostly dry and also that he is short of breath walking from bed to the bathroom. He denies having any fevers chills or rigors. No abdominal pain nausea vomiting or diarrhea. No dysuria or hematuria. He denies having any swelling of his lower extremities. On reviewing his vitals temperature of 98.4, heart rate 50s to 70s, respiratory rate below 15, saturating at 90% on 5 L of oxygen via nasal cannula. On reviewing his labs D-dimer is 1.07 LDH 748, CRP 43.1. On 09/01/2020 --patient is seen and examined at bedside. He is lying comfortably in bed appears to be in no acute distress. Patient complains of pain in the lower abdomen. He states that he has hernia repair done and has a mesh repair done. He states that he has been coughing and his lower abdomen has been hurting. Patient was constipated yesterday, had 2 bowel movements yesterday. He states that he did not have a bowel movement and is not passing gas now. Patient denies having any nausea or vomiting. He still has ongoing cough, bouts of coughing episodes that is making him dyspneic. He denies having any fevers chills or rigors. No dysuria or hematuria. On reviewing his vitals temperature of 98.4, heart rate 96, respiratory rate 18 blood pressure 122/69 saturating at 90% on 4 L of nasal cannula. On reviewing his labs white count of 20.6, hemoglobin 14.5, platelets 204. D-dimer 1.26. Sodium 140, potassium 4.4, chloride 103, bicarb 29, BUN 23, creatinine 1.0. LDH 616, CRP 52. On 09/02/2020 -patient seen and examined at bedside. He is comfortably sitting up in a chair by the bedside. He complains of lower abdominal soreness secondary to coughing. He states that Toradol helps him with his lower abdominal soreness. Patient denies having any chest pain or palpitations. He continues to have cough, usually in bouts. Nonproductive. He denies having any fevers chills or rigors. No dysuria or hematuria. Reviewing his vitals temperature of 98.8, heart rate 71, respiratory rate 18, blood pressure 113/59, saturating at 90% on 3-4 L of oxygen. On reviewing his labs white count of 13.1, hemoglobin 13.5, platelets 159. Sodium 139, potassium 4.2, chloride 104, bicarb 27, BUN 24, creatinine 0.9. CRP 15.6 LDH 284. On 09/03/2020 -patient was seen and examined at bedside. He is comfortable, saturating about 90 % on 2 L of nasal cannula. Still complains of ongoing cough and congestion. Toradol helping with abdominal soreness and chest wall pain. His vitals temperature 99, heart rate 78, respiratory 20, blood pressure 140/69. Reviewing his labs D-dimer 2.49, LDH 298, CRP 12.9. 09/04/2020 Patient is seen and evaluated in follow-up continues to be on 2 L of oxygen via nasal cannula and denies any worsening shortness of breath. Patient does have dyspnea with exertion with cough and phlegm production. Continues to have abdominal discomfort and states it has worsened on the lower left side. Surgery has been consulted and pending. Patient underwent CT abdomen today. White b lood count slightly elevated at 12.6, and hemoglobin is stable at 12.9. Platelets slightly low at 139 although improved from yesterday. Will repeat a.m. labs patient will be nothing by mouth until surgery has evaluated 09/05/2020 patient's abdominal drain is still draining. Leukocytosis improving. Patient was anxious disease and oxygen therapy the most. We will add Toradol for his pain. Patient is a still on 6 L of oxygen at this time. Patient is passing gas did have a small bowel movement as well. 09/06/2020 Patient is seen and evaluated in follow-up this morning with continued anxiety and states he feels he is having slight hallucinations with Xanax and does take Ativan at home for anxiety and will change to this. Patient continues with an abdominal drain which continues to drain purulent discharge. Patient is maintained on IV antibiotics and infectious disease consulted. Per surgery patient will likely require IV antibiotic therapy in the outpatient setting. Patient is scheduled to have a PICC line placed. Patient is currently on 6 L of oxygen and discuss with nursing staff about weaning as tolerated. Instructed the patient increase activity and use incentive spirometer at least 10 times every hour while awake. White blood count is within normal limits at 9.5 and hemoglobin is stable at 13.2. Sodium is 138 with a potassium of 4.3 and current creatinine is 0.9. 09/07/2020 Patient is seen in follow-up this morning currently sitting up in the chair on room air and denies any worsening shortness of breath. Documentation shows he is still on 6 L high flow although patient states he has not been wearing the oxygen all morning. Patient is maintained on clear liquids and states he is having difficulty with thin liquids and with his pills and states he is able to swallow them but they are getting stuck in the epigastrium area and states "something is not right". Surgery is following and discuss with them and repeat CT abdomen is ordered and pending. Patient has continued purulent drainage noted in the abdominal drain. Patient is receiving a PICC line today as well as he will be requiring outpatient IV antibiotic therapy. CBC within normal li mits, sodium is 134, potassium is 4.5, current creatinine is 0.79. Will await CT results and possibly order a modified barium swallow. Patient was started on nystatin swish and spit with the possibility of oral thrush. 09/08/2020 Patient is seen this morning continues to have a feeling of abdominal fullness and difficulty with swallowing. Patient underwent CT abdomen yesterday showing abscess has drained. Surgery is following. Patient also received PICC line and will be requiring IV antibiotic therapy once stabilized and discharged. Infectious disease is following. Patient underwent barium swallow and per speech therapy had no difficulties in swallowing and recommending consult to GI for possible esophagram or EGD. Surgery is following and planning on surgical intervention and will await report. Patient is weaning oxygen as tolerated and currently maintained on 4 L via nasal cannula. 09/09/2020 Patient had a laparotomy to have 2 large abscesses and patient underwent the abscess drainage along with colectomy with a colostomy bag. Patient is coming of soreness in that area patient is still complaining of dysphagia although no further intervention is being planned all the workup for dysphagia is is negative at this time. Patient may have some nausea and his dysphagia is a psychosomatic in nature. 09/10/2020 Patient feels bit better today not passing gas yet 09/11/2020 Patient is seen today continues to have no gas or stool output noted in the ostomy and discussed with surgery and will start TPN as patient has been nothing by mouth. Sodium is 132, calcium is 3.6, current creatinine is 0.81, magnesium is 2.3, blood sugars continue to be monitored. Will consult dietitian and have pharmacy to dose TPN. Patient does have an existing PICC line as he has been re ceiving IV antibiotics. 09/12/2020 Patient is seen today in follow-up status post walking the halls and continues to have no bowel function. Patient denies any gas passing in the ostomy and there is no stool noted. Patient was started on TPN and will continue at this time. Infectious disease along with surgery also following and patient is maintained on IV antibiotic therapy and will continue. Also encourage the patient to continue using incentive spirometer at least 10 times every hour wh ile awake. Patient currently maintained on 2 L of oxygen via nasal cannula. 09/13/2020 Patient is seen this morning continues to have no bowel activity noted in the ostomy with very minimal sluggish bowel sounds noted. Patient has been requesting IV pain medication stating his abdominal discomfort and chronic low back pain has worsened. Patient is maintained on TPN and will continue. Lovenox discontinued as patient's platelets are low. White blood count is 2.8 with a hemoglobin of 10.9, sodium is 133 with a potassium of 4.1 and current creatinine is 0.72. Patient continues on 2 L via nasal cannula and again reinforced the use of incentive spirometer at least 10 times every hour while awake. Will add Toradol. Vanco has been discontinued. Infectious disease is following. 09/14/2020 Patient is seen and evaluated this morning along with surgery at the bedside and continued no bowel activity in the ostomy although some gas is noted with no stool. Patient continues to state that liquids are not being tolerated and is having acid reflux and indigestion and burping liquids back up. Patient will be continued on nothing by mouth except for occasional ice chips. Instructed and encouraged to continue using incentive spirometer as he is continued on 2 L of oxygen and also encouraged to increase activity and walk multiple times daily. Platelets trending up and antibiotics have been changed per infectious disease. Lovenox has been discontinued. Review of systems: Constitutional: Reports of fatigue, no reports of fever, or chills Cardiovascular: No reports of chest pain or palpitations Respiratory: No reports of shortness of breath, reports cough with phlegm GI: No reports of nausea, vomiting, reports gas with no stool in the ostomy, reports acid reflux and indigestion and regurgitation of liquids : No reports of dysuria or retention Neurovascular: No reports of weakness or numbness All medications have been reviewed Objective - Vital Signs Vital signs: Vital Signs Temp 99.1 F 09/14/20 05:57 Pulse 89 09/14/20 05:57 Resp 16 09/14/20 05:57 BP 124/78 09/14/20 05:57 Pulse Ox 94 L 09/14/20 05:57 Intake & Output 09/13/20 09/14/20 09/14/20 18:59 06:59 18:59 Intake Total 930 Output Total 845 870 Balance 85 -870 Weight 114.3 kg Intake: Intake, IV Titration 930 Amount Fat Emulsion 20% 250 ml 250 In Empty Bag 1 bag @ 21 mls/hr IV MoWeFr [facility] Rx#: [id number] Sodium Acetate 14 meq In 680 Amino Acid 5%-D20w+Lytes* E* 1,000 ml @ 85 mls/hr IV .BY DURATION [facility] Rx#: [id number] Output: Drainage 20 170 Right Abdomen 20 170 Urine 825 700 Other: Voiding Method Urinal # Voids 3 - Exam GENERAL: The patient is alert and oriented x3, not in any acute distress. Obese HEENT: Pupils are round and equally reacting to light. EOMI. No scleral icterus. CARDIOVASCULAR: S1 and S2 present. No murmurs, rubs, or gallops. PULMONARY: Bilateral coarse breath sounds. no wheezing or rhonchi noted ABDOMEN: Soft, tenderness noted, surgical dressing midline is dry, as noted in the ostomy with no stool output as of yet MUSCULOSKELETAL: No joint swelling or deformity. EXTREMITIES: No cyanosis, clubbing, or pedal edema. - Labs CBC & Chem 7: 09/14/20 04:42 09/14/20 04:42 Labs: Abnormal Lab Results - Last 24 Hours (Table) 09/13/20 09/13/20 09/13/20 Range/Units 11:41 16:43 21:29 Sodium (137-145) mmol/L Glucose (74-99) mg/dL POC Glucose (mg/dL) 142 H 175 H 157 H (75-99) mg/dL Calcium (8.4-10.2) mg/dL 09/14/20 09/14/20 Range/Units 04:42 07:23 Sodium 132 L (137-145) mmol/L Glucose 132 H (74-99) mg/dL POC Glucose (mg/dL) 191 H (75-99) mg/dL Calcium 7.5 L (8.4-10.2) mg/dL Assessment and Plan Assessment: Acute hypoxic respiratory failure secondary to Covid pneumonia. Patient is presently on 2 L of oxygen. Patient is maintained, zinc, vitamin supplements and will continue. Asthma, not in acute exacerbation Patient had a proctocolitis with an abscess for which patient received the CT- guided drainage and drains have been removed. Patient is maintained on IV antibiotics and infectious disease and surgery following. Patient is status post colostomy with no stool or gas noted. Patient maintained on TPN. Patient remains nothing by mouth Hyperlipidemia Obesity BMI - 37.5 GERD DVT prophylaxis: Early ambulation, SCDs, Lovenox discontinued secondary to low platelets Plan: Continue with current medication regimen and antibiotic therapy. Infectious disease along with surgery following. Patient continues to have no stool noted in the ostomy although some small amounts of gas is noted on exam. Patient continues to have regurgitation and intolerance to liquids and will downgrade diet to nothing by mouth with occasional ice chips. maintained on TPN will continue at this time. Encouraged increased activity as tolerated and the use of incentive spirometer. Platelets have improved and will continue to monitor closely.
[2020-09-14 15:52] VITALS: BMI 36.1
[2020-09-14 17:00] LABS: Glucose,Whole Blood 172 mg/dL (75-99)
--- NOTE | 2020-09-14 19:01 | PN ---
PROGRESS NOTE DATE OF SERVICE: 09/14/2020 REASON FOR FOLLOWUP: Abdominal abscess from perforated diverticulitis. INTERVAL HISTORY: The patient is currently afebrile. The patient denies having any chest pain. Breathing comfortably. Has been complaining of some abdominal pain and has been concerned about drainage through the ALFIE. Did have output in his colostomy bag. PHYSICAL EXAMINATION: Blood pressure 127/72 with a pulse of 73, temperature 98.6. He is 94% on 2 L nasal cannula. General description is a middle-aged male lying in bed in no distress. RESPIRATORY SYSTEM: Unlabored breathing with decreased intensity of breath sounds. No wheeze. HEART: S1, S2. Regular rate and rhythm. ABDOMEN: Soft. Mildly distended. No guarding or rigidity. Incision is currently intact. LABS: Hemoglobin is 9.8, white count 3.34. Platelet count did come up to 62. Creatinine 0.69. DIAGNOSTIC IMPRESSION AND PLAN: Patient with abdominal abscess from perforated diverticulitis, status post initial CT- guided drainage followed by laparotomy, drainage of the abscess and diverting colostomy. Culture with Enterococcus faecalis, Escherichia coli and anaerobes. The patient did develop significant thrombocytopenia secondary to the cefepime and vancomycin, which has been discontinued. Currently on Cipro and Flagyl. We will monitor his clinical course closely. Repeat CBC tomorrow along with CRP and continue with supportive care. MMODL / IJN: [id number] / MTDD
[2020-09-14] MEDS: UROXATRAL 10 MG PO SCH (20:45)
[2020-09-14] MEDS: LORazepam 1 MG TAB PO PRN (23:24)
[2020-09-15 00:29] LABS: Glucose,Whole Blood 184 mg/dL (75-99)
[2020-09-15] MEDS: INSULIN ASPART (NovoLOG) 100 UNIT/ML VIAL SQ SCH ×4 (00:52→17:04)
[2020-09-15] MEDS: [UNRECOGNIZED DRUG - REMARK] IV SCH ×8 (05:39→13:52)
[2020-09-15] MEDS: BENZONATATE 100 MG CAP PO SCH ×3 (05:39→22:14)
[2020-09-15] MEDS: guaiFENesin-Coden 100-10MG/5ML 10 ML CUP PO SCH ×4 (05:40→23:45)
[2020-09-15] MEDS: KETOROLAC 15 MG/ML 1 ML VIAL IVP PRN ×4 (05:40→22:33)
[2020-09-15 06:37] LABS: African American GFR (CKD) >90 (>60 ml/min/1.73 sqM); Anion Gap 4 mmol/L; Blood Urea Nitrogen 14 mg/dL (9-20); Calcium 7.7 mg/dL (8.4-10.2); Carbon Dioxide 32 mmol/L (22-30); Chloride 99 mmol/L (98-107); Glucose 117 mg/dL (74-99); Magnesium 2.3 mg/dL (1.6-2.3); Non-African American GFR(CKD) >90 (>60 ml/min/1.73 sqM); Potassium 3.6 mmol/L (3.5-5.1); Sodium 135 mmol/L (137-145)
[2020-09-15 06:45] LABS: Glucose,Whole Blood 168 mg/dL (75-99)
[2020-09-15] MEDS: NYSTATIN 100,000 UNIT/ML SUSP 500,000 UNIT/5 ML CUP PO SCH ×4 (07:39→22:07)
[2020-09-15] MEDS: SENNOSIDES 8.6 MG TAB PO PRN (07:39)
[2020-09-15] MEDS: ZINC SULFATE 220 MG CAP PO SCH (07:39)
[2020-09-15] MEDS: CHOLECALCIFEROL 25 MCG (1000 IU) TABLET PO SCH (07:39)
[2020-09-15] MEDS: CIPROFLOXACIN HCL 500 MG TAB PO SCH ×2 (07:39→22:07)
[2020-09-15] MEDS: ASCORBIC ACID 500 MG TAB PO SCH ×2 (07:39→21:30)
[2020-09-15] MEDS: FAMOTIDINE 20 MG/2 ML VIAL IV SCH ×2 (07:39→21:53)
[2020-09-15] MEDS: DOCUSATE 100 MG CAP PO PRN (07:39)
[2020-09-15] MEDS: PANTOPRAZOLE 40 MG/10 ML VIAL IVP SCH ×2 (07:39→21:54)
[2020-09-15] MEDS: D5-0.45% NACL WITH KCL 20MEQ/L 1,000 ML IV SCH (07:40)
[2020-09-15] MEDS: ATORVASTATIN 20 MG TAB PO SCH (07:40)
[2020-09-15] MEDS: metroNIDAZOLE 500 MG TAB PO SCH ×3 (07:40→22:07)
[2020-09-15] MEDS: ALBUTEROL HFA INHALER INHALATION SCH ×4 (08:12→19:24)
[2020-09-15] MEDS ORDERED: POTASSIUM CHLORIDE 20 MEQ in WATER FOR INJECTION 1 100ML.BAG IVPB ONE (10:00)
[2020-09-15] MEDS: FAT EMULSION 20% 250 ML in EMPTY BAG 1 BAG IV SCH (10:57)
[2020-09-15] MEDS: LORazepam 1 MG TAB PO PRN ×2 (11:01→22:20)
[2020-09-15 11:41] LABS: Glucose,Whole Blood 176 mg/dL (75-99)
[2020-09-15] MEDS: SODIUM CHLORIDE 0.9% 1,000 ML IV SCH (12:04)
--- NOTE | 2020-09-15 13:33 | P.PN ---
Subjective Progress Note Date: 09/15/20 CHIEF COMPLAINT: Left lower quadrant abdominal pain HISTORY OF PRESENT ILLNESS: Patient is status post exploratory laparotomy, sigmoidectomy, and colostomy, drainage of pelvic abscess and appendectomy for perforated diverticulitis with abscess. Patient reports that he is feeling good today. His pain is controlled. He denies any nausea or vomiting. He is having air in his colostomy bag. No stool. ALFIE drain with 150 mL purulent drainage he is currently on TPN. Afebrile. CBC pending creatinine 0.74 Due to the thrombocytopenia antibiotics were adjusted by ID. Lovenox was also discontinued due to the thrombocytopenia. Patient has been ambulating. Patient seen and examined with Dr. maya PHYSICAL EXAM: VITAL SIGNS: Reviewed. GENERAL: Well-developed in no acute distress. HEENT: No sclera icterus. Extraocular movements grossly intact. Moist buccal mucosa. Head is atraumatic, normocephalic. Patient has evidence of oral thrush ABDOMEN: Soft. Nondistended. Incision site clean dry and intact. Ostomy pink. Sanguinous drainage and air in colostomy bag. ALFIE drain with purulent output NEUROLOGIC: Alert and oriented. Cranial nerves II through XII grossly intact. ASSESSMENT: 1. Perforated sigmoid colon diverticulitis with abscess status post exploratory laparotomy, sigmoidectomy, and colostomy, drainage of pelvic abscess and appendectomy 2. Left lower quadrant abdominal pain secondary to perforated sigmoid colon diverticulitis with abscess 3. Constipation 4. Prior history of inguinal hernia repairs and umbilical hernia repair 5. Covid 19 pneumonia 6. Anxiety 7. Oral candidiasis 8. Dysphagia and GERD 9. Thrombocytopenia management per medicine service 10. Possible ileus PLAN: -Advance diet to clear liquids -Continue TPN for nutrition support -Continue supportive care -Encourage incentive spirometry use -Encourage patient to ambulate -GI prophylaxis Protonix -SCDs for DVT prophylaxis and encourage patient to ambulate frequently Physician Business Administrator note has been reviewed by physician. Signing provider agrees with the documented findings, assessment, and plan of care. Objective - Vital Signs Vital signs: Vital Signs Temp 98.5 F 09/15/20 10:03 Pulse 86 09/15/20 10:03 Resp 16 09/15/20 10:03 BP 140/78 09/15/20 10:03 Pulse Ox 93 L 09/15/20 10:03 Intake & Output 09/14/20 09/15/20 09/15/20 18:59 06:59 18:59 Intake Total 1947 1190 Output Total 70 650 Balance 1877 -650 1190 Weight 114.3 kg 114.2 kg Intake: IV 680 Sodium Acetate 14 meq In 680 Amino Acid 5%-D20w+Lytes* E* 1,000 ml @ 85 mls/hr IV .BY DURATION [facility] Rx#: [id number] Intake, IV Titration 1947 510 Amount D5-0.45% NaCl with KCl 160 20Meq/l 1,000 ml @ 20 mls /hr IV .Q24H [facility] Rx#: [id number] Fat Emulsion 20% 250 ml 250 In Empty Bag 1 bag @ 21 mls/hr IV MoWeFr [facility] Rx#: [id number] Potassium Chloride 20 meq 100 In Water For Injection 1 100ml.bag @ 50 mls/hr IVPB ONCE ONE Rx#: [id number] Potassium Chloride 20 meq 100 In Water For Injection 1 100ml.bag @ 50 mls/hr IVPB ONCE ONE Rx#: [id number] Sodium Acetate 14 meq In 1687 Amino Acid 5%-D20w+Lytes* E* 1,000 ml @ 85 mls/hr IV .BY DURATION [facility] Rx#: [id number] Sodium Chloride 0.9% 1, 160 000 ml @ 20 mls/hr IV . Q24H [facility] Rx#:[id number] Output: Drainage 70 100 Right Abdomen 70 100 Urine 500 Stool 50 Other: Voiding Method Urinal - Labs CBC & Chem 7: 09/14/20 04:42 09/15/20 05:28 Labs: Abnormal Lab Results - Last 24 Hours (Table) 09/14/20 09/15/20 09/15/20 Range/Units 16:55 00:28 05:28 Sodium 135 L (137-145) mmol/L Carbon Dioxide 32 H (22-30) mmol/L Glucose 117 H (74-99) mg/dL POC Glucose (mg/dL) 172 H 184 H (75-99) mg/dL Calcium 7.7 L (8.4-10.2) mg/dL 09/15/20 09/15/20 Range/Units 06:44 11:38 Sodium (137-145) mmol/L Carbon Dioxide (22-30) mmol/L Glucose (74-99) mg/dL POC Glucose (mg/dL) 168 H 176 H (75-99) mg/dL Calcium (8.4-10.2) mg/dL
--- NOTE | 2020-09-15 14:19 | P.PN ---
Subjective Progress Note Date: 09/15/20 COVID Pneumonia Mr. Maldonado is a 55-year-old with a past medical history of asthma, hyperlipidemia who was recently diagnosed with Covid infection, placed on prednisone and doxycycline by his primary care physician coming in with difficulty in breathing. Patient was also seen in the emergency department recently and received an infusion of BAM. On 08/28/2020 -patient was seen and examined at the bedside. He appears to be in no acute distress. He states that he is still short of breath with minimal activity, still requiring 5 L of oxygen. Patient denies having any fevers chills or rigors. No sputum production. No chest pain. On reviewing his vitals afebrile for the past 24 hours, blood pressure 127 x 77 heart rate in the 60s to 70s. On reviewing the labs, no new labs from this morning. Patient's last chest x-ray was done yesterday showing worsening bilateral lung infiltrates. Pulmonary on board and following the patient closely. On 08/29/2020 -patient is seen and examined at bedside. He states that he still has difficulty in breathing with minimal activity and saturating at 90% on 8 L of high flow nasal cannula. Patient denied having any fevers chills or rigors. Complains of ongoing cough, that is dry in nature nonproductive. He denies having any chest pain or palpitations. Nominal pain nausea vomiting or diarrhea. No dysuria or hematuria. On reviewing his vitals T-max of 98.7, heart rate 76, respiratory rate 18, blood pressure 127 x 61. Reviewing labs from this morning white count of 16.2, hemoglobin 14.2, platelets 237. Sodium 140, potassium 4.3, chloride 102, bicarb 26, BUN 22, creatinine 1.0 LDH 330, C- reactive protein 1.3. On 08/30/2020 - -patient is seen and examined at bedside. Is comfortably sitting up in a chair by the bedside. Patient is still requiring 5 L of oxygen. He complains of ongoing cough mostly dry in nature. Patient denies having any fevers chills or rigors. Patient denies having any abdominal pain nausea vomiting or diarrhea. No dysuria or hematuria. On reviewing his vitals T-max of 98.4, heart rate 60 to 70s, respiratory rate 16, blood pressure 131 x 51. On reviewing his labs white count of 15.5, hemoglobin 13.2, platelets 212. D-dimer 1.23, sodium 139, potassium 4.1, chloride 104, bicarb 26, BUN 23, creatinine 1.0 C-reactive protein 2, lactate dehydrogenase 288, ferritin 582. On 08/31/2020 -patient was seen and examined at bedside. He is comfortably sitting up in chair by the bedside. He is still requiring 5 to 6 L of oxygen to maintain saturations above 90%. Patient states that he still continues to have cough mostly dry and also that he is short of breath walking from bed to the bathroom. He denies having any fevers chills or rigors. No abdominal pain nausea vomiting or diarrhea. No dysuria or hematuria. He denies having any swelling of his lower extremities. On reviewing his vitals temperature of 98.4, heart rate 50s to 70s, respiratory rate below 15, saturating at 90% on 5 L of oxygen via nasal cannula. On reviewing his labs D-dimer is 1.07 LDH 748, CRP 43.1. On 09/01/2020 --patient is seen and examined at bedside. He is lying comfortably in bed appears to be in no acute distress. Patient complains of pain in the lower abdomen. He states that he has hernia repair done and has a mesh repair done. He states that he has been coughing and his lower abdomen has been hurting. Patient was constipated yesterday, had 2 bowel movements yesterday. He states that he did not have a bowel movement and is not passing gas now. Patient denies having any nausea or vomiting. He still has ongoing cough, bouts of coughing episodes that is making him dyspneic. He denies having any fevers chills or rigors. No dysuria or hematuria. On reviewing his vitals temperature of 98.4, heart rate 96, respiratory rate 18 blood pressure 122/69 saturating at 90% on 4 L of nasal cannula. On reviewing his labs white count of 20.6, hemoglobin 14.5, platelets 204. D-dimer 1.26. Sodium 140, potassium 4.4, chloride 103, bicarb 29, BUN 23, creatinine 1.0. LDH 616, CRP 52. On 09/02/2020 -patient seen and examined at bedside. He is comfortably sitting up in a chair by the bedside. He complains of lower abdominal soreness secondary to coughing. He states that Toradol helps him with his lower abdominal soreness. Patient denies having any chest pain or palpitations. He continues to have cough, usually in bouts. Nonproductive. He denies having any fevers chills or rigors. No dysuria or hematuria. Reviewing his vitals temperature of 98.8, heart rate 71, respiratory rate 18, blood pressure 113/59, saturating at 90% on 3-4 L of oxygen. On reviewing his labs white count of 13.1, hemoglobin 13.5, platelets 159. Sodium 139, potassium 4.2, chloride 104, bicarb 27, BUN 24, creatinine 0.9. CRP 15.6 LDH 284. On 09/03/2020 -patient was seen and examined at bedside. He is comfortable, saturating about 90 % on 2 L of nasal cannula. Still complains of ongoing cough and congestion. Toradol helping with abdominal soreness and chest wall pain. His vitals temperature 99, heart rate 78, respiratory 20, blood pressure 140/69. Reviewing his labs D-dimer 2.49, LDH 298, CRP 12.9. 09/04/2020 Patient is seen and evaluated in follow-up continues to be on 2 L of oxygen via nasal cannula and denies any worsening shortness of breath. Patient does have dyspnea with exertion with cough and phlegm production. Continues to have abdominal discomfort and states it has worsened on the lower left side. Surgery has been consulted and pending. Patient underwent CT abdomen today. White b lood count slightly elevated at 12.6, and hemoglobin is stable at 12.9. Platelets slightly low at 139 although improved from yesterday. Will repeat a.m. labs patient will be nothing by mouth until surgery has evaluated 09/05/2020 patient's abdominal drain is still draining. Leukocytosis improving. Patient was anxious disease and oxygen therapy the most. We will add Toradol for his pain. Patient is a still on 6 L of oxygen at this time. Patient is passing gas did have a small bowel movement as well. 09/06/2020 Patient is seen and evaluated in follow-up this morning with continued anxiety and states he feels he is having slight hallucinations with Xanax and does take Ativan at home for anxiety and will change to this. Patient continues with an abdominal drain which continues to drain purulent discharge. Patient is maintained on IV antibiotics and infectious disease consulted. Per surgery patient will likely require IV antibiotic therapy in the outpatient setting. Patient is scheduled to have a PICC line placed. Patient is currently on 6 L of oxygen and discuss with nursing staff about weaning as tolerated. Instructed the patient increase activity and use incentive spirometer at least 10 times every hour while awake. White blood count is within normal limits at 9.5 and hemoglobin is stable at 13.2. Sodium is 138 with a potassium of 4.3 and current creatinine is 0.9. 09/07/2020 Patient is seen in follow-up this morning currently sitting up in the chair on room air and denies any worsening shortness of breath. Documentation shows he is still on 6 L high flow although patient states he has not been wearing the oxygen all morning. Patient is maintained on clear liquids and states he is having difficulty with thin liquids and with his pills and states he is able to swallow them but they are getting stuck in the epigastrium area and states "something is not right". Surgery is following and discuss with them and repeat CT abdomen is ordered and pending. Patient has continued purulent drainage noted in the abdominal drain. Patient is receiving a PICC line today as well as he will be requiring outpatient IV antibiotic therapy. CBC within normal li mits, sodium is 134, potassium is 4.5, current creatinine is 0.79. Will await CT results and possibly order a modified barium swallow. Patient was started on nystatin swish and spit with the possibility of oral thrush. 09/08/2020 Patient is seen this morning continues to have a feeling of abdominal fullness and difficulty with swallowing. Patient underwent CT abdomen yesterday showing abscess has drained. Surgery is following. Patient also received PICC line and will be requiring IV antibiotic therapy once stabilized and discharged. Infectious disease is following. Patient underwent barium swallow and per speech therapy had no difficulties in swallowing and recommending consult to GI for possible esophagram or EGD. Surgery is following and planning on surgical intervention and will await report. Patient is weaning oxygen as tolerated and currently maintained on 4 L via nasal cannula. 09/09/2020 Patient had a laparotomy to have 2 large abscesses and patient underwent the abscess drainage along with colectomy with a colostomy bag. Patient is coming of soreness in that area patient is still complaining of dysphagia although no further intervention is being planned all the workup for dysphagia is is negative at this time. Patient may have some nausea and his dysphagia is a psychosomatic in nature. 09/10/2020 Patient feels bit better today not passing gas yet 09/11/2020 Patient is seen today continues to have no gas or stool output noted in the ostomy and discussed with surgery and will start TPN as patient has been nothing by mouth. Sodium is 132, calcium is 3.6, current creatinine is 0.81, magnesium is 2.3, blood sugars continue to be monitored. Will consult dietitian and have pharmacy to dose TPN. Patient does have an existing PICC line as he has been re ceiving IV antibiotics. 09/12/2020 Patient is seen today in follow-up status post walking the halls and continues to have no bowel function. Patient denies any gas passing in the ostomy and there is no stool noted. Patient was started on TPN and will continue at this time. Infectious disease along with surgery also following and patient is maintained on IV antibiotic therapy and will continue. Also encourage the patient to continue using incentive spirometer at least 10 times every hour wh ile awake. Patient currently maintained on 2 L of oxygen via nasal cannula. 09/13/2020 Patient is seen this morning continues to have no bowel activity noted in the ostomy with very minimal sluggish bowel sounds noted. Patient has been requesting IV pain medication stating his abdominal discomfort and chronic low back pain has worsened. Patient is maintained on TPN and will continue. Lovenox discontinued as patient's platelets are low. White blood count is 2.8 with a hemoglobin of 10.9, sodium is 133 with a potassium of 4.1 and current creatinine is 0.72. Patient continues on 2 L via nasal cannula and again reinforced the use of incentive spirometer at least 10 times every hour while awake. Will add Toradol. Vanco has been discontinued. Infectious disease is following. 09/14/2020 Patient is seen and evaluated this morning along with surgery at the bedside and continued no bowel activity in the ostomy although some gas is noted with no stool. Patient continues to state that liquids are not being tolerated and is having acid reflux and indigestion and burping liquids back up. Patient will be continued on nothing by mouth except for occasional ice chips. Instructed and encouraged to continue using incentive spirometer as he is continued on 2 L of oxygen and also encouraged to increase activity and walk multiple times daily. Platelets trending up and antibiotics have been changed per infectious disease. Lovenox has been discontinued. 09/15/2020 Patient is seen and evaluated today with some mild gas noted in the ostomy although continued no stool in surgery is following closely. Patient is maintained on TPN and will continue and clear liquids have been reinitiated. Continue to reinforce increased activity and incentive spirometer use. BMP within normal limits today. Patient remains afebrile. Continued on 2 L and oxygen saturation is 93%. Review of systems: Constitutional: Reports of fatigue, no reports of fever, or chills Cardiovascular: No reports of chest pain or palpitations Respiratory: No reports of shortness of breath, reports cough with phlegm GI: No reports of nausea, vomiting, reports gas with no stool in the ostomy, reports acid reflux and indigestion and regurgitation of liquids that persists : No reports of dysuria or retention Neurovascular: No reports of weakness or numbness All medications have been reviewed Objective - Vital Signs Vital signs: Vital Signs Temp 98.5 F 09/15/20 05:53 Pulse 77 09/15/20 05:53 Resp 18 09/14/20 21:46 BP 139/80 09/15/20 05:53 Pulse Ox 93 L 09/15/20 05:53 Intake & Output 09/14/20 09/15/20 09/15/20 18:59 06:59 18:59 Intake Total 7 Output Total 70 650 Balance 1877 -650 Weight 114.3 kg 114.2 kg Intake: Intake, IV Titration 1946 Amount D5-0.45% NaCl with KCl 160 20Meq/l 1,000 ml @ 20 mls /hr IV .Q24H [facility] Rx#: [id number] Potassium Chloride 20 meq 100 In Water For Injection 1 100ml.bag @ 50 mls/hr IVPB ONCE ONE Rx#: [id number] Sodium Acetate 14 meq In 1687 Amino Acid 5%-D20w+Lytes* E* 1,000 ml @ 85 mls/hr IV .BY DURATION [facility] Rx#: [id number] Output: Drainage 70 100 Right Abdomen 70 100 Urine 500 Stool 50 Other: Voiding Method Urinal - Exam GENERAL: The patient is alert and oriented x3, not in any acute distress. Obese HEENT: Pupils are round and equally reacting to light. EOMI. No scleral icterus. CARDIOVASCULAR: S1 and S2 present. No murmurs, rubs, or gallops. PULMONARY: Bilateral coarse breath sounds. no wheezing or rhonchi noted ABDOMEN: Soft, tenderness noted, surgical dressing midline is dry, as noted in the ostomy with no stool output as of yet MUSCULOSKELETAL: No joint swelling or deformity. EXTREMITIES: No cyanosis, clubbing, or pedal edema. - Labs CBC & Chem 7: 09/14/20 04:42 09/15/20 05:28 Labs: Abnormal Lab Results - Last 24 Hours (Table) 09/14/20 09/14/20 09/14/20 Range/Units 04:42 11:50 16:55 WBC 3.34 L (4.50-10.00) X 10*3/uL RBC 3.34 L (4.40-5.60) X 10*6/uL Hgb 9.8 L (13.0-17.0) g/dL Hct 30.0 L (39.6-50.0) % Plt Count 62 L (140-440) X 10*3/uL Plt Count Comment DECREASED A Absolute Nucleated RBC 0.03 H (0.00-0.00) X 10*3/uL Immature Gran # 0.07 H (0.00-0.04) X 10*3/uL Lymphocytes # 0.43 L (0.90-5.00) X 10*3/uL NRBC/100 WBC Diff 0.9 H (0.0-0.0) /100 WBCS Sodium (137-145) mmol/L Carbon Dioxide (22-30) mmol/L Glucose (74-99) mg/dL POC Glucose (mg/dL) 153 H 172 H (75-99) mg/dL Calcium (8.4-10.2) mg/dL 09/15/20 09/15/20 09/15/20 Range/Units 00:28 05:28 06:44 WBC (4.50-10.00) X 10*3/uL RBC (4.40-5.60) X 10*6/uL Hgb (13.0-17.0) g/dL Hct (39.6-50.0) % Plt Count (140-440) X 10*3/uL Plt Count Comment Absolute Nucleated RBC (0.00-0.00) X 10*3/uL Immature Gran # (0.00-0.04) X 10*3/uL Lymphocytes # (0.90-5.00) X 10*3/uL NRBC/100 WBC Diff (0.0-0.0) /100 WBCS Sodium 135 L (137-145) mmol/L Carbon Dioxide 32 H (22-30) mmol/L Glucose 117 H (74-99) mg/dL POC Glucose (mg/dL) 184 H 168 H (75-99) mg/dL Calcium 7.7 L (8.4-10.2) mg/dL Assessment and Plan Assessment: Acute hypoxic respiratory failure secondary to Covid pneumonia. Patient is presently on 2 L of oxygen. Patient is maintained, zinc, vitamin supplements and will continue. Asthma, not in acute exacerbation Patient had a proctocolitis with an abscess for which patient received the CT- guided drainage and drains have been removed. Patient is maintained on IV antibiotics and infectious disease and surgery following. Patient is status post colostomy with no stool noted. Small gas noted in ostomy. Patient maintained on TPN. Patient being restarted on clear liquids and surgery following Hyperlipidemia Obesity BMI - 37.5 GERD DVT prophylaxis: Early ambulation, SCDs, Lovenox discontinued secondary to low platelets Plan: Continue with current medication regimen and antibiotic therapy. Infectious disease along with surgery following. Patient continues to have no stool noted in the ostomy although some small amounts of gas is noted on exam. Patient continues to have regurgitation and intolerance to liquids being restarted on clear liquids. maintained on TPN will continue at this time. Encouraged increased activity as tolerated and the use of incentive spirometer. Platelets have improved and will continue to monitor closely.
[2020-09-15] MEDS: HYDROcodone/APAP 7.5-325MG 1 EACH TAB PO PRN (14:55)
[2020-09-15 16:50] LABS: Glucose,Whole Blood 164 mg/dL (75-99)
[2020-09-15] MEDS: ONDANSETRON 4 MG/2 ML VIAL IVP PRN (21:51)
[2020-09-15] MEDS: UROXATRAL 10 MG PO SCH (22:07)
[2020-09-16] MEDS: HYDROcodone/APAP 7.5-325MG 1 EACH TAB PO PRN (00:19)
[2020-09-16 01:19] LABS: Glucose,Whole Blood 163 mg/dL (75-99)
[2020-09-16] MEDS: [UNRECOGNIZED DRUG - REMARK] IV SCH ×8 (02:13→02:30)
[2020-09-16 02:42] LABS: Glucose,Whole Blood 177 mg/dL (75-99)
[2020-09-16] MEDS: INSULIN ASPART (NovoLOG) 100 UNIT/ML VIAL SQ SCH ×5 (02:47→17:40)
[2020-09-16] MEDS: diphenhydrAMINE 25 MG CAP PO PRN ×2 (04:16→23:10)
--- NOTE | 2020-09-16 06:18 | PN ---
PROGRESS NOTE DATE OF SERVICE: 09/15/2020 REASON FOR FOLLOWUP: 1. Abdominal abscess. 2. Drug-induced thrombocytopenia. INTERVAL HISTORY: The patient is currently afebrile, has been complaining of some pain to the abdominal area. The patient denies having any chest pain or shortness of breath. Occasional cough. Did not have any output in the colostomy bag. PHYSICAL EXAMINATION: Blood pressure is 126/77 with a pulse of 71, temperature 98.9, he is 93% on 2 L nasal cannula. General description is a middle-aged male lying in bed in no distress. Respiratory system: Unlabored breathing, decreased breath sounds in the base, with no wheeze. Heart S1, S2. Regular rate and rhythm. ABDOMEN: Soft, mildly distended. No guarding or rigidity. No output in the colostomy. LABS: BUN of 14, creatinine 0.74. No CBC was done today. DIAGNOSTIC IMPRESSION AND PLAN: Patient with intraabdominal abscess from perforated diverticulitis. Culture with Enterococcus, E-coli, anaerobes. The patient did have a significant thrombocytopenia with Rocephin and vancomycin, which has been discontinued. The patient is currently covered with Cipro and Flagyl, to continue. Will recheck CBC and inflammatory markers tomorrow. Continue supportive care. MMODL / IJN: [id number] /
[2020-09-16 06:31] LABS: Glucose,Whole Blood 162 mg/dL (75-99)
[2020-09-16] MEDS: ALBUTEROL HFA INHALER INHALATION SCH ×4 (07:53→20:22)
[2020-09-16 08:13] LABS: Glucose,Whole Blood 187 mg/dL (75-99)
[2020-09-16] MEDS: BENZONATATE 100 MG CAP PO SCH ×3 (08:25→21:36)
[2020-09-16] MEDS: guaiFENesin-Coden 100-10MG/5ML 10 ML CUP PO SCH ×4 (08:26→21:38)
[2020-09-16] MEDS: PANTOPRAZOLE 40 MG/10 ML VIAL IVP SCH ×2 (08:26→21:38)
[2020-09-16] MEDS: metroNIDAZOLE 500 MG TAB PO SCH ×3 (08:26→21:37)
[2020-09-16] MEDS: ATORVASTATIN 20 MG TAB PO SCH (08:26)
[2020-09-16] MEDS: CHOLECALCIFEROL 25 MCG (1000 IU) TABLET PO SCH (08:26)
[2020-09-16] MEDS: ZINC SULFATE 220 MG CAP PO SCH (08:26)
[2020-09-16] MEDS: ASCORBIC ACID 500 MG TAB PO SCH ×2 (08:27→21:37)
[2020-09-16] MEDS: NYSTATIN 100,000 UNIT/ML SUSP 500,000 UNIT/5 ML CUP PO SCH ×4 (08:27→21:38)
[2020-09-16] MEDS: CIPROFLOXACIN HCL 500 MG TAB PO SCH ×2 (08:27→21:37)
[2020-09-16] MEDS: FAMOTIDINE 20 MG/2 ML VIAL IV SCH ×2 (08:27→21:38)
[2020-09-16 09:05] LABS: ALT 9 U/L (4-49); AST 20 U/L (17-59); African American GFR (CKD) >90 (>60 ml/min/1.73 sqM); Albumin 2.1 g/dL (3.5-5.0); Albumin/Globulin Ratio 0.9; Alkaline Phosphatase 42 U/L (38-126); Anion Gap 4 mmol/L; Blood Urea Nitrogen 12 mg/dL (9-20); C Reactive Protein 81.5 mg/L (<10.0); Calcium 7.7 mg/dL (8.4-10.2); Carbon Dioxide 31 mmol/L (22-30); Chloride 97 mmol/L (98-107); Globulin 2.3 g/dL; Glucose 148 mg/dL (74-99); Magnesium 2.3 mg/dL (1.6-2.3); Non-African American GFR(CKD) >90 (>60 ml/min/1.73 sqM); Phosphorus 3.6 mg/dL (2.5-4.5); Potassium 3.8 mmol/L (3.5-5.1); Sodium 132 mmol/L (137-145); Total Bilirubin 0.5 mg/dL (0.2-1.3); Total Protein 4.4 g/dL (6.3-8.2)
[2020-09-16] MEDS: KETOROLAC 15 MG/ML 1 ML VIAL IVP PRN ×3 (09:32→23:11)
--- NOTE | 2020-09-16 10:56 | P.PN ---
Subjective Progress Note Date: 09/16/20 Principal diagnosis: Diverticulitis Patient doing better since he was last seen by myself. Tolerating clears. He is having ostomy function. ALFIE drain remains purulent in appearance. He is afebrile. CBC pending. Pain well-controlled. Denies shortness of breath. Objective - Vital Signs Vital signs: Vital Signs Temp 98.3 F 09/16/20 06:28 Pulse 73 09/16/20 06:28 Resp 19 09/16/20 06:28 BP 136/78 09/16/20 06:28 Pulse Ox 94 L 09/16/20 06:28 Intake & Output 09/15/20 09/16/20 09/16/20 18:59 06:59 18:59 Intake Total 1190 3365 Output Total 470 230 Balance 720 3135 Weight 114.2 kg 113.9 kg Intake: IV 680 1020 Sodium Acetate 14 meq In 680 1020 Amino Acid 5%-D20w+Lytes* E* 1,000 ml @ 85 mls/hr IV .BY DURATION [facility] Rx#: [id number] Intake, IV Titration 510 2265 Amount Fat Emulsion 20% 250 ml 250 In Empty Bag 1 bag @ 21 mls/hr IV MoWeFr [facility] Rx#: [id number] Mvi, Adult No.4 with Vit 1018 K 10 ml Trace (Conc-1Ml/ Dose) 1 ml Sodium Acetate 14 meq In Amino Acid 5%- D20w+Lytes*E* 1,000 ml @ 85 mls/hr IV .BY DURATION [facility] Rx#:[id number] Potassium Chloride 20 meq 100 In Water For Injection 1 100ml.bag @ 50 mls/hr IVPB ONCE ONE Rx#: [id number] Sodium Acetate 14 meq In 1007 Amino Acid 5%-D20w+Lytes* E* 1,000 ml @ 85 mls/hr IV .BY DURATION [facility] Rx#: [id number] Sodium Chloride 0.9% 1, 160 240 000 ml @ 20 mls/hr IV . Q24H [facility] Rx#:[id number] Oral 80 Output: Drainage 20 200 Right Abdomen 20 200 Urine 450 Emesis 30 Other: Voiding Method Urinal # Voids 5 - Exam Abdomen: Soft, nondistended, dressing clean and dry, ostomy functioning - Labs CBC & Chem 7: 09/14/20 04:42 09/16/20 08:15 Labs: Abnormal Lab Results - Last 24 Hours (Table) 09/15/20 09/15/20 09/16/20 Range/Units 11:38 16:43 01:17 Sodium (137-145) mmol/L Chloride (98-107) mmol/L Carbon Dioxide (22-30) mmol/L Glucose (74-99) mg/dL POC Glucose (mg/dL) 176 H 164 H 163 H (75-99) mg/dL Calcium (8.4-10.2) mg/dL C-Reactive Protein (<10.0) mg/L Total Protein (6.3-8.2) g/dL Albumin (3.5-5.0) g/dL 09/16/20 09/16/20 09/16/20 Range/Units 02:36 06:30 08:12 Sodium (137-145) mmol/L Chloride (98-107) mmol/L Carbon Dioxide (22-30) mmol/L Glucose (74-99) mg/dL POC Glucose (mg/dL) 177 H 162 H 187 H (75-99) mg/dL Calcium (8.4-10.2) mg/dL C-Reactive Protein (<10.0) mg/L Total Protein (6.3-8.2) g/dL Albumin (3.5-5.0) g/dL 09/16/20 Range/Units 08:15 Sodium 132 L (137-145) mmol/L Chloride 97 L (98-107) mmol/L Carbon Dioxide 31 H (22-30) mmol/L Glucose 148 H (74-99) mg/dL POC Glucose (mg/dL) (75-99) mg/dL Calcium 7.7 L (8.4-10.2) mg/dL C-Reactive Protein 81.5 H (<10.0) mg/L Total Protein 4.4 L (6.3-8.2) g/dL Albumin 2.1 L (3.5-5.0) g/dL Assessment and Plan (1) Intra-abdominal abscess Narrative/Plan: Patient overall slowly improving. Continue antibiotics. Increase diet to full liquids. Increase activity. Keep ALFIE drain for now. May require follow-up CAT scan. Current Visit: Yes Status: Acute Code(s): K65.1 - PERITONEAL ABSCESS SNOMED Code(s): 89620426
[2020-09-16 11:48] LABS: HCT 31.6 % (39.6-50.0); HGB 9.8 g/dL (13.0-17.0); MCH 28.4 pg (27.0-32.0); MCV 91.6 fL (80.0-97.0); Mean Platelet Volume 11.2 fL (9.5-12.2); Platelet Count 132 X 10*3/uL (140-440); RBC 3.45 X 10*6/uL (4.40-5.60); RDW 13.4 % (11.5-14.5); WBC 4.59 X 10*3/uL (4.50-10.00)
[2020-09-16 12:00] LABS: Glucose,Whole Blood 186 mg/dL (75-99)
--- NOTE | 2020-09-16 13:32 | P.PN ---
Subjective Mr. Maldonado is a 55-year-old with a past medical history of asthma, hyperlipidemia who was recently diagnosed with Covid infection, placed on prednisone and doxycycline by his primary care physician coming in with difficulty in breathing. Patient was also seen in the emergency department recently and received an infusion of BAM. On 08/28/2020 -patient was seen and examined at the bedside. He appears to be in no acute distress. He states that he is still short of breath with minimal activity, still requiring 5 L of oxygen. Patient denies having any fevers chills or rigors. No sputum production. No chest pain. On reviewing his vitals afebrile for the past 24 hours, blood pressure 127 x 77 heart rate in the 60s to 70s. On reviewing the labs, no new labs from this morning. Patient's last chest x-ray was done yesterday showing worsening bilateral lung infiltrates. Pulmonary on board and following the patient closely. On 08/29/2020 -patient is seen and examined at bedside. He states that he still has difficulty in breathing with minimal activity and saturating at 90% on 8 L of high flow nasal cannula. Patient denied having any fevers chills or rigors. Complains of ongoing cough, that is dry in nature nonproductive. He denies having any chest pain or palpitations. Nominal pain nausea vomiting or diarrhea. No dysuria or hematuria. On reviewing his vitals T-max of 98.7, heart rate 76, respiratory rate 18, blood pressure 127 x 61. Reviewing labs from this morning white count of 16.2, hemoglobin 14.2, platelets 237. Sodium 140, potassium 4.3, chloride 102, bicarb 26, BUN 22, creatinine 1.0 LDH 330, C- reactive protein 1.3. On 08/30/2020 - -patient is seen and examined at bedside. Is comfortably sitting up in a chair by the bedside. Patient is still requiring 5 L of oxygen. He complains of ongoing cough mostly dry in nature. Patient denies having any fevers chills or rigors. Patient denies having any abdominal pain nausea vomiting or diarrhea. No dysuria or hematuria. On reviewing his vitals T-max of 98.4, heart rate 60 to 70s, respiratory rate 16, blood pressure 131 x 51. On reviewing his labs white count of 15.5, hemoglobin 13.2, platelets 212. D-dimer 1.23, sodium 139, potassium 4.1, chloride 104, bicarb 26, BUN 23, creatinine 1.0 C-reactive protein 2, lactate dehydrogenase 288, ferritin 582. On 08/31/2020 -patient was seen and examined at bedside. He is comfortably sitting up in chair by the bedside. He is still requiring 5 to 6 L of oxygen to maintain saturations above 90%. Patient states that he still continues to have cough mostly dry and also that he is short of breath walking from bed to the bathroom. He denies having any fevers chills or rigors. No abdominal pain nausea vomiting or diarrhea. No dysuria or hematuria. He denies having any swelling of his lower extremities. On reviewing his vitals temperature of 98.4, heart rate 50s to 70s, respiratory rate below 15, saturating at 90% on 5 L of oxygen via nasal cannula. On reviewing his labs D-dimer is 1.07 LDH 748, CRP 43.1. On 09/01/2020 --patient is seen and examined at bedside. He is lying comfortably in bed appears to be in no acute distress. Patient complains of pain in the lower abdomen. He states that he has hernia repair done and has a mesh repair done. He states that he has been coughing and his lower abdomen has been hurting. Patient was constipated yesterday, had 2 bowel movements yesterday. He states that he did not have a bowel movement and is not passing gas now. Patient denies having any nausea or vomiting. He still has ongoing cough, bouts of coughing episodes that is making him dyspneic. He denies having any fevers chills or rigors. No dysuria or hematuria. On reviewing his vitals temperature of 98.4, heart rate 96, respiratory rate 18 blood pressure 122/69 saturating at 90% on 4 L of nasal cannula. On reviewing his labs white count of 20.6, hemoglobin 14.5, platelets 204. D-dimer 1.26. Sodium 140, potassium 4.4, chloride 103, bicarb 29, BUN 23, creatinine 1.0. LDH 616, CRP 52. On 09/02/2020 -patient seen and examined at bedside. He is comfortably sitting up in a chair by the bedside. He complains of lower abdominal soreness secondary to coughing. He states that Toradol helps him with his lower abdominal soreness. Patient denies having any chest pain or palpitations. He continues to have cough, usually in bouts. Nonproductive. He denies having any fevers chills or rigors. No dysuria or hematuria. Reviewing his vitals temperature of 98.8, heart rate 71, respiratory rate 18, blood pressure 113/59, saturating at 90% on 3-4 L of oxygen. On reviewing his labs white count of 13.1, hemoglobin 13.5, platelets 159. Sodium 139, potassium 4.2, chloride 104, bicarb 27, BUN 24, creatinine 0.9. CRP 15.6 LDH 284. On 09/03/2020 -patient was seen and examined at bedside. He is comfortable, saturating about 90 % on 2 L of nasal cannula. Still complains of ongoing cough and congestion. Toradol helping with abdominal soreness and chest wall pain. His vitals temperature 99, heart rate 78, respiratory 20, blood pressure 140/69. Reviewing his labs D-dimer 2.49, LDH 298, CRP 12.9. 09/04/2020 Patient is seen and evaluated in follow-up continues to be on 2 L of oxygen via nasal cannula and denies any worsening shortness of breath. Patient does have dyspnea with exertion with cough and phlegm production. Continues to have abdominal discomfort and states it has worsened on the lower left side. Surgery has been consulted and pending. Patient underwent CT abdomen today. White blood count slightly elevated at 12.6, and hemoglobin is stable at 12.9. Platelets slightly low at 139 although improved from yesterday. Will repeat a.m. labs patient will be nothing by mouth until surgery has evaluated 09/05/2020 patient's abdominal drain is still draining. Leukocytosis improving. Patient was anxious disease and oxygen therapy the most. We will add Toradol for his pain. Patient is a still on 6 L of oxygen at this time. Patient is passing gas did have a small bowel movement as well. 09/06/2020 Patient is seen and evaluated in follow-up this morning with continued anxiety and states he feels he is having slight hallucinations with Xanax and does take Ativan at home for anxiety and will change to this. Patient continues with an abdominal drain which continues to drain purulent discharge. Patient is maintained on IV antibiotics and infectious disease consulted. Per surgery patient will likely require IV antibiotic therapy in the outpatient setting. Patient is scheduled to have a PICC line placed. Patient is currently on 6 L of oxygen and discuss with nursing staff about weaning as tolerated. Instructed the patient increase activity and use incentive spirometer at least 10 times every hour while awake. White blood count is within normal limits at 9.5 and hemoglobin is stable at 13.2. Sodium is 138 with a potassium of 4.3 and current creatinine is 0.9. 09/07/2020 Patient is seen in follow-up this morning currently sitting up in the chair on room air and denies any worsening shortness of breath. Documentation shows he is still on 6 L high flow although patient states he has not been wearing the oxygen all morning. Patient is maintained on clear liquids and states he is having difficulty with thin liquids and with his pills and states he is able to swallow them but they are getting stuck in the epigastrium area and states "something is not right". Surgery is following and discuss with them and repeat CT abdomen is ordered and pending. Patient has continued purulent drainage noted in the abdominal drain. Patient is receiving a PICC line today as well as he will be requiring outpatient IV antibiotic therapy. CBC within normal limits, sodium is 134, potassium is 4.5, current creatinine is 0.79. Will await CT results and possibly order a modified barium swallow. Patient was started on nystatin swish and spit with the possibility of oral thrush. 09/08/2020 Patient is seen this morning continues to have a feeling of abdominal fullness and difficulty with swallowing. Patient underwent CT abdomen yesterday showing abscess has drained. Surgery is following. Patient also received PICC line and will be requiring IV antibiotic therapy once stabilized and discharged. Infectious disease is following. Patient underwent barium swallow and per speech therapy had no difficulties in swallowing and recommending consult to GI for possible esophagram or EGD. Surgery is following and planning on surgical intervention and will await report. Patient is weaning oxygen as tolerated and currently maintained on 4 L via nasal cannula. 09/09/2020 Patient had a laparotomy to have 2 large abscesses and patient underwent the abscess drainage along with colectomy with a colostomy bag. Patient is coming of soreness in that area patient is still complaining of dysphagia although no further intervention is being planned all the workup for dysphagia is is negative at this time. Patient may have some nausea and his dysphagia is a psychosomatic in nature. 09/10/2020 Patient feels bit better today not passing gas yet 09/16/2020 Patient is having output from colostomy bag patient is on full liquid diet will cut down the TPN patient most probably will be able to go home on Friday. Aisha benavides was bit nauseous today. Review of systems: Constitutional: Reports of fatigue, no reports of fever, or chills Cardiovascular: No reports of chest pain or palpitations Respiratory: No reports of shortness of breath, reports cough with phlegm GI: Nausea no vomiting. : No reports of dysuria or retention Neurovascular: No reports of weakness or numbness All medications have been reviewed Objective - Vital Signs Vital signs: Vital Signs Temp 99.0 F 09/16/20 10:18 Pulse 73 09/16/20 10:18 Resp 18 09/16/20 10:18 BP 131/74 09/16/20 10:18 Pulse Ox 94 L 09/16/20 10:18 Intake & Output 09/15/20 09/16/20 09/16/20 18:59 06:59 18:59 Intake Total 1190 3365 Output Total 470 230 Balance 720 3135 Weight 114.2 kg 113.9 kg Intake: IV 680 1020 Sodium Acetate 14 meq In 680 1020 Amino Acid 5%-D20w+Lytes* E* 1,000 ml @ 85 mls/hr IV .BY DURATION [facility] Rx#: [id number] Intake, IV Titration 510 2265 Amount Fat Emulsion 20% 250 ml 250 In Empty Bag 1 bag @ 21 mls/hr IV MoWeFr [facility] Rx#: [id number] Mvi, Adult No.4 with Vit 1018 K 10 ml Trace (Conc-1Ml/ Dose) 1 ml Sodium Acetate 14 meq In Amino Acid 5%- D20w+Lytes*E* 1,000 ml @ 85 mls/hr IV .BY DURATION [facility] Rx#:[id number] Potassium Chloride 20 meq 100 In Water For Injection 1 100ml.bag @ 50 mls/hr IVPB ONCE ONE Rx#: [id number] Sodium Acetate 14 meq In 1007 Amino Acid 5%-D20w+Lytes* E* 1,000 ml @ 85 mls/hr IV .BY DURATION [facility] Rx#: [id number] Sodium Chloride 0.9% 1, 160 240 000 ml @ 20 mls/hr IV . Q24H [facility] Rx#:[id number] Oral 80 Output: Drainage 20 200 Right Abdomen 20 200 Urine 450 Emesis 30 Other: Voiding Method Urinal # Voids 5 - Exam PHYSICAL EXAMINATION: GENERAL: The patient is alert and oriented x3, not in any acute distress. Obese HEENT: Pupils are round and equally reacting to light. EOMI. No scleral icterus. No conjunctival pallor. Normocephalic, atraumatic. No pharyngeal erythema. No thyromegaly. CARDIOVASCULAR: S1 and S2 present. No murmurs, rubs, or gallops. PULMONARY: Chest is clear to auscultation, no wheezing or crackles. ABDOMEN: All sounds present patient has a colostomy bag with output from the bag. MUSCULOSKELETAL: No joint swelling or deformity. EXTREMITIES: No cyanosis, clubbing, or pedal edema. NEUROLOGICAL: Gross neurological examination did not reveal any focal deficits. SKIN: No rashes. - Labs CBC & Chem 7: 09/16/20 08:15 09/16/20 08:15 Labs: Abnormal Lab Results - Last 24 Hours (Table) 09/15/20 09/16/20 09/16/20 Range/Units 16:43 01:17 02:36 RBC (4.40-5.60) X 10*6/uL Hgb (13.0-17.0) g/dL Hct (39.6-50.0) % MCHC (32.0-37.0) g/dL Plt Count (140-440) X 10*3/uL Sodium (137-145) mmol/L Chloride (98-107) mmol/L Carbon Dioxide (22-30) mmol/L Glucose (74-99) mg/dL POC Glucose (mg/dL) 164 H 163 H 177 H (75-99) mg/dL Calcium (8.4-10.2) mg/dL C-Reactive Protein (<10.0) mg/L Total Protein (6.3-8.2) g/dL Albumin (3.5-5.0) g/dL 09/16/20 09/16/20 09/16/20 Range/Units 06:30 08:12 08:15 RBC (4.40-5.60) X 10*6/uL Hgb (13.0-17.0) g/dL Hct (39.6-50.0) % MCHC (32.0-37.0) g/dL Plt Count (140-440) X 10*3/uL Sodium 132 L (137-145) mmol/L Chloride 97 L (98-107) mmol/L Carbon Dioxide 31 H (22-30) mmol/L Glucose 148 H (74-99) mg/dL POC Glucose (mg/dL) 162 H 187 H (75-99) mg/dL Calcium 7.7 L (8.4-10.2) mg/dL C-Reactive Protein 81.5 H (<10.0) mg/L Total Protein 4.4 L (6.3-8.2) g/dL Albumin 2.1 L (3.5-5.0) g/dL 09/16/20 09/16/20 Range/Units 08:15 11:58 RBC 3.45 L (4.40-5.60) X 10*6/uL Hgb 9.8 L (13.0-17.0) g/dL Hct 31.6 L (39.6-50.0) % MCHC 31.0 L (32.0-37.0) g/dL Plt Count 132 L (140-440) X 10*3/uL Sodium (137-145) mmol/L Chloride (98-107) mmol/L Carbon Dioxide (22-30) mmol/L Glucose (74-99) mg/dL POC Glucose (mg/dL) 186 H (75-99) mg/dL Calcium (8.4-10.2) mg/dL C-Reactive Protein (<10.0) mg/L Total Protein (6.3-8.2) g/dL Albumin (3.5-5.0) g/dL Assessment and Plan Plan: Acute hypoxic respiratory failure secondary to Covid pneumonia. Patient is presently on 2 L of oxygen. Patient is maintained, zinc, vitamin supplements and will continue. Asthma, not in acute exacerbation Patient had a proctocolitis with an abscess for which patient received the CT- guided drainage and drains have been removed. Patient is maintained on IV antibiotics and infectious disease and surgery following. Patient is status post colostomy having stool and output from that ostomy. Small gas noted in ostomy. Wean off TPN and advance her by mouth diet. Hyperlipidemia Obesity BMI - 37.5 GERD DVT prophylaxis: Early ambulation, SCDs, Lovenox discontinued secondary to low platelets Plan: Continue with current medication regimen and antibiotic therapy. Infectious disease along with surgery following. maintained on TPN will continue at this time. Encouraged increased activity as tolerated and the use of incentive spirometer.
[2020-09-16 14:15] LABS: Basophils # (M) 0 X 10*3/uL (0.00-0.10); Eosinophils # (M) 0.09 X 10*3/uL (0.04-0.35); Lymphocytes # (M) 0.92 X 10*3/uL (0.90-5.00); Metamyelocytes % 1 % (0-0); Monocytes # (M) 0.37 X 10*3/uL (0.20-1.00); Myelocytes % 3 % (0-0); Neutrophils # (M) 3.03 X 10*3/uL (2.00-8.90); Neutrophils % (M) 66 %
[2020-09-16] MEDS ORDERED: 1: MVI, ADULT NO.4 WITH VIT K 10 ML, TRACE (CONC-1ML/DOSE) 1 ML, SODIUM CHLORIDE 4MEQ/ML IV SCH ×4 (14:30)
[2020-09-16] MEDS ORDERED: MVI, ADULT NO.4 WITH VIT K 10 ML, TRACE (CONC-1ML/DOSE) 1 ML, SODIUM CHLORIDE 4MEQ/ML V... IV SCH ×4 (14:30)
[2020-09-16 16:58] LABS: Glucose,Whole Blood 110 mg/dL (75-99)
[2020-09-16] MEDS: SODIUM CHLORIDE 0.9% 1,000 ML IV SCH (17:40)
--- NOTE | 2020-09-16 20:14 | PN ---
PROGRESS NOTE DATE OF SERVICE: 09/16/2020 REASON FOR FOLLOWUP: Intraabdominal abscess, perforated diverticulitis. INTERVAL HISTORY: The patient is currently afebrile. The patient is breathing comfortably. The patient did have output in his colostomy and is feeling better. Abdominal distention has improved. No nausea. No vomiting. PHYSICAL EXAMINATION: Blood pressure 131/74, pulse of 73, temperature 99. He is 94% on 2 L nasal cannula. General description is a middle-aged male lying in bed in no distress. Respiratory system: Unlabored breathing with decreased intensity in breath sounds. No wheeze. Heart S1, S2. Regular rate and rhythm. Abdomen soft, no guarding. No rigidity. Output in his colostomy. Extremities are no edema of the feet. LABS: Hemoglobin 11.4, white count 4.59, BUN of 12, creatinine 0.69. DIAGNOSTIC IMPRESSION AND PLAN: Patient with intraabdominal abscess, perforated diverticulitis, status post CT-guided drainage followed by diverting colostomy. Culture positive for Enterococcus faecalis, E coli, anaerobes and this patient did have significant thrombocytopenia secondary to the cefepime and vancomycin. The patient is currently covered with Flagyl and Cipro and seems to be overall doing well with a normal white count. No fever. Continue current antibiotics and we will monitor clinical course closely. MMODL / IJN: [id number] /
[2020-09-16] MEDS: UROXATRAL 10 MG PO SCH (21:38)
[2020-09-16] MEDS: LORazepam 1 MG TAB PO PRN (23:10)
[2020-09-17] MEDS: INSULIN ASPART (NovoLOG) 100 UNIT/ML VIAL SQ SCH ×4 (01:01→18:20)
[2020-09-17 01:06] LABS: Glucose,Whole Blood 151 mg/dL (75-99)
[2020-09-17 07:39] LABS: African American GFR (CKD) >90 (>60 ml/min/1.73 sqM); Anion Gap 3 mmol/L; Blood Urea Nitrogen 11 mg/dL (9-20); Calcium 7.4 mg/dL (8.4-10.2); Carbon Dioxide 30 mmol/L (22-30); Chloride 102 mmol/L (98-107); Glucose 124 mg/dL (74-99); Magnesium 2.1 mg/dL (1.6-2.3); Non-African American GFR(CKD) >90 (>60 ml/min/1.73 sqM); Phosphorus 3.4 mg/dL (2.5-4.5); Potassium 3.9 mmol/L (3.5-5.1); Sodium 135 mmol/L (137-145)
[2020-09-17 07:40] LABS: Glucose,Whole Blood 127 mg/dL (75-99)
[2020-09-17] MEDS: BENZONATATE 100 MG CAP PO SCH ×3 (08:22→23:05)
[2020-09-17] MEDS: guaiFENesin-Coden 100-10MG/5ML 10 ML CUP PO SCH ×4 (08:23→23:05)
[2020-09-17] MEDS: FAMOTIDINE 20 MG/2 ML VIAL IV SCH ×2 (08:24→20:36)
[2020-09-17] MEDS: CHOLECALCIFEROL 25 MCG (1000 IU) TABLET PO SCH (08:24)
[2020-09-17] MEDS: ASCORBIC ACID 500 MG TAB PO SCH ×2 (08:24→20:35)
[2020-09-17] MEDS: CIPROFLOXACIN HCL 500 MG TAB PO SCH ×2 (08:24→23:05)
[2020-09-17] MEDS: metroNIDAZOLE 500 MG TAB PO SCH ×3 (08:24→23:05)
[2020-09-17] MEDS: ATORVASTATIN 20 MG TAB PO SCH (08:24)
[2020-09-17] MEDS: ZINC SULFATE 220 MG CAP PO SCH (08:25)
[2020-09-17] MEDS: NYSTATIN 100,000 UNIT/ML SUSP 500,000 UNIT/5 ML CUP PO SCH ×4 (08:25→23:05)
[2020-09-17] MEDS: KETOROLAC 15 MG/ML 1 ML VIAL IVP PRN ×3 (08:25→23:07)
[2020-09-17] MEDS: PANTOPRAZOLE 40 MG/10 ML VIAL IVP SCH ×2 (08:25→20:37)
[2020-09-17] MEDS: ALBUTEROL HFA INHALER INHALATION SCH ×4 (09:15→20:58)
--- NOTE | 2020-09-17 10:12 | P.PN ---
Subjective Progress Note Date: 09/17/20 Principal diagnosis: Diverticulitis Patient doing well today. Pain is improved. Tolerating full liquids. No dysphagia or nausea or vomiting. Ostomy is functioning. He is afebrile. Objective - Vital Signs Vital signs: Vital Signs Temp 98.0 F 09/17/20 09:27 Pulse 93 09/17/20 09:27 Resp 18 09/17/20 09:27 BP 105/68 09/17/20 09:27 Pulse Ox 94 L 09/17/20 09:27 Intake & Output 09/16/20 09/17/20 09/17/20 18:59 06:59 18:59 Intake Total 750 Output Total 660 675 Balance -660 75 Weight 111.4 kg Intake: Intake, IV Titration 750 Amount Mvi, Adult No.4 with Vit 510 K 10 ml Trace (Conc-1Ml/ Dose) 1 ml Sodium Chloride 4Meq/ml Vial 56 meq In Amino Acid 5%-D20w +Lytes*E* 1,000 ml @ 42.5 mls/hr IV .Q24H [facility] Rx#: [id number] Sodium Chloride 0.9% 1, 240 000 ml @ 0 mls/hr IV .[facility] Rx#:[id number] Output: Drainage 60 25 Right Abdomen 60 25 Urine 400 Stool 600 250 Other: Voiding Method Urinal # Voids 2 6 - Exam Abdomen: Soft, nondistended, incision clean and dry, ostomy function ALFIE becoming more serous - Labs CBC & Chem 7: 09/16/20 08:15 09/17/20 06:00 Labs: Abnormal Lab Results - Last 24 Hours (Table) 09/16/20 09/16/20 09/16/20 Range/Units 08:15 11:58 16:56 RBC 3.45 L (4.40-5.60) X 10*6/uL Hgb 9.8 L (13.0-17.0) g/dL Hct 31.6 L (39.6-50.0) % MCHC 31.0 L (32.0-37.0) g/dL Plt Count 132 L (140-440) X 10*3/uL Plt Count Comment DECREASED A Metamyelocytes % 1 H (0-0) % Myelocytes % 3 H (0-0) % Sodium (137-145) mmol/L Glucose (74-99) mg/dL POC Glucose (mg/dL) 186 H 110 H (75-99) mg/dL Calcium (8.4-10.2) mg/dL 09/17/20 09/17/20 09/17/20 Range/Units 00:50 06:00 07:35 RBC (4.40-5.60) X 10*6/uL Hgb (13.0-17.0) g/dL Hct (39.6-50.0) % MCHC (32.0-37.0) g/dL Plt Count (140-440) X 10*3/uL Plt Count Comment Metamyelocytes % (0-0) % Myelocytes % (0-0) % Sodium 135 L (137-145) mmol/L Glucose 124 H (74-99) mg/dL POC Glucose (mg/dL) 151 H 127 H (75-99) mg/dL Calcium 7.4 L (8.4-10.2) mg/dL Assessment and Plan (1) Intra-abdominal abscess Narrative/Plan: Overall patient doing better. Will increase diet. DC TPN. Hopefully discharge 24-48 hours. Current Visit: Yes Status: Acute Code(s): K65.1 - PERITONEAL ABSCESS SNOMED Code(s): 83787313
[2020-09-17 10:47] LABS: Basophils # (M) 0 X 10*3/uL (0.00-0.10); HCT 29.4 % (39.6-50.0); HGB 9.3 g/dL (13.0-17.0); Lymphocytes # (M) 0.69 X 10*3/uL (0.90-5.00); MCH 28.6 pg (27.0-32.0); MCHC 31.6 g/dL (32.0-37.0); MCV 90.5 fL (80.0-97.0); Mean Platelet Volume 11.2 fL (9.5-12.2); Metamyelocytes % 3 % (0-0); Monocytes # (M) 0.34 X 10*3/uL (0.20-1.00); Myelocytes % 2 % (0-0); Neutrophils # (M) 3.53 X 10*3/uL (2.00-8.90); Neutrophils % (M) 72 %; Platelet Count 180 X 10*3/uL (140-440); RBC 3.25 X 10*6/uL (4.40-5.60); RDW 13.4 % (11.5-14.5)
[2020-09-17 11:43] LABS: Glucose,Whole Blood 134 mg/dL (75-99)
[2020-09-17] MEDS: SODIUM CHLORIDE 0.9% 1,000 ML IV SCH (12:43)
[2020-09-17] MEDS: ONDANSETRON 4 MG/2 ML VIAL IVP PRN (12:50)
--- NOTE | 2020-09-17 13:39 | P.PN ---
Subjective Mr. Maldonado is a 55-year-old with a past medical history of asthma, hyperlipidemia who was recently diagnosed with Covid infection, placed on prednisone and doxycycline by his primary care physician coming in with difficulty in breathing. Patient was also seen in the emergency department recently and received an infusion of BAM. On 08/28/2020 -patient was seen and examined at the bedside. He appears to be in no acute distress. He states that he is still short of breath with minimal activity, still requiring 5 L of oxygen. Patient denies having any fevers chills or rigors. No sputum production. No chest pain. On reviewing his vitals afebrile for the past 24 hours, blood pressure 127 x 77 heart rate in the 60s to 70s. On reviewing the labs, no new labs from this morning. Patient's last chest x-ray was done yesterday showing worsening bilateral lung infiltrates. Pulmonary on board and following the patient closely. On 08/29/2020 -patient is seen and examined at bedside. He states that he still has difficulty in breathing with minimal activity and saturating at 90% on 8 L of high flow nasal cannula. Patient denied having any fevers chills or rigors. Complains of ongoing cough, that is dry in nature nonproductive. He denies having any chest pain or palpitations. Nominal pain nausea vomiting or diarrhea. No dysuria or hematuria. On reviewing his vitals T-max of 98.7, heart rate 76, respiratory rate 18, blood pressure 127 x 61. Reviewing labs from this morning white count of 16.2, hemoglobin 14.2, platelets 237. Sodium 140, potassium 4.3, chloride 102, bicarb 26, BUN 22, creatinine 1.0 LDH 330, C- reactive protein 1.3. On 08/30/2020 - -patient is seen and examined at bedside. Is comfortably sitting up in a chair by the bedside. Patient is still requiring 5 L of oxygen. He complains of ongoing cough mostly dry in nature. Patient denies having any fevers chills or rigors. Patient denies having any abdominal pain nausea vomiting or diarrhea. No dysuria or hematuria. On reviewing his vitals T-max of 98.4, heart rate 60 to 70s, respiratory rate 16, blood pressure 131 x 51. On reviewing his labs white count of 15.5, hemoglobin 13.2, platelets 212. D-dimer 1.23, sodium 139, potassium 4.1, chloride 104, bicarb 26, BUN 23, creatinine 1.0 C-reactive protein 2, lactate dehydrogenase 288, ferritin 582. On 08/31/2020 -patient was seen and examined at bedside. He is comfortably sitting up in chair by the bedside. He is still requiring 5 to 6 L of oxygen to maintain saturations above 90%. Patient states that he still continues to have cough mostly dry and also that he is short of breath walking from bed to the bathroom. He denies having any fevers chills or rigors. No abdominal pain nausea vomiting or diarrhea. No dysuria or hematuria. He denies having any swelling of his lower extremities. On reviewing his vitals temperature of 98.4, heart rate 50s to 70s, respiratory rate below 15, saturating at 90% on 5 L of oxygen via nasal cannula. On reviewing his labs D-dimer is 1.07 LDH 748, CRP 43.1. On 09/01/2020 --patient is seen and examined at bedside. He is lying comfortably in bed appears to be in no acute distress. Patient complains of pain in the lower abdomen. He states that he has hernia repair done and has a mesh repair done. He states that he has been coughing and his lower abdomen has been hurting. Patient was constipated yesterday, had 2 bowel movements yesterday. He states that he did not have a bowel movement and is not passing gas now. Patient denies having any nausea or vomiting. He still has ongoing cough, bouts of coughing episodes that is making him dyspneic. He denies having any fevers chills or rigors. No dysuria or hematuria. On reviewing his vitals temperature of 98.4, heart rate 96, respiratory rate 18 blood pressure 122/69 saturating at 90% on 4 L of nasal cannula. On reviewing his labs white count of 20.6, hemoglobin 14.5, platelets 204. D-dimer 1.26. Sodium 140, potassium 4.4, chloride 103, bicarb 29, BUN 23, creatinine 1.0. LDH 616, CRP 52. On 09/02/2020 -patient seen and examined at bedside. He is comfortably sitting up in a chair by the bedside. He complains of lower abdominal soreness secondary to coughing. He states that Toradol helps him with his lower abdominal soreness. Patient denies having any chest pain or palpitations. He continues to have cough, usually in bouts. Nonproductive. He denies having any fevers chills or rigors. No dysuria or hematuria. Reviewing his vitals temperature of 98.8, heart rate 71, respiratory rate 18, blood pressure 113/59, saturating at 90% on 3-4 L of oxygen. On reviewing his labs white count of 13.1, hemoglobin 13.5, platelets 159. Sodium 139, potassium 4.2, chloride 104, bicarb 27, BUN 24, creatinine 0.9. CRP 15.6 LDH 284. On 09/03/2020 -patient was seen and examined at bedside. He is comfortable, saturating about 90 % on 2 L of nasal cannula. Still complains of ongoing cough and congestion. Toradol helping with abdominal soreness and chest wall pain. His vitals temperature 99, heart rate 78, respiratory 20, blood pressure 140/69. Reviewing his labs D-dimer 2.49, LDH 298, CRP 12.9. 09/04/2020 Patient is seen and evaluated in follow-up continues to be on 2 L of oxygen via nasal cannula and denies any worsening shortness of breath. Patient does have dyspnea with exertion with cough and phlegm production. Continues to have abdominal discomfort and states it has worsened on the lower left side. Surgery has been consulted and pending. Patient underwent CT abdomen today. White blood count slightly elevated at 12.6, and hemoglobin is stable at 12.9. Platelets slightly low at 139 although improved from yesterday. Will repeat a.m. labs patient will be nothing by mouth until surgery has evaluated 09/05/2020 patient's abdominal drain is still draining. Leukocytosis improving. Patient was anxious disease and oxygen therapy the most. We will add Toradol for his pain. Patient is a still on 6 L of oxygen at this time. Patient is passing gas did have a small bowel movement as well. 09/06/2020 Patient is seen and evaluated in follow-up this morning with continued anxiety and states he feels he is having slight hallucinations with Xanax and does take Ativan at home for anxiety and will change to this. Patient continues with an abdominal drain which continues to drain purulent discharge. Patient is maintained on IV antibiotics and infectious disease consulted. Per surgery patient will likely require IV antibiotic therapy in the outpatient setting. Patient is scheduled to have a PICC line placed. Patient is currently on 6 L of oxygen and discuss with nursing staff about weaning as tolerated. Instructed the patient increase activity and use incentive spirometer at least 10 times every hour while awake. White blood count is within normal limits at 9.5 and hemoglobin is stable at 13.2. Sodium is 138 with a potassium of 4.3 and current creatinine is 0.9. 09/07/2020 Patient is seen in follow-up this morning currently sitting up in the chair on room air and denies any worsening shortness of breath. Documentation shows he is still on 6 L high flow although patient states he has not been wearing the oxygen all morning. Patient is maintained on clear liquids and states he is having difficulty with thin liquids and with his pills and states he is able to swallow them but they are getting stuck in the epigastrium area and states "something is not right". Surgery is following and discuss with them and repeat CT abdomen is ordered and pending. Patient has continued purulent drainage noted in the abdominal drain. Patient is receiving a PICC line today as well as he will be requiring outpatient IV antibiotic therapy. CBC within normal limits, sodium is 134, potassium is 4.5, current creatinine is 0.79. Will await CT results and possibly order a modified barium swallow. Patient was started on nystatin swish and spit with the possibility of oral thrush. 09/08/2020 Patient is seen this morning continues to have a feeling of abdominal fullness and difficulty with swallowing. Patient underwent CT abdomen yesterday showing abscess has drained. Surgery is following. Patient also received PICC line and will be requiring IV antibiotic therapy once stabilized and discharged. Infectious disease is following. Patient underwent barium swallow and per speech therapy had no difficulties in swallowing and recommending consult to GI for possible esophagram or EGD. Surgery is following and planning on surgical intervention and will await report. Patient is weaning oxygen as tolerated and currently maintained on 4 L via nasal cannula. 09/09/2020 Patient had a laparotomy to have 2 large abscesses and patient underwent the abscess drainage along with colectomy with a colostomy bag. Patient is coming of soreness in that area patient is still complaining of dysphagia although no further intervention is being planned all the workup for dysphagia is is negative at this time. Patient may have some nausea and his dysphagia is a psychosomatic in nature. 09/10/2020 Patient feels bit better today not passing gas yet 09/16/2020 Patient is having output from colostomy bag patient is on full liquid diet will cut down the TPN patient most probably will be able to go home on Friday. Aisha benavides was bit nauseous today. Thank you 09/17/2020 Patient's TPN will be deciding her patient is a having good bowel movements into ostomy. Patient probably will be discharged tomorrow. Review of systems: Constitutional: Reports of fatigue, no reports of fever, or chills Cardiovascular: No reports of chest pain or palpitations Respiratory: No reports of shortness of breath, reports cough with phlegm GI: Nausea no vomiting. : No reports of dysuria or retention Neurovascular: No reports of weakness or numbness All medications have been reviewed Objective - Vital Signs Vital signs: Vital Signs Temp 98.0 F 09/17/20 09:27 Pulse 93 09/17/20 09:27 Resp 18 09/17/20 09:27 BP 105/68 09/17/20 09:27 Pulse Ox 94 L 09/17/20 09:27 Intake & Output 09/16/20 09/17/20 09/17/20 18:59 06:59 18:59 Intake Total 750 540 Output Total 660 675 Balance -660 75 540 Weight 111.4 kg Intake: Intake, IV Titration 750 Amount Mvi, Adult No.4 with Vit 510 K 10 ml Trace (Conc-1Ml/ Dose) 1 ml Sodium Chloride 4Meq/ml Vial 56 meq In Amino Acid 5%-D20w +Lytes*E* 1,000 ml @ 42.5 mls/hr IV .Q24H [facility] Rx#: [id number] Sodium Chloride 0.9% 1, 240 000 ml @ 0 mls/hr IV .[facility] Rx#:[id number] Oral 540 Output: Drainage 60 25 Right Abdomen 60 25 Urine 400 Stool 600 250 Other: Voiding Method Urinal # Voids 2 6 2 - Exam PHYSICAL EXAMINATION: GENERAL: The patient is alert and oriented x3, not in any acute distress. Obese HEENT: Pupils are round and equally reacting to light. EOMI. No scleral icterus. No conjunctival pallor. Normocephalic, atraumatic. No pharyngeal erythema. No thyromegaly. CARDIOVASCULAR: S1 and S2 present. No murmurs, rubs, or gallops. PULMONARY: Chest is clear to auscultation, no wheezing or crackles. ABDOMEN: All sounds present patient has a colostomy bag with output from the bag. MUSCULOSKELETAL: No joint swelling or deformity. EXTREMITIES: No cyanosis, clubbing, or pedal edema. NEUROLOGICAL: Gross neurological examination did not reveal any focal deficits. SKIN: No rashes. - Labs CBC & Chem 7: 09/17/20 06:00 09/17/20 06:00 Labs: Abnormal Lab Results - Last 24 Hours (Table) 09/16/20 09/16/20 09/17/20 Range/Units 08:15 16:56 00:50 RBC (4.40-5.60) X 10*6/uL Hgb (13.0-17.0) g/dL Hct (39.6-50.0) % MCHC (32.0-37.0) g/dL Plt Count Comment DECREASED A Absolute Nucleated RBC (0.00-0.00) X 10*3/uL Metamyelocytes % 1 H (0-0) % Myelocytes % 3 H (0-0) % Lymphocytes # (Manual) (0.90-5.00) X 10*3/uL NRBC/100 WBC Diff (0.0-0.0) /100 WBCS Sodium (137-145) mmol/L Glucose (74-99) mg/dL POC Glucose (mg/dL) 110 H 151 H (75-99) mg/dL Calcium (8.4-10.2) mg/dL 09/17/20 09/17/20 09/17/20 Range/Units 06:00 06:00 07:35 RBC 3.25 L (4.40-5.60) X 10*6/uL Hgb 9.3 L (13.0-17.0) g/dL Hct 29.4 L (39.6-50.0) % MCHC 31.6 L (32.0-37.0) g/dL Plt Count Comment Absolute Nucleated RBC 0.02 H (0.00-0.00) X 10*3/uL Metamyelocytes % 3 H (0-0) % Myelocytes % 2 H (0-0) % Lymphocytes # (Manual) 0.69 L (0.90-5.00) X 10*3/uL NRBC/100 WBC Diff 0.4 H (0.0-0.0) /100 WBCS Sodium 135 L (137-145) mmol/L Glucose 124 H (74-99) mg/dL POC Glucose (mg/dL) 127 H (75-99) mg/dL Calcium 7.4 L (8.4-10.2) mg/dL 09/17/20 Range/Units 11:16 RBC (4.40-5.60) X 10*6/uL Hgb (13.0-17.0) g/dL Hct (39.6-50.0) % MCHC (32.0-37.0) g/dL Plt Count Comment Absolute Nucleated RBC (0.00-0.00) X 10*3/uL Metamyelocytes % (0-0) % Myelocytes % (0-0) % Lymphocytes # (Manual) (0.90-5.00) X 10*3/uL NRBC/100 WBC Diff (0.0-0.0) /100 WBCS Sodium (137-145) mmol/L Glucose (74-99) mg/dL POC Glucose (mg/dL) 134 H (75-99) mg/dL Calcium (8.4-10.2) mg/dL Assessment and Plan Plan: Acute hypoxic respiratory failure secondary to Covid pneumonia. Patient is presently on 2 L of oxygen. Patient is maintained, zinc, vitamin supplements and will continue. Will not require any oxygen Asthma, not in acute exacerbation Patient had a proctocolitis with an abscess for which patient received the CT- guided drainage and drains have been removed. Patient is maintained on IV antibiotics and infectious disease and surgery following. Patient is status post colostomy having stool and output from that ostomy. Small gas noted in ostomy. D/C TPN Hyperlipidemia Obesity BMI - 37.5 GERD DVT prophylaxis: Early ambulation, SCDs, Lovenox discontinued secondary to low platelets Plan: Continue with current medication regimen and antibiotic therapy. Infectious disease along with surgery following. Encouraged increased activity as tolerated and the use of incentive spirometer.
[2020-09-17 17:38] LABS: Glucose,Whole Blood 145 mg/dL (75-99)
[2020-09-17] MEDS: UROXATRAL 10 MG PO SCH (20:33)
[2020-09-17] MEDS: HYDROcodone/APAP 7.5-325MG 1 EACH TAB PO PRN (20:34)
--- NOTE | 2020-09-17 20:45 | PN ---
PROGRESS NOTE DATE OF SERVICE: 09/17/2020 REASON FOR FOLLOWUP: Intra-abdominal abscess, perforated diverticulitis. INTERVAL HISTORY: Patient is currently afebrile. The patient is breathing comfortably. The patient denies having any chest pain. No shortness of breath or cough. Abdominal pain is currently controlled and did have output in his colostomy bag. PHYSICAL EXAMINATION: Blood pressure 113/69, pulse of 90, temperature 98.4. He is 93% on 2 L nasal cannula. General description is a middle-aged male lying in bed in no distress. Respiratory system: Unlabored breathing, decreased intensity of breath sounds. No wheeze. Heart: S1, S2. Regular rate and rhythm. Abdomen soft, mildly distended. No guarding or rigidity. Minimal output in the ALFIE drain. Extremities: No edema of the feet. LABS: BUN of 11, creatinine 0.79, hemoglobin 9.8, white count 4.90. DIAGNOSTIC IMPRESSION AND PLAN: Patient with an intra-abdominal abscess from a perforated diverticulitis status post CT- guided drainage followed by diverting colostomy. Abdominal culture positive for Enterococcus faecalis, E coli and anaerobic gram-negative. The patient did have significant thrombocytopenia to the Rocephin. Vancomycin had to be discontinued. However, the patient did well on Cipro and Flagyl, remains to be afebrile and has shown clinical improvement. Plan is to continue with Cipro and Flagyl for 7-10 days and close outpatient followup. MMODL / AMADOUN: [id number] / MTDD
[2020-09-17] MEDS: LORazepam 1 MG TAB PO PRN (23:51)
[2020-09-18] MEDS: ACETAMINOPHEN TAB 325 MG TAB PO PRN (02:45)
[2020-09-18] MEDS: KETOROLAC 15 MG/ML 1 ML VIAL IVP PRN ×2 (04:52→10:32)
[2020-09-18] MEDS: guaiFENesin-Coden 100-10MG/5ML 10 ML CUP PO SCH (05:40)
[2020-09-18] MEDS: BENZONATATE 100 MG CAP PO SCH (05:40)
[2020-09-18] MEDS: ALBUTEROL HFA INHALER INHALATION SCH ×2 (09:52→12:44)
[2020-09-18] MEDS: metroNIDAZOLE 500 MG TAB PO SCH (10:21)
[2020-09-18] MEDS: NYSTATIN 100,000 UNIT/ML SUSP 500,000 UNIT/5 ML CUP PO SCH (10:21)
[2020-09-18] MEDS: ATORVASTATIN 20 MG TAB PO SCH (10:21)
[2020-09-18] MEDS: CHOLECALCIFEROL 25 MCG (1000 IU) TABLET PO SCH (10:21)
[2020-09-18] MEDS: CIPROFLOXACIN HCL 500 MG TAB PO SCH (10:22)
[2020-09-18] MEDS: FAMOTIDINE 20 MG/2 ML VIAL IV SCH (10:22)
[2020-09-18] MEDS: PANTOPRAZOLE 40 MG/10 ML VIAL IVP SCH (10:22)
[2020-09-18] MEDS: ZINC SULFATE 220 MG CAP PO SCH (10:22)
[2020-09-18] MEDS: ASCORBIC ACID 500 MG TAB PO SCH (10:22)
[2020-09-18 10:55] VITALS: BP 126/78; PULSE 91; RESP 18; TEMP 98.5
--- NOTE | 2020-09-18 12:15 | P.PN ---
Subjective Progress Note Date: 09/18/20 CHIEF COMPLAINT: Left lower quadrant abdominal pain HISTORY OF PRESENT ILLNESS: Patient is status post exploratory laparotomy, sigmoidectomy, and colostomy, drainage of pelvic abscess and appendectomy for perforated diverticulitis with abscess. Patient reports his pain is controlled. He is tolerating diet. They're planning discharge today. His ostomy is functioning. He is still having small amount of of purulent drainage through the ALFIE drain. Afebrile. Patient seen and examined with Dr. maya PHYSICAL EXAM: VITAL SIGNS: Reviewed. GENERAL: Well-developed in no acute distress. HEENT: No sclera icterus. Extraocular movements grossly intact. Moist buccal mucosa. Head is atraumatic, normocephalic. Patient has evidence of oral thrush ABDOMEN: Soft. Nondistended. Incision site clean dry and intact. Ostomy pink. Ostomy functioning ALFIE drain with purulent output NEUROLOGIC: Alert and oriented. Cranial nerves II through XII grossly intact. ASSESSMENT: 1. Perforated sigmoid colon diverticulitis with abscess status post exploratory laparotomy, sigmoidectomy, and colostomy, drainage of pelvic abscess and appendectomy 2. Left lower quadrant abdominal pain secondary to perforated sigmoid colon diverticulitis with abscess 3. Constipation 4. Prior history of inguinal hernia repairs and umbilical hernia repair 5. Covid 19 pneumonia 6. Anxiety 7. Oral candidiasis 8. Dysphagia and GERD 9. Thrombocytopenia management per medicine service 10. Possible ileus PLAN: -Patient is stable for discharge from surgical standpoint -Antibiotics per ID -Continue supportive care -Encourage incentive spirometry use -Encourage patient to ambulate Physician [place] note has been reviewed by physician. Signing provider agrees with the documented findings, assessment, and plan of care. Objective - Vital Signs Vital signs: Vital Signs Temp 98.5 F 09/18/20 10:00 Pulse 91 09/18/20 10:00 Resp 18 09/18/20 10:00 BP 126/78 09/18/20 10:00 Pulse Ox 92 L 09/18/20 10:00 Intake & Output 09/17/20 09/18/20 09/18/20 18:59 06:59 18:59 Intake Total 1080 Output Total 20 20 Balance 1060 -20 Weight 110.2 kg Intake: Oral 1080 Output: Drainage 20 20 Right Abdomen 20 20 Other: Voiding Method Toilet # Voids 2 4 - Labs CBC & Chem 7: 09/17/20 06:00 04/11/21 06:00 Labs: Abnormal Lab Results - Last 24 Hours (Table) 09/17/20 09/18/20 Range/Units 17:34 06:03 POC Glucose (mg/dL) 145 H (75-99) mg/dL C-Reactive Protein 54.8 H (<10.0) mg/L
--- NOTE | 2020-09-18 15:38 | P.DS ---
Providers Date of admission: 08/23/20 18:54 Expected date of discharge: 09/18/20 Attending physician: Itzel Jauregui Consults: 09/04/20 05:52 Consult Physician Routine Consulting Provider: Nikos Dorsey Consult Reason/Comments: lower abdominal pain, Hx of hernia Do you want consulting provider notified?: Yes 09/06/20 11:13 Consult Physician Routine Consulting Provider: Manfred Turk Consult Reason/Comments: diverticular abscess and oral candidiasis Do you want consulting provider notified?: Yes Primary care physician: Victorino Webb Hospital Course: Final diagnosis Acute hypoxic respiratory failure secondary to Covid pneumonia Asthma, not in acute exacerbation Patient had a proctocolitis with an abscess status post perforated sigmoid colon diverticulitis with abscess, status post exploratory laparotomy, sigmoidectomy, and colostomy Hyperlipidemia Mild thrombocytopenia, resolved Obesity BMI - 37.5 GERD DVT prophylaxis Discharge disposition Patient is being discharged in a stable condition with guarded prognosis to home. Patient will continue with home care in the outpatient setting. Patient will follow-up with Dr. Victorino Webb in the outpatient setting upon discharge. Patient is to also follow-up with surgery in one week for follow up. Patient will continue on oral antibiotics in the form of Cipro 500 mg twice daily and Flagyl 500 mg 3 times daily for the next one week to complete the course. Total time taken is greater than 35 minutes. Hospital course This is a 55 are old male who was recently admitted with Covid 19 infection and was being closely monitored. Patient did receive an infusion of BAM in the emergency room although continue to have increasing shortness of breath and was maintained on oxygen. Patient currently remains on 2 L of oxygen via nasal cannula secondary to Covid 19 and will continue in the outpatient setting. Patient continued to have some abdominal discomfort and was seen and evaluated by surgery and originally went to the OR for incision and drainage of a pelvic abscess and continued to have drainage and abdominal discomfort and ultimately underwent exploratory laparotomy, sigmoidectomy and end colostomy secondary to perforated diverticulitis with abscess. Patient is currently having bowel activity and has been seen by ostomy nurse and will continue with home care in the outpatient setting. Patient instructed to follow-up with surgery outpatient in 1-2 weeks. Currently no reports of chest pain, worsening shortness of breath, or palpitations. Patient is afebrile. No reports of nausea or vomiting and patient is tolerating diet. Patient to continue with a low fiber diet as instructed. Patient will be discharged home today. Please refer to previous dictations for further HPI. On exam vital signs are stable. Cardio S1, S2 are muffled. Respiratory system shows diminished breath sounds at the bases with no wheezing or rhonchi noted. Abdomen is soft and obese, and nontender. Nervous system shows no focal deficits. Please refer to medication reconciliation sheet for a list of medications. Patient Condition at Discharge: Stable Plan - Discharge Summary Discharge Rx Participant: No New Discharge Prescriptions: New LORazepam [Ativan] 0.5 mg PO Q8HR PRN tab PRN Reason: Anxiety Ciprofloxacin HCl [Cipro] 500 mg PO BID 7 Days #14 tab Docusate [Colace] 200 mg PO DAILY PRN #30 cap PRN Reason: Constipation HYDROcodone/APAP 7.5-325MG [[place] 7.5-325] 1 each PO Q6H PRN #12 tab PRN Reason: Pain Zinc Sulfate [Orazinc] 220 mg PO DAILY 30 Days #30 cap Sennosides [Senokot] 8.6 mg PO BID PRN #20 tab PRN Reason: Constipation Benzonatate [Tessalon Perles] 200 mg PO Q8H PRN #30 cap PRN Reason: Cough Acetaminophen Tab [Tylenol] 650 mg PO Q6HR PRN tab PRN Reason: Fever And/ Or Pain Albuterol Inhaler [Ventolin Hfa Inhaler] 2 puff INHALATION RT-QID PRN puff PRN Reason: Shortness Of Breath Or Wheezing metroNIDAZOLE [Flagyl] 500 mg PO Q8HR 7 Days #21 tab Albuterol Inhaler [Ventolin Hfa Inhaler] 2 puff INHALATION RT-QID 30 Days #1 puff Ondansetron Odt [Zofran Odt] 4 mg PO Q8HR PRN #12 tab PRN Reason: Nausea Continue Cholecalciferol [Vitamin D3 (25 Mcg = 1000 Iu)] 25 mcg PO DAILY Ascorbic Acid [Vitamin C] 500 mg PO DAILY Rosuvastatin [Crestor] 10 mg PO DAILY Omeprazole [PriLOSEC] 20 mg PO DAILY Cetirizine HCl [Zyrtec] 10 mg PO DAILY Doxycycline Hyclate 100 mg PO BID Alfuzosin HCl [Alfuzosin HCl ER] 10 mg PO DAILY Discharge Medication List Alfuzosin HCl [Alfuzosin HCl ER] 10 mg PO DAILY 08/21/20 [History] Ascorbic Acid [Vitamin C] 500 mg PO DAILY 08/21/20 [History] Cetirizine HCl [Zyrtec] 10 mg PO DAILY 08/21/20 [History] Cholecalciferol [Vitamin D3 (25 Mcg = 1000 Iu)] 25 mcg PO DAILY 08/21/20 [History] Doxycycline Hyclate 100 mg PO BID 08/21/20 [History] Omeprazole [PriLOSEC] 20 mg PO DAILY 08/21/20 [History] Rosuvastatin [Crestor] 10 mg PO DAILY 08/21/20 [History] Acetaminophen Tab [Tylenol] 650 mg PO Q6HR PRN tab 09/18/20 [Rx] Albuterol Inhaler [Ventolin Hfa Inhaler] 2 puff INHALATION RT-QID 30 Days #1 puff 09/18/20 [Rx] Albuterol Inhaler [Ventolin Hfa Inhaler] 2 puff INHALATION RT-QID PRN puff 09/18/20 [Rx] Benzonatate [Tessalon Perles] 200 mg PO Q8H PRN #30 cap 09/18/20 [Rx] Ciprofloxacin HCl [Cipro] 500 mg PO BID 7 Days #14 tab 09/18/20 [Rx] Docusate [Colace] 200 mg PO DAILY PRN #30 cap 09/18/20 [Rx] HYDROcodone/APAP 7.5-325MG [[place] 7.5-325] 1 each PO Q6H PRN #12 tab 09/18/20 [Rx] LORazepam [Ativan] 0.5 mg PO Q8HR PRN tab 09/18/20 [Rx] Ondansetron Odt [Zofran Odt] 4 mg PO Q8HR PRN #12 tab 09/18/20 [Rx] Sennosides [Senokot] 8.6 mg PO BID PRN #20 tab 09/18/20 [Rx] Zinc Sulfate [Orazinc] 220 mg PO DAILY 30 Days #30 cap 09/18/20 [Rx] metroNIDAZOLE [Flagyl] 500 mg PO Q8HR 7 Days #21 tab 09/18/20 [Rx] Follow up Appointment(s)/Referral(s): [facility] [NON-STAFF] - As Needed (oxygen and walker) [facility], [NON-STAFF] - As Needed ,DO Victorino [Primary Care Provider] - 1-2 days (please call office when discharge please ask for marco) Kian Garcia MD [STAFF PHYSICIAN] - 09/26/20 4:30 pm Patient Instructions/Handouts: Coronavirus Disease 2019 (COVID-19), Diverticulitis (GEN), Colostomy Care (GEN) Activity/Diet/Wound Care/Special Instructions: LAst colostomy pouching system change: 09.18.2020 Mr Maldonado will be sent home the following Ostomy Supplies from [facility] as follows: Convatec flanges moldable #[id number] (three) Convatec pouches with filter #[id number] (three) No sting prep pads (10) from [facility] Ostomy powder (1) Mr Maldonado is to empty the pouch when it is 1/3 to 1/2 full while sitting on the toilet or straddling the toilet Mr Maldonado is to change the entire pouching system every 3-5 days with assistance of Home Care as needed Mr Maldonado will be receiving ostomy samples from [facility] to his home at 5-7 days after discharge from the hospital Home care - please assist Mr Maldonado to obtain ostomy supplies of disposable pouching system in 2-4 weeks after surgical date. Activity Limited until follow-up Follow-up with primary care provider upon discharge Follow-up with surgery in one week continue with antibiotics for the next 1 week until finished continue with low fiber diet Keep a log of ALFIE drain output and bring with you to your follow-up appointment Milk/strip drains 2-3 times a day Discharge Disposition: HOME WITH HOME HEALTH SERVICES
[2020-09-18] MEDS ORDERED: PANTOPRAZOLE 40 MG TABLET PO SCH (17:30)
[2020-09-18] MEDS ORDERED: FAMOTIDINE 20 MG TAB PO SCH (21:00)
--- NOTE | 2020-09-18 21:03 | P.PN ---
Progress Note - Text Progress Note Date: 09/18/20 REASON FOR FOLLOWUP: Intra-abdominal abscess, perforated diverticulitis. INTERVAL HISTORY: Patient is afebrile. The patient is breathing comfortably. The patient denies chest pain. No shortness of breath or cough. Abdominal pain is currently controlled and did have output in his colostomy bag. PHYSICAL EXAMINATION: Blood pressure 110/60, pulse of 90, temperature 98.4. He is 93% on 2 L nasal cannula. General description is a middle-aged male lying in bed in no distress. Respiratory system: Unlabored breathing, decreased intensity of breath sounds. No wheeze. Heart: S1, S2. Regular rate and rhythm. Abdomen soft, mildly distended. No guarding or rigidity. Minimal output in the ALFIE drain. Extremities: No edema of the feet. LABS: white count 4.90. CRP down DIAGNOSTIC IMPRESSION AND PLAN: Patient with an intra-abdominal abscess from a perforated diverticulitis status post CT- guided drainage followed by diverting colostomy. Abdominal culture positive for Enterococcus faecalis, E coli and anaerobic gram-negative. The patient did have significant thrombocytopenia to the Rocephin and Vancomycin, both had to be discontinued. However, the patient did well on Cipro and Flagyl, remains to be afebrile and has shown clinical improvement. wbc normal and CRP is down , Plan is to continue with Cipro and Flagyl for 7-10 days and close outpatient followup. Discussed with the admitting team
== END 2020-09-18 15:04 | disposition home health service (06) | DRG 853 ==
LOC: EC 16:07 → 3SCARD 18:54 → 4SSUR 08-28 21:53
PROVIDERS: ADMIT Internal Medicine; ATTEND Internal Medicine
PROC: XW033H5 Introduction of Tocilizumab into Peripheral Vein, Percutaneous Approach, New Technology Group 5 (ICD-10-PCS; 2020-08-24)
PROC: 5A0955A Assistance with Respiratory Ventilation, Greater than 96 Consecutive Hours, High Flow/Velocity Cannula (ICD-10-PCS; 2020-08-24)
PROC: 0W9G3ZZ Drainage of Peritoneal Cavity, Percutaneous Approach (ICD-10-PCS; 2020-09-05)
PROC: 02HV33Z Insertion of Infusion Device into Superior Vena Cava, Percutaneous Approach (ICD-10-PCS; 2020-09-07)
PROC: 0DTJ0ZZ Resection of Appendix, Open Approach (ICD-10-PCS; 2020-09-08)
PROC: 0DBN0ZZ Excision of Sigmoid Colon, Open Approach (ICD-10-PCS; 2020-09-08)
PROC: 0D1N0Z4 Bypass Sigmoid Colon to Cutaneous, Open Approach (ICD-10-PCS; principal; 2020-09-08 08:30)
PROC: 3E0436Z Introduction of Nutritional Substance into Central Vein, Percutaneous Approach (ICD-10-PCS; 2020-09-11)
DX: A41.89 Other specified sepsis (principal); U07.1 COVID-19; J12.82 Pneumonia due to coronavirus disease 2019; J96.01 Acute respiratory failure with hypoxia; K65.1 Peritoneal abscess; K57.20 Diverticulitis of large intestine with perforation and abscess without bleeding; R44.3 Hallucinations, unspecified; B37.0 Candidal stomatitis; Z88.0 Allergy status to penicillin; J45.909 Unspecified asthma, uncomplicated; Z82.49 Family history of ischemic heart disease and other diseases of the circulatory system; Z83.3 Family history of diabetes mellitus; K21.9 Gastro-esophageal reflux disease without esophagitis; E66.9 Obesity, unspecified; F41.9 Anxiety disorder, unspecified; K59.00 Constipation, unspecified; B95.2 Enterococcus as the cause of diseases classified elsewhere; R13.10 Dysphagia, unspecified; Z68.37 Body mass index [BMI] 37.0-37.9, adult; D69.59 Other secondary thrombocytopenia; T36.1X5A Adverse effect of cephalosporins and other beta-lactam antibiotics, initial encounter; I10 Essential (primary) hypertension; E78.00 Pure hypercholesterolemia, unspecified
CPT/HCPCS: 36410; 36415; 36573; 71045; 74019; 74177; 74230; 75989; 76937; 77012; 80048; 80053; 80202; 81001; 81003; 82330; 82565; 82728; 83036; 83605; 83615; 83735; 84100; 84145; 84478; 85025; 85027; 85379; 85610; 85730; 86140; 87040; 87070; 87075; 87077; 87086; 87186; 87205; 88307; 88309; 93005; 94640; 94760; 96374; 99285

== ENCOUNTER 2020-09-25 12:35 | Inpatient (IN) | payer MEDICARE ==
--- NOTE | 2020-09-25 13:36 | ED ---
Recheck HPI - General Source: patient Mode of arrival: wheelchair Limitations: no limitations <Farheen Rojo - Last Filed: 09/25/20 13:35> <Ko Thomson - Last Filed: 09/25/20 18:43> - General Stated Complaint: Covid+, ostomy problem Time Seen by Provider: 09/25/20 13:35 - History of Present Illness Initial Comments: Patient is a 55-year-old male, history of asthma, coated positive one month ago, presenting to the emergency Department with complaints of drainage from his recent abdominal wound. Patient is status post 17 days after exploratory laparotomy, sigmoidectomy, colostomy, appendectomy, pelvic abscess. Patient states he was admitted for coated pneumonia, then developed diverticulitis with abscess. His surgery was performed by Dr. Garcia. Patient states he did have a ALFIE drain on his right lower quadrant however was excellently pulled a few days ago, has been having purlulent drainage from the area, with a strong odor so his visiting nurse recommended coming in for evaluation. He has been having normal movements from his colostomy, his pain is minimal. He denies any fevers. (Farheen Rojo) This is a 55-year-old male presents emergency department stating that one month ago he was in the hospital for COVID and he developed diverticulitis when he was here. Patient states he started with drinking but that did not work so he had surgery which left him with a colostomy and drained. Patient states the drain was asked only pulled out last week and over the weekend drainage became purulent and malodorous. Patient states he is not really any more pain and he has not had any fevers but the drainage is discussed. Patient states it is not improving. Patient denies any nausea vomiting diarrhea. Patient denies any difficulty breathing shortness breath per patient denies any fever or chills. (Ko Thomson) - Related Data Home Medications Medication Instructions Recorded Confirmed Cetirizine HCl [Zyrtec] 10 mg PO DAILY 08/21/20 09/25/20 Cholecalciferol [Vitamin D3 (25 25 mcg PO DAILY 08/21/20 09/25/20 Mcg = 1000 Iu)] Omeprazole [PriLOSEC] 20 mg PO DAILY 08/21/20 09/25/20 Rosuvastatin [Crestor] 10 mg PO DAILY 08/21/20 09/25/20 Previous Rx's Medication Instructions Recorded Acetaminophen Tab [Tylenol] 650 mg PO Q6HR PRN tab 09/18/20 Albuterol Inhaler [Ventolin Hfa 2 puff INHALATION RT-QID PRN puff 09/18/20 Inhaler] Benzonatate [Tessalon Perles] 200 mg PO Q8H PRN #30 cap 09/18/20 Ciprofloxacin HCl [Cipro] 500 mg PO BID 7 Days #14 tab 09/18/20 LORazepam [Ativan] 0.5 mg PO Q8HR PRN tab 09/18/20 Ondansetron Odt [Zofran Odt] 4 mg PO Q8HR PRN #12 tab 09/18/20 Zinc Sulfate [Orazinc] 220 mg PO DAILY 30 Days #30 cap 09/18/20 metroNIDAZOLE [Flagyl] 500 mg PO Q8HR 7 Days #21 tab 09/18/20 Allergies Allergy/AdvReac Type Severity Reaction Status Date / Time mold Allergy Wheezing Verified 09/25/20 14:37 Penicillins Allergy Rash/Hives Verified 09/25/20 14:37 Review of Systems ROS Other: All systems not noted in ROS Statement are negative. <Farheen Rojo - Last Filed: 09/25/20 13:35> ROS Other: All systems not noted in ROS Statement are negative. <Ko Thomson - Last Filed: 09/25/20 18:43> ROS Statement: Those systems with pertinent positive or pertinent negative responses have been documented in the HPI. Past Medical History Past Medical History: Asthma, Hyperlipidemia Additional Past Medical History / Comment(s): covid 19 09/03/20 History of Any Multi-Drug Resistant Organisms: None Reported Past Surgical History: Back Surgery, Hernia Repair, Orthopedic Surgery Additional Past Surgical History / Comment(s): R shoulder surgery, RECENT bowel resection with colostomy Past Anesthesia/Blood Transfusion Reactions: No Reported Reaction Past Psychological History: No Psychological Hx Reported Smoking Status: Never smoker Past Alcohol Use History: Occasional Past Drug Use History: None Reported - Past Family History Father Family Medical History: Congestive Heart Failure (CHF) Mother Family Medical History: Diabetes Mellitus, Myocardial Infarction ([place]) <Farheen Rojo - Last Filed: 09/25/20 13:35> General Exam Limitations: no limitations General appearance: alert, in no apparent distress Head exam: Present: atraumatic <Farheen Rojo - Last Filed: 09/25/20 13:35> <Ko Thomson - Last Filed: 09/25/20 18:43> - General Exam Comments Initial Comments: GENERAL: Patient is well-developed and well-nourished. Patient is nontoxic and well- hydrated and is in mild distress. ENT: Neck is soft and supple. No significant lymphadenopathy is noted. Oropharynx is clear. Moist mucous membranes. Neck has full range of motion without eliciting any pain. EYES: The sclera were anicteric and conjunctiva were pink and moist. Extraocular movements were intact and pupils were equal round and reactive to light. Eye lids were unremarkable. PULMONARY: Unlabored respirations. Good breath sounds bilaterally. No audible rales rhonchi or wheezing was noted. CARDIOVASCULAR: There is a regular rate and rhythm without any murmurs gallops or rubs. ABDOMEN: Patient is minimal tenderness around the incision site. Patient has an opening in the right side of his abdomen with a drain was and there is purulent drainage coming from that site. SKIN: Skin is clear with no lesions or rashes and otherwise unremarkable. NEUROLOGIC: Patient is alert and oriented x3. Cranial nerves II through XII are grossly intact. Motor and sensory are also intact. Normal speech, volume and content. Symmetrical smile. MUSCULOSKELETAL: Normal extremities with adequate strength and full range of motion. LYMPHATICS: No significant lymphadenopathy is noted PSYCHIATRIC: Normal psychiatric evaluation. (Ko Thomson) Course Vital Signs 09/25/20 09/25/20 09/25/20 13:30 14:05 14:11 Temperature 97.8 F 98.6 F Pulse Rate 108 H 104 H 99 Respiratory 18 18 18 Rate Blood Pressure 91/63 119/79 O2 Sat by Pulse 97 93 L 94 L Oximetry 09/25/20 09/25/20 16:17 18:25 Temperature Pulse Rate 85 81 Respiratory 15 18 Rate Blood Pressure 116/80 118/77 O2 Sat by Pulse 98 95 Oximetry Medical Decision Making - Lab Data Result diagrams: 09/25/20 13:58 09/25/20 13:58 <Ko Thomson - Last Filed: 09/25/20 18:43> - Medical Decision Making EKG shows normal sinus rhythm at 99 bpm SC interval 230 QRS is 80 QT interval 334 QTC is 428. Patient's EKG shows no ST segment elevation or depression CT shows increased amount of fluid in the peritoneal and the retroperitoneal area. I spoke with Dr. Chance and he wants patient admitted admitted the patient started antibiotics I consulted radiology for drain placement (Ko Thomson) - Lab Data Lab Results 09/25/20 09/25/20 09/25/20 Range/Units 13:58 13:58 13:58 WBC 11.8 H (3.8-10.6) k/uL RBC 4.13 L (4.30-5.90) m/uL Hgb 11.9 L (13.0-17.5) gm/dL Hct 35.6 L (39.0-53.0) % MCV 86.3 (80.0-100.0) fL MCH 28.7 (25.0-35.0) pg MCHC 33.3 (31.0-37.0) g/dL RDW 14.1 (11.5-15.5) % Plt Count 321 D (150-450) k/uL MPV 7.0 Neutrophils % 77 % Lymphocytes % 10 % Monocytes % 9 % Eosinophils % 1 % Basophils % 1 % Neutrophils # 9.1 H (1.3-7.7) k/uL Lymphocytes # 1.1 (1.0-4.8) k/uL Monocytes # 1.1 H (0-1.0) k/uL Eosinophils # 0.2 (0-0.7) k/uL Basophils # 0.1 (0-0.2) k/uL PT 11.8 (9.0-12.0) sec INR 1.1 (<1.2) APTT 22.2 (22.0-30.0) sec Sodium (137-145) mmol/L Potassium (3.5-5.1) mmol/L Chloride (98-107) mmol/L Carbon Dioxide (22-30) mmol/L Anion Gap mmol/L BUN (9-20) mg/dL Creatinine (0.66-1.25) mg/dL Est GFR (CKD-EPI)AfAm (>60 ml/min/1.73 sqM) Est GFR (CKD-EPI)NonAf (>60 ml/min/1.73 sqM) Glucose (74-99) mg/dL Plasma Lactic Acid Silvestre (0.7-2.0) mmol/L Calcium (8.4-10.2) mg/dL Total Bilirubin (0.2-1.3) mg/dL AST (17-59) U/L ALT (4-49) U/L Alkaline Phosphatase (38-126) U/L Total Protein (6.3-8.2) g/dL Albumin (3.5-5.0) g/dL Urine Color Yellow Urine Appearance Clear (Clear) Urine pH 6.5 (5.0-8.0) Ur Specific [place] 1.039 H (1.001-1.035) Urine Protein Trace H (Negative) Urine Glucose (UA) Negative (Negative) Urine Ketones Negative (Negative) Urine Blood Negative (Negative) Urine Nitrite Negative (Negative) Urine Bilirubin Negative (Negative) Urine Urobilinogen <2.0 (<2.0) mg/dL Ur Leukocyte Esterase Negative (Negative) 09/25/20 09/25/20 Range/Units 13:58 13:58 WBC (3.8-10.6) k/uL RBC (4.30-5.90) m/uL Hgb (13.0-17.5) gm/dL Hct (39.0-53.0) % MCV (80.0-100.0) fL MCH (25.0-35.0) pg MCHC (31.0-37.0) g/dL RDW (11.5-15.5) % Plt Count (150-450) k/uL MPV Neutrophils % % Lymphocytes % % Monocytes % % Eosinophils % % Basophils % % Neutrophils # (1.3-7.7) k/uL Lymphocytes # (1.0-4.8) k/uL Monocytes # (0-1.0) k/uL Eosinophils # (0-0.7) k/uL Basophils # (0-0.2) k/uL PT (9.0-12.0) sec INR (<1.2) APTT (22.0-30.0) sec Sodium 134 L (137-145) mmol/L Potassium 4.2 (3.5-5.1) mmol/L Chloride 101 (98-107) mmol/L Carbon Dioxide 25 (22-30) mmol/L Anion Gap 8 mmol/L BUN 15 (9-20) mg/dL Creatinine 0.87 (0.66-1.25) mg/dL Est GFR (CKD-EPI)AfAm >90 (>60 ml/min/1.73 sqM) Est GFR (CKD-EPI)NonAf >90 (>60 ml/min/1.73 sqM) Glucose 120 H (74-99) mg/dL Plasma Lactic Acid Silvestre 1.1 (0.7-2.0) mmol/L Calcium 9.0 (8.4-10.2) mg/dL Total Bilirubin 0.5 (0.2-1.3) mg/dL AST 22 (17-59) U/L ALT 10 (4-49) U/L Alkaline Phosphatase 63 (38-126) U/L Total Protein 5.9 L (6.3-8.2) g/dL Albumin 3.0 L (3.5-5.0) g/dL Urine Color Urine Appearance (Clear) Urine pH (5.0-8.0) Ur Specific [place] (1.001-1.035) Urine Protein (Negative) Urine Glucose (UA) (Negative) Urine Ketones (Negative) Urine Blood (Negative) Urine Nitrite (Negative) Urine Bilirubin (Negative) Urine Urobilinogen (<2.0) mg/dL Ur Leukocyte Esterase (Negative) Disposition <Farheen Rojo - Last Filed: 09/25/20 13:35> Time of Disposition: 18:43 <Ko Thomson - Last Filed: 09/25/20 18:43> Clinical Impression: Postoperative infection Disposition: ADMITTED IP TO THIS HOSP Referrals: Victorino Webb DO [Primary Care Provider] - 1-2 days
[2020-09-25] MEDS: SODIUM CHLORIDE 0.9% 500 ML 500 ML IV SCH ×2 (14:02→14:14)
[2020-09-25 14:24] LABS: Basophils # (A) 0.1 k/uL (0-0.2); Basophils % (A) 1 %; Eosinophils # (A) 0.2 k/uL (0-0.7); Eosinophils % (A) 1 %; HCT 35.6 % (39.0-53.0); HGB 11.9 gm/dL (13.0-17.5); Lymphocytes # (A) 1.1 k/uL (1.0-4.8); Lymphocytes % (A) 10 %; MCH 28.7 pg (25.0-35.0); MCHC 33.3 g/dL (31.0-37.0); MCV 86.3 fL (80.0-100.0); Monocytes # (A) 1.1 k/uL (0-1.0); Monocytes % (A) 9 %; Neutrophils # (A) 9.1 k/uL (1.3-7.7); Neutrophils % (A) 77 %; RBC 4.13 m/uL (4.30-5.90); RDW 14.1 % (11.5-15.5); WBC 11.8 k/uL (3.8-10.6)
[2020-09-25 14:34] LABS: ALT 10 U/L (4-49); AST 22 U/L (17-59); African American GFR (CKD) >90 (>60 ml/min/1.73 sqM); Alkaline Phosphatase 63 U/L (38-126); Anion Gap 8 mmol/L; Blood Urea Nitrogen 15 mg/dL (9-20); Carbon Dioxide 25 mmol/L (22-30); Chloride 101 mmol/L (98-107); Glucose 120 mg/dL (74-99); Non-African American GFR(CKD) >90 (>60 ml/min/1.73 sqM); Potassium 4.2 mmol/L (3.5-5.1); Sodium 134 mmol/L (137-145); Total Bilirubin 0.5 mg/dL (0.2-1.3); Total Protein 5.9 g/dL (6.3-8.2)
[2020-09-25 14:38] LABS: Platelet Count 321 k/uL (150-450)
[2020-09-25 15:13] LABS: INR 1.1 (<1.2); Partial Thromboplastin Time 22.2 sec (22.0-30.0); Prothrombin Time 11.8 sec (9.0-12.0)
[2020-09-25 17:15] LABS: Appearance,Urine Clear (Clear); Bilirubin,Urine Negative (Negative); Blood,Urine Negative (Negative); Color,Urine Yellow; Glucose,Urine (UA) Negative (Negative); Ketones,Urine Negative (Negative); Leukocyte Esterase,Urine Negative (Negative); Nitrite,Urine Negative (Negative); PH, Urine 6.5 (5.0-8.0); Protein,Urine Trace (Negative); Specific Gravity,Urine 1.039 (1.001-1.035); Urobilinogen,Urine <2.0 mg/dL (<2.0)
--- NOTE | 2020-09-25 18:11 | CT ---
EXAMINATION TYPE: CT abdomen pelvis w con DATE OF EXAM: 09/25/2020 COMPARISON: CT abdomen pelvis 09/07/2020. Fluoroscopy barium swallow 09/08/2020. HISTORY: Post surgical abscess CT DLP: 1683.5 mGycm Automated exposure control for dose reduction was used. TECHNIQUE: Helical acquisition of images was performed from the lung bases through the pelvis. CONTRAST: Performed without Oral Contrast and with IV Contrast, patient injected with 100 ml mL of Isovue 300. FINDINGS: LUNG BASES: Redemonstrated multifocal patchy confluent and peripheral opacities of the bilateral lung bases. LIVER: Right hepatic cyst. BILIARY SYSTEM: Normal. PANCREAS: Normal. SPLEEN: Normal. ADRENALS: Normal. KIDNEYS: No hydronephrosis. Redemonstrated left extra renal pelvis versus peripelvic cysts. BOWEL: Status post sigmoidectomy with Carbajal's pouch and left lower quadrant colostomy. There is pe rsistent oral contrast within the rectum and Carbajal's pouch. No evidence of bowel obstruction. No or al contrast extravasation is seen outside of the bowel lumen. PERITONEUM: The areas of perirectal, presacral, and retroperitoneal/peritoneal fluid and gas collect ion seen on 09/07/2020 now demonstrate more confluent appearance with scattered foci of gas. The fluid and gas collection measures up to approximately 4.2 x 8.7 x 21.5 cm. Interval removal of left lower q uadrant drainage catheter. LYMPH NODES: No lymphadenopathy. PELVIS: Normal urinary bladder and prostate. VASCULATURE: No abdominal aortic aneurysm. MUSCULOSKELETAL: Postsurgical fixation changes of the lumbosacral spine. IMPRESSION: 1. Status post sigmoidectomy with Carbajal's pouch and left lower quadrant colostomy. Persistent oral contrast within the rectum/Carbajal's pouch with no oral contrast extravasation to suggest leak. There is increased size and confluent fluid of the perirectal, presacral, and retroperitoneal/peritoneal f luid and gas collection versus 09/07/2020, spanning approximately 4.2 x 8.7 x 21.5 cm. Wall the fluid c ollection is associated with Carbajal's pouch anastomosis, the lack of oral contrast extravasation sug gest the anastomosis is intact. 2. Unchanged multilobar multifocal airspace opacities of the bilateral lungs.
[2020-09-25] MEDS ORDERED: SODIUM CHLORIDE 0.9% 1,000 ML IV ONE (18:44)
[2020-09-25] MEDS ORDERED: LEVOFLOXACIN 750MG-D5W PMX 750 MG in DEXTROSE/WATER 1 150ML.BAG IVPB STA (18:52)
[2020-09-25] MEDS: LEVOFLOXACIN 750MG-D5W PMX 750 MG in DEXTROSE/WATER 1 150ML.BAG IVPB SCH (19:42)
[2020-09-26] MEDS ORDERED: PROPOFOL 10 MG/ML 20 ML VIAL IV ONE (10:20)
[2020-09-26] MEDS ORDERED: fentaNYL (PF) 50 MCG/ML 2 ML AMP ONE (10:20)
[2020-09-26] MEDS ORDERED: MIDAZOLAM 2 MG/2 ML VIAL ONE (10:20)
[2020-09-26] MEDS: metroNIDAZOLE-NS PMX 500 MG in SALINE 1 100ML.BAG IVPB SCH ×3 (12:00→23:26)
--- NOTE | 2020-09-26 12:40 | P.GSHP ---
History of Present Illness H&P Date: 09/26/20 CHIEF COMPLAINT: Abdominal pain and ALFIE drain pulled out HISTORY OF PRESENT ILLNESS: This is a 55-year-old male who was recently hospitalized with COVID-19 pneumonia and respiratory failure. During his admission he developed perforated sigmoid colon diverticulitis with abscess and he underwent exploratory laparotomy, sigmoidectomy and colostomy with drainage of pelvic abscess and appendectomy. Patient had ALFIE drain in place at discharge. Output had been purulent. He was discharged home with antibiotics in stable condition. 3 days ago patient's ALFIE drain did accidentally get pulled out. He does report some abdominal pain. He has been having purulent discharge from the ALFIE drain site. His visiting home nurse recommended that he come into the ER for further evaluation. Patient denies any fever or chills. Denies any nausea or vomiting. Colostomy is functioning. He had a computed tomography scan of the abdomen and pelvis that showed persistent oral contrast within the rectum and/Clancy rtman's pouch with no oral contrast extravasation to suggest leak. There is increased size and confluent fluid of the perirectal, presacral and retroperitoneal/peritoneal fluid and gas collection. It spans approximate 4.2 x 8.7 x 21.5 cm. Report suggests that the anastomosis is intact. Interventional radiology has been consulted to drain abscess and place a new drain. PAST MEDICAL HISTORY: See list. PAST SURGICAL HISTORY: See list. MEDICATIONS: See list. ALLERGIES: See list. SOCIAL HISTORY: No illicit drug use. REVIEW OF SYSTEMS: CONSTITUTIONAL: Denies fever or chills. HEENT: Denies blurred vision, vision changes, or eye pain. Denies hemoptysis CARDIOVASCULAR: Denies chest pain or pressure. RESPIRATORY: No shortness of breath. GASTROINTESTINAL: See HPI for pertinent findings HEMATOLOGIC: Denies bleeding disorders. GENITOURINARY: Denies any blood in urine or increased urinary frequency. SKIN: Denies pruitis. Denies rash. PHYSICAL EXAM: VITAL SIGNS: Reviewed GENERAL: Well-developed in no acute distress. HEENT: No sclera icterus. Extraocular movements grossly intact. Moist buccal mucosa. Head is atraumatic, normocephalic. No nasal drainage. ABDOMEN: Soft. Nondistended. Mild diffuse tenderness. Colostomy bag on the left with evidence of stool. Old ALFIE drain site with some purulent drainage noted. NEUROLOGIC: Alert and oriented. Cranial nerves II through XII grossly intact. LABORATORY DATA: WBC 11.8 hemoglobin 11.9 platelets 321 sodium 134 BUN 15 creatinine 0.87 lactic 1.1 LFTs normal IMAGING: computed tomography scan of the abdomen and pelvis that showed persistent oral contrast within the rectum and/Carbajal's pouch with no oral contrast ex travasation to suggest leak. There is increased size and confluent fluid of the perirectal, presacral and retroperitoneal/peritoneal fluid and gas collection. It spans approximate 4.2 x 8.7 x 21.5 cm. Report suggests that the anastomosis is intact. ASSESSMENT: 1. Abdominal abscess with accidental removal of the ALFIE drain 2. Perforated sigmoid colon diverticulitis with abscess status post exploratory laparotomy, sigmoidectomy, colostomy and drainage of pelvic abscess and appendectomy on 09/08/2020. 3. Recent COVID-19 infection with acute hypoxic respiratory failure PLAN: -Consult interventional radiology for CT-guided drainage of abdominal abscess -Continue antibiotics -Consult medicine for medical management -We'll remove geovanna from ALFIE site -GI prophylaxis Protonix and DVT prophylaxis Lovenox Physician Cow Tender note has been reviewed by physician. Signing provider agrees with the documented findings, assessment, and plan of care. Past Medical History Past Medical History: Asthma, Hyperlipidemia Additional Past Medical History / Comment(s): covid 19 09/03/20 History of Any Multi-Drug Resistant Organisms: None Reported Past Surgical History: Back Surgery, Hernia Repair, Orthopedic Surgery Additional Past Surgical History / Comment(s): R shoulder surgery, RECENT bowel resection with colostomy Past Anesthesia/Blood Transfusion Reactions: No Reported Reaction Past Psychological History: No Psychological Hx Reported Smoking Status: Never smoker Past Alcohol Use History: Occasional Past Drug Use History: None Reported - Past Family History Father Family Medical History: Congestive Heart Failure (CHF) Mother Family Medical History: Diabetes Mellitus, Myocardial Infarction ([place]) Medications and Allergies Home Medications Medication Instructions Recorded Confirmed Type Cetirizine HCl [Zyrtec] 10 mg PO DAILY 08/21/20 09/25/20 History Cholecalciferol [Vitamin D3 (25 25 mcg PO DAILY 08/21/20 09/25/20 History Mcg = 1000 Iu)] Omeprazole [PriLOSEC] 20 mg PO DAILY 08/21/20 09/25/20 History Rosuvastatin [Crestor] 10 mg PO DAILY 08/21/20 09/25/20 History Acetaminophen Tab [Tylenol] 650 mg PO Q6HR PRN tab 09/18/20 09/25/20 Rx Albuterol Inhaler [Ventolin Hfa 2 puff INHALATION RT-QID PRN puff 09/18/20 09/25/20 Rx Inhaler] Benzonatate [Tessalon Perles] 200 mg PO Q8H PRN #30 cap 09/18/20 09/25/20 Rx Ciprofloxacin HCl [Cipro] 500 mg PO BID 7 Days #14 tab 09/18/20 09/25/20 Rx LORazepam [Ativan] 0.5 mg PO Q8HR PRN tab 09/18/20 09/25/20 Rx Ondansetron Odt [Zofran Odt] 4 mg PO Q8HR PRN #12 tab 09/18/20 09/25/20 Rx Zinc Sulfate [Orazinc] 220 mg PO DAILY 30 Days #30 cap 09/18/20 09/25/20 Rx metroNIDAZOLE [Flagyl] 500 mg PO Q8HR 7 Days #21 tab 09/18/20 09/25/20 Rx Allergies Allergy/AdvReac Type Severity Reaction Status Date / Time mold Allergy Wheezing Verified 09/25/20 14:37 Penicillins Allergy Rash/Hives Verified 09/25/20 14:37 Surgical - Exam Vital Signs Temp Pulse Resp BP Pulse Ox 97.8 F 108 H 18 91/63 97 09/25/20 13:30 09/25/20 13:30 09/25/20 13:30 09/25/20 13:30 09/25/20 13:30 Results - Labs 09/25/20 13:58 09/25/20 13:58 Abnormal Lab Results - Last 24 Hours (Table) 09/25/20 09/25/20 09/25/20 Range/Units 13:58 13:58 13:58 WBC 11.8 H (3.8-10.6) k/uL RBC 4.13 L (4.30-5.90) m/uL Hgb 11.9 L (13.0-17.5) gm/dL Hct 35.6 L (39.0-53.0) % Neutrophils # 9.1 H (1.3-7.7) k/uL Monocytes # 1.1 H (0-1.0) k/uL Sodium 134 L (137-145) mmol/L Glucose 120 H (74-99) mg/dL Total Protein 5.9 L (6.3-8.2) g/dL Albumin 3.0 L (3.5-5.0) g/dL Ur Specific [place] 1.039 H (1.001-1.035) Urine Protein Trace H (Negative) Microbiology - Last 24 Hours (Table) 09/25/20 19:39 Gram Stain - Preliminary Abdomen Wound Culture - Preliminary Diabetes panel 09/25/20 Range/Units 13:58 Sodium 134 L (137-145) mmol/L Potassium 4.2 (3.5-5.1) mmol/L Chloride 101 (98-107) mmol/L Carbon Dioxide 25 (22-30) mmol/L BUN 15 (9-20) mg/dL Creatinine 0.87 (0.66-1.25) mg/dL Glucose 120 H (74-99) mg/dL Calcium 9.0 (8.4-10.2) mg/dL AST 22 (17-59) U/L ALT 10 (4-49) U/L Alkaline Phosphatase 63 (38-126) U/L Total Protein 5.9 L (6.3-8.2) g/dL Albumin 3.0 L (3.5-5.0) g/dL Calcium panel 09/25/20 Range/Units 13:58 Calcium 9.0 (8.4-10.2) mg/dL Albumin 3.0 L (3.5-5.0) g/dL Pituitary panel 09/25/20 Range/Units 13:58 Sodium 134 L (137-145) mmol/L Potassium 4.2 (3.5-5.1) mmol/L Chloride 101 (98-107) mmol/L Carbon Dioxide 25 (22-30) mmol/L BUN 15 (9-20) mg/dL Creatinine 0.87 (0.66-1.25) mg/dL Glucose 120 H (74-99) mg/dL Calcium 9.0 (8.4-10.2) mg/dL Adrenal panel 09/25/20 Range/Units 13:58 Sodium 134 L (137-145) mmol/L Potassium 4.2 (3.5-5.1) mmol/L Chloride 101 (98-107) mmol/L Carbon Dioxide 25 (22-30) mmol/L BUN 15 (9-20) mg/dL Creatinine 0.87 (0.66-1.25) mg/dL Glucose 120 H (74-99) mg/dL Calcium 9.0 (8.4-10.2) mg/dL Total Bilirubin 0.5 (0.2-1.3) mg/dL AST 22 (17-59) U/L ALT 10 (4-49) U/L Alkaline Phosphatase 63 (38-126) U/L Total Protein 5.9 L (6.3-8.2) g/dL Albumin 3.0 L (3.5-5.0) g/dL
--- NOTE | 2020-09-26 13:22 | CT ---
EXAMINATION TYPE: CT guided abscess drainage DATE OF EXAM: 09/26/2020 COMPARISON: CT 09/25/2020 HISTORY: Abdominal abscess CT DLP: 2447 mGycm Automated exposure control for dose reduction was used. PROCEDURE: Maximal barrier technique was utilized. The skin over suitable path to the abscess was localized wit h CT and the overlying skin prepped and draped. Lidocaine was used for local anesthesia. A skin apolonia k made with a scalpel. Access was gained using CT guidance with a 21-gauge needle, purulent material returned in the hub of the needle. A 0.018 inch wire was advanced and the access site was upsized, the wire was upsized and subsequently an 8-Scottish drain was deployed within the abscess cavity and fi xed in place. Catheter attached to gravity drainage. No immediate complication. Purulent material sent for laboratory analysis and draining into the bag. The patient remained in stable condition. IMPRESSION: STATUS POST CT GUIDED ABSCESS DRAINAGE, MICROBIOLOGY ANALYSIS IS PENDING. THIS PROCEDURE WAS PERFORM ED BY THE UNDERSIGNED. IMPRESSION:
[2020-09-26] MEDS: PANTOPRAZOLE 40 MG TABLET PO SCH (14:40)
[2020-09-26] MEDS: BENZONATATE 100 MG CAP PO PRN ×2 (14:40→23:31)
[2020-09-26] MEDS: LEVOFLOXACIN 750MG-D5W PMX 750 MG in DEXTROSE/WATER 1 150ML.BAG IVPB SCH (15:59)
[2020-09-26 18:05] LABS: Basophils % (A) 1 %; Eosinophils # (A) 0.1 k/uL (0-0.7); Eosinophils % (A) 1 %; HCT 34.7 % (39.0-53.0); HGB 11.5 gm/dL (13.0-17.5); Hypochromasia Slight; Lymphocytes # (A) 0.8 k/uL (1.0-4.8); Lymphocytes % (A) 9 %; MCH 29.3 pg (25.0-35.0); MCV 88.8 fL (80.0-100.0); Monocytes # (A) 0.6 k/uL (0-1.0); Monocytes % (A) 7 %; Neutrophils # (A) 7.1 k/uL (1.3-7.7); Neutrophils % (A) 82 %; Platelet Count 320 k/uL (150-450); RBC 3.91 m/uL (4.30-5.90); RDW 14.3 % (11.5-15.5); WBC 8.6 k/uL (3.8-10.6)
[2020-09-26 18:14] LABS: African American GFR (CKD) >90 (>60 ml/min/1.73 sqM); Anion Gap 8 mmol/L; Blood Urea Nitrogen 13 mg/dL (9-20); Carbon Dioxide 28 mmol/L (22-30); Chloride 99 mmol/L (98-107); Glucose 160 mg/dL (74-99); Non-African American GFR(CKD) >90 (>60 ml/min/1.73 sqM); Potassium 4.1 mmol/L (3.5-5.1); Sodium 135 mmol/L (137-145)
[2020-09-26] MEDS: LORazepam 1 MG TAB PO PRN (19:35)
[2020-09-26] MEDS: ACETAMINOPHEN TAB 325 MG TAB PO PRN (19:50)
--- NOTE | 2020-09-27 00:24 | P.CONS ---
History of Present Illness - Reason for Consult Consult date: 09/26/20 Medical management - Chief Complaint Purulent drainage from the ALFIE drain site - History of Present Illness Patient is a 55-year-old male with a known history of hyperlipidemia, GERD, recent history of COVID-19 infection, respiratory failure and proctocolitis status post exploratory laparotomy and colostomy bag placement presented to ER due to complaints of purulent drainage from the ALFIE drain and lower abdominal discomfort. Patient's ALFIE drain was accidentally got pulled out 3 days ago. He has been having purulent drainage from the ALFIE drain site. Patient presents to ER for evaluation. Otherwise denied any complaints of fever or chills. No nausea vomiting abdominal pain. Tolerating oral diet. Colostomy is functioning. CT of the abdomen pelvis showed status post sigmoidectomy with Carbajal's pouch with lower left quadrant colostomy. Persistent oral contrast within the rectum/Carbajal's pouch with no oral contrast extravasation to suggest leak. There is increased size size and confluent fluid of perirectal presacral and retroperitoneal/peritoneal fluid and gas collection versus 4- 21. Unchanged multifocal multilobular airspace opacities of the bilateral lung self. Laboratory data showed WBC 11.8 hemoglobin 11.9 platelets 321 sodium 134 potassium 4.2 BUN 15 and creatinine 0.87 and CRP 54.8 Urinalysis is negative for infection Patient was admitted to the hospital from 08/23/2020 to 09/18/2020 due to COVID-19 pneumonia and also developed proctocolitis with abscess status post perforated sigmoid colon, diverticulitis with abscess status post exploratory laparotomy, sigmoidectomy and colostomy bag placement placement. Review of Systems Constitutional: Patient denies any fever or chills . No generalized weakness or weight loss. Abdomen: Patient denied nausea vomiting and diarrhea and abdominal pain.Lower abdominal discomfort. Cardiovascular: Patient denies any chest pain or short of breath no palpitations. Respiratory: patient denied any cough or sputum production. No shortness of breath Neurologic: Patient denied any numbness or tingling headache. Musculoskeletal: Patient denies any complaints of joint swelling or deformity. Skin: Negative Psychiatric: Negative Endocrine: No heat or cold intolerance. No recent weight gain. Genitourinary: No dysuria or hematuria. All other 14 point ROS negative except the above Past Medical History Past Medical History: Asthma, Hyperlipidemia Additional Past Medical History / Comment(s): covid 19 09/03/20 History of Any Multi-Drug Resistant Organisms: None Reported Past Surgical History: Back Surgery, Hernia Repair, Orthopedic Surgery Additional Past Surgical History / Comment(s): R shoulder surgery, RECENT bowel resection with colostomy Past Anesthesia/Blood Transfusion Reactions: No Reported Reaction Past Psychological History: No Psychological Hx Reported Smoking Status: Never smoker Past Alcohol Use History: Occasional Past Drug Use History: None Reported - Past Family History Father Family Medical History: Congestive Heart Failure (CHF) Mother Family Medical History: Diabetes Mellitus, Myocardial Infarction ([place]) Medications and Allergies Home Medications Medication Instructions Recorded Confirmed Type Cetirizine HCl [Zyrtec] 10 mg PO DAILY 08/21/20 09/25/20 History Cholecalciferol [Vitamin D3 (25 25 mcg PO DAILY 08/21/20 09/25/20 History Mcg = 1000 Iu)] Omeprazole [PriLOSEC] 20 mg PO DAILY 08/21/20 09/25/20 History Rosuvastatin [Crestor] 10 mg PO DAILY 08/21/20 09/25/20 History Acetaminophen Tab [Tylenol] 650 mg PO Q6HR PRN tab 09/18/20 09/25/20 Rx Albuterol Inhaler [Ventolin Hfa 2 puff INHALATION RT-QID PRN puff 09/18/20 09/25/20 Rx Inhaler] Benzonatate [Tessalon Perles] 200 mg PO Q8H PRN #30 cap 09/18/20 09/25/20 Rx Ciprofloxacin HCl [Cipro] 500 mg PO BID 7 Days #14 tab 09/18/20 09/25/20 Rx LORazepam [Ativan] 0.5 mg PO Q8HR PRN tab 09/18/20 09/25/20 Rx Ondansetron Odt [Zofran Odt] 4 mg PO Q8HR PRN #12 tab 09/18/20 09/25/20 Rx Zinc Sulfate [Orazinc] 220 mg PO DAILY 30 Days #30 cap 09/18/20 09/25/20 Rx metroNIDAZOLE [Flagyl] 500 mg PO Q8HR 7 Days #21 tab 09/18/20 09/25/20 Rx Allergies Allergy/AdvReac Type Severity Reaction Status Date / Time mold Allergy Wheezing Verified 09/25/20 14:37 Penicillins Allergy Rash/Hives Verified 09/25/20 14:37 Physical Exam Vitals: Vital Signs Temp Pulse Pulse Resp BP BP Pulse Ox 09/26/20 08:00 98.5 F 84 16 126/76 91 L 09/26/20 01:09 99.2 F 92 14 120/63 93 L 09/25/20 22:47 97.6 F 112 H 15 109/73 93 L 09/25/20 22:10 98.0 F 101 H 16 118/70 94 L 09/25/20 20:02 98.1 F 100 20 120/77 94 L 09/25/20 18:25 81 18 118/77 95 09/25/20 16:17 85 15 116/80 98 09/25/20 14:11 98.6 F 99 18 94 L 09/25/20 14:05 104 H 18 119/79 93 L 09/25/20 13:30 97.8 F 108 H 18 91/63 97 Intake and Output 09/25/20 09/26/20 09/26/20 22:59 06:59 14:59 Other: Voiding Method Toilet Weight 100.244 kg PHYSICAL EXAMINATION: Patient is lying in the bed comfortably, no acute distress, awake alert and oriented.. HEENT: Normocephalic. Neck is supple. Pupils reactive. Nostrils clear. Oral cavity is moist. Ears reveal no drainage. Neck reveals no JVD, carotid bruits, or thyromegaly. CHEST EXAMINATION: Trachea is central. Symmetrical expansion. Bibasilar diminished sounds. No wheezing no rhonchi or crackles.. CARDIAC: Normal S1, S2 with no gallops. No murmurs ABDOMEN: Soft. Bowel sounds normal. No organomegaly. No abdominal bruits. Purulent drainage from the ALFIE drain site on the right lower quadrant of the abdomen. Extremities: reveal no edema. No clubbing or cyanosis Neurologically awake, alert, oriented x3 with well-coordinated movements. No focal deficits noted Skin: No rash or skin lesions. Psychiatric: Coperative. Nonsuicidal Musculoskeletal: No joint swelling or deformity. Normal range of motion. Results CBC & Chem 7: 09/26/20 17:26 09/26/20 17:26 Labs: Abnormal Lab Results - Last 24 Hours (Table) 09/25/20 09/25/20 09/25/20 Range/Units 13:58 13:58 13:58 WBC 11.8 H (3.8-10.6) k/uL RBC 4.13 L (4.30-5.90) m/uL Hgb 11.9 L (13.0-17.5) gm/dL Hct 35.6 L (39.0-53.0) % Neutrophils # 9.1 H (1.3-7.7) k/uL Monocytes # 1.1 H (0-1.0) k/uL Sodium 134 L (137-145) mmol/L Glucose 120 H (74-99) mg/dL Total Protein 5.9 L (6.3-8.2) g/dL Albumin 3.0 L (3.5-5.0) g/dL Ur Specific [place] 1.039 H (1.001-1.035) Urine Protein Trace H (Negative) Microbiology - Last 24 Hours (Table) 09/25/20 19:39 Gram Stain - Preliminary Abdomen Wound Culture - Preliminary Assessment and Plan Assessment: Purulent drainage from the ALFIE drain insertion site with accidental fall out of drain to 3 days ago. Purulent fluid collection at perirectal presacral and retroperitoneal/peritoneal fluid and gas collection as per CT abd/Pelvis Recent history of proctocolitis with an abscess status post perforated sigmoid colon diverticulitis with abscess, status post exploratory laparotomy, sigmoidectomy, and colostomy. Recent COVID-19 pneumonia with hypoxic respiratory failure. Asthma not in exacerbation Hyperlipidemia Obesity with BMI GERD DVT prophylaxis with heparin subcu Plan: Patient will be continued on antibiotics in the form of Levaquin and Flagyl was added. Follow-up CBC and BMP. IR consulted for guided drainage and new ALFIE drain placement. Follow-up fluid cultures. Continue with oxygen supplementation and supportive care. Patient is tolerating oral diet and colostomy bag is functioning. Gentle IV hydration and follow-up closely. We will continue to follow with you and further recommendations based on the cl inical course. Thank you for your consult. Time with Patient: Greater than 30
[2020-09-27] MEDS: ENOXAPARIN 40 MG/0.4 ML SYRINGE SQ SCH (08:48)
[2020-09-27] MEDS: ZINC SULFATE 220 MG CAP PO SCH (08:49)
[2020-09-27] MEDS: CHOLECALCIFEROL 25 MCG (1000 IU) TABLET PO SCH (08:49)
[2020-09-27] MEDS: PANTOPRAZOLE 40 MG TABLET PO SCH (08:49)
[2020-09-27] MEDS: metroNIDAZOLE-NS PMX 500 MG in SALINE 1 100ML.BAG IVPB SCH ×2 (08:49→16:33)
[2020-09-27] MEDS: ATORVASTATIN 20 MG TAB PO SCH (08:49)
[2020-09-27] MEDS: ACETAMINOPHEN TAB 325 MG TAB PO PRN (08:50)
[2020-09-27] MEDS: BENZONATATE 100 MG CAP PO PRN ×2 (09:02→19:57)
[2020-09-27 10:53] LABS: Basophils # (A) 0.03 X 10*3/uL (0.00-0.10); Basophils % (A) 0.4 %; Eosinophils # (A) 0.12 X 10*3/uL (0.04-0.35); Eosinophils % (A) 1.4 %; HCT 31.9 % (39.6-50.0); HGB 9.9 g/dL (13.0-17.0); Lymphocytes # (A) 1.02 X 10*3/uL (0.90-5.00); Lymphocytes % (A) 12.1 %; MCH 28.4 pg (27.0-32.0); MCV 91.7 fL (80.0-97.0); Mean Platelet Volume 10.4 fL (9.5-12.2); Monocytes # (A) 1.09 X 10*3/uL (0.20-1.00); Monocytes % (A) 12.9 %; Neutrophils # (A) 5.94 X 10*3/uL (1.80-7.70); Neutrophils % (A) 70.5 %; Platelet Count 249 X 10*3/uL (140-440); RBC 3.48 X 10*6/uL (4.40-5.60); RDW 14.4 % (11.5-14.5); WBC 8.43 X 10*3/uL (4.50-10.00)
[2020-09-27] MEDS: ALBUTEROL HFA INHALER INHALATION PRN ×3 (11:32→21:33)
[2020-09-27 11:38] LABS: African American GFR (CKD) 110.3 (60.0-200.0); BUN/Creat Ratio 14.44 Ratio (12.00-20.00); Calcium 8.2 mg/dL (8.7-10.3); Non-African American GFR(CKD) 95.1 (60.0-200.0); Potassium 4.4 mmol/L (3.5-5.5)
--- NOTE | 2020-09-27 13:13 | P.PN ---
Subjective Progress Note Date: 09/27/20 CHIEF COMPLAINT: Abdominal pain and ALFIE drain pulled out HISTORY OF PRESENT ILLNESS: Patient is status post CT-guided drainage of abdominal abscess. He has drain in place. Apparently the drain had not been opened completely during the night and had minimal output. Nursing staff did flush it this morning and the drain is now draining. Patient does report abdominal pain. The pain has not gotten any worse. He denies any nausea or vomiting. Tolerating regular diet. He also did have a gush of purulent drainage from the old ALFIE drain site. Afebrile WBC 8.43 hemoglobin 9.9 fluid culture growing gram-negative bacilli Patient seen and examined with Dr. Garcia PHYSICAL EXAM: VITAL SIGNS: Reviewed. GENERAL: Well-developed in no acute distress. HEENT: No sclera icterus. Extraocular movements grossly intact. Moist buccal mucosa. Head is atraumatic, normocephalic. ABDOMEN: Soft. Nondistended. Nontender. NEUROLOGIC: Alert and oriented. Cranial nerves II through XII grossly intact. ASSESSMENT: 1. Abdominal abscess with accidental removal of the ALFIE drain. Patient is status post CT-guided drainage of abscess with new drain placement 2. Perforated sigmoid colon diverticulitis with abscess status post exploratory laparotomy, sigmoidectomy, colostomy and drainage of pelvic abscess and appendectomy on 09/08/2020. 3. Recent COVID-19 infection with acute hypoxic respiratory failure PLAN: -Continue antibiotics -Continue supportive care -Add Ultram as needed for pain -Continue regular diet -Encourage patient to ambulate Physician Knurling Machine Operator note has been reviewed by physician. Signing provider agrees with the documented findings, assessment, and plan of care. Objective - Vital Signs Vital signs: Vital Signs Temp 98 F 09/27/20 07:48 Pulse 82 09/27/20 07:48 Resp 17 09/27/20 07:48 BP 125/76 09/27/20 07:48 Pulse Ox 95 09/27/20 07:48 Intake & Output 09/26/20 09/27/20 09/27/20 18:59 06:59 18:59 Intake Total 360 Output Total 100 445 Balance 260 -445 Intake: Oral 360 Output: Drainage 20 Left Lower Abdomen 20 Urine 225 Stool 100 200 Other: Voiding Method Toilet # Voids 2 - Labs CBC & Chem 7: 09/27/20 05:57 09/27/20 05:57 Labs: Abnormal Lab Results - Last 24 Hours (Table) 09/26/20 09/26/20 09/27/20 Range/Units 17:26 17:26 05:57 RBC 3.91 L 3.48 L (4.30-5.90) m/uL Hgb 11.5 L 9.9 L (13.0-17.5) gm/dL Hct 34.7 L 31.9 L (39.0-53.0) % MCHC 31.0 L (32.0-37.0) g/dL Immature Gran # 0.23 H (0.00-0.04) X 10*3/uL Lymphocytes # 0.8 L (1.0-4.8) k/uL Monocytes # 1.09 H (0.20-1.00) X 10*3/uL Sodium 135 L (137-145) mmol/L Glucose 160 H (74-99) mg/dL Calcium (8.7-10.3) mg/dL 09/27/20 Range/Units 05:57 RBC (4.30-5.90) m/uL Hgb (13.0-17.5) gm/dL Hct (39.0-53.0) % MCHC (32.0-37.0) g/dL Immature Gran # (0.00-0.04) X 10*3/uL Lymphocytes # (1.0-4.8) k/uL Monocytes # (0.20-1.00) X 10*3/uL Sodium (137-145) mmol/L Glucose 117 H (74-99) mg/dL Calcium 8.2 L (8.7-10.3) mg/dL Microbiology - Last 24 Hours (Table) 09/26/20 10:55 Gram Stain - Preliminary Aspirate Body Fluid Culture - Preliminary Gram Neg Bacilli 09/26/20 10:55 Anaerobic Culture - Preliminary Aspirate 09/25/20 19:39 Gram Stain - Preliminary Abdomen Wound Culture - Preliminary Gram Neg Bacilli 09/25/20 14:00 Blood Culture - Preliminary Blood No Growth after 24 hours 09/25/20 13:45 Blood Culture - Preliminary Blood No Growth after 24 hours
[2020-09-27] MEDS: LEVOFLOXACIN 750MG-D5W PMX 750 MG in DEXTROSE/WATER 1 150ML.BAG IVPB SCH (19:48)
--- NOTE | 2020-09-28 00:08 | P.PN ---
Subjective Progress Note Date: 09/27/20 Principal diagnosis: Purulent drainage from the ALFIE drain insertion site with accidental fall out of drain to 3 days ago. Patient is a 55-year-old male with a known history of hyperlipidemia, GERD, recent history of COVID-19 infection, respiratory failure and proctocolitis status post exploratory laparotomy and colostomy bag placement presented to ER due to complaints of purulent drainage from the ALFIE drain and lower abdominal discomfort. Patient's ALFIE drain was accidentally got pulled out 3 days ago. He has been having purulent drainage from the ALFIE drain site. Patient presents to ER for evaluation. Otherwise denied any complaints of fever or chills. No nausea vomiting abdominal pain. Tolerating oral diet. Colostomy is functioning. CT of the abdomen pelvis showed status post sigmoidectomy with Carbajal's pouch with lower left quadrant colostomy. Persistent oral contrast within the rectum/Carbajal's pouch with no oral contrast extravasation to suggest leak. The re is increased size size and confluent fluid of perirectal presacral and retroperitoneal/peritoneal fluid and gas collection versus 4- 21. Unchanged multifocal multilobular airspace opacities of the bilateral lung self. Laboratory data showed WBC 11.8 hemoglobin 11.9 platelets 321 sodium 134 po tassium 4.2 BUN 15 and creatinine 0.87 and CRP 54.8 Urinalysis is negative for infection Patient was admitted to the hospital from 08/23/2020 to 09/18/2020 due to COVID-19 pneumonia and also developed proctocolitis with abscess status post perforated sigmoid colon, diverticulitis with abscess status post exploratory laparotomy, sigmoidectomy and colostomy bag placement placement. 09/27/2020 Patient is currently in the recliner. Denies any complaints of chest pain or shortness breath. Left-sided ALFIE drain with purulent fluid. Fluid culture showed gram-negative bacilli. Patient is being continued Levaquin and Flagyl. Otherwise patient is tolerating oral diet. No complaints of chest pain or shortness of breath. Right-sided previous ALFIE drain site is draining purulent discharge. Encourage ambulation and incentive spirometry. ID was consulted for final antibiotic course. Follow-up final culture report. Patient has been afebrile. No headache or dizziness or lightheadedness. Laboratory data showed WBC 8.43, hemoglobin 9.9 and platelets 249 sodium 138 potassium 4.4 BUN 39 creatinine 0.9 calcium 8.2 Follow-up H&H tomorrow. Current medications reviewed. Objective - Vital Signs Vital signs: Vital Signs Temp 98.1 F 09/27/20 14:44 Pulse 88 09/27/20 14:44 Resp 18 09/27/20 14:44 BP 112/72 09/27/20 14:44 Pulse Ox 93 L 09/27/20 14:44 Intake & Output 09/27/20 09/27/20 09/28/20 06:59 18:59 06:59 Output Total 445 Balance -445 Output: Drainage 20 Left Lower Abdomen 20 Urine 225 Stool 200 Other: Voiding Method Toilet # Voids 2 - Exam PHYSICAL EXAMINATION: Patient is lying in the bed comfortably, no acute distress, awake alert and oriented.. HEENT: Normocephalic. Neck is supple. Pupils reactive. Nostrils clear. Oral cavity is moist. Ears reveal no drainage. Neck reveals no JVD, carotid bruits, or thyromegaly. CHEST EXAMINATION: Trachea is central. Symmetrical expansion. Bibasilar diminished sounds. No wheezing no rhonchi or crackles.. CARDIAC: Normal S1, S2 with no gallops. No murmurs ABDOMEN: Soft. Bowel sounds normal. No organomegaly. No abdominal bruits. Purulent drainage from the ALFIE drain site on the right lower quadrant of the abdomen. Extremities: reveal no edema. No clubbing or cyanosis Neurologically awake, alert, oriented x3 with well-coordinated movements. No focal deficits noted Skin: No rash or skin lesions. Psychiatric: Coperative. Nonsuicidal Musculoskeletal: No joint swelling or deformity. Normal range of motion. - Labs CBC & Chem 7: 09/27/20 05:57 09/27/20 05:57 Labs: Abnormal Lab Results - Last 24 Hours (Table) 09/27/20 09/27/20 Range/Units 05:57 05:57 RBC 3.48 L (4.40-5.60) X 10*6/uL Hgb 9.9 L (13.0-17.0) g/dL Hct 31.9 L (39.6-50.0) % MCHC 31.0 L (32.0-37.0) g/dL Immature Gran # 0.23 H (0.00-0.04) X 10*3/uL Monocytes # 1.09 H (0.20-1.00) X 10*3/uL Glucose 117 H (70-110) mg/dL Calcium 8.2 L (8.7-10.3) mg/dL Microbiology - Last 24 Hours (Table) 09/25/20 19:39 Gram Stain - Final Abdomen Wound Culture - Final Escherichia coli 09/25/20 14:00 Blood Culture - Preliminary Blood No Growth after 48 hours 09/25/20 13:45 Blood Culture - Preliminary Blood No Growth after 48 hours 09/26/20 10:55 Gram Stain - Preliminary Aspirate Body Fluid Culture - Preliminary Gram Neg Bacilli 09/26/20 10:55 Anaerobic Culture - Preliminary Aspirate Assessment and Plan Assessment: Purulent drainage from the ALFIE drain insertion site with accidental fall out of drain to 3 days ago. Purulent fluid collection at perirectal presacral and retroperitoneal/peritoneal fluid and gas collection as per CT abd/Pelvis Recent history of proctocolitis with an abscess status post perforated sigmoid colon diverticulitis with abscess, status post exploratory laparotomy, sigmoidectomy, and colostomy. Recent COVID-19 pneumonia with hypoxic respiratory failure. Asthma not in exacerbation Hyperlipidemia Obesity with BMI GERD DVT prophylaxis with heparin subcu Plan: Patient will be continued on antibiotics in the form of Levaquin and Flagyl was added. Follow-up CBC and BMP. s/p IR guided new ALFIE drain placement. Follow-up final fluid cultures. Continue with oxygen supplementation and supportive care. Patient is tolerating oral diet and colostomy bag is functioning. Gentle IV hydration and follow-up closely. We will continue to follow with you and further recommendations based on the clinical course. Thank you for your consult. Time with Patient: Greater than 30
[2020-09-28] MEDS: metroNIDAZOLE-NS PMX 500 MG in SALINE 1 100ML.BAG IVPB SCH ×3 (00:22→15:30)
[2020-09-28] MEDS: traMADol 50 MG TAB PO PRN ×3 (00:30→23:06)
[2020-09-28] MEDS: LORazepam 1 MG TAB PO PRN ×2 (01:22→23:06)
[2020-09-28] MEDS: PANTOPRAZOLE 40 MG TABLET PO SCH (08:14)
[2020-09-28] MEDS: ENOXAPARIN 40 MG/0.4 ML SYRINGE SQ SCH (08:15)
[2020-09-28] MEDS: CHOLECALCIFEROL 25 MCG (1000 IU) TABLET PO SCH (08:15)
[2020-09-28] MEDS: ATORVASTATIN 20 MG TAB PO SCH (08:15)
[2020-09-28] MEDS: ZINC SULFATE 220 MG CAP PO SCH (08:15)
[2020-09-28] MEDS: BENZONATATE 100 MG CAP PO PRN ×2 (08:25→23:06)
[2020-09-28 09:21] LABS: Basophils # (A) 0.03 X 10*3/uL (0.00-0.10); Basophils % (A) 0.3 %; Eosinophils # (A) 0.12 X 10*3/uL (0.04-0.35); Eosinophils % (A) 1.4 %; HCT 30.3 % (39.6-50.0); HGB 9.4 g/dL (13.0-17.0); Lymphocytes # (A) 1.09 X 10*3/uL (0.90-5.00); Lymphocytes % (A) 12.6 %; MCH 27.9 pg (27.0-32.0); MCV 89.9 fL (80.0-97.0); Mean Platelet Volume 9.8 fL (9.5-12.2); Monocytes # (A) 0.94 X 10*3/uL (0.20-1.00); Monocytes % (A) 10.8 %; Neutrophils # (A) 6.26 X 10*3/uL (1.80-7.70); Neutrophils % (A) 72.1 %; Platelet Count 241 X 10*3/uL (140-440); RBC 3.37 X 10*6/uL (4.40-5.60); RDW 14.1 % (11.5-14.5); WBC 8.68 X 10*3/uL (4.50-10.00)
[2020-09-28] MEDS: ALBUTEROL HFA INHALER INHALATION PRN ×2 (09:35→15:59)
[2020-09-28 11:52] LABS: African American GFR (CKD) 115.7 (60.0-200.0); Anion Gap 9.4 mmol/L (4.00-12.00); BUN/Creat Ratio 13.75 Ratio (12.00-20.00); Calcium 8.3 mg/dL (8.7-10.3); Carbon Dioxide 25.6 mmol/L (21.6-31.8); Non-African American GFR(CKD) 99.9 (60.0-200.0); Potassium 4.3 mmol/L (3.5-5.5)
--- NOTE | 2020-09-28 14:38 | P.PN ---
Subjective Progress Note Date: 09/28/20 CHIEF COMPLAINT: Abdominal pain and ALFIE drain pulled out HISTORY OF PRESENT ILLNESS: Patient is status post CT-guided drainage of abdominal abscess. He has drain in place. Drain output is purulent discharge. Patient reports is abdominal pain is controlled. Denies any nausea or vomiting. Tolerating regular diet. Wound culture growing E. coli. Afebrile. WBC 8.6 hemoglobin 9.4. Discussed case with infectious disease recommends Cipro and Flagyl for discharge Patient seen and examined with Dr. Garcia PHYSICAL EXAM: VITAL SIGNS: Reviewed. GENERAL: Well-developed in no acute distress. HEENT: No sclera icterus. Extraocular movements grossly intact. Moist buccal mucosa. Head is atraumatic, normocephalic. ABDOMEN: Soft. Nondistended. Nontender. Drainage tube in place NEUROLOGIC: Alert and oriented. Cranial nerves II through XII grossly intact. ASSESSMENT: 1. Abdominal abscess with accidental removal of the ALFIE drain. Patient is status post CT-guided drainage of abscess with new drain placement 2. Perforated sigmoid colon diverticulitis with abscess status post exploratory laparotomy, sigmoidectomy, colostomy and drainage of pelvic abscess and appendectomy on 09/08/2020. 3. Recent COVID-19 infection with acute hypoxic respiratory failure PLAN: -Continue antibiotics -Continue supportive care -continue Ultram as needed for pain -Continue regular diet -Encourage patient to ambulate -Anticipate discharge tomorrow Physician Woodworking Machine Feeder note has been reviewed by physician. Signing provider agrees with the documented findings, assessment, and plan of care. Objective - Vital Signs Vital signs: Vital Signs Temp 97.7 F 09/28/20 14:00 Pulse 94 09/28/20 14:00 Resp 18 09/28/20 14:00 BP 106/62 09/28/20 14:00 Pulse Ox 94 L 09/28/20 14:00 Intake & Output 09/27/20 09/28/20 09/28/20 18:59 06:59 18:59 Output Total 335 Balance -335 Output: Drainage 35 Left Lower Abdomen 35 Urine 300 Other: Voiding Method Toilet Toilet # Voids 2 - Labs CBC & Chem 7: 09/28/20 06:39 09/28/20 06:39 Labs: Abnormal Lab Results - Last 24 Hours (Table) 09/28/20 09/28/20 Range/Units 06:39 06:39 RBC 3.37 L (4.40-5.60) X 10*6/uL Hgb 9.4 L (13.0-17.0) g/dL Hct 30.3 L (39.6-50.0) % MCHC 31.0 L (32.0-37.0) g/dL Immature Gran # 0.24 H (0.00-0.04) X 10*3/uL Calcium 8.3 L (8.7-10.3) mg/dL Microbiology - Last 24 Hours (Table) 09/25/20 19:39 Gram Stain - Final Abdomen Wound Culture - Final Escherichia coli 09/25/20 14:00 Blood Culture - Preliminary Blood No Growth after 48 hours 09/25/20 13:45 Blood Culture - Preliminary Blood No Growth after 48 hours 09/26/20 10:55 Gram Stain - Preliminary Aspirate Body Fluid Culture - Preliminary Gram Neg Bacilli
--- NOTE | 2020-09-28 15:00 | P.PN ---
Subjective Progress Note Date: 09/28/20 Purulent drainage from the ALFIE drain insertion site with accidental fall out of drain to 3 days ago. Patient is a 55-year-old male with a known history of hyperlipidemia, GERD, recent history of COVID-19 infection, respiratory failure and proctocolitis status post exploratory laparotomy and colostomy bag placement presented to ER due to complaints of purulent drainage from the ALFIE drain and lower abdominal discomfort. Patient's ALFIE drain was accidentally got pulled out 3 days ago. He has been having purulent drainage from the ALFIE drain site. Patient presents to ER for evaluation. Otherwise denied any complaints of fever or chills. No nausea vomiting abdominal pain. Tolerating oral diet. Colostomy is functioning. CT of the abdomen pelvis showed status post sigmoidectomy with Carbajal's pouch with lower left quadrant colostomy. Persistent oral contrast within the rectum/Carbajal's pouch with no oral contrast extravasation to suggest leak. There is increased size size and confluent fluid of perirectal presacral and retroperitoneal/peritoneal fluid and gas collection versus - 21. Unchanged multifocal multilobular airspace opacities of the bilateral lung self. Laboratory data showed WBC 11.8 hemoglobin 11.9 platelets 321 sodium 134 potassium 4.2 BUN 15 and creatinine 0.87 and CRP 54.8 Urinalysis is negative for infection Patient was admitted to the hospital from 08/23/2020 to 09/18/2020 due to COVID-19 pneumonia and also developed proctocolitis with abscess status post perforated sigmoid colon, diverticulitis with abscess status post exploratory laparotomy, sigmoidectomy and colostomy bag placement placement. 09/27/2020 Patient is currently in the recliner. Denies any complaints of chest pain or shortness breath. Left-sided ALFIE drain with purulent fluid. Fluid culture s howed gram-negative bacilli. Patient is being continued Levaquin and Flagyl. Otherwise patient is tolerating oral diet. No complaints of chest pain or shortness of breath. Right-sided previous ALFIE drain site is draining purulent discharge. Encourage ambulation and incentive spirometry. ID was consulted for final antibiotic course. Follow-up final culture report. Patient has been afebrile. No headache or dizziness or lightheadedness. Laboratory data showed WBC 8.43, hemoglobin 9.9 and platelets 249 sodium 138 potassium 4.4 BUN 39 creatinine 0.9 calcium 8.2 Follow-up H&H tomorrow. 09/28/2020 Patient is seen and evaluated in follow-up this morning but no acute overnight issues. Patient continues to have purulent drainage noted on the left side and stool noted in the ostomy. Patient is tolerating diet with no reports of nausea or vomiting noted. Allowing along with surgery and infectious disease. Patient is maintained on IV antibiotics in the form of Flagyl and ceftriaxone and Le vaquin has been discontinued. Preliminary Gram stain body fluid culture showing gram-negative bacilli and awaiting for finalization to determine discharge antibiotics. White blood count trending down at 8.68 and hemoglobin at 9.4, sodium is 139 with a potassium of 4.3 and current creatinine is 0.8. Review of systems: Constitutional: No reports of fatigue, fever, or chills Cardiovascular: No reports of chest pain or palpitations Respiratory: No reports of shortness of breath or cough GI: No reports of nausea, vomiting, or diarrhea, reports abdominal tenderness and mild distention : No reports of dysuria or retention Neurovascular: No reports of weakness or numbness Current medications reviewed. Objective - Vital Signs Vital signs: Vital Signs Temp 97.7 F 09/28/20 14:00 Pulse 94 09/28/20 14:00 Resp 18 09/28/20 14:00 BP 106/62 09/28/20 14:00 Pulse Ox 94 L 09/28/20 14:00 Intake & Output 09/27/20 09/28/20 09/28/20 18:59 06:59 18:59 Output Total 335 Balance -335 Output: Drainage 35 Left Lower Abdomen 35 Urine 300 Other: Voiding Method Toilet Toilet # Voids 2 - Exam Patient is sitting up in the recliner comfortably, no acute distress, awake alert and oriented.. HEENT: Normocephalic. Neck is supple. Pupils reactive. Nostrils clear. Oral cavity is moist. Ears reveal no drainage. Neck reveals no JVD, carotid bruits, or thyromegaly. CHEST EXAMINATION: Trachea is central. Symmetrical expansion. Bibasilar diminished sounds. No wheezing no rhonchi or crackles.. CARDIAC: Normal S1, S2 with no gallops. No murmurs ABDOMEN: Soft. Bowel sounds normal. No organomegaly. No abdominal bruits. Mild distention noted with some tenderness around the drain site left Purulent drainage from the ALFIE drain site Extremities: reveal no edema. No clubbing or cyanosis Neurologically awake, alert, oriented x3 with well-coordinated movements. No focal deficits noted Skin: No rash or skin lesions. Psychiatric: Cooperative. Non-suicidal Musculoskeletal: No joint swelling or deformity. Normal range of motion. - Labs CBC & Chem 7: 09/28/20 06:39 09/28/20 06:39 Labs: Abnormal Lab Results - Last 24 Hours (Table) 09/28/20 09/28/20 Range/Units 06:39 06:39 RBC 3.37 L (4.40-5.60) X 10*6/uL Hgb 9.4 L (13.0-17.0) g/dL Hct 30.3 L (39.6-50.0) % MCHC 31.0 L (32.0-37.0) g/dL Immature Gran # 0.24 H (0.00-0.04) X 10*3/uL Calcium 8.3 L (8.7-10.3) mg/dL Microbiology - Last 24 Hours (Table) 09/25/20 19:39 Gram Stain - Final Abdomen Wound Culture - Final Escherichia coli 09/25/20 14:00 Blood Culture - Preliminary Blood No Growth after 48 hours 09/25/20 13:45 Blood Culture - Preliminary Blood No Growth after 48 hours 09/26/20 10:55 Gram Stain - Preliminary Aspirate Body Fluid Culture - Preliminary Gram Neg Bacilli Assessment and Plan Assessment: Purulent drainage from the ALFIE drain insertion site with accidental fall out of drain to 3 days ago. Purulent fluid collection at perirectal presacral and retroperitoneal/peritoneal fluid and gas collection as per CT abd/Pelvis Recent history of proctocolitis with an abscess status post perforated sigmoid colon diverticulitis with abscess, status post exploratory laparotomy, sigmoidectomy, and colostomy. Recent COVID-19 pneumonia with hypoxic respiratory failure. Asthma not in exacerbation Hyperlipidemia Obesity with BMI GERD DVT prophylaxis with heparin subcu Plan: Patient will be continued on antibiotics in the form of ceftriaxone and Flagyl while awaiting for cultures to finalize. Pulmonary cultures showing gram- negative bacilli and infectious disease is following. Patient is status post IR guided ALFIE drain placement with purulent drainage noted Follow-up final fluid cultures with initial culture showing E. coli and once again preliminary Gram stain culture showing gram-negative bacilli and awaiting for finalization. Continue with oxygen supplementation and supportive care. Patient is tolerating oral diet and colostomy bag is functioning. Gentle IV hydration and follow-up closely. We will continue to follow with you and further recommendations based on the clinical course.
--- NOTE | 2020-09-28 22:55 | CONS ---
CONSULTATION DATE OF SERVICE: 09/28/2020 REASON FOR CONSULTATION: Abdominal abscess. HISTORY OF PRESENT ILLNESS: The patient is a 55-year-old male who was recently admitted to this facility. The patient was treated for COVID-19 and also had perforated diverticulitis initially. The patient did have a CT-guided drainage followed by open drainage and diverting colostomy. The patient did have a drainage catheter. The patient was treated with IV antibiotics in the form of cefepime, Flagyl and vancomycin. Patient did develop significant thrombocytopenia. Hence vancomycin was discontinued. The patient's repeat cultures were positive for E coli, Enterococcus, anaerobes. The patient was discharged home on oral Cipro and Flagyl. The patient is now presenting back to [facility] ER on September 25, 2020, after apparently the patient accidentally pulled out his drainage catheter. The patient was complaining of purulent drainage from the area with a strong odor, so his visiting nurse recommended coming in for evaluation. The patient did have normal movements from his colostomy. Pain to the abdominal area was minimal, dull aching, 2 to 3 out of 10, and no radiation. He did not have any fever. With these symptoms, the patient was evaluated by the ER physician. On arrival in the ER, the patient was afebrile. The patient's white count was 11.8. It subsequently normalized to 8.6. Creatinine was normal. The patient did have a CT scan of the abdomen and pelvis completed on 09/25 which shows increased size and confluent fluid of peritoneal, presacral and retroperitoneal with with gas collection right , melatonin 3 sacral and right gluteal with gas collection approximately 4.2 x 8.7 x 21.5 cm. Patient is status post CT-guided drainage of this abscess and placement of a drainage catheter. Cultures are now showing E coli. The patient has been treated with Levaquin and Flagyl because of his PENICILLIN ALLERGY. Infectious Disease was consulted for further management of antibiotic therapy. REVIEW OF SYSTEMS: Positive points have been mentioned in the HPI. Rest of the systems are negative. PAST MEDICAL HISTORY: Asthma, chronic back pain, COVID-19 infection, perforated diverticulitis, intraabdominal abscess. PAST SURGICAL HISTORY: Back surgery, hernia repair, laparotomy with diverting colostomy and drainage of the abscess. SOCIAL HISTORY: Denies smoking, drinking and drug use. FAMILY HISTORY: No pertinent findings noticed. ALLERGIES: PENICILLIN with a rash and hives. has tolerated cephalosporin without any problem. MEDICATIONS: The patient is on Tylenol, Ventolin, Lipitor, Tessalon Perles, Lovenox, Ativan, Levaquin, Flagyl, Zofran, Protonix, Ultram and zinc sulfate. PHYSICAL EXAMINATION: Blood pressure 126/70 with a pulse of 76, temperature 98.4. He is 95% on 2 L nasal cannula. General description is a middle-aged male lying in bed in no distress. No tachypnea or accessory muscle of respiration use. HEENT: Examination shows pallor. No scleral icterus. Oral mucous membrane is dry. NECK: Trachea is central. No thyromegaly. LUNGS: Unlabored breathing. Clear to auscultation. No wheeze or crackle. HEART: S1, S2. Regular rate and rhythm. ABDOMEN: Soft. Mild distention. No guarding or rigidity. Did have drainage in the drainage catheter. EXTREMITIES: No edema of the feet. SKIN EXAMINATION: No rash or mass palpable. Neurologically the patient is awake, alert, oriented x3. Mood and affect normal. LABS: Hemoglobin 9.4, white count 8.68. BUN of 11, creatinine 0.8. Abdominal cultures with E coli group D Enterococcus. DIAGNOSTIC IMPRESSION AND PLAN: 1. Patient with an intraabdominal abscess from perforated diverticulitis, status post diverting colostomy. The patient apparently failed outpatient treatment with oral Ceftin and Flagyl and did have from the drainage catheter may have contributed to nonhealing of this abscess. 2. Patient with PENICILLIN ALLERGY. That will limit the number of antibiotics safe to use. 3. Patient did have significant thrombocytopenia secondary to vancomycin on last admission. PLAN: 1. We will discontinue Levaquin. 2. Start the patient on Rocephin 2 grams daily and Flagyl. 3. Initial plan was for the oral Cipro and Flagyl on discharge. However, the cultures are now showing group D Enterococcus as well. We will add daptomycin 6 mg/kg. The patient will need a PICC line for outpatient IV antibiotic therapy. 4. Will follow clinical condition and further adjust medication if needed. Thank you for this consultation. Will follow this patient along with you. MMODL / IJN: [id number] /
[2020-09-29] MEDS: metroNIDAZOLE-NS PMX 500 MG in SALINE 1 100ML.BAG IVPB SCH ×3 (00:25→16:22)
[2020-09-29] MEDS: CHOLECALCIFEROL 25 MCG (1000 IU) TABLET PO SCH (07:09)
[2020-09-29] MEDS: ENOXAPARIN 40 MG/0.4 ML SYRINGE SQ SCH (07:09)
[2020-09-29] MEDS: ATORVASTATIN 20 MG TAB PO SCH (07:09)
[2020-09-29] MEDS: BENZONATATE 100 MG CAP PO PRN ×2 (07:09→20:40)
[2020-09-29] MEDS: ZINC SULFATE 220 MG CAP PO SCH (07:09)
[2020-09-29] MEDS: PANTOPRAZOLE 40 MG TABLET PO SCH (07:09)
[2020-09-29 08:14] VITALS: RESP 16
[2020-09-29] MEDS: ONDANSETRON 4 MG/2 ML VIAL IVP PRN (11:39)
[2020-09-29] MEDS: LIDOCAINE 1% INJ 10MG/ML (20 ML MDV) SQ ONE ×2 (12:18→12:27)
--- NOTE | 2020-09-29 13:08 | P.PN ---
Subjective Progress Note Date: 09/29/20 CHIEF COMPLAINT: Abdominal pain and ALFIE drain pulled out HISTORY OF PRESENT ILLNESS: Patient is status post CT-guided drainage of abdominal abscess. He has drain in place. Drain output is purulent discharge. Patient reports having purulent drainage still coming from his old ALFIE drain site. He also reported a purulent drainage from rectum with foul odor. It is the same discharge from his drainage site. This is likely due to the abscess draining into the bowel. Patient reports is abdominal pain is controlled. Denies any nausea or vomiting. Tolerating regular diet. Wound culture growing E. coli and group D enterococcus. Antibiotics adjusted per infectious disease. They have added daptomycin and ordered PICC line for outpatient IV antibiotics. Afebrile. No new labs Patient seen and examined with Dr. Garcia PHYSICAL EXAM: VITAL SIGNS: Reviewed. GENERAL: Well-developed in no acute distress. HEENT: No sclera icterus. Extraocular movements grossly intact. Moist buccal mucosa. Head is atraumatic, normocephalic. ABDOMEN: Soft. Nondistended. Nontender. Drainage tube in place NEUROLOGIC: Alert and oriented. Cranial nerves II through XII grossly intact. ASSESSMENT: 1. Abdominal abscess with accidental removal of the ALFIE drain. Patient is status post CT-guided drainage of abscess with new drain placement 2. Perforated sigmoid colon diverticulitis with abscess status post exploratory laparotomy, sigmoidectomy, colostomy and drainage of pelvic abscess and appendectomy on 09/08/2020. 3. Recent COVID-19 infection with acute hypoxic respiratory failure PLAN: -Continue antibiotics per ID -Continue supportive care -continue Ultram as needed for pain -Continue regular diet -Encourage patient to ambulate Physician Electrotyper Apprentice note has been reviewed by physician. Signing provider agrees with the documented findings, assessment, and plan of care. Objective - Vital Signs Vital signs: Vital Signs Temp 98.6 F 09/29/20 06:57 Pulse 85 09/29/20 06:57 Resp 16 09/29/20 08:00 BP 117/76 09/29/20 06:57 Pulse Ox 95 09/29/20 06:57 Intake & Output 09/28/20 09/29/20 09/29/20 18:59 06:59 18:59 Output Total 40 0 Balance -40 0 Output: Drainage 40 0 Left Lower Abdomen 40 0 Other: Voiding Method Toilet Toilet Toilet # Voids 3 1 # Bowel Movements 1 - Labs CBC & Chem 7: 09/28/20 06:39 09/28/20 06:39 Labs: Microbiology - Last 24 Hours (Table) 09/25/20 14:00 Blood Culture - Preliminary Blood No Growth after 72 hours 09/25/20 13:45 Blood Culture - Preliminary Blood No Growth after 72 hours 09/26/20 10:55 Gram Stain - Preliminary Aspirate Body Fluid Culture - Preliminary Escherichia coli Group D Enterococcus
--- NOTE | 2020-09-29 14:30 | IR ---
EXAMINATION TYPE: IR cvc insert >=5 years DATE OF EXAM: 09/29/2020 COMPARISON: NONE CLINICAL HISTORY: Abscess Needs long-term intravenous access for antibiotics. PROCEDURE: Hand hygiene obtained with soap and water and alcohol-based hand rub. After informed consent, the skin overlying the left basilic vein was localized with ultrasound and no tommy to be compressible and patent. An ultrasound image was obtained and submitted on the patient's c aguayo. The overlying skin was prepped and draped and Lidocaine was used for local anesthesia. A skin tatiana was made with a scalpel. Access was gained to the vein under ultrasound guidance with a 21 gau ge needle and a 0.018 inch wire was advanced. Access site was dilated with Peel-Away sheath and cath eter tailored to the appropriate length and advanced such that the distal tip is at the cavoatrial ju nction. Spot image was obtained verifying placement. Catheter was fixed to the skin and a sterile d ressing was placed following hemostasis. Catheter was aspirated and flushed with saline. Patient wa s discharged in stable condition without complication.Maximal barrier technique is utilized. Ultraso und image is documented on the chart. Ultrasound used with sterile technique. Fluoro time and fluoroscopic images submitted to document procedure: 0.4 minutes fluoroscopy time, 7 intraoperative images document the procedure IMPRESSION: STATUS POST ULTRASOUND AND FLUOROSCOPIC GUIDED PICC LINE PLACEMENT, READY FOR USE. THIS PROCEDURE WAS PERFORMED BY THE UNDERSIGNED.
--- NOTE | 2020-09-29 15:41 | P.PN ---
Subjective Progress Note Date: 09/29/20 Purulent drainage from the ALFIE drain insertion site with accidental fall out of drain to 3 days ago. Patient is a 55-year-old male with a known history of hyperlipidemia, GERD, recent history of COVID-19 infection, respiratory failure and proctocolitis status post exploratory laparotomy and colostomy bag placement presented to ER due to complaints of purulent drainage from the ALFIE drain and lower abdominal discomfort. Patient's ALFIE drain was accidentally got pulled out 3 days ago. He has been having purulent drainage from the ALFIE drain site. Patient presents to ER for evaluation. Otherwise denied any complaints of fever or chills. No nausea vomiting abdominal pain. Tolerating oral diet. Colostomy is functioning. CT of the abdomen pelvis showed status post sigmoidectomy with Carbajal's pouch with lower left quadrant colostomy. Persistent oral contrast within the rectum/Carbajal's pouch with no oral contrast extravasation to suggest leak. There is increased size size and confluent fluid of perirectal presacral and retroperitoneal/peritoneal fluid and gas collection versus - 21. Unchanged multifocal multilobular airspace opacities of the bilateral lung self. Laboratory data showed WBC 11.8 hemoglobin 11.9 platelets 321 sodium 134 potassium 4.2 BUN 15 and creatinine 0.87 and CRP 54.8 Urinalysis is negative for infection Patient was admitted to the hospital from 08/23/2020 to 09/18/2020 due to COVID-19 pneumonia and also developed proctocolitis with abscess status post perforated sigmoid colon, diverticulitis with abscess status post exploratory laparotomy, sigmoidectomy and colostomy bag placement placement. 09/27/2020 Patient is currently in the recliner. Denies any complaints of chest pain or shortness breath. Left-sided ALFIE drain with purulent fluid. Fluid culture s howed gram-negative bacilli. Patient is being continued Levaquin and Flagyl. Otherwise patient is tolerating oral diet. No complaints of chest pain or shortness of breath. Right-sided previous ALFIE drain site is draining purulent discharge. Encourage ambulation and incentive spirometry. ID was consulted for final antibiotic course. Follow-up final culture report. Patient has been afebrile. No headache or dizziness or lightheadedness. Laboratory data showed WBC 8.43, hemoglobin 9.9 and platelets 249 sodium 138 potassium 4.4 BUN 39 creatinine 0.9 calcium 8.2 Follow-up H&H tomorrow. 09/28/2020 Patient is seen and evaluated in follow-up this morning but no acute overnight issues. Patient continues to have purulent drainage noted on the left side and stool noted in the ostomy. Patient is tolerating diet with no reports of nausea or vomiting noted. Allowing along with surgery and infectious disease. Patient is maintained on IV antibiotics in the form of Flagyl and ceftriaxone and Le vaquin has been discontinued. Preliminary Gram stain body fluid culture showing gram-negative bacilli and awaiting for finalization to determine discharge antibiotics. White blood count trending down at 8.68 and hemoglobin at 9.4, sodium is 139 with a potassium of 4.3 and current creatinine is 0.8. 09/29/2020 Patient Is seen in follow-up this morning and continues with purulent drainage noted of the abdominal drain and reported purulent drainage from the rectum is also noted today. Following along closely with surgery and infectious disease has been consulted. Cultures finalized showing E. coli and group D enterococcus along with anaerobic gram-negative bacilli and patient is currently maintained on IV ceftriaxone along with daptomycin and Flagyl and will continue. Patient is to receive a PICC line as patient will need outpatient IV antibiotic therapy. Review of systems: Constitutional: No reports of fatigue, fever, or chills Cardiovascular: No reports of chest pain or palpitations Respiratory: No reports of shortness of breath or cough GI: No reports of nausea, vomiting, or diarrhea, reports abdominal tenderness and mild distention : No reports of dysuria or retention Neurovascular: No reports of weakness or numbness Current medications reviewed. Objective - Vital Signs Vital signs: Vital Signs Temp 98.6 F 09/29/20 06:57 Pulse 85 09/29/20 06:57 Resp 16 09/29/20 08:00 BP 117/76 09/29/20 06:57 Pulse Ox 95 09/29/20 06:57 Intake & Output 09/28/20 09/29/20 09/29/20 18:59 06:59 18:59 Output Total 40 0 Balance -40 0 Output: Drainage 40 0 Left Lower Abdomen 40 0 Other: Voiding Method Toilet Toilet Toilet # Voids 3 1 # Bowel Movements 1 - Exam Patient is sitting up in the recliner comfortably, no acute distress, awake alert and oriented.. HEENT: Normocephalic. Neck is supple. Pupils reactive. Nostrils clear. Oral cavity is moist. Ears reveal no drainage. Neck reveals no JVD, carotid bruits, or thyromegaly. CHEST EXAMINATION: Trachea is central. Symmetrical expansion. Bibasilar dimi nished sounds. No wheezing no rhonchi or crackles.. CARDIAC: Normal S1, S2 with no gallops. No murmurs ABDOMEN: Soft. Bowel sounds normal. No organomegaly. No abdominal bruits. Mild distention noted with some tenderness around the drain site left Purulent drainage from the ALFIE drain site Extremities: reveal no edema. No clubbing or cyanosis Neurologically awake, alert, oriented x3 with well-coordinated movements. No focal deficits noted Skin: No rash or skin lesions. Psychiatric: Cooperative. Non-suicidal Musculoskeletal: No joint swelling or deformity. Normal range of motion. - Labs CBC & Chem 7: 09/28/20 06:39 09/28/20 06:39 Labs: Abnormal Lab Results - Last 24 Hours (Table) 09/28/20 Range/Units 06:39 Calcium 8.3 L (8.7-10.3) mg/dL Microbiology - Last 24 Hours (Table) 09/25/20 14:00 Blood Culture - Preliminary Blood No Growth after 72 hours 09/25/20 13:45 Blood Culture - Preliminary Blood No Growth after 72 hours 09/26/20 10:55 Gram Stain - Preliminary Aspirate Body Fluid Culture - Preliminary Escherichia coli Group D Enterococcus Assessment and Plan Assessment: Purulent drainage from the ALFIE drain insertion site with accidental fall out of drain to 3 days ago. Purulent fluid collection at perirectal presacral and retroperitoneal/peritoneal fluid and gas collection as per CT abd/Pelvis Recent history of proctocolitis with an abscess status post perforated sigmoid colon diverticulitis with abscess, status post exploratory laparotomy, sigmoidectomy, and colostomy. Recent COVID-19 pneumonia with hypoxic respiratory failure. Asthma not in exacerbation Hyperlipidemia Obesity with BMI GERD DVT prophylaxis with heparin subcu Plan: Patient will be continued on antibiotics in the form of ceftriaxone and Flagyl and daptomycin added as cultures finalized showing group D enterococcus with E. coli and gram-negative bacilli. infectious disease is following. Patient is status post IR guided ALFIE drain placement with purulent drainage noted and patient is also having some rectal purulent drainage noted. Continue with oxygen supplementation and supportive care. Patient is tolerating oral diet and colostomy bag is functioning. Gentle IV hydration and follow-up closely. Patient is receiving a PICC line as patient will require IV antibiotic therapy in the outpatient setting. We will continue to follow with you and further recommendations based on the clinical course.
[2020-09-29] MEDS: ALBUTEROL HFA INHALER INHALATION PRN ×2 (15:46→21:01)
--- NOTE | 2020-09-29 15:47 | PN ---
PROGRESS NOTE DATE OF SERVICE: 09/29/2020 REASON FOR FOLLOWUP: Abdominal abscess. INTERVAL HISTORY: The patient is currently afebrile. Patient is breathing comfortably. Denies having any chest pain or shortness of breath or cough. Abdominal pain is currently controlled. No vomiting. PHYSICAL EXAMINATION: Blood pressure 117/76, pulse of 85, temperature 98.6. He is 95% on 2 L nasal cannula. General description is a middle-aged male up in the chair in no distress. RESPIRATORY SYSTEM: Unlabored breathing, clear to auscultation anteriorly. HEART: S1, S2. Regular rate and rhythm. ABDOMEN: Soft, no tenderness. LABS: Hemoglobin 9.4, white count 8.68, BUN of 11, creatinine 0.8. DIAGNOSTIC IMPRESSION AND PLAN: Patient with abdominal abscess, multiple pathogen including Enterococcus and Escherichia coli in this patient who did have PENICILLIN allergy, previous problem with vancomycin. Patient is on daptomycin, is getting a PICC line. Plan is for 2 weeks of IV daptomycin along with oral Cipro and Flagyl. Repeat CAT before completion of antibiotics. Plan of care was discussed with the admitting physician. Questions and concerns were answered. MMODL / IJN: [id number] /
[2020-09-29] MEDS: LORazepam 1 MG TAB PO PRN (22:29)
[2020-09-30] MEDS: metroNIDAZOLE-NS PMX 500 MG in SALINE 1 100ML.BAG IVPB SCH ×3 (00:01→16:36)
[2020-09-30] MEDS: ONDANSETRON 4 MG/2 ML VIAL IVP PRN (00:05)
[2020-09-30] MEDS: ALBUTEROL HFA INHALER INHALATION PRN ×2 (07:22→11:15)
[2020-09-30 07:59] VITALS: BP 100/63; PULSE 91; TEMP 98.4
[2020-09-30 08:26] LABS: African American GFR (CKD) >90 (>60 ml/min/1.73 sqM); Anion Gap 6 mmol/L; Blood Urea Nitrogen 10 mg/dL (9-20); Calcium 8.9 mg/dL (8.4-10.2); Carbon Dioxide 26 mmol/L (22-30); Chloride 103 mmol/L (98-107); Glucose 122 mg/dL (74-99); Non-African American GFR(CKD) >90 (>60 ml/min/1.73 sqM); Potassium 4.2 mmol/L (3.5-5.1); Sodium 135 mmol/L (137-145)
[2020-09-30] MEDS: ATORVASTATIN 20 MG TAB PO SCH (09:31)
[2020-09-30] MEDS: PANTOPRAZOLE 40 MG TABLET PO SCH (09:31)
[2020-09-30] MEDS: ZINC SULFATE 220 MG CAP PO SCH (09:31)
[2020-09-30] MEDS: ENOXAPARIN 40 MG/0.4 ML SYRINGE SQ SCH (09:32)
[2020-09-30] MEDS: CHOLECALCIFEROL 25 MCG (1000 IU) TABLET PO SCH (09:32)
[2020-09-30 11:54] LABS: Basophils # (A) 0.04 X 10*3/uL (0.00-0.10); Basophils % (A) 0.5 %; Eosinophils # (A) 0.07 X 10*3/uL (0.04-0.35); Eosinophils % (A) 0.9 %; HCT 34.1 % (39.6-50.0); HGB 10.4 g/dL (13.0-17.0); Lymphocytes # (A) 1.12 X 10*3/uL (0.90-5.00); Lymphocytes % (A) 14.2 %; MCH 27.7 pg (27.0-32.0); MCHC 30.5 g/dL (32.0-37.0); MCV 90.9 fL (80.0-97.0); Mean Platelet Volume 9.6 fL (9.5-12.2); Monocytes % (A) 11.5 %; Neutrophils # (A) 5.62 X 10*3/uL (1.80-7.70); Neutrophils % (A) 71.5 %; Platelet Count 255 X 10*3/uL (140-440); RBC 3.75 X 10*6/uL (4.40-5.60); RDW 14.4 % (11.5-14.5); WBC 7.86 X 10*3/uL (4.50-10.00)
--- NOTE | 2020-09-30 13:10 | P.DS ---
Providers Date of admission: 09/25/20 18:46 Expected date of discharge: 09/30/20 Attending physician: Kian Garcia Consults: 09/25/20 18:44 Consult Physician Urgent Consulting Provider: [facility] Consult Reason/Comments: Drain placement Do you want consulting provider notified?: Yes 09/26/20 08:45 Consult Physician Routine Consulting Provider: Itzel Jauregui Consult Reason/Comments: medical management Do you want consulting provider notified?: Yes 09/26/20 10:11 Consult to Anesthesia Stat Consulting Provider: [facility] Consult Reason/Comments: requiring anesthesia for CT guided drainage tube placement. already aware. 09/27/20 22:33 Consult Physician Routine Consulting Provider: Manfred Turk Consult Reason/Comments: Abdominal Abcess Do you want consulting provider notified?: Yes, Notify in am Primary care physician: Victorino Prior Hospital Course: Is a 55-year-old male who was readmitted to the hospital after he pulled out his ALFIE drain accidentally. Patient had a CT-guided drain placed. He also started passing. Fluid through his rectal stump. On the day of discharge patient no abdominal pain. His vital signs are stable. His abdomen soft. Pertinent Studies: CT-guided drainage catheter Patient Condition at Discharge: Good Plan - Discharge Summary Discharge Rx Participant: Yes New Discharge Prescriptions: No Action Cholecalciferol [Vitamin D3 (25 Mcg = 1000 Iu)] 25 mcg PO DAILY Rosuvastatin [Crestor] 10 mg PO DAILY Omeprazole [PriLOSEC] 20 mg PO DAILY Cetirizine HCl [Zyrtec] 10 mg PO DAILY LORazepam [Ativan] 0.5 mg PO Q8HR PRN tab PRN Reason: Anxiety Ciprofloxacin HCl [Cipro] 500 mg PO BID 7 Days #14 tab Zinc Sulfate [Orazinc] 220 mg PO DAILY 30 Days #30 cap Benzonatate [Tessalon Perles] 200 mg PO Q8H PRN #30 cap PRN Reason: Cough Acetaminophen Tab [Tylenol] 650 mg PO Q6HR PRN tab PRN Reason: Fever And/ Or Pain Albuterol Inhaler [Ventolin Hfa Inhaler] 2 puff INHALATION RT-QID PRN puff PRN Reason: Shortness Of Breath Or Wheezing metroNIDAZOLE [Flagyl] 500 mg PO Q8HR 7 Days #21 tab Ondansetron Odt [Zofran Odt] 4 mg PO Q8HR PRN #12 tab PRN Reason: Nausea Discharge Medication List Cetirizine HCl [Zyrtec] 10 mg PO DAILY 08/21/20 [History] Cholecalciferol [Vitamin D3 (25 Mcg = 1000 Iu)] 25 mcg PO DAILY 08/21/20 [History] Omeprazole [PriLOSEC] 20 mg PO DAILY 08/21/20 [History] Rosuvastatin [Crestor] 10 mg PO DAILY 08/21/20 [History] Acetaminophen Tab [Tylenol] 650 mg PO Q6HR PRN tab 09/18/20 [Rx] Albuterol Inhaler [Ventolin Hfa Inhaler] 2 puff INHALATION RT-QID PRN puff 09/18/20 [Rx] Benzonatate [Tessalon Perles] 200 mg PO Q8H PRN #30 cap 09/18/20 [Rx] Ciprofloxacin HCl [Cipro] 500 mg PO BID 7 Days #14 tab 09/18/20 [Rx] LORazepam [Ativan] 0.5 mg PO Q8HR PRN tab 09/18/20 [Rx] Ondansetron Odt [Zofran Odt] 4 mg PO Q8HR PRN #12 tab 09/18/20 [Rx] Zinc Sulfate [Orazinc] 220 mg PO DAILY 30 Days #30 cap 09/18/20 [Rx] metroNIDAZOLE [Flagyl] 500 mg PO Q8HR 7 Days #21 tab 09/18/20 [Rx] Follow up Appointment(s)/Referral(s): [facility], [NON-STAFF] - Victorino Webb DO [Primary Care Provider] - 1-2 days Kian Garcia MD [STAFF PHYSICIAN] - 1 Week Activity/Diet/Wound Care/Special Instructions: Dr. Turk wants patient to go home on IV Daptomycin 750mg daily x 1 week, then 500mg daily x1 week. Patient is set up at [facility] for outpatient IV antibiotics. [facility]: [address] [place] [address]. . Patient's first appointment is on 10/01/20 at 5:00 p.m.. Discharge Disposition: HOME SELF-CARE
--- NOTE | 2020-09-30 18:50 | PN ---
PROGRESS NOTE DATE OF SERVICE: 09/30/2020 REASON FOR FOLLOWUP: Abdominal abscess. INTERVAL HISTORY: Patient is afebrile, has been breathing comfortably. Abdominal pain is currently controlled. No chest pain, shortness of breath or cough. Still having output in his drainage catheter as well as rectally. PHYSICAL EXAMINATION: Blood pressure 100/63, pulse of 91, temperature 98.4. He is 93% on 2 L nasal cannula. GENERAL DESCRIPTION: A middle-aged male up in the chair in no distress. RESPIRATORY SYSTEM: Unlabored breathing, clear to auscultation anteriorly. HEART: S1, S2. Regular rate and rhythm. ABDOMEN: Soft, no tenderness. LABS: Hemoglobin is 10.4, white count 7.6, BUN of 10, creatinine 2.82. DIAGNOSTIC IMPRESSION AND PLAN: Patient with abdominal abscess, culture with E coli, VRE, anaerobes. The patient did get a PICC line. IV daptomycin, oral Cipro and Flagyl. Plan for a repeat CT scan in 2 weeks before completion of the antibiotics. Continue supportive care. MMODL / IJN: [id number] /
== END 2020-09-30 18:47 | disposition home health service (06) | DRG 919 ==
LOC: EC 12:35 → 4SSUR 18:46
PROVIDERS: ADMIT Surgery; ATTEND Surgery
PROC: 0W9G30Z Drainage of Peritoneal Cavity with Drainage Device, Percutaneous Approach (ICD-10-PCS; principal; 2020-09-25)
PROC: 02HV33Z Insertion of Infusion Device into Superior Vena Cava, Percutaneous Approach (ICD-10-PCS; 2020-09-29)
DX: T85.628A Displacement of other specified internal prosthetic devices, implants and grafts, initial encounter (principal); K65.1 Peritoneal abscess; K57.20 Diverticulitis of large intestine with perforation and abscess without bleeding; Z43.3 Encounter for attention to colostomy; B96.20 Unspecified Escherichia coli [E. coli] as the cause of diseases classified elsewhere; B95.2 Enterococcus as the cause of diseases classified elsewhere; J45.909 Unspecified asthma, uncomplicated; E78.5 Hyperlipidemia, unspecified; G89.29 Other chronic pain; M54.9 Dorsalgia, unspecified; K21.9 Gastro-esophageal reflux disease without esophagitis; E66.9 Obesity, unspecified; Z68.37 Body mass index [BMI] 37.0-37.9, adult; Z79.899 Other long term (current) drug therapy; Z86.16 Personal history of COVID-19; Z87.19 Personal history of other diseases of the digestive system; Z87.39 Personal history of other diseases of the musculoskeletal system and connective tissue; Z90.49 Acquired absence of other specified parts of digestive tract; Z98.890 Other specified postprocedural states; Z88.0 Allergy status to penicillin; Z91.048 Other nonmedicinal substance allergy status; Y84.8 Other medical procedures as the cause of abnormal reaction of the patient, or of later complication, without mention of misadventure at the time of the procedure; Z82.49 Family history of ischemic heart disease and other diseases of the circulatory system; Z83.3 Family history of diabetes mellitus
CPT/HCPCS: 36415; 36573; 74177; 75989; 77012; 80048; 80053; 81003; 83605; 85025; 85610; 85730; 87040; 87070; 87075; 87077; 87186; 87205; 93005; 94640; 96365; 99285

== ENCOUNTER 2020-10-09 08:56 | Day surgery (SDC) | payer MEDICARE ==
[2020-10-09 10:30] LABS: HCT 33.3 % (39.0-53.0); HGB 11.1 gm/dL (13.0-17.5); MCH 29.9 pg (25.0-35.0); MCHC 33.4 g/dL (31.0-37.0); MCV 89.4 fL (80.0-100.0); Mean Platelet Volume 6.9; Platelet Count 229 k/uL (150-450); RBC 3.72 m/uL (4.30-5.90); RDW 15.8 % (11.5-15.5)
[2020-10-09 10:34] LABS: ALT 133 U/L (4-49); AST 331 U/L (17-59); African American GFR (CKD) >90 (>60 ml/min/1.73 sqM); Albumin 3.3 g/dL (3.5-5.0); Alkaline Phosphatase 421 U/L (38-126); Anion Gap 4 mmol/L; Blood Urea Nitrogen 10 mg/dL (9-20); Calcium 8.7 mg/dL (8.4-10.2); Carbon Dioxide 28 mmol/L (22-30); Chloride 104 mmol/L (98-107); Glucose 138 mg/dL (74-99); Non-African American GFR(CKD) >90 (>60 ml/min/1.73 sqM); Potassium 4.2 mmol/L (3.5-5.1); Sodium 136 mmol/L (137-145); Total Bilirubin 2.3 mg/dL (0.2-1.3); Total Protein 6.5 g/dL (6.3-8.2)
[2020-10-09 11:32] VITALS: BP 105/65; PULSE 68; RESP 16; TEMP 98.4
== END 2020-10-09 10:00 | disposition home or self-care (01) ==
LOC: RADPROMAIN 08:56
PROVIDERS: ATTEND Radiology Diagnostic Radiology
DX: Z48.03 Encounter for change or removal of drains (principal)
CPT/HCPCS: 80053; 85027; G0463; 99213

== ENCOUNTER 2020-10-16 09:06 | Day surgery (SDC) | payer MEDICARE ==
[2020-10-16 10:45] VITALS: BP 110/75; PULSE 93; RESP 16; TEMP 98
== END 2020-10-16 09:50 | disposition home or self-care (01) ==
LOC: RADPROMAIN 09:06
PROVIDERS: ATTEND Radiology Diagnostic Radiology
DX: Z48.03 Encounter for change or removal of drains (principal)
CPT/HCPCS: 99213

== ENCOUNTER → 2020-10-16 | Outpatient (CLI) | payer MEDICARE ==
--- NOTE | 2020-10-16 11:28 | CT ---
EXAMINATION TYPE: CT abdomen pelvis w con DATE OF EXAM: 10/16/2020 COMPARISON: 09/25/2020 HISTORY: follow up to abscess CT DLP: 1778 mGycm CONTRAST: CT scan of the abdomen and pelvis is performed with Oral Contrast and with IV Contrast, patient injec tommy with 100 mL of Isovue 300. FINDINGS: LUNG BASES-: No visible nodule. No infiltrate. LIVER/GB: No calcified gallstones. No space occupying hepatic lesion. Biliary tree is of normal ca liber. PANCREAS: No inflammation. No distinct mass. SPLEEN: No splenic enlargement. No lesion seen. ADRENALS: No nodule. No thickening. KIDNEYS/BLADDER: No hydronephrosis. No nephrolithiasis. No distinct renal mass. Urinary bladder g rossly unremarkable. BOWEL: Normal appendix. No evidence for free air at this time. No new abscesses identified. Left-adriana ed ostomy redemonstrated. GENITAL ORGANS: Abnormal attenuation the prostate gland may reflect prostatitis. LYMPH NODES: No greater than 1cm abdominal or pelvic lymph nodes are appreciated. AORTA: No significant abnormality. OSSEOUS STRUCTURES: No significant abnormality is seen. OTHER: There is persistent bilobed abscess identified within the pelvis the component on the left jesús sures 7.2 x 2.8 cm in the right-sided component measures 6.1 cm x 2.2 cm. The more cranial retroperit lynne component seen previously has resolved and the drainage catheter is in the region. Persistent s trandy inflammatory change within the pelvis anteriorly. IMPRESSION: 1. Persistent pelvic abscesses as discussed above the slightly smaller in size relative to the prior study. More cranial retroperitoneal component has essentially resolved. No new abscesses identified. 2. Postsurgical changes with the mild inflammatory change within the pelvic region.
== END | disposition home or self-care (01) ==
LOC: RADPROMAIN 09:10
PROVIDERS: ATTEND Internal Medicine Infectious Disease
DX: K65.1 Peritoneal abscess (principal)
CPT/HCPCS: 74177; Q9967

== ENCOUNTER 2020-10-20 08:04 | Day surgery (SDC) | payer MEDICARE | END 2020-10-20 08:46 | disposition home or self-care (01) | LOC: CATHCVL 08:04 | PROVIDERS: ATTEND Internal Medicine Infectious Disease | DX: L02.211 Cutaneous abscess of abdominal wall (principal); Z20.822 Contact with and (suspected) exposure to COVID-19 | CPT/HCPCS: 36410; 76937; 87635; C1751 ==

== ENCOUNTER 2020-10-23 08:44 | Day surgery (SDC) | payer MEDICARE ==
[2020-10-23 09:49] VITALS: BP 117/71; PULSE 74; RESP 18; TEMP 97.7
== END 2020-10-23 09:49 | disposition home or self-care (01) ==
LOC: RADPROMAIN 08:44
PROVIDERS: ATTEND Radiology Diagnostic Radiology
DX: Z43.6 Encounter for attention to other artificial openings of urinary tract (principal)
CPT/HCPCS: 99213

== ENCOUNTER 2020-10-30 10:46 | Day surgery (SDC) | payer MEDICARE ==
[2020-10-30 10:53] VITALS: BP 123/86; PULSE 81; RESP 16; TEMP 97.5
== END 2020-10-30 11:25 | disposition home or self-care (01) ==
LOC: RADPROMAIN 10:46
PROVIDERS: ATTEND Radiology Diagnostic Radiology
DX: Z43.8 Encounter for attention to other artificial openings (principal)
CPT/HCPCS: 99213

== ENCOUNTER → 2020-11-02 | Outpatient (CLI) | payer MEDICARE ==
[2020-11-02 08:35] LABS: African American GFR (CKD) >90 (>60 ml/min/1.73 sqM); Blood Urea Nitrogen 8 mg/dL (9-20); Non-African American GFR(CKD) 89 (>60 ml/min/1.73 sqM)
--- NOTE | 2020-11-02 11:50 | CT ---
EXAMINATION TYPE: CT abdomen pelvis w con DATE OF EXAM: 11/02/2020 COMPARISON: CT abdomen and pelvis 17 days ago and older studies HISTORY: Diverticulitis, large intestine with perforation, abscess CT DLP: 1906 mGycm, Automated Exposure Control for Dose Reduction was Utilized. CONTRAST: CT scan of the abdomen and pelvis is performed with oral and with IV Contrast, patient injected with 100 ml mL of Isovue 300. FINDINGS: LUNG BASES: Mild to moderate bibasilar scarring and/or atelectasis is redemonstrated. LIVER/GB: Visualized liver remains low dense suggesting fatty infiltration with benign 1.4 cm thin-wa lled cyst in the right hepatic lobe image 32 series 3 redemonstrated. PANCREAS: No significant abnormality is seen. SPLEEN: No significant abnormality is seen. ADRENALS: No significant abnormality is seen. KIDNEYS: Symmetric cortical measuring uptake and excretion without hydronephrosis. Central benign par apelvic cysts in the left kidney redemonstrated. BOWEL: Oral contrast only reaches level of terminal ileum making evaluation of distal bowel suboptima l. Persistent left sided colostomy. Persistent surgical changes in the pelvis with sutures axial imag e 81. Mild surrounding fat stranding is stable near this level. There is remnant rectal pouch. There are persistent rim-enhancing bilateral perirectal fluid collections or abscesses left-sided collectio n measures 4.8 x 2.9 cm image 95 fairly stable from most recent CT. Right-sided collection slightly s maller measuring 4.0 x 2.0 cm image 93 stable or slightly less prominent from most recent CT. Mass ef fect on the distal rectal pouch redemonstrated. PROSTATE/SEMINAL VESICLES: Stable and upper limits of normal in size. Scattered inferior and left-adriana ed pelvic phleboliths redemonstrated. LYMPH NODES: No greater than 1cm abdominal or pelvic lymph nodes are appreciated. OSSEOUS STRUCTURES: Postsurgical change L4-S1 levels redemonstrated. OTHER: Coils from ventral wall hernia repair surgery in the anterior pelvic wall redemonstrated. Ther e is vertical scar from the umbilicus extending inferiorly redemonstrated. Interval below left-sided percutaneous pigtail drainage catheter. IMPRESSION: Interval removal of percutaneous pigtail drainage catheter. Persistent bilateral pelvic a bscesses, larger left-sided abscess stable from most recent CT. The smaller right-sided abscess is sl ightly smaller from most recent CT. Persistent local mass effect redemonstrated. No new fluid collect ion or abscesses identified.
== END | disposition home or self-care (01) ==
LOC: RADCTMAIN 07:50
PROVIDERS: ATTEND Internal Medicine Infectious Disease
DX: K57.20 Diverticulitis of large intestine with perforation and abscess without bleeding (principal); Z46.82 Encounter for fitting and adjustment of non-vascular catheter
CPT/HCPCS: 82565; 84520; 74177; Q9967